=== PATIENT | female | born 1965 | race Caucasian/White ===

== ENCOUNTER 2017-07-06 15:20 | Emergency (ER) | payer OTHER, SELFPAY | END 2017-07-06 17:20 | disposition home or self-care (01) | PROVIDERS: Emergency Provider Nurse Practitioner; Family Provider Family Medicine Geriatric Medicine; Visit Provider Nurse Practitioner | DX: H60.91 Unspecified otitis externa, right ear (principal); J06.9 Acute upper respiratory infection, unspecified; Z87.891 Personal history of nicotine dependence; J44.9 Chronic obstructive pulmonary disease, unspecified; E78.5 Hyperlipidemia, unspecified; I10 Essential (primary) hypertension; I25.10 Atherosclerotic heart disease of native coronary artery without angina pectoris; Z79.82 Long term (current) use of aspirin | CPT/HCPCS: 96372; 99202 ==

== ENCOUNTER → 2017-08-30 15:11 | Outpatient (POV) | payer OTHER, SELFPAY | PROVIDERS: Family Provider Family Medicine Geriatric Medicine; Visit Provider Nurse Practitioner Acute Care | DX: Z00.00 Encounter for general adult medical examination without abnormal findings (principal) ==

== ENCOUNTER → 2017-12-17 10:55 | Outpatient (CLI) | payer OTHER, SELFPAY ==
[2017-12-17 11:25] VITALS: BP 113/70; PULSE 68; RESP 20; TEMP 36.9; O2SAT 96
[2017-12-17 12:10] VITALS: BP 116/72; PULSE 66; RESP 18; TEMP 36.9; O2SAT 96
== END ==
PROVIDERS: Family Provider Family Medicine Geriatric Medicine; PCP Family Medicine Geriatric Medicine; Visit Provider Nurse Practitioner Family
DX: K92.2 Gastrointestinal hemorrhage, unspecified (principal); D64.9 Anemia, unspecified
CPT/HCPCS: 96365

== ENCOUNTER 2017-12-28 15:19 | Outpatient (CLI) | payer OTHER, SELFPAY ==
[2017-12-28 15:40] VITALS: BP 101/62; PULSE 82; RESP 18; TEMP 36.3; O2SAT 97
[2017-12-28 16:00] VITALS: BP 125/67; PULSE 80; RESP 16; O2SAT 97
[2017-12-28 16:20] VITALS: BP 132/69; PULSE 79; RESP 18; O2SAT 96
[2017-12-28 16:45] VITALS: BP 124/68; PULSE 75; RESP 18; TEMP 36.6; O2SAT 98
== END 2017-12-28 16:45 | disposition home or self-care (01) ==
LOC: INF 15:19
PROVIDERS: Family Provider Family Medicine Geriatric Medicine; PCP Family Medicine Geriatric Medicine; Visit Provider Nurse Practitioner Family
DX: K92.2 Gastrointestinal hemorrhage, unspecified (principal); D64.9 Anemia, unspecified
CPT/HCPCS: 96365; J1756

== ENCOUNTER 2018-01-05 15:00 | Outpatient (CLI) | payer OTHER, SELFPAY ==
[2018-01-05 15:45] VITALS: BP 100/66; PULSE 80; RESP 18; TEMP 36.9; O2SAT 96
[2018-01-05 16:20] VITALS: BP 120/65; PULSE 76; RESP 16
== END 2018-01-05 16:30 | disposition home or self-care (01) ==
LOC: INF 15:12
PROVIDERS: Family Provider Family Medicine Geriatric Medicine; PCP Family Medicine Geriatric Medicine; Visit Provider Nurse Practitioner Family
DX: K92.2 Gastrointestinal hemorrhage, unspecified (principal); D64.9 Anemia, unspecified
CPT/HCPCS: 96365; J1756

== ENCOUNTER 2018-01-11 15:00 | Outpatient (CLI) | payer OTHER, SELFPAY ==
[2018-01-11 15:37] VITALS: BP 121/65; PULSE 82; RESP 18; TEMP 36.6; O2SAT 97
[2018-01-11 16:00] VITALS: BP 118/68; PULSE 79; RESP 18; TEMP 36.6; O2SAT 97
[2018-01-11 16:25] VITALS: BP 126/79; PULSE 76; RESP 16; TEMP 36.6; O2SAT 96
== END 2018-01-11 16:20 | disposition home or self-care (01) ==
LOC: INF 15:13
PROVIDERS: Family Provider Family Medicine Geriatric Medicine; PCP Family Medicine Geriatric Medicine; Visit Provider Internal Medicine
DX: K92.2 Gastrointestinal hemorrhage, unspecified (principal); D64.9 Anemia, unspecified
CPT/HCPCS: 96365; J1756

== ENCOUNTER → 2018-02-25 09:56 | Outpatient (CLI) | payer OTHER, SELFPAY ==
[2018-02-25 12:01] LABS: Alanine Aminotransferase 29 U/L (12-78); Albumin Level 3.8 gm/dL (3.4-5.0); Alkaline Phosphatase 125 U/L (46-116); Anion Gap 13.4 mEq/L (5-15); Aspartate Amino Transferase 16 U/L (15-37); Bilirubin,Direct 0.1 mg/dL (0.0-0.2); Bilirubin,Indirect 0.2 mg/dL (0.0-0.9); Bilirubin,Total 0.3 mg/dL (0.2-1.0); Blood Urea Nitrogen 11 mg/dL (7-18); Calcium 9.4 mg/dL (8.5-10.1); Carbon Dioxide 28 mmol/L (21.0-32.0); Chloride 106 mmol/L (98-107); Cholesterol 185 mg/dL (140-200); Creatinine,Serum 0.78 mg/dL (0.55-1.02); Estimated Glomerular Filt Rate 77 ml/min (>60); GFR (African American) 93 ML/MIN (>60); Glucose 113 mg/dL (74-106); HDL Cholesterol 31 mg/dL (29-89); LDL Cholesterol 128 mg/dL (0-130); Potassium 4.4 mmoL/L (3.5-5.1); Sodium 143 mmol/L (136-145); Total Protein,Serum 6.9 gm/dL (6.4-8.2); Triglycerides 131 mg/dL (30-200); VLDL Cholesterol 26 mg/dL (0-40)
== END ==
PROVIDERS: Family Provider Family Medicine Geriatric Medicine; PCP Family Medicine Geriatric Medicine; Visit Provider Internal Medicine Cardiovascular Disease
DX: I25.10 Atherosclerotic heart disease of native coronary artery without angina pectoris (principal); E78.4 Other hyperlipidemia; I10 Essential (primary) hypertension; F17.200 Nicotine dependence, unspecified, uncomplicated
CPT/HCPCS: 36415; 80048; 80061; 80076

== ENCOUNTER 2018-11-15 21:40 | Observation (INO) ==
[2018-11-15 22:05] LABS: Basophils # 0.1 K/mm3 (0-0.2); Basophils % 0.6 % (0.1-2.0); Eosinophils # 0.2 K/mm3 (0.0-0.4); Eosinophils % 2.6 % (0.1-12.0); Hematocrit 39.1 % (37.0-47.0); Hemoglobin 13.3 g/dL (12.2-16.2); Lymphocytes # 2.6 K/mm3 (0.7-4.5); Lymphocytes % 35.8 % (10-50); Mean Corpuscular HGB Conc 34.1 g/dL (31.8-35.4); Mean Corpuscular Hemoglobin 28.2 pg (27.0-31.2); Mean Corpuscular Volume 82.7 fl (81-99); Monocytes # 0.4 K/mm3 (0.1-1.0); Neutrophils # 3.9 K/mm3 (1.8-7.8); Platelet Count 257 K/mm3 (142-424); Red Blood Count 4.73 M/mm3 (4.20-5.40); Red Cell Distribution Width 13.6 % (11.5-17.5); White Blood Count 7.1 K/mm3 (4.8-10.8)
[2018-11-15 22:21] LABS: Alanine Aminotransferase 24 U/L (12-78); Albumin Level 3.7 gm/dL (3.4-5.0); Alkaline Phosphatase 130 U/L (46-116); Anion Gap 12.5 mEq/L (5-15); Aspartate Amino Transferase 17 U/L (15-37); Bilirubin,Total 0.4 mg/dL (0.2-1.0); Blood Urea Nitrogen 10 mg/dL (7-18); Carbon Dioxide 27 mmol/L (21.0-32.0); Chloride 103 mmol/L (98-107); Glucose 186 mg/dL (74-106); Potassium 3.5 mmoL/L (3.5-5.1); Sodium 139 mmol/L (136-145); Total Protein,Serum 7.5 gm/dL (6.4-8.2)
[2018-11-15 22:24] LABS: Bilirubin,Indirect 0.4 mg/dL (0.0-0.9)
--- NOTE | 2018-11-15 23:22 | Emergency Department Note ---
ED Disposition Clinical Impression: Angina at rest, Tobacco dependence syndrome CAD (coronary artery disease) Qualifiers: Coronary Disease-Associated Artery/Lesion type: unspecified vessel or lesion type [place] vs. transplanted heart: [place] heart Associated angina: with unstable angina Qualified Code(s): I25.110 - Atherosclerotic heart disease of [place] coronary artery with unstable angina pectoris Disposition: Admitted as Observation Condition on Discharge: Good Referrals: Provider,Referral, [Primary Care Provider] - - Critical Care Critical Care Time: No Attestation: On 11/15/18, the high probability of a clinically significant, sudden or life threatening deterioration of the following system(s) required my full and direct attention, intervention and personal management. The time I documented below is in addition to time spent performing reported procedures but includes the following listed in this critical care notation. Medical Decision Making - Medical Records Medical records reviewed: Yes: I reviewed the patient's medical records. - [place] Inquiry Pt receiving controlled substance: No Vital Signs: 11/15/18 21:40 11/15/18 22:40 11/15/18 23:04 Temperature 98.6 F 98.5 F 98.1 F Temperature Source Oral Oral Oral Pulse Rate [Right] 68 69 68 Respiratory Rate 20 15 16 Blood Pressure [Right Arm] 168/76 H 133/73 133/73 Blood Pressure Mean [Right Arm] 106 93 93 Blood Pressure Source [Right Arm] Automatic Cuff Blood Pressure Position [Right Arm] Sitting 02 Sat by Pulse Oximetry 97 96 96 Oxygen Delivery Method Room Air - Lab Data Lab results reviewed: Yes: I reviewed the patient's lab results. Lab Results 11/15/18 21:55: WBC 7.1, RBC 4.73, Hgb 13.3, Hct 39.1, MCV 82.7, MCH 28.2, MCHC 34.1, RDW 13.6, Plt Count 257, MPV 7.0 L, Neut % (Auto) 55.0, Lymph % (Auto) 35.8, [place] % (Auto) 6.0, Eos % (Auto) 2.6, Baso % (Auto) 0.6, Neut # (Auto) 3.9, Lymph # (Auto) 2.6, [place] # (Auto) 0.4, Eos # (Auto) 0.2, Baso # (Auto) 0.1 11/15/18 21:55: Sodium 139, Potassium 3.5, Chloride 103, Carbon Dioxide 27, Anion Gap 12.5, BUN 10, Creatinine 0.75, Estimated Creat Clear 97, Estimated GFR 81, Est GFR ( Amer) 97, Glucose 186 H, Calcium 9.0, Total Bilirubin 0.4, Direct Bilirubin 0.0, Indirect Bilirubin 0.4, AST 17, ALT 24, Alkaline Phosphatase 130 H, Troponin I < 0.02, Total Protein 7.5, Albumin 3.7 Result diagrams: 11/15/18 21:55 11/15/18 21:55 Orders (Tests/Meds): ED MEDICATIONS Generic Name Dose Route Start Last Admin Trade Name Freq PRN Reason Stop Dose Admin Sodium Chloride 1,000 mls @ 999 mls/hr 11/15/18 22:00 11/15/18 22:23 Sod Chlor 0.9% 1000ml Bag IV 11/15/18 23:00 999 mls/hr .Q1H1M MAGALI Administration Ketorolac Tromethamine 30 mg 11/15/18 23:15 Toradol 30mg/Ml Vial IV 11/15/18 23:16 ONCE ONE Nitroglycerin 1 gm 11/15/18 23:15 Nitroglycerin 1 Inch Oint Udp TD 11/15/18 23:16 ONCE ONE Discontinued Medications Generic Name Dose Route Start Last Admin Trade Name Freq PRN Reason Stop Dose Admin Aspirin 243 mg 11/15/18 21:50 11/15/18 22:23 Aspirin 81mg Chewable Tablet PO 11/15/18 21:51 243 mg ONCE ONE Administration Nitroglycerin 0.4 mg 11/15/18 21:50 Nitrostat 0.4mg Sl Tablet SL 11/15/18 21:51 ONCE ONE ORDERS Category Date Time Status 12-lead EKG Request [ECG Request by /Li] Stat Y 11/15/18 21:49 Ordered - Radiology Data #1 Image(s): Chest Image Reviewed: Yes I reviewed the patient's radiology image Preliminary Findings: Normal/NAD - ECG Data Tracing #1 Normal Sinus Rhythm: Yes Ischemic changes: non-specific ST-T wave changes - Physician Consults Physician Consulted: hernandez Reason -: Admission Chest Pain HPI - General Chief Complaint: Chest Pain Stated Complaint: chest pain Time Seen by Provider: 11/15/18 21:50 Mode of Arrival: Ambulatory Source of Information: Patient, Spouse, Medical Record Limitations: No Limitations Description of Symptoms (Recalled from ER Triage Doc. by RN): Pt having left sided CP with numbness and tingling in her left arm, with SOA for the past few days. - History of Present Illness HPI narrative: pt with known heart disease with tob use and stents 2 yrs ago with sob with exertion and chest tightness at times over the last 2 days MD complaint: chest pain indicative of cardiac Onset (ago): day(s) Duration: intermittent Activity at onset: during rest Pain location: substernal Severity: similar to previous episodes Quality: tightness Pain radiation: LUE Associated symptoms: dyspnea Risk Factors for CAD: Hypertension, Family Hx of CAD, Smoking Treatments prior to or on arrival for Cardiac Chest Pain: none - ROSHAN Score for Non-Stemi Age of Patient: 50-59 years old Heart Rate: 50-69 bpm Systolic Blood Pressure: 160-199 mmHg Serum Creatinine: 0.40-0.79 mg/dl CHF [place] Class: I-No CHF Other Risk Factors: None Non-Stemi Risk Score: 58 - Related Data Prior Cardiac Testing/Procedures: Stenting On Oral Contraceptives: No Home Medications Medication Instructions Recorded Confirmed aspirin 81 mg tablet,delayed 81 mg PO ONCE tab 08/26/17 06/17/18 release nitroglycerin 0.4 mg sublingual 0.4 mg SUBLINGUAL Q5M PRN 08/26/17 06/17/18 tablet Isosorbide Mononitrate [Imdur 30mg 30 mg PO QAM 10/13/17 06/17/18 ER tablet] omeprazole 40 mg capsule,delayed 40 mg PO DAILY cap 10/25/17 06/17/18 release Losartan Potassium [Cozaar] 50 mg PO DAILY 12/17/17 06/17/18 potassium chloride ER 8 mEq 8 meq PO BID tab 02/25/18 06/17/18 tablet,extended release Previous Rx's Medication Instructions Recorded atorvastatin 80 mg tablet 80 mg PO DAILY #30 tab 06/17/18 prasugrel 10 mg tablet 10 mg PO DAILY #30 tab 08/26/18 bisoprolol fumarate 5 mg tablet 5 mg PO ONCE #30 tab 09/09/18 Allergies Allergy/AdvReac Type Severity Reaction Status Date / Time oxycodone [OXYCODONE] Allergy Severe Swelling Verified 06/17/18 10:29 of Lip/Tongue/Throat levofloxacin [From LEVAQUIN] Allergy Intermediate Verified 06/17/18 10:29 codeine [CODEINE] Allergy Mild Verified 06/17/18 10:29 morphine [MORPHINE] Allergy Unknown Verified 06/17/18 10:29 [facility] History - Hepatitis A Screen Drug use history?: No High risk sexual behaviors?: No History of sexually transmitted infection?: No Currently employed?: No Childcare worker?: No Do you have indoor plumbing?: Yes Do you have electricity?: Yes Attestation statement:: This patient has been screened for Hepatitis A risk factors. I have reviewed the patient's past medical history: Yes Medical History: Reports:: Cancer, Chronic Obstructive Pulmonary Disease (COPD), Coronary Artery Disease, Gastroesophageal Reflux Disease(GERD), Hyperlipidemia, Hypertension Denies:: Diabetes Mellitus Type 1, Diabetes Mellitus Type 2, Internal Pacemaker, Lung Disease, Seizures Comment: AVA, Angina Laterality Cases: Left: Arthroscopy Shoulder, Right: Total Hip Replacement Other Surgeries: Yes: Angioplasty, Appendectomy, Cholecystectomy, Colonoscopy (2018), Coronary Stent, EGD (2018), Hysterectomy-Total, Tubal Ligation, Other (cholecystectomy,rhinoplasty). No: Pacemaker - Social History Smoking Status: Current every day smoker # Packs/Day (cigarettes): 1 Alcohol Intake: never Alcohol Intake Frequency:: holidays/special occasions only Occupational Status: employed - Psychiatric History Expresses thoughts of harming self/others: None Suicide Plan Description: No Plan Family Hx:: No significant family history ROS Obtained: Yes All systems reviewed & no additional complaints - Constitutional Constitutional: Denies fever(s) - Eyes Eyes: Denies change in vision - ENT Ears, Nose, Mouth, and Throat: Denies sore throat - Cardiovascular Cardiovascular: Reports chest pain, Denies dyspnea, Reports dyspnea on exertion - Respiratory Respiratory: Yes non-productive cough, Yes wheezing - Gastrointestinal Gastrointestingal: Denies: vomiting - Genitourinary Female Genitourinary: Denies flank pain - Musculoskeletal Musculoskeletal: Denies joint pain, Denies joint swelling - Integumentary/Breasts Skin/Breast: Denies rash - Neurologic Neurologic: Denies seizure-like activity Physical Exam - General General appearance: alert - Head Head exam: normocephalic - Eye Eye exam: Present: PERRL, EOMI - ENT ENT exam: Present: mucous membranes dry - Neck Neck exam: Absent: trachea midline - Respiratory Respiratory exam: Present: normal lung sounds bilaterally. Absent: respiratory distress - Cardiovascular Cardiovascular exam: Present: regular rate, systolic murmur, +S4 - Abdominal Exam Abdominal exam: Present: soft - Extremities Exam Extremities exam: Absent: calf tenderness - Neurological Exam Neurological exam: Present: alert, oriented X3, CN II-XII intact - Psychiatric Psychiatric exam: Present: normal affect - Skin Skin exam: Absent: rash
[2018-11-16 05:38] LABS: Basophils # 0.1 K/mm3 (0-0.2); Basophils % 0.9 % (0.1-2.0); Eosinophils # 0.2 K/mm3 (0.0-0.4); Eosinophils % 2.6 % (0.1-12.0); Hematocrit 36.6 % (37.0-47.0); Hemoglobin 12.5 g/dL (12.2-16.2); Lymphocytes # 2.4 K/mm3 (0.7-4.5); Lymphocytes % 41.7 % (10-50); Mean Corpuscular Hemoglobin 28.3 pg (27.0-31.2); Mean Corpuscular Volume 83.1 fl (81-99); Mean Platelet Volume 7.8 fl (7.4-10.4); Monocytes # 0.4 K/mm3 (0.1-1.0); Monocytes % 6.7 % (1.7-9.3); Neutrophils # 2.8 K/mm3 (1.8-7.8); Neutrophils % 48.1 % (37.0-80.0); Platelet Count 237 K/mm3 (142-424); Red Blood Count 4.41 M/mm3 (4.20-5.40); Red Cell Distribution Width 13.5 % (11.5-17.5); White Blood Count 5.8 K/mm3 (4.8-10.8)
[2018-11-16 05:57] LABS: Anion Gap 9.5 mEq/L (5-15); Calcium 8.4 mg/dL (8.5-10.1); Chol/HDL Ratio 6.2 (1-3.5); Potassium 3.5 mmoL/L (3.5-5.1)
--- NOTE | 2018-11-16 07:45 | History & Physical Report ---
*Admission Date: 11/16/18 *Chief complaint: Left upper chest and arm pain *History of present illness: 53-year-old female with history of coronary artery disease and previous stenting in 2017 presented to the emergency department with 2 to 3 days of intermittent episodes of discomfort in the left upper chest with tingling that radiating into the left shoulder all the way down to the fingers. She also experienced same discomfort across the left side of her back. She had associated dyspnea. Patient had minimized her symptoms until yesterday when they became more intense and she admits they were somewhat reminiscent of her "heart attack" previously and came to the emergency department. In the ER she underwent evaluation. First troponin was negative. Patient was admitted for rule out of VT with serial enzymes and cardiology has been consulted as patient's oil changer is Dr. Lee. This morning she is pain-free. She denies shortness of breath. She continues to smoke about 1-1/2 pack of cigarettes per day [facility] History I have reviewed the patient's past medical history: Yes Medical History: Reports:: Cancer, Chronic Obstructive Pulmonary Disease (COPD), Coronary Artery Disease, Gastroesophageal Reflux Disease(GERD), Hyperlipidemia, Hypertension, Myocardial Infarction Denies:: Diabetes Mellitus Type 1, Diabetes Mellitus Type 2, Internal Pacemaker, Lung Disease, MRSA, Seizures *Have you ever received a pneumonia vaccine?: No *Have you received a flu vaccine this season?: Yes Laterality Cases: Left: Arthroscopy Shoulder, Right: Total Hip Replacement Other Surgeries: Yes: Angioplasty, Appendectomy, Cardiac Catheterization, Cholecystectomy, Colonoscopy, Coronary Stent, EGD (2018), Hysterectomy-Total, Tubal Ligation, Other. No: Pacemaker Amputation: No Fractures: No - *Social History Educational Level: Attended College Smoking Status: Current every day smoker Tobacco Type: cigarettes # Packs/Day (cigarettes): 1 Alcohol Intake: never Alcohol Intake Frequency:: holidays/special occasions only *Occupational Status:: employed Household Members: spouse *Travel in the last 8 weeks: None - Psychiatric History Expresses thoughts of harming self/others: None Suicide Plan Description: No Plan Family Hx:: No significant family history Review of Systems - Review of Systems Review of systems:: pertinent systems reviewed and negative unless documented below - *Neurologic Denies seizure-like activity Meds Home Medications Medication Instructions Recorded Confirmed Type aspirin 81 mg tablet,delayed 81 mg PO DAILY tab 08/26/17 11/16/18 History release Isosorbide Mononitrate [Imdur 30mg 30 mg PO DAILY 10/13/17 11/16/18 History ER tablet] omeprazole 40 mg capsule,delayed 40 mg PO DAILY cap 10/25/17 11/15/18 History release Losartan Potassium [Cozaar] 50 mg PO DAILY 12/17/17 11/15/18 History prasugrel 10 mg tablet 10 mg PO DAILY #30 tab 08/26/18 11/15/18 Rx Bisoprolol Fumarate [Zebeta 5mg 5 mg PO DAILY 11/15/18 11/16/18 History tablet] Atorvastatin Calcium [Atorvastatin 80 mg PO HS 11/16/18 11/16/18 History 80mg Tab] Allergies Allergy/AdvReac Type Severity Reaction Status Date / Time oxycodone [OXYCODONE] Allergy Severe Swelling Verified 06/17/18 10:29 of Lip/Tongue/Throat levofloxacin [From LEVAQUIN] Allergy Intermediate Verified 06/17/18 10:29 codeine [CODEINE] Allergy Mild Verified 06/17/18 10:29 morphine [MORPHINE] Allergy Unknown Verified 06/17/18 10:29 Exam Vital signs and Labs for Last 24 Hours: Temp Pulse Resp BP Pulse Ox 97.3 F L 59 L 20 135/68 97 11/16/18 04:00 11/16/18 04:00 11/16/18 04:00 11/16/18 04:00 11/16/18 04:00 Laboratory Results - last 24 hr 11/15/18 21:55: WBC 7.1, RBC 4.73, Hgb 13.3, Hct 39.1, MCV 82.7, MCH 28.2, MCHC 34.1, RDW 13.6, Plt Count 257, MPV 7.0 L, Neut % (Auto) 55.0, Lymph % (Auto) 35.8, [place] % (Auto) 6.0, Eos % (Auto) 2.6, Baso % (Auto) 0.6, Neut # (Auto) 3.9, Lymph # (Auto) 2.6, [place] # (Auto) 0.4, Eos # (Auto) 0.2, Baso # (Auto) 0.1 11/15/18 21:55: Sodium 139, Potassium 3.5, Chloride 103, Carbon Dioxide 27, Anion Gap 12.5, BUN 10, Creatinine 0.75, Estimated Creat Clear 97, Estimated GFR 81, Est GFR ( Amer) 97, Glucose 186 H, Calcium 9.0, Total Bilirubin 0.4, Direct Bilirubin 0.0, Indirect Bilirubin 0.4, AST 17, ALT 24, Alkaline Phosphatase 130 H, Troponin I < 0.02, Total Protein 7.5, Albumin 3.7 11/16/18 02:37: Troponin I < 0.02 11/16/18 05:32: Troponin I < 0.02 11/16/18 05:32: WBC 5.8, RBC 4.41, Hgb 12.5, Hct 36.6 L, MCV 83.1, MCH 28.3, MCHC 34.0, RDW 13.5, Plt Count 237, MPV 7.8, Neut % (Auto) 48.1, Lymph % (Auto) 41.7, [place] % (Auto) 6.7, Eos % (Auto) 2.6, Baso % (Auto) 0.9, Neut # (Auto) 2.8, Lymph # (Auto) 2.4, [place] # (Auto) 0.4, Eos # (Auto) 0.2, Baso # (Auto) 0.1 11/16/18 05:32: Sodium 140, Potassium 3.5, Chloride 107, Carbon Dioxide 27, Anion Gap 9.5, BUN 11, Creatinine 0.66, Estimated Creat Clear 109, Estimated GFR 93, Est GFR ( Amer) 113, Glucose 111 H D, Calcium 8.4 L, Magnesium 2.0, Triglycerides 101, Cholesterol 161, LDL Cholesterol 115, VLDL Cholesterol 20, HDL Cholesterol 26 L, Cholesterol/HDL Ratio 6.2 H I & O for Last 24 hours: Intake & Output 11/13/18 11/14/18 11/15/18 11/16/18 11:59 11:59 11:59 11:59 Intake Total 263 / 263 Balance 263 / 263 Weight 156 lb 5 oz - Constitutional no acute distress - *Routine HEENT Exam Head: Present: normocephalic Eye: Present: EOMI, PERRL ENT: Present: mucous membranes moist - *Routine Neck Exam Absent: JVD - *Routine Respiratory Exam Present: CTA bilaterally - *Routine Cardiovascular Exam Present: RRR, Normal S1, Normal S2 - *Routine Abdominal Exam Present: soft - *Routine Extremities Exam Absent: clubbing, edema Assessment and Plan (1) Angina at rest Current visit: Yes Status: Acute Category: Medical Code(s): I20.8 - Other forms of angina pectoris (2) CAD (coronary artery disease) Current visit: Yes Status: Acute Qualifiers: Coronary Disease-Associated Artery/Lesion type: unspecified vessel or lesion type [place] vs. transplanted heart: [place] heart Associated angina: with unstable angina Qualified Code(s): I25.110 - Atherosclerotic heart disease of [place] coronary artery with unstable angina pectoris Category: Medical Code(s): I25.10 - Atherosclerotic heart disease of [place] coronary artery without angina pectoris (3) Tobacco dependence syndrome Current visit: Yes Status: Acute Category: Medical Code(s): F17.200 - [place] dependence, unspecified, uncomplicated - Assessment and plan all Dx Assessment and Plan for all problems:: Patient is ruled out for VT. Await cardiology evaluation
--- NOTE | 2018-11-16 07:56 | Pharmacy Consult Notes ---
[facility] Pharmacy VTE Monitoring - Patient Demographics Admission date: 11/15/18 Report Date: 11/16/18 Time: 07:55 Allergies/Adverse Reactions: Patient Allergies oxycodone [OXYCODONE] Allergy (Severe, Verified 06/17/18 10:29) Swelling of Lip/Tongue/Throat levofloxacin [From LEVAQUIN] Allergy (Intermediate, Verified 06/17/18 10:29) codeine [CODEINE] Allergy (Mild, Verified 06/17/18 10:29) morphine [MORPHINE] Allergy (Unknown, Verified 06/17/18 10:29) Height: 1.6 m Weight: 70.902 kg Patient Problems: Current Active Problems (Updated 11/15/18 @ 23:28 by Hari Holliday MD) CAD (coronary artery disease) (Acute) Angina at rest (Acute) Tobacco dependence syndrome (Acute) - VTE Risk Labs: VTE Related Lab Results Hgb 12.5 g/dL (12.2-16.2) 11/16/18 05:32 Hct 36.6 % (37.0-47.0) L 11/16/18 05:32 Plt Count 237 K/mm3 (142-424) 11/16/18 05:32 BUN 11 mg/dL (7-18) 11/16/18 05:32 Creatinine 0.66 mg/dL (0.55-1.02) 11/16/18 05:32 Estimated Creat Clear 109 mL/min (50-200) 11/16/18 05:32 Was VTE Risk Assessment Performed: Yes VTE Score: 5 VTE Risk Level: Low Risk Clinical Trial Participant: No - Prophylaxis VTE Prophylaxis Ordered?: Yes Types of VTE Prophylaxis: TEDS Knee High Location of Applied Device: Not Applicable
--- NOTE | 2018-11-16 09:32 | Consult Report ---
History of Present Illness Consult date: 11/16/18 Requesting physician: Aman Santos Consult reason: chest pain Chief complaint: chest pain Additional Medical History:: 1. CAD A. History of [place] with subsequent coronary stenting, 2011 B. Positive stress test, 2013, with subsequent cath without need for stenting but reportedly had some CAD. Performed in [place], Dr. Benny Porter [facility], 10/2016, JAY to LAD ANGIOGRAPHIC RESULTS: 1. The left main artery normal 2. The left anterior descending artery proximally is normal however there is a 50% diameter stenosis after the second septal nozzle and sleeve worker followed by an additional 30% stenosis. 3. The circumflex artery is nondominant and has mild luminal irregularities 4. The right coronary artery is a dominant vessel and has a stent which extends from the proximal segment all the way through the distal segment. The stent has mild to moderate 30% concentric in-stent restenosis. 5. The FRANKS ventriculogram reveals normal 65% 6. The left ventricular end-diastolic pressure 10 mmHg IMPRESSION: 1. Angiographically indeterminate disease involving the mid LAD which produced a severe ischemic response to adenosine with an FFR index of at least 0.73 2. Successful stenting of the mid LAD hemodynamically severe stenosis reduced to 0% with 1 drug-eluting stent 3. Patent stents throughout the proximal mid distal dominant right coronary artery with mild in-stent restenosis 4. Normal ejection fraction 5. Normal left ventricular end-diastolic pressure PLAN: 1. Effient and aspirin for one year 2. LDL less than 70 3. Standard risk factor stratification D. Lexiscan myoview, 05/2017, No ischemia, LVEF 62% with no wall motion abnormalities. 2. HTN A. Echo, 05/2017, mild left atrial enlargement, normal LV size and function of 55% with mild concentric LVH. Aortic valve is thickened and calcified but normal mobility. Moderate aortic regurgitation, mild MR and TR. RVSP 38 mmHg with mild pulmonary hypertension and grade 1 diastolic dysfunction. 3. Hyperlipidemia, reportedly can only tolerate [place] 4. FH of CAD, mother with stents in her 50's 5. Tobacco use, 1 ppd, continued 6. AVA, uses CPAP History of present illness: 53-year-old female with history of coronary artery disease and previous stenting in 2016 presented to the emergency department with 2 to 3 days of intermittent episodes of discomfort in the left upper chest with tingling that radiating into the left shoulder all the way down to the fingers. She also experienced same discomfort across the left side of her back. She had associated dyspnea. Patient had minimized her symptoms until yesterday when they became more intense and she admits they were somewhat reminiscent of her "heart attack" previously and came to the emergency department. In the ER she underwent evaluation. First troponin was negative. Patient was admitted for rule out of [place] with serial enzymes and cardiology has been consulted as patient's senior manufacturing supervisor is Dr. Lee. This morning she is pain-free. She denies shortness of breath. She continues to smoke about 1-1/2 pack of cigarettes per day The above per Dr. Santos. Agree with above. Patient relates that she received significant relief using nitroglycerin paste in the ER last evening and she has had no recurrence of chest pain overnight. [facility] History Medical History: Reports:: Cancer, Chronic Obstructive Pulmonary Disease (COPD), Coronary Artery Disease, Gastroesophageal Reflux Disease(GERD), Hyperlipidemia, Hypertension, Myocardial Infarction Denies:: Diabetes Mellitus Type 1, Diabetes Mellitus Type 2, Internal Pacemaker, Lung Disease, MRSA, Seizures *Have you ever received a pneumonia vaccine?: No *Have you received a flu vaccine this season?: Yes Laterality Cases: Left: Arthroscopy Shoulder, Right: Total Hip Replacement Other Surgeries: Yes: Angioplasty, Appendectomy, Cardiac Catheterization, Cholecystectomy, Colonoscopy, Coronary Stent, EGD (2018), Hysterectomy-Total, Tubal Ligation, Other. No: Pacemaker Amputation: No Fractures: No - *Social History Educational Level: Attended College Smoking Status: Current every day smoker Tobacco Type: cigarettes # Packs/Day (cigarettes): 1 Alcohol Intake: never Alcohol Intake Frequency:: holidays/special occasions only *Occupational Status:: employed Household Members: spouse *Travel in the last 8 weeks: None - Psychiatric History Expresses thoughts of harming self/others: None Suicide Plan Description: No Plan Family Hx:: No significant family history Meds Home Medications Medication Instructions Recorded Confirmed Type aspirin 81 mg tablet,delayed 81 mg PO DAILY tab 08/26/17 11/16/18 History release Isosorbide Mononitrate [Imdur 30mg 30 mg PO DAILY 10/13/17 11/16/18 History ER tablet] omeprazole 40 mg capsule,delayed 40 mg PO DAILY cap 10/25/17 11/15/18 History release Losartan Potassium [Cozaar] 50 mg PO DAILY 12/17/17 11/15/18 History prasugrel 10 mg tablet 10 mg PO DAILY #30 tab 08/26/18 11/15/18 Rx Bisoprolol Fumarate [Zebeta 5mg 5 mg PO DAILY 11/15/18 11/16/18 History tablet] Atorvastatin Calcium [Atorvastatin 80 mg PO HS 11/16/18 11/16/18 History 80mg Tab] Allergies Allergy/AdvReac Type Severity Reaction Status Date / Time oxycodone [OXYCODONE] Allergy Severe Swelling Verified 06/17/18 10:29 of Lip/Tongue/Throat levofloxacin [From LEVAQUIN] Allergy Intermediate Verified 06/17/18 10:29 codeine [CODEINE] Allergy Mild Verified 06/17/18 10:29 morphine [MORPHINE] Allergy Unknown Verified 06/17/18 10:29 Review of Systems - *Cardiovascular Reports chest pain, Reports shortness of breath with activity - *Respiratory Reports chest congestion, Reports cough, Reports shortness of breath with activity - *Gastrointestinal Denies loose stools, Denies nausea, Denies vomiting - *Genitourinary Denies blood in urine, Denies pelvic pain - *Musculoskeletal Denies joint pain, Denies back pain - *Neurologic Denies seizure-like activity Exam Vital signs and Labs for Last 24 Hours: Temp Pulse Resp BP Pulse Ox 98.4 F 64 16 127/67 97 11/16/18 08:00 11/16/18 08:00 11/16/18 08:00 11/16/18 08:00 11/16/18 08:00 Laboratory Results - last 24 hr 11/15/18 21:55: WBC 7.1, RBC 4.73, Hgb 13.3, Hct 39.1, MCV 82.7, MCH 28.2, MCHC 34.1, RDW 13.6, Plt Count 257, MPV 7.0 L, Neut % (Auto) 55.0, Lymph % (Auto) 35.8, [place] % (Auto) 6.0, Eos % (Auto) 2.6, Baso % (Auto) 0.6, Neut # (Auto) 3.9, Lymph # (Auto) 2.6, [place] # (Auto) 0.4, Eos # (Auto) 0.2, Baso # (Auto) 0.1 11/15/18 21:55: Sodium 139, Potassium 3.5, Chloride 103, Carbon Dioxide 27, Anion Gap 12.5, BUN 10, Creatinine 0.75, Estimated Creat Clear 97, Estimated GFR 81, Est GFR ( Amer) 97, Glucose 186 H, Calcium 9.0, Total Bilirubin 0.4, Direct Bilirubin 0.0, Indirect Bilirubin 0.4, AST 17, ALT 24, Alkaline Phosphatase 130 H, Troponin I < 0.02, Total Protein 7.5, Albumin 3.7 11/16/18 02:37: Troponin I < 0.02 11/16/18 05:32: Troponin I < 0.02 11/16/18 05:32: WBC 5.8, RBC 4.41, Hgb 12.5, Hct 36.6 L, MCV 83.1, MCH 28.3, MCHC 34.0, RDW 13.5, Plt Count 237, MPV 7.8, Neut % (Auto) 48.1, Lymph % (Auto) 41.7, [place] % (Auto) 6.7, Eos % (Auto) 2.6, Baso % (Auto) 0.9, Neut # (Auto) 2.8, Lymph # (Auto) 2.4, [place] # (Auto) 0.4, Eos # (Auto) 0.2, Baso # (Auto) 0.1 11/16/18 05:32: Sodium 140, Potassium 3.5, Chloride 107, Carbon Dioxide 27, Anion Gap 9.5, BUN 11, Creatinine 0.66, Estimated Creat Clear 109, Estimated GFR 93, Est GFR ( Amer) 113, Glucose 111 H D, Calcium 8.4 L, Magnesium 2.0, Triglycerides 101, Cholesterol 161, LDL Cholesterol 115, VLDL Cholesterol 20, HDL Cholesterol 26 L, Cholesterol/HDL Ratio 6.2 H I & O for Last 24 hours: Intake & Output 11/13/18 11/14/18 11/15/18 11/16/18 11:59 11:59 11:59 11:59 Intake Total 263 / 263 Balance 263 / 263 Weight 156 lb 5 oz - *Routine HEENT Exam Head: Present: normocephalic Eye: Present: EOMI, PERRL ENT: Present: mucous membranes moist - *Routine Neck Exam Present: supple. Absent: JVD, carotid bruit - *Routine Respiratory Exam Present: decreased breath sounds, wheezes. Absent: accessory muscle use, rales, rhonchi - *Routine Cardiovascular Exam Present: RRR. Absent: murmur, gallop, rubs - *Routine Abdominal Exam Present: soft. Absent: tenderness, distended, guarding - *Routine Extremities Exam Absent: edema, calf tenderness - *Routine Neurological Exam Present: alert, oriented X3, moving all extremities Assessment and Plan (1) Angina at rest Current visit: Yes Status: Acute Category: Medical Code(s): I20.8 - Other forms of angina pectoris (2) CAD (coronary artery disease) Current visit: Yes Status: Acute Qualifiers: Coronary Disease-Associated Artery/Lesion type: unspecified vessel or lesion type [place] vs. transplanted heart: [place] heart Associated angina: with unstable angina Qualified Code(s): I25.110 - Atherosclerotic heart disease of [place] coronary artery with unstable angina pectoris Category: Medical Code(s): I25.10 - Atherosclerotic heart disease of [place] coronary artery without angina pectoris (3) Tobacco dependence syndrome Current visit: Yes Status: Acute Category: Medical Code(s): F17.200 - Nicotine dependence, unspecified, uncomplicated - Assessment and plan all Dx Assessment and Plan for all problems:: 1. Recurrent chest pain reminiscent of angina pectoris prior to previous coronary stenting's in the past. Troponins have returned and EKG is sinus with no acute ST segment changes. Recommend proceeding with left heart catheterization today for further evaluation. Risks, benefits and procedure explained to the patient and she agrees to proceed. 2. Further recommendations to follow pending above results. 3. Smoking cessation encouraged
--- NOTE | 2018-11-16 16:39 | Discharge Summary ---
General - General Admission date:: 11/16/18 Discharge date: 11/16/18 HPI HPI: 53-year-old female with history of coronary artery disease and previous stenting in 2017 presented to the emergency department with 2 to 3 days of intermittent episodes of discomfort in the left upper chest with tingling that radiating into the left shoulder all the way down to the fingers. She also experienced same discomfort across the left side of her back. She had associated dyspnea. Patient had minimized her symptoms until yesterday when they became more intense and she admits they were somewhat reminiscent of her "heart attack" previously and came to the emergency department. In the ER she underwent evaluation. First troponin was negative. Patient was admitted for rule out of [place] with serial enzymes and cardiology has been consulted as patient's release specialist is Dr. Lee. This morning she is pain-free. She denies shortness of breath. She continues to smoke about 1-1/2 pack of cigarettes per day Hospital Course Hospital Course: Cardiac catheterization was performed and it was found that patient has mid to distal LAD stenosis (beyond LAD stent) of 70% and ostial disease of small diagonal with elevation LVEDP. Cardiology recommends diuretic therapy (lasix and aldactone) in addition to continued use of DAPT and beta salbador therapy. If patient continues to illicit issues of angina coronary stenting will be considered at that time. Patient will follow up with PCP next week. Will perform BMP with this visit. She will follow up cardiology in 1-2 weeks. Objective Vital signs: Temp Pulse Resp BP Pulse Ox 97.9 F 62 15 138/72 96 11/16/18 11:23 11/16/18 15:58 11/16/18 15:58 11/16/18 15:58 11/16/18 15:58 no acute distress, average body habitus - *Routine Respiratory Exam Present: CTA bilaterally. Absent: accessory muscle use - *Routine Cardiovascular Exam Present: RRR, Normal S1, Normal S2. Absent: tachycardia, irregular rhythm - *Routine Abdominal Exam Present: soft, normoactive bowel sounds - *Routine Extremities Exam Comments: right radial tband noted, no ecchymosis, swelling, or cyanosis noted, < 3 sec cap refill, fingers pink and warm - *Routine Neurological Exam Present: alert, oriented X3 - Routine Psychiatric Exam Present: normal affect Results Labs on day of discharge: Labs from last 24 hours 11/16/18 11/16/18 11/16/18 05:32 05:32 05:32 WBC 5.8 RBC 4.41 Hgb 12.5 Hct 36.6 L MCV 83.1 MCH 28.3 MCHC 34.0 RDW 13.5 Plt Count 237 MPV 7.8 Neut % (Auto) 48.1 Lymph % (Auto) 41.7 [place] % (Auto) 6.7 Eos % (Auto) 2.6 Baso % (Auto) 0.9 Neut # (Auto) 2.8 Lymph # (Auto) 2.4 [place] # (Auto) 0.4 Eos # (Auto) 0.2 Baso # (Auto) 0.1 Sodium 140 Potassium 3.5 Chloride 107 Carbon Dioxide 27 Anion Gap 9.5 BUN 11 Creatinine 0.66 Estimated Creat Clear 109 Estimated GFR 93 Est GFR ( Amer) 113 Glucose 111 H D Calcium 8.4 L Magnesium 2.0 Total Bilirubin Direct Bilirubin Indirect Bilirubin AST ALT Alkaline Phosphatase Troponin I < 0.02 Total Protein Albumin Triglycerides 101 Cholesterol 161 LDL Cholesterol 115 VLDL Cholesterol 20 HDL Cholesterol 26 L Cholesterol/HDL Ratio 6.2 H 11/16/18 11/15/18 11/15/18 02:37 21:55 21:55 WBC 7.1 RBC 4.73 Hgb 13.3 Hct 39.1 MCV 82.7 MCH 28.2 MCHC 34.1 RDW 13.6 Plt Count 257 MPV 7.0 L Neut % (Auto) 55.0 Lymph % (Auto) 35.8 [place] % (Auto) 6.0 Eos % (Auto) 2.6 Baso % (Auto) 0.6 Neut # (Auto) 3.9 Lymph # (Auto) 2.6 [place] # (Auto) 0.4 Eos # (Auto) 0.2 Baso # (Auto) 0.1 Sodium 139 Potassium 3.5 Chloride 103 Carbon Dioxide 27 Anion Gap 12.5 BUN 10 Creatinine 0.75 Estimated Creat Clear 97 Estimated GFR 81 Est GFR ( Amer) 97 Glucose 186 H Calcium 9.0 Magnesium Total Bilirubin 0.4 Direct Bilirubin 0.0 Indirect Bilirubin 0.4 AST 17 ALT 24 Alkaline Phosphatase 130 H Troponin I < 0.02 < 0.02 Total Protein 7.5 Albumin 3.7 Triglycerides Cholesterol LDL Cholesterol VLDL Cholesterol HDL Cholesterol Cholesterol/HDL Ratio DS: Diagnosis - Discharge Diagnosis (1) Angina at rest Status: Acute (2) CAD (coronary artery disease) Status: Acute (3) Tobacco dependence syndrome Status: Acute Discharge Plan - Patient Discharge Instructions ACTIVITY: Continue current activity DIET: low salt diet, cardiac - Follow up Plan Follow up with: Maxine Bills APRN [Nurse Practitioner] - 11/24/18 1:00 pm Disposition: Home, Self-Shelter Medications: Home Medications Medication Instructions Recorded Confirmed Type aspirin 81 mg tablet,delayed 81 mg PO DAILY tab 08/26/17 11/16/18 History release Isosorbide Mononitrate [Imdur 30mg 30 mg PO DAILY 10/13/17 11/16/18 History ER tablet] omeprazole 40 mg capsule,delayed 40 mg PO DAILY cap 10/25/17 11/15/18 History release Losartan Potassium [Cozaar] 50 mg PO DAILY 12/17/17 11/15/18 History prasugrel 10 mg tablet 10 mg PO DAILY #30 tab 08/26/18 11/15/18 Rx Bisoprolol Fumarate [Zebeta 5mg 5 mg PO DAILY 11/15/18 11/16/18 History tablet] Atorvastatin Calcium [Atorvastatin 80 mg PO HS 11/16/18 11/16/18 History 80mg Tab] Furosemide [Lasix 40mg tablet] 40 mg PO DAILY 30 Days #30 tab 11/16/18 Rx Polyethylene Glycol 3350 [Miralax 17 gm PO DAILY 11/16/18 11/16/18 History Powder] Psyllium Husk [Konsyl] 300 gm PO DIRECTED 11/16/18 11/16/18 History Spironolactone [Aldactone 25mg 25 mg PO DAILY 30 Days #30 tab 11/16/18 Rx Tab] Prescriptions/Medication Reconciliation: New Spironolactone [Aldactone 25mg Tab] 25 mg PO DAILY 30 Days #30 tab Furosemide [Lasix 40mg tablet] 40 mg PO DAILY 30 Days #30 tab Continued omeprazole 40 mg capsule,delayed release 40 mg PO DAILY cap aspirin 81 mg tablet,delayed release 81 mg PO DAILY tab prasugrel 10 mg tablet 10 mg PO DAILY #30 tab Isosorbide Mononitrate [Imdur 30mg ER tablet] 30 mg PO DAILY Losartan Potassium [Cozaar] 50 mg PO DAILY Bisoprolol Fumarate [Zebeta 5mg tablet] 5 mg PO DAILY Atorvastatin Calcium [Atorvastatin 80mg Tab] 80 mg PO HS Psyllium Husk [Konsyl] 300 gm PO DIRECTED Polyethylene Glycol 3350 [Miralax Powder] 17 gm PO DAILY
--- NOTE | 2018-11-17 14:25 | Cardiology Report ---
PROCEDURE: 2-D M-mode and color Doppler study INDICATIONS FOR THE TEST: Chest pain + COPD+ Heart Murmur Tobacco Smoking+ Palpitations Fatigue Syncope Edema Hypertension+Diabetes Mellitus Rheumatic Fever SOB+HERNANDEZ Obesity Hyperlipidemia+ Family History HD Additional History STENTS, CA, GERD, AVA PATIENT INFORMATION HEIGHT: 63 WEIGHT:158 GENDER: Female B/P:133/73 2-D/M-MODE INTERPRETATION: 2-D MEASUREMENTS OBSERVED VALUES IN CMS Right Ventricular Dimension (RVDd) 2.3 Interventricular Septum (Thickness)(IVsd) 1.5 Left Ventricular Internal Dimensions(LVIDd) 4.7 Left Ventricular Posterior Wall (Thickness)(LVPWd) 0.8 Aortic Root 3.0 Aortic Cusp Separation 2.0 Left Atrial Dimensions (LAD) 3.9 2D 1. Left atrium is mildly enlarged, left ventricle is normal size mild concentric left ventricular hypertrophy, showing estimated ejection fraction of 50%, there appears to be moderate hypokinesis involving the inferobasal wall. 2. The right atrium and right ventricle are mildly enlarged with normal contractility. 3. The aortic valve is minimally thickened and fibrosed. 4. The mitral and tricuspid valve leaflets are minimally thickened. 5. The pulmonic valve is poorly A 6. No significant pericardial effusion noted. DOPPLER INTERROGATION: 1. The aortic outflow velocities within normal range, there is no aortic stenosis, there is moderate to severe aortic insufficiency present. 2. The mitral inflow velocities within normal range, there is no mitral stenosis, there is moderate to severe mitral regurgitation. 3. There is mild tricuspid regurgitation noted, calculated right ventricular systolic pressure is 42 mmHg consistent with moderate pulmonary hypertension. Inferior vena cava is not well visualized. 4. Grade 1 diastolic dysfunction seen with tissue Doppler evidence of raised left atrial pressure. CONCLUSION: 1. Mildly enlarged left atrium, normal left ventricular size, mild concentric left ventricular hypertrophy, visually estimated ejection fraction 50% with segmental wall motion abnormality described above. Grade 1 diastolic dysfunction seen with tissue Doppler evidence of raised left atrial pressure. 2. Mildly enlarged right ventricle with normal contractility. 3. Moderate to severe mitral regurgitation 4. Moderate to severe aortic insufficiency. 5. Mild tricuspid regurgitation, calculated right ventricular systolic pressure 42 mmHg consistent with moderate pulmonary hypertension, inferior vena cava is not well visualized. 6. If clinically indicated transesophageal echocardiogram is recommended to assess the aortic and mitral valve.
== END 2018-11-16 18:54 | disposition home or self-care (01) ==
LOC: 2ND 21:40 → ER 21:40 → 2ND 11-16 00:23
PROVIDERS: ADMIT Internal Medicine Adolescent Medicine; ATTEND Family Medicine
CPT/HCPCS: 36415; 71020; 71046; 80048; 80061; 80076; 83735; 84484; 85025; 93005; 93306; 93458; 96365; 96375; 99152; 99284; C1725; C1769; G0378; J1644

== ENCOUNTER → 2018-11-25 12:56 | Outpatient (CLI) | payer OTHER, SELFPAY ==
[2018-11-25 14:10] LABS: Anion Gap 14.2 mEq/L (5-15); Blood Urea Nitrogen 13 mg/dL (7-18); Carbon Dioxide 27 mmol/L (21.0-32.0); Chloride 99 mmol/L (98-107); Creatinine,Serum 0.71 mg/dL (0.55-1.02); Estimated Glomerular Filt Rate 86 ml/min (>60); GFR (African American) 104 ML/MIN (>60); Glucose 179 mg/dL (74-106); Potassium 3.2 mmoL/L (3.5-5.1); Sodium 137 mmol/L (136-145)
== END ==
PROVIDERS: Visit Provider Internal Medicine Cardiovascular Disease
DX: R06.02 Shortness of breath (principal); I25.110 Atherosclerotic heart disease of native coronary artery with unstable angina pectoris; R07.89 Other chest pain; Z95.5 Presence of coronary angioplasty implant and graft
CPT/HCPCS: 36415; 80048; 83880

== ENCOUNTER 2019-03-06 22:14 | Observation (INO) ==
[2019-03-06 22:31] LABS: Basophils # 0.1 K/mm3 (0-0.2); Basophils % 0.7 % (0.1-2.0); Eosinophils # 0.2 K/mm3 (0.0-0.4); Eosinophils % 1.8 % (0.1-12.0); Hematocrit 33.8 % (37.0-47.0); Hemoglobin 11.1 g/dL (12.2-16.2); Lymphocytes # 2.9 K/mm3 (0.7-4.5); Lymphocytes % 32.2 % (10-50); Mean Corpuscular HGB Conc 32.8 g/dL (31.8-35.4); Mean Corpuscular Volume 87.4 fl (81-99); Mean Platelet Volume 6.8 fl (7.4-10.4); Monocytes # 0.6 K/mm3 (0.1-1.0); Monocytes % 6.2 % (1.7-9.3); Neutrophils # 5.2 K/mm3 (1.8-7.8); Platelet Count 329 K/mm3 (142-424); Red Blood Count 3.87 M/mm3 (4.20-5.40); Red Cell Distribution Width 14.5 % (11.5-17.5); White Blood Count 8.9 K/mm3 (4.8-10.8)
[2019-03-06 22:44] LABS: Anion Gap 12.8 mEq/L (5-15); Blood Urea Nitrogen 11 mg/dL (7-18); Calcium 9.8 mg/dL (8.5-10.1); Carbon Dioxide 30 mmol/L (21.0-32.0); Chloride 98 mmol/L (98-107); Glucose 143 mg/dL (74-106); Sodium 138 mmol/L (136-145)
--- NOTE | 2019-03-06 23:02 | Emergency Department Note ---
ED Disposition Clinical Impression: Near syncope, Tobacco use, Hypokalemia Chest pain Qualifiers: Chest pain type: precordial pain Qualified Code(s): R07.2 - Precordial pain Disposition: Admitted as Observation Condition on Discharge: Good - Critical Care Critical Care Time: No Attestation: On 03/06/19, the high probability of a clinically significant, sudden or life threatening deterioration of the following system(s) required my full and direct attention, intervention and personal management. The time I documented below is in addition to time spent performing reported procedures but includes the following listed in this critical care notation. Medical Decision Making - Medical Records Medical records reviewed: Yes: I reviewed the patient's medical records. - [place]aja Inquiry Pt receiving controlled substance: No Vital Signs: 03/06/19 22:15 03/06/19 22:16 03/06/19 23:38 Temperature 98.3 F 98.3 F Temperature Source Oral Oral Pulse Rate [Right Brachial] 81 81 77 Respiratory Rate 20 20 19 Blood Pressure [Right Arm] 133/69 133/69 112/63 Blood Pressure Mean [Right Arm] 90 90 79 Blood Pressure Source [Right Arm] Automatic Cuff Automatic Cuff Automatic Cuff Blood Pressure Position [Right Arm] Sitting Sitting Sitting 02 Sat by Pulse Oximetry 100 100 99 Oxygen Delivery Method Room Air Room Air Room Air - Lab Data Lab results reviewed: Yes: I reviewed the patient's lab results. Lab Results 03/06/19 22:22: WBC 8.9, RBC 3.87 L, Hgb 11.1 L, Hct 33.8 L, MCV 87.4, MCH 28.7, MCHC 32.8, RDW 14.5, Plt Count 329, MPV 6.8 L, Neut % (Auto) 59.0, Lymph % (Auto) 32.2, [place] % (Auto) 6.2, Eos % (Auto) 1.8, Baso % (Auto) 0.7, Neut # (Auto) 5.2, Lymph # (Auto) 2.9, [place] # (Auto) 0.6, Eos # (Auto) 0.2, Baso # (Auto) 0.1 03/06/19 22:22: Sodium 138, Potassium 2.8 L*, Chloride 98, Carbon Dioxide 30, Anion Gap 12.8, BUN 11, Creatinine 0.85, Estimated Creat Clear 86, Estimated GFR 69, Est GFR ( Amer) 84, Glucose 143 H, Calcium 9.8, Troponin I < 0.02 Result diagrams: 03/06/19 22:22 03/06/19 22:22 Orders (Tests/Meds): ORDERS Category Date Time Status Chest XR 2 view (NOT portable) [XR chest 2V] Stat Exams 03/06/19 22:20 Taken - Radiology Data #1 Image(s): Chest Image Reviewed: Yes I reviewed the patient's radiology image Preliminary Findings: Normal/NAD - ECG Data Tracing #1 Normal Sinus Rhythm: Yes Ischemic changes: non-specific ST-T wave changes ECG compared to prior tracings: there are no significant changes - Physician Consults Physician Consulted: callder Reason -: Admission Chest Pain HPI - General Chief Complaint: Chest Pain Stated Complaint: Chest pain Time Seen by Provider: 03/06/19 22:50 Mode of Arrival: Ambulatory Source of Information: Patient, Medical Record Limitations: No Limitations Description of Symptoms (Recalled from ER Triage Doc. by RN): Pt c/o CP and SOA that started this morning. - History of Present Illness HPI narrative: pt with episodes of dec hr with dec bp and feeling near syncope - had chest pain [id number] - has hx of cad and tob use and niddm- has seen pcp for follow up and meds adjusted but still having sx - MD complaint: chest pain indicative of cardiac Onset (ago): day(s) Duration: intermittent Activity at onset: during rest Pain location: left chest Severity: moderate Quality: other (nonspecific) Risk Factors for CAD: Hypertension, Family Hx of CAD, Diabetes, Smoking Treatments prior to or on arrival for Cardiac Chest Pain: none - ROSHAN Score for Non-Stemi Age of Patient: 50-59 years old Heart Rate: 70-89 bpm Systolic Blood Pressure: 120-139 mmhg Serum Creatinine: 0.80-1.19 mg/dl CHF [place] Class: I-No CHF Other Risk Factors: None Non-Stemi Risk Score: 91 - Related Data Prior Cardiac Testing/Procedures: Stenting, Cardiac Angiogram On Oral Contraceptives: No Home Medications Medication Instructions Recorded Confirmed aspirin 81 mg tablet,delayed 81 mg PO DAILY tab 08/26/17 03/06/19 release Isosorbide Mononitrate [Imdur 30mg 30 mg PO DAILY 10/13/17 03/06/19 ER tablet] Losartan Potassium [Cozaar 50mg 50 mg PO DAILY 12/17/17 03/06/19 Tablets] Furosemide [Lasix 40mg tablet] 40 mg PO DAILY 03/06/19 03/06/19 Metformin HCl 500 mg PO DAILY 03/06/19 03/06/19 Metoprolol Succinate 25 mg PO DAILY 03/06/19 03/06/19 Potassium Chloride [K-Tab ER 10 10 meq PO DAILY 03/06/19 03/06/19 mEq] Rosuvastatin Calcium 5 mg PO DAILY 03/06/19 03/06/19 Previous Rx's Medication Instructions Recorded prasugrel 10 mg tablet 10 mg PO DAILY #30 tab 08/26/18 Allergies Allergy/AdvReac Type Severity Reaction Status Date / Time oxycodone [OXYCODONE] Allergy Severe Swelling Verified 12/16/18 10:16 of Lip/Tongue/Throat levofloxacin [From LEVAQUIN] Allergy Intermediate Verified 12/16/18 10:16 codeine [CODEINE] Allergy Mild Verified 12/16/18 10:16 morphine [MORPHINE] Allergy Unknown Verified 12/16/18 10:16 atorvastatin [From Lipitor] AdvReac Severe body aches Verified 12/16/18 10:16 [facility] History - Hepatitis A Screen Drug use history?: No High risk sexual behaviors?: No History of sexually transmitted infection?: No Currently employed?: No Childcare worker?: No Do you have indoor plumbing?: Yes Do you have electricity?: Yes Attestation statement:: This patient has been screened for Hepatitis A risk factors. I have reviewed the patient's past medical history: Yes Medical History: Reports:: Cancer, Chronic Obstructive Pulmonary Disease (COPD), Coronary Artery Disease, Diabetes Mellitus Type 2, Gastroesophageal Reflux Disease(GERD), Hyperlipidemia, Hypertension, Myocardial Infarction Denies:: Diabetes Mellitus Type 1, Internal Pacemaker, Lung Disease, MRSA, Seizures Comment: AVA, Angina Laterality Cases: Left: Arthroscopy Shoulder, Right: Total Hip Replacement Other Surgeries: Yes: Angioplasty, Appendectomy, Cardiac Catheterization, Cholecystectomy, Colonoscopy, Coronary Stent, EGD (2018), Hysterectomy-Total, Tubal Ligation, Other. No: Pacemaker Amputation: No Fractures: No - Social History Smoking Status: Current every day smoker Tobacco Type: cigarettes # Packs/Day (cigarettes): 1 Alcohol Intake: never Alcohol Intake Frequency:: holidays/special occasions only Substance Use Type: denies use Occupational Status: employed Housing: house Household Members: spouse Family Hx:: No significant family history ROS Obtained: Yes All systems reviewed & no additional complaints - Constitutional Constitutional: Denies fever(s) - Eyes Eyes: Denies change in vision - ENT Ears, Nose, Mouth, and Throat: Denies sore throat - Cardiovascular Cardiovascular: Reports chest pain, Denies dyspnea, Reports slow heart rate - Respiratory Respiratory: No cough - Gastrointestinal Gastrointestingal: Denies: abdominal pain - Genitourinary Female Genitourinary: Denies hematuria - Musculoskeletal Musculoskeletal: Denies joint swelling - Integumentary/Breasts Skin/Breast: Denies rash - Neurologic Neurologic: Denies seizure-like activity Physical Exam - General General appearance: alert - Head Head exam: normocephalic - Eye Eye exam: Present: PERRL, EOMI. Absent: scleral icterus - ENT ENT exam: Present: mucous membranes moist - Neck Neck exam: Present: trachea midline - Respiratory Respiratory exam: Present: normal lung sounds bilaterally. Absent: respiratory distress - Cardiovascular Cardiovascular exam: Present: regular rate, systolic murmur - Abdominal Exam Abdominal exam: Present: soft - Extremities Exam Extremities exam: Absent: calf tenderness - Neurological Exam Neurological exam: Present: alert, oriented X3, CN II-XII intact - Psychiatric Psychiatric exam: Present: normal affect - Skin Skin exam: Absent: rash
[2019-03-07 06:14] LABS: Basophils # 0.1 K/mm3 (0-0.2); Basophils % 0.6 % (0.1-2.0); Eosinophils # 0.2 K/mm3 (0.0-0.4); Eosinophils % 2.6 % (0.1-12.0); Hematocrit 32.9 % (37.0-47.0); Hemoglobin 10.7 g/dL (12.2-16.2); Lymphocytes # 2.1 K/mm3 (0.7-4.5); Lymphocytes % 29.7 % (10-50); Mean Corpuscular HGB Conc 32.4 g/dL (31.8-35.4); Mean Corpuscular Volume 88.3 fl (81-99); Mean Platelet Volume 7.2 fl (7.4-10.4); Monocytes # 0.5 K/mm3 (0.1-1.0); Monocytes % 6.6 % (1.7-9.3); Neutrophils # 4.3 K/mm3 (1.8-7.8); Neutrophils % 60.4 % (37.0-80.0); Platelet Count 291 K/mm3 (142-424); Red Blood Count 3.72 M/mm3 (4.20-5.40); Red Cell Distribution Width 14.5 % (11.5-17.5); White Blood Count 7.1 K/mm3 (4.8-10.8)
[2019-03-07 06:27] LABS: Anion Gap 11.5 mEq/L (5-15); Blood Urea Nitrogen 10 mg/dL (7-18); Calcium 9.2 mg/dL (8.5-10.1); Carbon Dioxide 28 mmol/L (21.0-32.0); Chloride 104 mmol/L (98-107); Glucose 119 mg/dL (74-106); Sodium 140 mmol/L (136-145)
--- NOTE | 2019-03-07 07:25 | History & Physical Report ---
*Admission Date: 03/07/19 *Chief complaint: Palpitations *History of present illness: 54-year-old female who presented to the emergency department with concerns over palpitations that she refers to as "irregular heartbeat". Concerns of been exacerbated by perceived low heart rate and high blood pressure. Patient reports her lowest heart rate detected on home monitoring is been 56 and when she refers to high blood pressures typically systolics are no higher than the 140s. She has been seeing her primary care provider as well as cardiology. According to the patient medication adjustments have been made because of these palpitations. Yesterday evening while at rest palpitations became quite severe. Patient noticed "a twinge of discomfort" across the chest as well as some tingling in the left neck and face and tingling in the left hand. She has had previous TX but states discomfort was not like her previous chest pain associated with TX. She came to the emergency department for evaluation. Patient does report this morning that it has been arranged as an outpatient that she wear a heart monitor but she had only received a call yesterday that a heart monitor was available. See ER note for full details. EKG did not show any acute injury or ischemia. Patient was ultimately admitted for rule out of TX and cardiology consultation. Patient underwent cardiac catheterization this past spring. Last echocardiogram was this past spring as well findings were as below: 1. Mildly enlarged left atrium, normal left ventricular size, mild concentric left ventricular hypertrophy, visually estimated ejection fraction 50% with segmental wall motion abnormality described above. Grade 1 diastolic dysfunction seen with tissue Doppler evidence of raised left atrial pressure. 2. Mildly enlarged right ventricle with normal contractility. 3. Moderate to severe mitral regurgitation 4. Moderate to severe aortic insufficiency. 5. Mild tricuspid regurgitation, calculated right ventricular systolic pressure 42 mmHg consistent with moderate pulmonary hypertension, inferior vena cava is not well visualized. 6. If clinically indicated transesophageal echocardiogram is recommended to assess the aortic and mitral valve. Cardiac catheterizations below as follows: IMPRESSION: 1. Moderate to severe disease in the distal portion of the mid LAD and a 2.25 mm segment 2. Widely patent stents as described above 3. Small to moderate jailed diagonal artery which is unlikely to produce patient's symptoms 4. Severely elevated LVEDP which is almost certainly the etiology for patient's class IV symptoms 5. Slightly hyperdynamic ejection fraction PLAN: 1. At this point I strongly favor medical management. Patient should be placed on higher doses of Loop diuretics combined with Aldactone in order to decrease LVEDP. 2. Following treatment of diastolic dysfunction if patient continues to have recalcitrant angina pectoris I would consider stenting the mid LAD however she should fail medical management completely prior to this intervention 3. I do not believe the small to moderate diagonal artery is producing any symptoms. 4. Ongoing risk factor modification 5. Aggressive medical management [facility] History I have reviewed the patient's past medical history: Yes Medical History: Reports:: Cancer (skin), Congestive Heart Failure, Chronic Obstructive Pulmonary Disease (COPD), Coronary Artery Disease, Diabetes Mellitus Type 2, Gastroesophageal Reflux Disease(GERD), Hyperlipidemia, Hypertension, Myocardial Infarction (2017) Denies:: Diabetes Mellitus Type 1, Internal Pacemaker, Lung Disease, MRSA, Seizures *Have you ever received a pneumonia vaccine?: No *Have you received a flu vaccine this season?: Yes Comment:: Pulmonary hypertension Laterality Cases: Left: Arthroscopy Shoulder, Right: Total Hip Replacement, Bilateral: Tonsillectomy Other Surgeries: Yes: Angioplasty, Appendectomy, Cancer Surgery, Cardiac Catheterization, Cholecystectomy, Colonoscopy, Coronary Stent, EGD (2018), Hysterectomy-Total, Tubal Ligation, Other. No: Pacemaker Amputation: No Fractures: No - *Social History Educational Level: Attended College Smoking Status: Current every day smoker Tobacco Type: cigarettes # Packs/Day (cigarettes): 1 Alcohol Intake: never Alcohol Intake Frequency:: holidays/special occasions only Substance Use Type: denies use *Occupational Status:: employed Housing: house Household Members: spouse, family *Travel in the last 8 weeks: None - Psychiatric History Expresses thoughts of harming self/others: None Suicide Plan Description: No Plan Family Hx:: Diabetes, Hyperlipidemia, Hypertension Review of Systems - Review of Systems Review of systems:: pertinent systems reviewed and negative unless documented below - Constitutional Denies anorexia, Denies body ache(s), Denies chills - *Cardiovascular Reports chest pain at rest, Denies shortness of breath, Denies shortness of breath with activity Comments: Palpitations - *Respiratory Denies change in phlegm color, Denies chest congestion, Denies cough, Denies shortness of breath, Denies shortness of breath with activity - *Gastrointestinal Denies abdominal pain - *Neurologic Denies seizure-like activity Meds Home Medications Medication Instructions Recorded Confirmed Type aspirin 81 mg tablet,delayed 81 mg PO DAILY tab 08/26/17 03/06/19 History release Isosorbide Mononitrate [Imdur 30mg 30 mg PO DAILY 10/13/17 03/06/19 History ER tablet] Losartan Potassium [Cozaar 50mg 50 mg PO DAILY 12/17/17 03/06/19 History Tablets] prasugrel 10 mg tablet 10 mg PO DAILY #30 tab 08/26/18 03/06/19 Rx Furosemide [Lasix 40mg tablet] 40 mg PO DAILY 03/06/19 03/06/19 History Metformin HCl 500 mg PO DAILY 03/06/19 03/06/19 History Metoprolol Succinate 25 mg PO DAILY 03/06/19 03/06/19 History Potassium Chloride [K-Tab ER 10 10 meq PO DAILY 03/06/19 03/06/19 History mEq] Rosuvastatin Calcium 5 mg PO DAILY 03/06/19 03/06/19 History Allergies Allergy/AdvReac Type Severity Reaction Status Date / Time oxycodone [OXYCODONE] Allergy Severe Swelling Verified 12/16/18 10:16 of Lip/Tongue/Throat levofloxacin [From LEVAQUIN] Allergy Intermediate Verified 12/16/18 10:16 codeine [CODEINE] Allergy Mild Verified 12/16/18 10:16 morphine [MORPHINE] Allergy Unknown Verified 12/16/18 10:16 atorvastatin [From Lipitor] AdvReac Severe body aches Verified 12/16/18 10:16 Exam Vital signs and Labs for Last 24 Hours: Temp Pulse Resp BP Pulse Ox 98.4 F 72 16 97/53 L 96 03/07/19 04:00 03/07/19 04:00 03/07/19 04:00 03/07/19 04:00 03/07/19 04:00 Laboratory Results - last 24 hr 03/06/19 22:22: WBC 8.9, RBC 3.87 L, Hgb 11.1 L, Hct 33.8 L, MCV 87.4, MCH 28.7, MCHC 32.8, RDW 14.5, Plt Count 329, MPV 6.8 L, Neut % (Auto) 59.0, Lymph % (Auto) 32.2, [place] % (Auto) 6.2, Eos % (Auto) 1.8, Baso % (Auto) 0.7, Neut # (Auto) 5.2, Lymph # (Auto) 2.9, [place] # (Auto) 0.6, Eos # (Auto) 0.2, Baso # (Auto) 0.1 03/06/19 22:22: Sodium 138, Potassium 2.8 L*, Chloride 98, Carbon Dioxide 30, Anion Gap 12.8, BUN 11, Creatinine 0.85, Estimated Creat Clear 86, Estimated GFR 69, Est GFR ( Amer) 84, Glucose 143 H, Calcium 9.8, Troponin I < 0.02 03/07/19 03:30: Troponin I < 0.02 03/07/19 05:39: WBC 7.1, RBC 3.72 L, Hgb 10.7 L, Hct 32.9 L, MCV 88.3, MCH 28.6, MCHC 32.4, RDW 14.5, Plt Count 291, MPV 7.2 L, Neut % (Auto) 60.4, Lymph % (Auto) 29.7, [place] % (Auto) 6.6, Eos % (Auto) 2.6, Baso % (Auto) 0.6, Neut # (Auto) 4.3, Lymph # (Auto) 2.1, [place] # (Auto) 0.5, Eos # (Auto) 0.2, Baso # (Auto) 0.1 03/07/19 05:39: Sodium 140, Potassium 3.5 D, Chloride 104, Carbon Dioxide 28, Anion Gap 11.5, BUN 10, Creatinine 0.73, Estimated Creat Clear 102, Estimated GFR 83, Est GFR ( Amer) 100, Glucose 119 H, Calcium 9.2, Magnesium 2.1, Troponin I < 0.02 03/07/19 06:01: POC Glucose 124 H I & O for Last 24 hours: Intake & Output 03/04/19 03/05/19 03/06/19 03/07/19 11:59 11:59 11:59 11:59 Intake Total 361 / 361 Balance 361 / 361 Weight 163 lb 2 oz Narrative: Patient is awake and alert after being awoken. She was wearing her CPAP. She is oriented to person place and time. Oropharynx is dry from CPAP. Neck has no jugular venous distention or carotid bruits. Lungs are clear. Heart has a regular rate and rhythm. Abdomen is soft and nontender. Extremities are warm to the touch. Patient has active range of motion in all extremities. Assessment and Plan (1) Heart palpitations Current visit: Yes Status: Acute Category: Medical Code(s): R00.2 - Palpitations Patient should proceed with Holter monitor at discharge. Await cardiology evaluation today. (2) Pulmonary hypertension Current visit: Yes Status: Acute Category: Medical Code(s): I27.20 - Pu lmonary hypertension, unspecified (3) Hypokalemia Current visit: Yes Status: Resolved Category: Medical Code(s): E87.6 - Hypokalemia (4) CAD (coronary artery disease) Current visit: No Status: Acute Qualifiers: Coronary Disease-Associated Artery/Lesion type: unspecified vessel or lesion type [place] vs. transplanted heart: [place] heart Associated angina: with unstable angina Qualified Code(s): I25.110 - Atherosclerotic heart disease of [place] coronary artery with unstable angina pectoris Category: Medical Code(s): I25.10 - Atherosclerotic heart disease of [place] coronary artery without angina pectoris (5) Tobacco dependence syndrome Current visit: No Status: Acute Category: Medical Code(s): F17.200 - Nicotine dependence, unspecified, uncomplicated (6) AVA on CPAP Current visit: No Status: Chronic Category: Medical Code(s): G47.33 - Obstructive sleep apnea (adult) (pediatric); Z99.89 - Dependence on other enabling machines and devices Continue CPAP
--- NOTE | 2019-03-07 07:28 | Pharmacy Consult Notes ---
[facility] VTE Monitoring - Patient Demographics Admission date: 03/07/19 Report Date: 03/07/19 Time: : Allergies/Adverse Reactions: Patient Allergies oxycodone [OXYCODONE] Allergy (Severe, Verified 12/16/18 10:16) Swelling of Lip/Tongue/Throat levofloxacin [From LEVAQUIN] Allergy (Intermediate, Verified 12/16/18 10:16) codeine [CODEINE] Allergy (Mild, Verified 12/16/18 10:16) morphine [MORPHINE] Allergy (Unknown, Verified 12/16/18 10:16) atorvastatin [From Lipitor] Adverse Reaction (Severe, Verified 12/16/18 10:16) body aches Height: 1.6 m Weight: 73.992 kg Patient Problems: Current Active Problems Tobacco use (Acute) Chest pain (Acute) Near syncope (Acute) Hypokalemia (Acute) - VTE Risk Labs: VTE Related Lab Results Hgb 10.7 g/dL (12.2-16.2) L 03/07/19 05:39 Hct 32.9 % (37.0-47.0) L 03/07/19 05:39 Plt Count 291 K/mm3 (142-424) 03/07/19 05:39 BUN 10 mg/dL (7-18) 03/07/19 05:39 Creatinine 0.73 mg/dL (0.55-1.02) 03/07/19 05:39 Estimated Creat Clear 102 mL/min (50-200) 03/07/19 05:39 VTE Score: 6 VTE Risk Level: Moderate Risk - Prophylaxis VTE Prophylaxis Ordered?: Yes Types of VTE Prophylaxis: TEDS Knee High Location of Applied Device: Bilateral Lower Extremeties - VTE Diagnosis Confirmed Treatment or plan recommended: Continue Current Treatment
--- NOTE | 2019-03-07 08:27 | Consult Report ---
History of Present Illness Consult date: 03/07/19 Requesting physician: Aman Santos Chief complaint: Palpitations Additional Medical History:: 1. CAD A. History of FL with subsequent coronary stenting, 2011 B. Positive stress test, 2013, with subsequent cath without need for stenting but reportedly had some CAD. Performed in [place], Dr. Benny Porter [facility], 10/2016, JAY to LAD due to ischemic response to FFR Lizeth [facility], 11/2018:ANGIOGRAPHIC RESULTS: 1. The left main artery normal 2. The left anterior descending artery is proximally normal followed by a proximal to mid vessel stent which is widely patent with mild 20% concentric in-stent restenosis. A small to moderate to millimeter diagonal artery has an ostial 80% stenosis. The distal portion of the mid segment of the LAD has a 70% stenosis at a 2.25 mm segment. The LAD then courses distally and wraps the apex 3. The circumflex artery is nondominant with mild proximal 20% stenoses 4. The ramus intermedius is a large vessel and has proximal 20% nonflow limiting stenoses 5. The right coronary artery is a dominant vessel and has stents in the proximal through mid and distal segment which are widely patent with 30% diffuse in-stent restenosis. 6. The FRANKS ventriculogram reveals slightly hyperdynamic at 70% 7. The left ventricular end-diastolic pressure severely elevated 40 mmHg IMPRESSION: 1. Moderate to severe disease in the distal portion of the mid LAD and a 2.25 mm segment 2. Widely patent stents as described above 3. Small to moderate jailed diagonal artery which is unlikely to produce patient's symptoms 4. Severely elevated LVEDP which is almost certainly the etiology for patient's class IV symptoms 5. Slightly hyperdynamic ejection fraction PLAN: 1. At this point I strongly favor medical management. Patient should be placed on higher doses of Loop diuretics combined with Aldactone in order to decrease LVEDP. 2. Following treatment of diastolic dysfunction if patient continues to have recalcitrant angina pectoris I would consider stenting the mid LAD however she should fail medical management completely prior to this intervention 3. I do not believe the small to moderate diagonal artery is producing any symptoms. 4. Ongoing risk factor modification 5. Aggressive medical management 2. HTN A. Echo, 05/2017, mild left atrial enlargement, normal LV size and function of 55% with mild concentric LVH. Aortic valve is thickened and calcified but normal mobility. Moderate aortic regurgitation, mild MR and TR. RVSP 38 mmHg with mild pulmonary hypertension and grade 1 diastolic dysfunction. B. Echo, 11/2018, mild LAE, LV size normal with mild concentric LVH, ejection fraction 50% with moderate hypokinesis involving the inferobasal wall. Mild right atrial and right ventricle enlargement with normal contractility. Aortic valve minimally thickened and fibrosed with moderate to severe aortic insufficiency. Thickened mitral valve with moderate to severe mitral regurgitation. Mild tricuspid regurgitation with RVSP 42 mmHg consistent with moderate pulmonary hypertension. Grade 1 diastolic dysfunction noted. 3. Hyperlipidemia, reportedly can only tolerate [place] due to myalgias with multiple statins 4. FH of CAD, mother with stents in her 50's 5. Tobacco use, 1 ppd, continued A. COPD 6. AVA, uses CPAP 7. GERD 8. DM, type 2 History of present illness: 54-year-old female who presented to the emergency department with concerns over palpitations that she refers to as "irregular heartbeat". Concerns have been exacerbated by perceived low heart rate and high blood pressure. Patient reports her lowest heart rate detected on home monitoring is been 56 and when she refers to high blood pressures typically systolics are no higher than the 140s. She has been seeing her primary care provider as well as cardiology. According to the patient medication adjustments have been made because of these palpitations. Yesterday evening while at rest palpitations became quite severe. Patient noticed "a twinge of discomfort" across the chest as well as some tingling in the left neck and face and tingling in the left hand. She has had previous FL but states discomfort was not like her previous chest pain associated with FL. She came to the emergency department for evaluation. Patient does report this morning that it has been arranged as an outpatient that she wear a heart monitor but she had only received a call yesterday that a heart monitor was available. See ER note for full details. EKG did not show any acute injury or ischemia. Patient was ultimately admitted for rule out of FL and cardiology consultation. Patient underwent cardiac catheterization this past spring. Last echocardiogram was this past spring as well. The above per Dr. Santos Pt focuses on palpitations as her main complaint/concern. Denies any syncope or near syncope but does relate fatigue or weakness associated with the palpitations. EKG on admission is sinus without acute changes. Troponins normal X 3. [facility] History Medical History: Reports:: Cancer (skin), Congestive Heart Failure, Chronic Obstructive Pulmonary Disease (COPD), Coronary Artery Disease, Diabetes Mellitus Type 2, Gastroesophageal Reflux Disease(GERD), Hyperlipidemia, Hypertension, Myocardial Infarction (2017) Denies:: Diabetes Mellitus Type 1, Internal Pacemaker, Lung Disease, MRSA, Seizures *Have you ever received a pneumonia vaccine?: No *Have you received a flu vaccine this season?: Yes Laterality Cases: Left: Arthroscopy Shoulder, Right: Total Hip Replacement, Bilateral: Tonsillectomy Other Surgeries: Yes: Angioplasty, Appendectomy, Cancer Surgery, Cardiac Catheterization, Cholecystectomy, Colonoscopy, Coronary Stent, EGD (2018), Hysterectomy-Total, Tubal Ligation, Other. No: Pacemaker Amputation: No Fractures: No - *Social History Educational Level: Attended College Smoking Status: Current every day smoker Tobacco Type: cigarettes # Packs/Day (cigarettes): 1 Alcohol Intake: never Alcohol Intake Frequency:: holidays/special occasions only Substance Use Type: denies use *Occupational Status:: employed Housing: house Household Members: spouse, family *Travel in the last 8 weeks: None - Psychiatric History Expresses thoughts of harming self/others: None Suicide Plan Description: No Plan Family Hx:: Diabetes, Hyperlipidemia, Hypertension Meds Home Medications Medication Instructions Recorded Confirmed Type aspirin 81 mg tablet,delayed 81 mg PO DAILY tab 08/26/17 03/06/19 History release Isosorbide Mononitrate [Imdur 30mg 30 mg PO DAILY 10/13/17 03/06/19 History ER tablet] Losartan Potassium [Cozaar 50mg 50 mg PO DAILY 12/17/17 03/06/19 History Tablets] prasugrel 10 mg tablet 10 mg PO DAILY #30 tab 08/26/18 03/06/19 Rx Furosemide [Lasix 40mg tablet] 40 mg PO DAILY 03/06/19 03/06/19 History Metformin HCl 500 mg PO HS 03/06/19 03/07/19 History Metoprolol Succinate 25 mg PO DAILY 03/06/19 03/06/19 History Potassium Chloride [K-Tab ER 10 10 meq PO DAILY 03/06/19 03/06/19 History mEq] Allergies Allergy/AdvReac Type Severity Reaction Status Date / Time oxycodone [OXYCODONE] Allergy Severe Swelling Verified 12/16/18 10:16 of Lip/Tongue/Throat levofloxacin [From LEVAQUIN] Allergy Intermediate Verified 12/16/18 10:16 codeine [CODEINE] Allergy Mild Verified 12/16/18 10:16 morphine [MORPHINE] Allergy Unknown Verified 12/16/18 10:16 atorvastatin [From Lipitor] AdvReac Severe body aches Verified 12/16/18 10:16 Review of Systems - *Cardiovascular Reports chest pain, Reports rapid, pounding, or irregular heartbeat - *Respiratory Reports cough, Reports shortness of breath with activity - *Gastrointestinal Denies abdominal pain, Denies nausea - *Genitourinary Denies blood in urine - *Musculoskeletal Denies joint pain, Denies back pain - *Neurologic Reports weakness, Denies seizure-like activity, Denies fainting Exam Vital signs and Labs for Last 24 Hours: Temp Pulse Resp BP Pulse Ox 98.4 F 72 16 97/53 L 96 03/07/19 04:00 03/07/19 04:00 03/07/19 04:00 03/07/19 04:00 03/07/19 04:00 Laboratory Results - last 24 hr 03/06/19 22:22: WBC 8.9, RBC 3.87 L, Hgb 11.1 L, Hct 33.8 L, MCV 87.4, MCH 28.7, MCHC 32.8, RDW 14.5, Plt Count 329, MPV 6.8 L, Neut % (Auto) 59.0, Lymph % (Auto) 32.2, [place] % (Auto) 6.2, Eos % (Auto) 1.8, Baso % (Auto) 0.7, Neut # (A uto) 5.2, Lymph # (Auto) 2.9, [place] # (Auto) 0.6, Eos # (Auto) 0.2, Baso # (Auto) 0.1 03/06/19 22:22: Sodium 138, Potassium 2.8 L*, Chloride 98, Carbon Dioxide 30, Anion Gap 12.8, BUN 11, Creatinine 0.85, Estimated Creat Clear 86, Estimated GFR 69, Est GFR ( Amer) 84, Glucose 143 H, Calcium 9.8, Troponin I < 0.02 03/07/19 03:30: Troponin I < 0.02 03/07/19 05:39: WBC 7.1, RBC 3.72 L, Hgb 10.7 L, Hct 32.9 L, MCV 88.3, MCH 28.6, MCHC 32.4, RDW 14.5, Plt Count 291, MPV 7.2 L, Neut % (Auto) 60.4, Lymph % (Auto) 29.7, [place] % (Auto) 6.6, Eos % (Auto) 2.6, Baso % (Auto) 0.6, Neut # (Auto) 4.3, Lymph # (Auto) 2.1, [place] # (Auto) 0.5, Eos # (Auto) 0.2, Baso # (Auto) 0.1 03/07/19 05:39: Sodium 140, Potassium 3.5 D, Chloride 104, Carbon Dioxide 28, Anion Gap 11.5, BUN 10, Creatinine 0.73, Estimated Creat Clear 102, Estimated GFR 83, Est GFR ( Amer) 100, Glucose 119 H, Calcium 9.2, Magnesium 2.1, Troponin I < 0.02 03/07/19 06:01: POC Glucose 124 H I & O for Last 24 hours: Intake & Output 03/04/19 03/05/19 03/06/19 03/07/19 11:59 11:59 11:59 11:59 Intake Total 361 / 361 Balance 361 / 361 Weight 163 lb 2 oz - *Routine HEENT Exam Head: Present: normocephalic Eye: Present: EOMI, PERRL ENT: Present: mucous membranes moist - *Routine Respiratory Exam Present: decreased breath sounds, CTA bilaterally. Absent: accessory muscle use, rales, rhonchi, wheezes - *Routine Cardiovascular Exam Present: RRR. Absent: murmur, gallop, rubs - *Routine Abdominal Exam Present: soft. Absent: tenderness, distended, guarding - *Routine Extremities Exam Absent: edema, calf tenderness - *Routine Neurological Exam Present: alert, oriented X3, moving all extremities Assessment and Plan (1) Heart palpitations Current visit: Yes Status: Acute Category: Medical Code(s): R00.2 - Palpitations (2) Pulmonary hypertension Current visit: Yes Status: Acute Category: Medical Code(s): I27.20 - Pulmonary hypertension, unspecified (3) Hypokalemia Current visit: Yes Status: Resolved Category: Medical Code(s): E87.6 - Hypokalemia (4) CAD (coronary artery disease) Current visit: No Status: Acute Qualifiers: Coronary Disease-Associated Artery/Lesion type: unspecified vessel or lesion type [place] vs. transplanted heart: [place] heart Associated angina: with unstable angina Qualified Code(s): I25.110 - Atherosclerotic heart disease of [place] coronary artery with unstable angina pectoris Category: Medical Code(s): I25.10 - Atherosclerotic heart disease of [place] coronary artery without angina pectoris (5) Tobacco dependence syndrome Current visit: No Status: Acute Category: Medical Code(s): F17.200 - Nicotine dependence, unspecified, uncomplicated (6) AVA on CPAP Current visit: No Status: Chronic Category: Medical Code(s): G47.33 - Obstructive sleep apnea (adult) (pediatric); Z99.89 - Dependence on other enabling machines and devices (7) Aortic valve regurgitation Current visit: Yes Status: Acute Category: Medical Code(s): I35.1 - Nonrheumatic aortic (valve) insufficiency (8) Mitral valve regurgitation Current visit: Yes Status: Acute Category: Medical Code(s): I34.0 - Nonrheumatic mitral (valve) insufficiency - Assessment and plan all Dx Assessment and Plan for all problems:: 1. Ambulate this AM while on telemetry to assess cardiac rhythm during palpitations. If no significant arrhythmias, then ok to discharge home 2. Split toprol XL 25 mg to 0.5 tab BID 3. 48 hr holter upon discharge 4. CAD, continue medical therapy with DAPT, BB and isosorbide mononitrate. 5. Mixed aortic and mitral valve disease for which will need BRAYDON in near future. Unable to perform this week since Dr. CELESTE is out this week. 6. Follow up in our office next week.
--- NOTE | 2019-03-07 12:38 | Discharge Summary ---
General - General Admission date:: 03/07/19 Discharge date: 03/07/19 HPI HPI: 54-year-old female who presented to the emergency department with concerns over palpitations that she refers to as "irregular heartbeat". Concerns of been exacerbated by perceived low heart rate and high blood pressure. Patient reports her lowest heart rate detected on home monitoring is been 56 and when she refers to high blood pressures typically systolics are no higher than the 140s. She has been seeing her primary care provider as well as cardiology. According to the patient medication adjustments have been made because of these palpitations. Yesterday evening while at rest palpitations became quite severe. Patient noticed "a twinge of discomfort" across the chest as well as some tingling in the left neck and face and tingling in the left hand. She has had previous VA but states discomfort was not like her previous chest pain associated with VA. She came to the emergency department for evaluation. Patient does report this morning that it has been arranged as an outpatient that she wear a heart monitor but she had only received a call yesterday that a heart monitor was available. See ER note for full details. EKG did not show any acute injury or ischemia. Patient was ultimately admitted for rule out of VA and cardiology consultation. Patient underwent cardiac catheterization this past spring. Last echocardiogram was this past spring as well findings were as below: 1. Mildly enlarged left atrium, normal left ventricular size, mild concentric left ventricular hypertrophy, visually estimated ejection fraction 50% with segmental wall motion abnormality described above. Grade 1 diastolic dysfunction seen with tissue Doppler evidence of raised left atrial pressure. 2. Mildly enlarged right ventricle with normal contractility. 3. Moderate to severe mitral regurgitation 4. Moderate to severe aortic insufficiency. 5. Mild tricuspid regurgitation, calculated right ventricular systolic pressure 42 mmHg consistent with moderate pulmonary hypertension, inferior vena cava is not well visualized. 6. If clinically indicated transesophageal echocardiogram is recommended to assess the aortic and mitral valve. Cardiac catheterizations below as follows: IMPRESSION: 1. Moderate to severe disease in the distal portion of the mid LAD and a 2.25 mm segment 2. Widely patent stents as described above 3. Small to moderate jailed diagonal artery which is unlikely to produce patient's symptoms 4. Severely elevated LVEDP which is almost certainly the etiology for patient's class IV symptoms 5. Slightly hyperdynamic ejection fraction PLAN: 1. At this point I strongly favor medical management. Patient should be placed on higher doses of Loop diuretics combined with Aldactone in order to decrease LVEDP. 2. Following treatment of diastolic dysfunction if patient continues to have recalcitrant angina pectoris I would consider stenting the mid LAD however she should fail medical management completely prior to this intervention 3. I do not believe the small to moderate diagonal artery is producing any symptoms. 4. Ongoing risk factor modification 5. Aggressive medical management Hospital Course Hospital Course: Patient was admitted and ruled out for VA. Cardiology saw the patient and recommended outpatient Holter which had been arranged. Patient ambulated without signs of arrhythmia. She was discharged and will follow up with Cardiology as an outpatient. Objective Vital signs: Temp Pulse Resp BP Pulse Ox 98.3 F 72 18 104/59 L 96 03/07/19 08:00 03/07/19 08:00 03/07/19 08:00 03/07/19 08:00 03/07/19 08:00 Results Labs on day of discharge: Labs from last 24 hours 03/07/19 03/07/19 03/07/19 11:34 06:01 05:39 WBC RBC Hgb Hct MCV MCH MCHC RDW Plt Count MPV Neut % (Auto) Lymph % (Auto) [place] % (Auto) Eos % (Auto) Baso % (Auto) Neut # (Auto) Lymph # (Auto) [place] # (Auto) Eos # (Auto) Baso # (Auto) Sodium 140 Potassium 3.5 D Chloride 104 Carbon Dioxide 28 Anion Gap 11.5 BUN 10 Creatinine 0.73 Estimated Creat Clear 102 Estimated GFR 83 Est GFR ( Amer) 100 Glucose 119 H POC Glucose 161 H 124 H Calcium 9.2 Magnesium 2.1 Troponin I < 0.02 03/07/19 03/07/19 03/06/19 05:39 03:30 22:22 WBC 7.1 RBC 3.72 L Hgb 10.7 L Hct 32.9 L MCV 88.3 MCH 28.6 MCHC 32.4 RDW 14.5 Plt Count 291 MPV 7.2 L Neut % (Auto) 60.4 Lymph % (Auto) 29.7 [place] % (Auto) 6.6 Eos % (Auto) 2.6 Baso % (Auto) 0.6 Neut # (Auto) 4.3 Lymph # (Auto) 2.1 [place] # (Auto) 0.5 Eos # (Auto) 0.2 Baso # (Auto) 0.1 Sodium 138 Potassium 2.8 L* Chloride 98 Carbon Dioxide 30 Anion Gap 12.8 BUN 11 Creatinine 0.85 Estimated Creat Clear 86 Estimated GFR 69 Est GFR ( Amer) 84 Glucose 143 H POC Glucose Calcium 9.8 Magnesium Troponin I < 0.02 < 0.02 03/06/19 22:22 WBC 8.9 RBC 3.87 L Hgb 11.1 L Hct 33.8 L MCV 87.4 MCH 28.7 MCHC 32.8 RDW 14.5 Plt Count 329 MPV 6.8 L Neut % (Auto) 59.0 Lymph % (Auto) 32.2 [place] % (Auto) 6.2 Eos % (Auto) 1.8 Baso % (Auto) 0.7 Neut # (Auto) 5.2 Lymph # (Auto) 2.9 [place] # (Auto) 0.6 Eos # (Auto) 0.2 Baso # (Auto) 0.1 Sodium Potassium Chloride Carbon Dioxide Anion Gap BUN Creatinine Estimated Creat Clear Estimated GFR Est GFR ( Amer) Glucose POC Glucose Calcium Magnesium Troponin I DS: Diagnosis - Discharge Diagnosis (1) Heart palpitations Status: Acute (2) Pulmonary hypertension Status: Acute (3) Hypokalemia Status: Resolved (4) CAD (coronary artery disease) Status: Acute (5) Tobacco dependence syndrome Status: Acute (6) AVA on CPAP Status: Chronic (7) Aortic valve regurgitation Status: Acute (8) Mitral valve regurgitation Status: Acute Discharge Plan - Patient Discharge Instructions ACTIVITY: Continue current activity DIET: continue same diet Patient Instructions: DI for Syncope in Adults (Fainting), DI for Hypokalemia, DI for Chest Pain, Hypokalemia - Follow up Plan Follow up with: Gerson Sun PA [Physician Steeler] - Disposition: Home, Self-Group Home Medications: Home Medications Medication Instructions Recorded Confirmed Type aspirin 81 mg tablet,delayed 81 mg PO DAILY tab 08/26/17 03/06/19 History release Isosorbide Mononitrate [Imdur 30mg 30 mg PO DAILY 10/13/17 03/06/19 History ER tablet] Losartan Potassium [Cozaar 50mg 50 mg PO DAILY 12/17/17 03/06/19 History Tablets] prasugrel 10 mg tablet 10 mg PO DAILY #30 tab 08/26/18 03/06/19 Rx Furosemide [Lasix 40mg tablet] 40 mg PO DAILY 03/06/19 03/06/19 History Metformin HCl 500 mg PO HS 03/06/19 03/07/19 History Metoprolol Succinate 25 mg PO DAILY 03/06/19 03/06/19 History Potassium Chloride [K-Tab ER 10 10 meq PO DAILY 03/06/19 03/06/19 History mEq] Prescriptions/Medication Reconciliation: Continued aspirin 81 mg tablet,delayed release 81 mg PO DAILY tab prasugrel 10 mg tablet 10 mg PO DAILY #30 tab Isosorbide Mononitrate [Imdur 30mg ER tablet] 30 mg PO DAILY Losartan Potassium [Cozaar 50mg Tablets] 50 mg PO DAILY Metformin HCl 500 mg PO HS Potassium Chloride [K-Tab ER 10 mEq] 10 meq PO DAILY Furosemide [Lasix 40mg tablet] 40 mg PO DAILY Changed Metoprolol Succinate 12.5 mg PO BID #0 - Problem Reconciliation Problems Reviewed?: Yes
--- NOTE | 2019-03-07 17:29 | Electrocardiograph Report ---
APPROVED REPORT Exam: Resting ECG HR:81 bpm ECG Measurements Heart Rate 81 AXES HI 128 P 57 QRSd 100 QRS -51 QT 390 T21 QTc 453 <Conclusion> Normal sinus rhythm Left axis deviation,LAHB Low voltage QRS Incomplete right bundle branch block Nonspecific ST abnormality Abnormal ECG Electronically signed by : Rene Francois, 03/07/2019 17:29:13
== END 2019-03-07 14:23 | disposition home or self-care (01) ==
LOC: ER 22:14 → 2ND 22:14
PROVIDERS: ADMIT Internal Medicine Adolescent Medicine; ATTEND Family Medicine
CPT/HCPCS: 36415; 71020; 71046; 80048; 82962; 83735; 84484; 85025; 93005; 93225; 99284; G0378

== ENCOUNTER → 2019-07-18 16:07 | Outpatient (CLI) | payer OTHER, SELFPAY ==
[2019-07-18 16:21] LABS: Basophils # 0.1 K/mm3 (0-0.2); Basophils % 0.9 % (0.1-2.0); Eosinophils # 0.3 K/mm3 (0.0-0.4); Eosinophils % 4.5 % (0.1-12.0); Hematocrit 33.3 % (37.0-47.0); Hemoglobin 10.6 g/dL (12.2-16.2); Lymphocytes # 2.3 K/mm3 (0.7-4.5); Lymphocytes % 39.1 % (10-50); Mean Corpuscular HGB Conc 31.9 g/dL (31.8-35.4); Mean Corpuscular Hemoglobin 24.9 pg (27.0-31.2); Mean Corpuscular Volume 78.1 fl (81-99); Mean Platelet Volume 8.9 fl (7.4-10.4); Monocytes # 0.5 K/mm3 (0.1-1.0); Monocytes % 7.6 % (1.7-9.3); Neutrophils # 2.9 K/mm3 (1.8-7.8); Platelet Count 292 K/mm3 (142-424); Red Blood Count 4.26 M/mm3 (4.20-5.40); Red Cell Distribution Width 14.8 % (11.5-17.5)
[2019-07-18 18:56] LABS: Alanine Aminotransferase 31 U/L (12-78); Albumin Level 3.5 gm/dL (3.4-5.0); Albumin/Globulin Ratio 1.1 (1.1-1.8); Alkaline Phosphatase 132 U/L (46-116); Anion Gap 12.3 mEq/L (5-15); Aspartate Amino Transferase 35 U/L (15-37); Bilirubin,Total 0.2 mg/dL (0.2-1.0); Blood Urea Nitrogen 12 mg/dL (7-18); Calcium 8.6 mg/dL (8.5-10.1); Carbon Dioxide 29 mmol/L (21.0-32.0); Chloride 102 mmol/L (98-107); Estimated Glomerular Filt Rate 87 ml/min (>60); GFR (African American) 105 ML/MIN (>60); Globulin 3.1 gm/dl (1.3-3.2); Glucose 115 mg/dL (74-106); Potassium 3.3 mmoL/L (3.5-5.1); Sodium 140 mmol/L (136-145); Thyroid Stimulating Hormone 0.55 uIU/ml (0.358-3.740); Total Protein,Serum 6.6 gm/dL (6.4-8.2)
== END ==
PROVIDERS: Visit Provider Nurse Practitioner Family
DX: R00.2 Palpitations (principal)
CPT/HCPCS: 36415; 80053; 83735; 84443; 85025

== ENCOUNTER → 2019-07-24 16:04 | Outpatient (CLI) | payer OTHER, SELFPAY ==
[2019-07-24 16:40] LABS: Basophils # 0.1 K/mm3 (0-0.2); Basophils % 0.9 % (0.1-2.0); Eosinophils # 0.3 K/mm3 (0.0-0.4); Eosinophils % 2.9 % (0.1-12.0); Hematocrit 36.9 % (37.0-47.0); Hemoglobin 11.6 g/dL (12.2-16.2); Lymphocytes # 3.4 K/mm3 (0.7-4.5); Lymphocytes % 39.6 % (10-50); Mean Corpuscular HGB Conc 31.5 g/dL (31.8-35.4); Mean Corpuscular Volume 79.2 fl (81-99); Mean Platelet Volume 7.5 fl (7.4-10.4); Monocytes # 0.4 K/mm3 (0.1-1.0); Monocytes % 4.8 % (1.7-9.3); Neutrophils # 4.4 K/mm3 (1.8-7.8); Neutrophils % 51.9 % (37.0-80.0); Platelet Count 358 K/mm3 (142-424); Red Blood Count 4.67 M/mm3 (4.20-5.40); Red Cell Distribution Width 15.8 % (11.5-17.5); White Blood Count 8.5 K/mm3 (4.8-10.8)
[2019-07-24 17:52] LABS: Alanine Aminotransferase 26 U/L (12-78); Albumin Level 3.8 gm/dL (3.4-5.0); Albumin/Globulin Ratio 1.1 (1.1-1.8); Alkaline Phosphatase 137 U/L (46-116); Anion Gap 15.5 mEq/L (5-15); Aspartate Amino Transferase 25 U/L (15-37); Bilirubin,Total 0.2 mg/dL (0.2-1.0); Blood Urea Nitrogen 11 mg/dL (7-18); Calcium 9.3 mg/dL (8.5-10.1); Carbon Dioxide 28 mmol/L (21.0-32.0); Chloride 99 mmol/L (98-107); Creatinine,Serum 0.67 mg/dL (0.55-1.02); Estimated Glomerular Filt Rate 91 ml/min (>60); GFR (African American) 111 ML/MIN (>60); Globulin 3.4 gm/dl (1.3-3.2); Glucose 125 mg/dL (74-106); Potassium 3.5 mmoL/L (3.5-5.1); Sodium 139 mmol/L (136-145); Thyroid Stimulating Hormone 0.65 uIU/ml (0.358-3.740); Total Protein,Serum 7.2 gm/dL (6.4-8.2)
== END ==
PROVIDERS: Visit Provider Nurse Practitioner Family
DX: R00.2 Palpitations (principal)
CPT/HCPCS: 36415; 80053; 83735; 84443; 85025

== ENCOUNTER 2020-06-26 20:02 | Observation (INO) | payer OTHER, SELFPAY ==
[2020-06-26] VITALS (8 sets, daily range): BP systolic 108–146; BP diastolic 51–76; PULSE 69–71; RESP 14–21; TEMP 36.3–37; O2SAT 96–100; BMI 26.5; BMI 26.7
--- NOTE | 2020-06-26 20:03 | ECG_ITS ---
APPROVED REPORT Exam: Resting ECG HR:71 bpm ECG Measurements Heart Rate 71 AXES SD 128 P 60 QRSd 128 QRS 59 QT 452 T 21 QTc 491 Conclusion Sinus rhythm with premature atrial complexes Right bundle branch block Abnormal ECG Electronically signed by : Aman [place], 06/28/2020 07:12:01
--- NOTE | 2020-06-26 20:10 | XR_ITS ---
PROCEDURE: XR CHEST 2V CLINICAL HISTORY: CP Chest pain COMPARISON: CR CXR2V XR chest 2V from 02/01/2018 CR CXR2V XR chest 2V from 11/15/2018 CR XR CHEST 2V from 03/06/2019 FINDINGS: The cardiomediastinal silhouette and pulmonary vascularity are within normal limits. The lungs are clear without infiltrates, suspicious nodules, or pleural effusions. There is some minimal periarticular calcification inferiorly at the right shoulder joint and minimal cortical regularity of the head on the left indicating degenerative changes. IMPRESSION: No acute findings. Dictated by: Sanjay Logan MD 06/27/2020 05:15 Sanjay Logan MD in [place] 06/27/2020 05:15
[2020-06-26 20:18] LABS: Basophils # 0.1 K/mm3 (0-0.2); Basophils % 0.8 % (0.1-2.0); Eosinophils # 0.2 K/mm3 (0.0-0.4); Eosinophils % 2.1 % (0.1-12.0); Hematocrit 35.8 % (37.0-47.0); Hemoglobin 11.4 g/dL (12.2-16.2); Lymphocytes # 2.9 K/mm3 (0.7-4.5); Mean Corpuscular HGB Conc 31.9 g/dL (31.8-35.4); Mean Corpuscular Hemoglobin 25.9 pg (27.0-31.2); Mean Corpuscular Volume 81.2 fl (81-99); Mean Platelet Volume 7.9 fl (7.4-10.4); Monocytes # 0.5 K/mm3 (0.1-1.0); Monocytes % 5.7 % (1.7-9.3); Neutrophils # 5.1 K/mm3 (1.8-7.8); Neutrophils % 58.4 % (37.0-80.0); Platelet Count 342 K/mm3 (142-424); Red Blood Count 4.41 M/mm3 (4.20-5.40); Red Cell Distribution Width 14.2 % (11.5-17.5); White Blood Count 8.8 K/mm3 (4.8-10.8)
--- NOTE | 2020-06-26 20:18 | HMH.EDCP ---
ED Disposition Clinical Impression: Angina at rest, Tobacco use CAD (coronary artery disease) Qualifiers: Coronary Disease-Associated Artery/Lesion type: [place] artery [place] vs. transplanted heart: unspecified whether [place] or transplanted heart Associated angina: with unspecified angina Qualified Code(s): I25.119 - Atherosclerotic heart disease of [place] coronary artery with unspecified angina pectoris Disposition: Admitted as Observation Condition on Discharge: Good Referrals: Massiel Wells APRN [Primary Care Provider] - - Critical Care Critical Care Time: No Attestation: On 06/26/20, the high probability of a clinically significant, sudden or life threatening deterioration of the following system(s) required my full and direct attention, intervention and personal management. The time I documented below is in addition to time spent performing reported procedures but includes the following listed in this critical care notation. Medical Decision Making - Medical Records Medical records reviewed: Yes: I reviewed the patient's medical records. - Haja Inquiry Pt receiving controlled substance: No Vital Signs: 06/26/20 20:02 Temperature 98.6 F Temperature Source Oral Pulse Rate [Left Radial] 70 Respiratory Rate 21 Blood Pressure [Right Arm] 146/67 H Blood Pressure Mean [Right Arm] 93 Blood Pressure Source [Right Arm] Automatic Cuff Blood Pressure Position [Right Arm] Supine 02 Sat by Pulse Oximetry 100 Oxygen Delivery Method Room Air - Lab Data Lab results reviewed: Yes: I reviewed the patient's lab results. Lab Results 06/26/20 20:04: WBC 8.8, RBC 4.41, Hgb 11.4 L, Hct 35.8 L, MCV 81.2, MCH 25.9 L, MCHC 31.9, RDW 14.2, Plt Count 342, MPV 7.9, Neut % (Auto) 58.4, Lymph % (Auto) 33.0, [place] % (Auto) 5.7, Eos % (Auto) 2.1, Baso % (Auto) 0.8, Neut # (Auto) 5.1, Lymph # (Auto) 2.9, [place] # (Auto) 0.5, Eos # (Auto) 0.2, Baso # (Auto) 0.1 06/26/20 20:04: Sodium 138, Potassium 3.3 L, Chloride 98, Carbon Dioxide 30, Anion Gap 13.3, BUN 16, Creatinine 0.70, Estimated Creat Clear 96, Estimated GFR 87, Est GFR ( Amer) 105, Glucose 208 H, Calcium 10.1, Total Bilirubin 0.4, Direct Bilirubin 0.1, Conjugated Bilirubin 0.0, Indirect Bilirubin 0.3, Unconjugated Bilirubin 0.3, AST 72 H, ALT 35, Alkaline Phosphatase 152 H, Troponin I < 0.01, Total Protein 8.0, Albumin 4.7 06/26/20 20:04: SARS-CoV-2 IgG Ab (Rapid) Negative, SARS-CoV-2 IgM Ab (Rapid) Negative Result diagrams: 06/26/20 20:04 06/26/20 20:04 Orders (Tests/Meds): ED MEDICATIONS Generic Name Dose Route Start Last Admin Trade Name Freq PRN Reason Stop Dose Admin Sodium Chloride 1,000 mls @ 999 mls/hr 06/26/20 20:15 06/26/20 20:13 Sod Chlor 0.9% 1000ml Bag IV 06/26/20 21:15 999 mls/hr .Q1H1M MAGALI Administration Discontinued Medications Generic Name Dose Route Start Last Admin Trade Name Freq PRN Reason Stop Dose Admin Aspirin 324 mg 06/26/20 20:10 06/26/20 20:12 Aspirin 81mg Chewable Tablet PO 06/26/20 20:11 324 mg ONCE ONE Administration Nitroglycerin 1 gm 06/26/20 20:17 06/26/20 20:18 Nitroglycerin 1 Gm Ointment TD 06/26/20 20:18 1 gm ONCE ONE Administration ORDERS Category Date Time Status XR chest 2V Stat Exams 06/26/20 20:10 Taken Covid-19 IgG/IgM ([facility]) Stat Lab 06/26/20 20:54 Ordered Troponin I Q3H Lab 06/26/20 23:15 Ordered Troponin I Q3H Lab 06/27/20 02:15 Ordered - Radiology Data #1 Image(s): Chest Image Reviewed: Yes I reviewed the patient's radiology image Preliminary Findings: Normal/NAD - ECG Data Tracing #1 Normal Sinus Rhythm: Yes Ischemic changes: non-specific ST-T wave changes Conduction abnormalities present: RBBB - Physician Consults Physician Consulted: hernandez Reason -: Admission Medical Decision Narrative: anginal chest pain with sig risk factors and known card disease Chest Pain HPI - General Chief Complaint: Chest Pain Stated Complain
[2020-06-26 20:20] LABS: Chloride 98 mmol/L (98-107); Sodium 138 mmol/L (136-145)
[2020-06-26 20:21] LABS: Potassium 3.3 mmoL/L (3.5-5.1)
[2020-06-26 20:23] LABS: Alanine Aminotransferase 35 U/L (12-78); Alkaline Phosphatase 152 U/L (38-126); Anion Gap 13.3 mEq/L (5-15); Aspartate Amino Transferase 72 U/L (14-36); Bilirubin,Direct 0.1 mg/dl (0.0-0.4); Bilirubin,Indirect 0.3 mg/dL (0.0-0.9); Bilirubin,Total 0.4 mg/dl (0.2-1.3); Bilirubin,Unconjugated 0.3 mg/dL (0.0-1.1); Blood Urea Nitrogen 16 mg/dl (7-17); Carbon Dioxide 30 mmol/L (22.0-30.0); Creatinine Clearance Estimated 96 mL/min (50-200); Estimated Glomerular Filt Rate 87 ml/min (>60); GFR (African American) 105 ML/MIN (>60)
[2020-06-26 20:24] LABS: Albumin Level 4.7 g/dl (3.5-5.0); Calcium 10.1 mg/dl (8.4-10.2); Glucose 208 mg/dl (74-100)
[2020-06-26 20:42] LABS: Coronavirus 19 IgG Antibody Negative (Negative); Coronavirus 19 IgM Antibody Negative (Negative)
[2020-06-26 20:44] LABS: Troponin I < 0.01 ng/ml (0.00-0.034)
--- NOTE | 2020-06-26 21:03 | PC.NURSE ---
Dr Holliday speaking with Dr Franks for admission
[2020-06-26 21:43] LABS: Hemoglobin A1C 6.5 % (4.0-6.0)
--- NOTE | 2020-06-26 21:52 | PC.NURSE ---
patient up to floor via wheelchair @ 21:43.
[2020-06-26 23:52] LABS: Troponin I < 0.01 ng/ml (0.00-0.034)
[2020-06-27] VITALS: PULSE 70
--- NOTE | 2020-06-27 00:53 | PC.NURSE ---
PT IS RESTING IN BED WITH CPAP ON AT THIS TIME. ALERT AND ORIENTED X4. PT HAS NOT HAD ANY COMPLAINTS OF CP OR SOA SINCE ARRIVING TO THE FLOOR. PT HAS BEEN NPO SINCE MIDNIGHT. REQUESTED A SOFT DRINK AND PEANUT BUTTER CRACKERS BEFORE BED. LUNG SOUNDS CLEAR. ABDOMEN SOFT/NON TENDER WITH ACTIVE BOWEL SOUNDS. CLIP LOADING MACHINE FEEDER EQUAL. PT HAS BEEN AMBULATING TO THE BATHROOM. VSS. WILL CONTINUE TO MONITOR.
[2020-06-27 02:23] LABS: Troponin I < 0.01 ng/ml (0.00-0.034)
[2020-06-27 03:28] VITALS: BP 97/55; PULSE 63; RESP 18; TEMP 36.4; O2SAT 97
[2020-06-27 04:00] VITALS: PULSE 70
[2020-06-27 04:18] LABS: POC Glucose,Bedside 147 (70-110)
[2020-06-27 04:59] VITALS: BMI 26.6
--- NOTE | 2020-06-27 07:00 | CA_ITS ---
APPROVED REPORT EXAM: Comprehensive 2D, Doppler, and color-flow Echocardiogram Certified Pesticide Applicator: Jamilah Lee CRT Ht: 5 ft 3 in Wt: 150lbs BSA: 1.71 BP: 146/70 mmHg Indications: Chest Pain, COPD, Murmur, Shortness of Breath, Diabetes, Hyperlipidemia, Hypertension/HDD, old [place], AVA, CA, stents 2D Dimensions LVOT 1.98 cm (M/F) 1.5-2.5 M-Mode Dimensions RVDd 2.07 cm (0.9-2.6) LA Diam 3.26 cm (1.9-4.0) LVDd 5.22 cm (3.5-5.7) Ao Diam 3.56 cm (2.0-3.7) LVDs 2.68 cm (3.5-5.7) IVSd 1.32 cm (0.6-1.1) PWd 0.82 cm (0.6-1.1) EF (Teich) 79.70% FS 48.70% EDV (Teich) 130.70 mL ESV (Teich) 26.50 mL LV Diastology E Decel Time 150.00 (160-240 msec) E/A Ratio 1.15 MED E' 7.70 (< 7 cm/sec) E'/MED E' Ratio 13.29 (>14) LAT E' 9.10 (<10 cm/sec) E/LAT E' Ratio 11.24 (>14) Aortic Valve AI PHT 395.00 ms AO Peak GR. 16.10 mmHg Mitral Valve MV E Max Didier. 102.00 (40-130 cm/s) MV A Velocity 89.00 (40-130 cm/s) E/A Ratio 1.15 MV Decel. Time 150.00 (160-240 ms) MV PHT 44.00 ms Pulmonary Valve PV Peak Velocity 76.00 (50-150 cm/s) Tricuspid Valve TR P. Velocity 287.00 cm/s RAP Estimate 10.00 mmHg RVSP 43.00 mmHg Left Ventricle Atrium is mildly enlarged, left ventricle is normal size, mild concentric left ventricular hypertrophy, visually estimated ejection fraction 55% with no regional wall motion abnormality, grade 1 diastolic dysfunction seen with tissue Doppler evidence of raise left atrial pressure. Right Ventricle Right atrium and right ventricle are normal size and contractility. Aortic Valve Aortic valve is minimally thickened and fibrosed, there is no aortic stenosis, there is mild aortic insufficiency. Mitral Valve Mitral valve is grossly normal, there is mild mitral regurgitation. Tricuspid Valve Tricuspid valve grossly normal, there is mild tricuspid regurgitation, calculated right ventricular systolic pressure 32 mmHg. Pulmonic Valve Pulmonic valve is poorly visualized. Great Vessels Aortic root is normal size. Pericardium No significant pericardial effusion noted. Conclusion 1. Mildly enlarged left atrium, normal left ventricular size, mild concentric left ventricular hypertrophy, visually estimated ejection fraction 55% with no regional wall motion abnormality, grade 1 diastolic dysfunction seen with tissue Doppler evidence of raise left atrial pressure. 2. Mild aortic, mild mitral and tricuspid regurgitation, calculated right ventricular systolic pressure is 32 mmHg. 3. No significant pericardial effusion noted. Electronically signed by : Jose Boyd, 06/27/2020 13:17:00
--- NOTE | 2020-06-27 07:14 | HMH.PHAVTE ---
[facility] Pharmacy VTE Monitoring - Patient Demographics Admission date: 06/26/20 Report Date: 06/27/20 Time: 07:14 Allergies/Adverse Reactions: Patient Allergies oxycodone [OXYCODONE] Allergy (Severe, Verified 06/11/19 09:44) Swelling of Lip/Tongue/Throat levofloxacin [From LEVAQUIN] Allergy (Intermediate, Verified 06/11/19 09:44) codeine [CODEINE] Allergy (Mild, Verified 06/11/19 09:44) morphine [MORPHINE] Allergy (Unknown, Verified 06/11/19 09:44) atorvastatin [From Lipitor] Adverse Reaction (Severe, Verified 06/11/19 09:44) body aches Height: 1.6 m Weight: 68.181 kg Patient Problems: Current Active Problems CAD (coronary artery disease) (Acute) Angina at rest (Acute) Tobacco use (Chronic) - VTE Risk Labs: VTE Related Lab Results Hgb 11.4 g/dL (12.2-16.2) L 06/26/20 20:04 Hct 35.8 % (37.0-47.0) L 06/26/20 20:04 Plt Count 342 K/mm3 (142-424) 06/26/20 20:04 BUN 16 mg/dl (7-17) 06/26/20 20:04 Creatinine 0.70 mg/dl (0.52-1.04) 06/26/20 20:04 Estimated Creat Clear 96 mL/min (50-200) 06/26/20 20:04 VTE Score: 2 Clinical Trial Participant: No - Prophylaxis VTE Prophylaxis Ordered?: Yes Types of VTE Prophylaxis: TEDS Knee High Location of Applied Device: Bilateral Lower Extremeties
--- NOTE | 2020-06-27 07:28 | HMH.PHAINT ---
Medication reconciliation completed using pharmacy claims data and patient interview.
[2020-06-27 07:35] LABS: Chloride 106 mmol/L (98-107); Sodium 140 mmol/L (136-145)
[2020-06-27 07:36] LABS: Potassium 3.4 mmoL/L (3.5-5.1)
[2020-06-27 07:37] LABS: Basophils # 0.1 K/mm3 (0-0.2); Basophils % 0.9 % (0.1-2.0); Eosinophils # 0.2 K/mm3 (0.0-0.4); Eosinophils % 2.5 % (0.1-12.0); Lymphocytes # 2.2 K/mm3 (0.7-4.5); Lymphocytes % 38.1 % (10-50); Mean Corpuscular HGB Conc 31.9 g/dL (31.8-35.4); Mean Corpuscular Hemoglobin 26.2 pg (27.0-31.2); Mean Corpuscular Volume 82.1 fl (81-99); Mean Platelet Volume 7.5 fl (7.4-10.4); Monocytes # 0.4 K/mm3 (0.1-1.0); Monocytes % 6.2 % (1.7-9.3); Neutrophils % 52.3 % (37.0-80.0); Platelet Count 251 K/mm3 (142-424); Red Blood Count 3.65 M/mm3 (4.20-5.40); White Blood Count 5.8 K/mm3 (4.8-10.8)
[2020-06-27 07:38] LABS: Anion Gap 8.4 mEq/L (5-15); Blood Urea Nitrogen 15 mg/dl (7-17); Carbon Dioxide 29 mmol/L (22.0-30.0); Creatinine Clearance Estimated 113 mL/min (50-200); Estimated Glomerular Filt Rate 103 ml/min (>60); GFR (African American) 125 ML/MIN (>60)
[2020-06-27 07:39] LABS: Glucose 144 mg/dl (74-100)
[2020-06-27 07:43] LABS: Calcium 8.8 mg/dl (8.4-10.2)
[2020-06-27 07:45] LABS: Hemoglobin 9.6 g/dL (12.2-16.2)
--- NOTE | 2020-06-27 07:48 | HMH.HPDC ---
General - General Admission date:: 06/26/20 Discharge date: 06/27/20 *Admission Date: 06/26/20 *Chief complaint: Chest pain *History of present illness: Patient presented to the ER yesterday evening after developing a tingling sensation in the left arm earlier in the evening that gradually progressed to include some left upper chest pain. Patient has a history of coronary artery disease With stenting. She last had cardiac catheterization at an outside hospital in the spring of this year at which point medical management was recommended. Patient did not have nitroglycerin at home and when her chest pain did not improve she presented to the ER. Patient underwent cardiac evaluation with no signs of acute ischemia. Troponin was negative. She was admitted overnight for rule out of MS. [facility] History I have reviewed the patient's past medical history: Yes Medical History: Reports:: Cancer (skin), Congestive Heart Failure, Chronic Obstructive Pulmonary Disease (COPD), Coronary Artery Disease, Diabetes Mellitus Type 2, Gastroesophageal Reflux Disease(GERD), Hyperlipidemia, Hypertension, Myocardial Infarction Denies:: Diabetes Mellitus Type 1, Internal Pacemaker, Lung Disease, MRSA, Seizures *Have you ever received a pneumonia vaccine?: No *Have you received a flu vaccine this season?: Yes Other Medical History: Reports: Anemia, Arthritis Laterality Cases: Left: Arthroscopy Shoulder, Right: Total Hip Replacement, Bilateral: Tonsillectomy Other Surgeries: Yes: Angioplasty, Appendectomy, Cancer Surgery, Cardiac Catheterization, Cholecystectomy, Colonoscopy, Coronary Stent, EGD, Hysterectomy-Total, Tubal Ligation, Other. No: Pacemaker Amputation: No Fractures: No - *Social History Last grade of school completed: Some college Smoking Status: Current every day smoker Tobacco Type: cigarettes # Packs/Day (cigarettes): 2 Alcohol Intake: never Alcohol Intake Frequency:: holidays/special occasions only Substance Use Type: denies use *Occupational Status:: employed Housing: house Household Members: spouse *Travel in the last 8 weeks: None Family Hx:: Diabetes, Hyperlipidemia, Hypertension Review of Systems - Constitutional Denies body ache(s), Denies chills, Denies lack of energy - ENT Denies abnormal hearing, Denies change in voice - *Cardiovascular Reports chest pain, Denies chest pain at rest, Denies chest pain with activity, Denies shortness of breath with activity - *Respiratory Denies change in phlegm color, Denies chest congestion - *Gastrointestinal Denies abdominal pain, Denies belching, Denies loose stools - *Genitourinary Denies abnormal periods - *Musculoskeletal Denies abnormal walking, Denies joint pain - *Neurologic Denies abnormal movements, Denies localized weakness, Denies seizure-like activity Exam Vital signs and Labs for Last 24 Hours: Temp Pulse Resp BP Pulse Ox 97.6 F 70 18 97/55 L 97 06/27/20 03:28 06/27/20 04:00 06/27/20 03:28 06/27/20 03:28 06/27/20 03:28 Laboratory Results - last 24 hr 06/26/20 20:04: WBC 8.8, RBC 4.41, Hgb 11.4 L, Hct 35.8 L, MCV 81.2, MCH 25.9 L, MCHC 31.9, RDW 14.2, Plt Count 342, MPV 7.9, Neut % (Auto) 58.4, Lymph % (Auto) 33.0, [place] % (Auto) 5.7, Eos % (Auto) 2.1, Baso % (Auto) 0.8, Neut # (Auto) 5.1, Lymph # (Auto) 2.9, [place] # (Auto) 0.5, Eos # (Auto) 0.2, Baso # (Auto) 0.1 06/26/20 20:04: Sodium 138, Potassium 3.3 L, Chloride 98, Carbon Dioxide 30, Anion Gap 13.3, BUN 16, Creatinine 0.70, Estimated Creat Clear 96, Estimated GFR 87, Est GFR ( Amer) 105, Glucose 208 H, Calcium 10.1, Total Bilirubin 0.4, Direct Bilirubin 0.1, Conjugated Bilirubin 0.0, Indirect Bilirubin 0.3, Unconjugated Bilirubin 0.3, AST 72 H, ALT 35, Alkaline Phosphatase 152 H, Troponin I < 0.01, Total Protein 8.0, Albumin 4.7 06/26/20 20:04: SARS-CoV-2 IgG Ab (Rapid) Negative, SARS-CoV-2 IgM Ab (Rapid) Negative 06/26/20 20:04: Hemoglobin A1c 6.5 H 06/26/20 23:00: Troponin I < 0.01 06/27
[2020-06-27 08:00] VITALS: BP 112/70; PULSE 67; PULSE 70; RESP 19; TEMP 36.9; O2SAT 97
== END 2020-06-27 09:16 | disposition home or self-care (01) ==
LOC: ER 21:09 → 2ND 21:14
PROVIDERS: Admitting Provider Internal Medicine Adolescent Medicine; Emergency Provider Emergency Medicine; PCP Nurse Practitioner Family; Visit Provider Family Medicine
DX: I25.118 Atherosclerotic heart disease of native coronary artery with other forms of angina pectoris (principal); I11.0 Hypertensive heart disease with heart failure; I50.9 Heart failure, unspecified; I25.2 Old myocardial infarction; J44.9 Chronic obstructive pulmonary disease, unspecified; Z95.5 Presence of coronary angioplasty implant and graft; Z72.0 Tobacco use; Z79.84 Long term (current) use of oral hypoglycemic drugs; E11.9 Type 2 diabetes mellitus without complications; Z79.82 Long term (current) use of aspirin; Z88.5 Allergy status to narcotic agent; E78.5 Hyperlipidemia, unspecified; I08.0 Rheumatic disorders of both mitral and aortic valves
CPT/HCPCS: 36415; 71046; 80048; 80076; 82962; 83036; 83735; 84484; 85025; 86328; 93005; 93306; 96365; 99284; G0378

== ENCOUNTER 2020-07-30 16:06 | Emergency (ER) | payer OTHER, SELFPAY ==
[2020-07-30 16:20] VITALS: BP 138/72; PULSE 70; RESP 18; TEMP 37; O2SAT 99; BMI 26.2
--- NOTE | 2020-07-30 16:43 | HMH.EDUTC ---
[facility] [place] Disposition Clinical Impression: Encounter for laboratory testing for COVID-19 virus Disposition: Home, Self-Care Condition on Discharge: Good Instructions: DI for COVID-19 (Suspected or Confirmed ), Coronavirus Disease 2019, Preventing the Spread of Coronavirus Discharge Instructions Additional Instructions: *Monitor Temp, Over the counter Motrin or Tylenol as directed/as needed Tylenol every 4 hours and Motrin every 6 hours (as long as your family doctor has told you that you can take it) for fever or pain. and straight to ER if unable to lower temp less than 101.0 after medication given *Warm salt water gargles may help to soothe the throat *Throat Lozenges *Warm fluids like tea with honey may help to soothe the throat *Sleep elevated *Humidifier/Vaporizer Follow up IMMEDIATELY for new or worsening symptoms or no Noticeable improvement over the next 48-72 hours. 911 for difficulty breathing or swallowing You were tested for today for COVID19 your test result should be back in the next 24-48 hours, you may call to the [facility] to see if your test results are back in the next 48 hours [phone] [facility] hours are 9am-9pm You was given a handout with instructions for Self Quarantine and Self isolation for while you wait on test results and what to do if they are positive If you are positive the Health Dept will be contacting you also Referrals: Massiel Wells APRN [Primary Care Provider] - As needed Forms: Work/School Release Time of Disposition: 16:47 Medical Decision Making - Haja Inquiry Pt receiving controlled substance: No Haja was queried for this patient: No Vital Signs: 07/30/20 16:20 Temperature 98.6 F Temperature Source Oral Pulse Rate [Right Brachial] 70 Respiratory Rate 18 Blood Pressure [Right Arm] 138/72 Blood Pressure Mean [Right Arm] 94 Blood Pressure Source [Right Arm] Automatic Cuff Blood Pressure Position [Right Arm] Sitting 02 Sat by Pulse Oximetry 99 Oxygen Delivery Method Room Air Orders (Tests/Meds): ORDERS Category Date Time Status Covid-19 Nasal PCR Sendout P&C Stat Lab 07/30/20 16:07 Ordered [facility] HPI - General Stated complaint: covid test Time Seen by Provider: 07/30/20 16:43 Mode of Arrival: Ambulatory Source of Information: Patient Limitations: No Limitations Description of Symptoms (Recalled from Triage Doc. by RN): PATIENT TEST POSITIVE FOR COVID WITH RAPID TEST. NEEDING PCR HEENT Symptoms (Recalled from RN notes): No Resp Symptoms (Recalled from RN notes): No Skin Symptoms (Recalled from RN notes): No MS Symptoms (Recalled from RN notes): No Functional Status (Recalled from RN notes): WNL - History of Present Illness Provider Complaint: Patient state that she works at [employer] and several people there that has tested positive for COVID States that she took a rapid test there this morning and it was positive so they wanted her to come in and get a PCR test States that she has had runny nose and headache - Related Data Home Medications Medication Instructions Recorded Confirmed aspirin 81 mg tablet,delayed 81 mg PO DAILY tab 08/26/17 06/26/20 release Isosorbide Mononitrate [Imdur 30mg 30 mg PO DAILY 06/11/19 06/26/20 ER tablet] Prasugrel HCl [Prasugrel 10mg 10 mg PO DAILY 06/11/19 06/26/20 Tab] Sotalol HCl [Sotalol] 80 mg PO BID 06/26/20 06/27/20 Losartan Potassium 25 mg PO DAILY 06/27/20 06/27/20 Metformin HCl [Metformin HCl ER] 500 mg PO DAILY 06/27/20 06/27/20 Potassium Chloride [Klor-Con M10] 10 meq PO DAILY 06/27/20 06/27/20 Previous Rx's Medication Instructions Recorded furosemide 40 mg tablet 40 mg PO DAILY #90 tab 04/04/19 Nitroglycerin 0.4 mg SL Q5MINP PRN #30 tab.subl 06/27/20 Allergies Allergy/AdvReac Type Severity Reaction Status Date / Time oxycodone [OXYCODONE] Allergy Severe Swelling Verified 06/11/19 09:44 of Lip/Tongue/Throat levofloxacin [From LEVAQUIN] Allergy Intermediate Verified 06/11
[2020-07-30 16:48] VITALS: BP 138/72; PULSE 70; RESP 18; TEMP 37; O2SAT 99
--- NOTE | 2020-08-01 10:15 | PC.NURSE ---
patient informed of positive covid results
[2020-08-01 10:23] LABS: Covid-19 Nasal PCR Sendout P&C POSITIVE
== END 2020-07-30 16:50 | disposition home or self-care (01) ==
PROVIDERS: Emergency Provider Nurse Practitioner; PCP Nurse Practitioner Family
DX: U07.1 COVID-19 (principal); J44.9 Chronic obstructive pulmonary disease, unspecified; I10 Essential (primary) hypertension; I25.2 Old myocardial infarction; I25.10 Atherosclerotic heart disease of native coronary artery without angina pectoris; E78.5 Hyperlipidemia, unspecified; E11.9 Type 2 diabetes mellitus without complications; K21.9 Gastro-esophageal reflux disease without esophagitis; Z79.899 Other long term (current) drug therapy; F17.210 Nicotine dependence, cigarettes, uncomplicated
CPT/HCPCS: 99202; G0463; U0004

== ENCOUNTER 2020-09-09 12:13 | Emergency (ER) | payer OTHER, SELFPAY ==
--- NOTE | 2020-09-09 12:11 | ECG_ITS ---
APPROVED REPORT Exam: Resting ECG HR:72 bpm ECG Measurements Heart Rate 72 AXES ME 122 P 59 QRSd 116 QRS 29 QT 452 T 0 QTc 494 Conclusion Normal sinus rhythm Right bundle branch block Abnormal ECG Electronically signed by : A[place], 09/10/2020 17:21:00
[2020-09-09 12:14] VITALS: BP 133/49; PULSE 73; RESP 16; TEMP 36.7; O2SAT 100; BMI 26.2
--- NOTE | 2020-09-09 12:15 | XR_ITS ---
PROCEDURE: XR CHEST PORTABLE CLINICAL HISTORY: CHEST PAIN COMPARISON: CR CXR2V XR chest 2V from 11/15/2018 CR XR CHEST 2V from 03/06/2019 CR XR CHEST 2V from 06/26/2020 FINDINGS: The cardiomediastinal silhouette and pulmonary vascularity are within normal limits. The lungs are clear without infiltrates, suspicious nodules, or pleural effusions. Coronary artery stents are noted. Mild osteoarthritic changes of the AC joints and glenohumeral joints. IMPRESSION: No acute findings. Dictated by: Sanjay Logan MD 09/09/2020 15:42 Sanjay Logan MD in [place] 09/09/2020 15:42
[2020-09-09 12:35] LABS: Basophils # 0.1 K/mm3 (0-0.2); Basophils % 0.7 % (0.1-2.0); Eosinophils # 0.1 K/mm3 (0.0-0.4); Eosinophils % 1.1 % (0.1-12.0); Hematocrit 29.5 % (37.0-47.0); Hemoglobin 8.7 g/dL (12.2-16.2); Lymphocytes # 2.5 K/mm3 (0.7-4.5); Mean Corpuscular HGB Conc 29.6 g/dL (31.8-35.4); Mean Corpuscular Hemoglobin 21.4 pg (27.0-31.2); Mean Corpuscular Volume 72.5 fl (81-99); Mean Platelet Volume 8.6 fl (7.4-10.4); Monocytes # 0.5 K/mm3 (0.1-1.0); Monocytes % 5.4 % (1.7-9.3); Neutrophils # 5.8 K/mm3 (1.8-7.8); Neutrophils % 64.8 % (37.0-80.0); Platelet Count 363 K/mm3 (142-424); Red Blood Count 4.06 M/mm3 (4.20-5.40); Red Cell Distribution Width 14.5 % (11.5-17.5); White Blood Count 8.9 K/mm3 (4.8-10.8)
[2020-09-09 12:47] LABS: Chloride 102 mmol/L (98-107); Sodium 140 mmol/L (136-145)
[2020-09-09 12:48] LABS: Potassium 3.2 mmoL/L (3.5-5.1)
[2020-09-09 12:51] LABS: Anion Gap 12.2 mEq/L (5-15); Blood Urea Nitrogen 9 mg/dl (7-17); Calcium 9.6 mg/dl (8.4-10.2); Carbon Dioxide 29 mmol/L (22.0-30.0); Creatinine Clearance Estimated 133 mL/min (50-200); Estimated Glomerular Filt Rate 128 ml/min (>60); GFR (African American) 154 ML/MIN (>60); Glucose 229 mg/dl (74-100)
[2020-09-09 13:05] LABS: Troponin I < 0.01 ng/ml (0.00-0.034)
[2020-09-09 13:46] VITALS: BP 118/80; PULSE 68; O2SAT 99
[2020-09-09 15:08] VITALS: BP 158/89; PULSE 76; RESP 19; TEMP 36.6; O2SAT 99
[2020-09-09 15:25] LABS: Troponin I < 0.01 ng/ml (0.00-0.034)
[2020-09-09 15:30] VITALS: BP 104/54; PULSE 71; RESP 18; O2SAT 100
--- NOTE | 2020-09-09 15:50 | PC.NURSE ---
Provider at bedside discussing care.
--- NOTE | 2020-09-09 15:54 | HMH.EDGENADL ---
ED Disposition Clinical Impression: Chest pain Qualifiers: Chest pain type: unspecified Qualified Code(s): R07.9 - Chest pain, unspecified GERD (gastroesophageal reflux disease) Qualifiers: Esophagitis presence: esophagitis presence not specified Qualified Code(s): K21.9 - Gastro-esophageal reflux disease without esophagitis Disposition: Home, Self-Care Condition on Discharge: Good Referrals: Massiel Wells APRN [Primary Care Provider] - 3 days Time of Disposition: 15:59 - Critical Care Critical Care Time: No Attestation: On 09/09/20, the high probability of a clinically significant, sudden or life threatening deterioration of the following system(s) required my full and direct attention, intervention and personal management. The time I documented below is in addition to time spent performing reported procedures but includes the following listed in this critical care notation. Medical Decision Making - Medical Records Medical records reviewed: Yes: I reviewed the patient's medical records. - Haja Inquiry Pt receiving controlled substance: No Vital Signs: 09/09/20 12:14 09/09/20 13:46 09/09/20 15:08 Temperature 98.1 F 97.8 F Temperature Source Oral Oral Pulse Rate [Left Radial] 73 68 76 Respiratory Rate 16 19 Blood Pressure [Right Arm] 133/49 L 118/80 158/89 H Blood Pressure Mean [Right Arm] 77 92 112 Blood Pressure Source [Right Arm] Automatic Cuff Automatic Cuff Automatic Cuff Blood Pressure Position [Right Arm] Sitting Sitting Sitting 02 Sat by Pulse Oximetry 100 99 99 Oxygen Delivery Method Room Air Room Air 09/09/20 15:30 Temperature Temperature Source Pulse Rate [Left Radial] 71 Respiratory Rate 18 Blood Pressure [Right Arm] 104/54 L Blood Pressure Mean [Right Arm] 70 Blood Pressure Source [Right Arm] Automatic Cuff Blood Pressure Position [Right Arm] Sitting 02 Sat by Pulse Oximetry 100 Oxygen Delivery Method Room Air - Lab Data Lab results reviewed: Yes: I reviewed the patient's lab results. Lab Results 09/09/20 12:24: WBC 8.9, RBC 4.06 L, Hgb 8.7 L, Hct 29.5 L, MCV 72.5 L, MCH 21.4 L, MCHC 29.6 L, RDW 14.5, Plt Count 363, MPV 8.6, Neut % (Auto) 64.8, Lymph % (Auto) 28.0, [place] % (Auto) 5.4, Eos % (Auto) 1.1, Baso % (Auto) 0.7, Neut # (Auto) 5.8, Lymph # (Auto) 2.5, [place] # (Auto) 0.5, Eos # (Auto) 0.1, Baso # (Auto) 0.1 09/09/20 12:24: Sodium 140, Potassium 3.2 L, Chloride 102, Carbon Dioxide 29, Anion Gap 12.2, BUN 9, Creatinine 0.50 L, Estimated Creat Clear 133, Estimated GFR 128, Est GFR ( Amer) 154, Glucose 229 H, Calcium 9.6, Troponin I < 0.01 09/09/20 14:38: Troponin I < 0.01 Result diagrams: 09/09/20 12:24 09/09/20 12:24 Orders (Tests/Meds): ED MEDICATIONS Discontinued Medications Generic Name Dose Route Start Last Admin Trade Name Freq PRN Reason Stop Dose Admin Aspirin 324 mg 09/09/20 12:15 09/09/20 12:29 Aspirin 81mg Chewable Tablet PO 09/09/20 12:16 324 mg ONCE ONE Administration ORDERS Category Date Time Status Troponin I Q3H Lab 09/09/20 18:15 Ordered - Radiology Data #1 Image(s): Chest Image Reviewed: Yes I reviewed the patient's radiology image, Yes I have reviewed radiologist's interpretation Preliminary Findings: Normal/NAD - ECG Data Tracing #1 Normal sinus rhythm, right bundle branch block, 72 bpm, no ST elevation or depression, today study unchanged from previous study. ECG initial impression date: 09/09/20 ECG initial impression time: 12:16 - ROSHAN Score for Non-Stemi Age of Patient: 50-59 years old Heart Rate: 70-89 bpm Systolic Blood Pressure: 120-139 mmhg Serum Creatinine: 0.40-0.79 mg/dl CHF [place] Class: I-No CHF Other Risk Factors: None Non-Stemi Risk Score: 88 Medical Decision Narrative: 55yo F evaluated for epigastric chest pain related with belching. Patient is in no acute distress on initial evaluation. Patient CBC, CMP, troponin have all returned within normal limits. Ivanna
[2020-09-09 16:02] VITALS: BP 108/79; PULSE 78; RESP 18; TEMP 36.7; O2SAT 99
== END 2020-09-09 16:03 | disposition home or self-care (01) ==
PROVIDERS: Emergency Provider Family Medicine; PCP Nurse Practitioner Family
DX: R07.89 Other chest pain (principal); R10.13 Epigastric pain; K21.9 Gastro-esophageal reflux disease without esophagitis; E11.65 Type 2 diabetes mellitus with hyperglycemia; I25.10 Atherosclerotic heart disease of native coronary artery without angina pectoris; I10 Essential (primary) hypertension; J44.9 Chronic obstructive pulmonary disease, unspecified; E78.5 Hyperlipidemia, unspecified; I25.2 Old myocardial infarction; F17.210 Nicotine dependence, cigarettes, uncomplicated; Z96.641 Presence of right artificial hip joint; Z79.899 Other long term (current) drug therapy; Z88.5 Allergy status to narcotic agent; Z88.8 Allergy status to other drugs, medicaments and biological substances
CPT/HCPCS: 71045; 80048; 84484; 85025; 93005; 99283

== ENCOUNTER → 2020-11-02 10:01 | Outpatient (CLI) | payer OTHER, SELFPAY ==
[2020-11-02 11:15] LABS: Coronavirus 19 IgG Antibody Positive (Negative); Coronavirus 19 IgM Antibody Negative (Negative)
== END ==
PROVIDERS: Visit Provider Internal Medicine Gastroenterology
DX: Z01.812 Encounter for preprocedural laboratory examination (principal); Z20.822 Contact with and (suspected) exposure to COVID-19; Z13.810 Encounter for screening for upper gastrointestinal disorder; R13.10 Dysphagia, unspecified
CPT/HCPCS: 36415; 86328

== ENCOUNTER 2020-11-04 06:42 | Day surgery (SDC) | payer OTHER, SELFPAY ==
[2020-10-29 09:50] VITALS: BMI 26.2
[2020-11-04] VITALS (7 sets, daily range): BP systolic 101–125; BP diastolic 49–71; PULSE 64–73; RESP 16–20; TEMP 36.4–36.8; O2SAT 97–100
[2020-11-04 07:10] LABS: POC Glucose,Bedside 150 (70-110)
--- NOTE | 2020-11-04 08:01 | P.PCN_ITS ---
[facility] Procedure Note Procedure Note:: Upper Endoscopy Procedure Report: Esophagogastroduodenoscopy with cold biopsies and TTS balloon dilation Endoscopost: Cristopher Delarosa II, MD Referring Physician: GAYATRI Larry Date of Procedure: November 04, 2020 Equipment: Olympus GIF 190 standard upper endoscope Sedation: MAC sedation Indications: Mrs. Kaba is a 55-year-old female who is here for dysphagia and globus sensation. She reports moderate belching and bloating. She reports throat and airway tightness. She has some early satiety. She does have chronic constipation for which she takes combined MiraLAX plus Konsyl mixed together p.o. every morning. The patient has not been using this regularly. She reports no nausea, heartburn, abdominal pain or dyspepsia. She did have panendoscopy with me in October 2017 because of dyspepsia and Hemoccult positive stools. Her father had a perforated ulcer and she has a history of H. pylori which was treated. Her last EGD showed marked candidal esophagitis. Her colonoscopy showed left-sided diverticulosis. Procedure: Prior to the procedure, a history and physical exam was performed, and patient's medications and allergies were reviewed. The risks, benefits and alternatives of the sedation and procedure were discussed with the patient. All questions were answered and informed consent was obtained. The patient was brought to the procedure room. Patient identification and proposed procedure were verified by the physician and the nurse. The patient was placed in a left lateral decubitus position and the scope was passed under direct vision. Throughout the procedure, the patient's blood pressure, pulse, and oxygen saturations were monitored continuously. The upper GI endoscopy was accomplished without difficulty. The patient tolerated the procedure well. Findings: The scope was passed directly into the upper esophagus and advanced to the third portion of the duodenum. The post bulbar duodenum and duodenal bulb were normal with normal mucosa and conniventes. The scope was withdrawn through a normal duodenal bulb and pylorus into the stomach. There was linear reactive gastropathy of the antrum. There was some mild chronic gastritis of the body and fundus of the stomach. Upon retroflexion there was a very small sliding 1 to 2 cm hiatal hernia. 2 biopsies were taken in the antrum and along the lesser curvature for histology to rule out gastritis and/or H pylori. The scope was then withdrawn into the esophagus. There was a serrated Z-line. Biopsies were obtained. There was no evidence of reflux esophagitis, Stevenson's or Schatzki's ring. There were tertiary contractions and evidence of moderate esophageal dysmotility. The entire esophagus was dilated to 60 Portuguese/20 mm with a TTS hydrostatic balloon. There was some resistance at the cricopharyngeus. The remainder of the esophageal mucosa was normal. Impression: 1. Cricopharyngeal spasm status post dilation to 20 mm 2. Nonerosive GERD with moderate esophageal dysmotility and very small sliding hiatal hernia (1 to 2 cm) 3. Linear reactive gastropathy with mild chronic gastritis Plan: I will follow-up the biopsies. I do feel that the patient has functional reflux with esophageal dyskinesia and globus sensation. We will discuss additional dietary measures and treatment options. She does need to remain consistent with the fiber bowel regimen (combined MiraLAX plus Konsyl daily). I would consider promotility therapy and Iberogast.
--- NOTE | 2020-11-04 15:21 | HMH.ANESCL ---
[facility] Anesthesia Checklist - Patient Identification Patient Identification: Arm Band - Structural Data Admitted From: Home Planned Operative Procedure/s: EGD Consent for Planned Operative Procedure(s) Verified: Yes Verified Documents: Surgical Consent, History and Physical - Additional verifications Anesthesia Reactions: No - Airway Assessment C-Spine Mobility Assessed: Yes TMJ Mobility Assessed: Yes Dentition: Good Dentition - Neurological Assessment Level of Consciousness: Awake, Alert - Anesthesia Plan Anesthesia Risk discussed: Yes Anesthesia Plan: Verified ASA Class: III Anesthesia Type: MAC [facility] History Medical History: Reports:: Cancer (skin cancer removed forehead), Congestive Heart Failure, Chronic Obstructive Pulmonary Disease (COPD), Coronary Artery Disease, Diabetes Mellitus Type 2, Gastroesophageal Reflux Disease(GERD), Hyperlipidemia, Hypertension, Myocardial Infarction Denies:: Diabetes Mellitus Type 1, Internal Pacemaker, Lung Disease, MRSA, Seizures *Have you ever received a pneumonia vaccine?: No *Have you received a flu vaccine this season?: Yes Other Medical History: Reports: Anemia, Arthritis Anesthesia experience/problems:: None Laterality Cases: Left: Arthroscopy Shoulder, Right: Total Hip Replacement, Bilateral: Tonsillectomy Other Surgeries: Yes: Angioplasty, Appendectomy, Cancer Surgery, Cardiac Catheterization, Cholecystectomy, Colonoscopy, Coronary Stent, EGD, Hysterectomy-Total, Tubal Ligation, Other. No: Pacemaker Amputation: No Fractures: Yes (lower left leg) - *Social History Last grade of school completed: Some college Smoking Status: Current every day smoker Tobacco Type: cigarettes # Packs/Day (cigarettes): 1 Alcohol Intake: never Alcohol Intake Frequency:: holidays/special occasions only Substance Use Type: denies use *Occupational Status:: employed Housing: house Household Members: spouse, family *Travel in the last 8 weeks: None Family Hx:: Diabetes, Hyperlipidemia, Hypertension
== END 2020-11-04 09:20 | disposition home or self-care (01) ==
LOC: OUTP 06:44
PROVIDERS: PCP Nurse Practitioner Family; Visit Provider Internal Medicine Gastroenterology
PROC: 0DJ08ZZ Inspection of Upper Intestinal Tract, Via Natural or Artificial Opening Endoscopic (ICD-10-PCS; CPT 43235; principal; 2020-11-04 08:00)
DX: J39.2 Other diseases of pharynx (principal); K21.9 Gastro-esophageal reflux disease without esophagitis; K22.4 Dyskinesia of esophagus; K44.9 Diaphragmatic hernia without obstruction or gangrene; K31.9 Disease of stomach and duodenum, unspecified; K29.50 Unspecified chronic gastritis without bleeding; Z87.19 Personal history of other diseases of the digestive system; Z83.79 Family history of other diseases of the digestive system; I11.0 Hypertensive heart disease with heart failure; I50.9 Heart failure, unspecified; J44.9 Chronic obstructive pulmonary disease, unspecified; E11.9 Type 2 diabetes mellitus without complications; I25.2 Old myocardial infarction; Z85.828 Personal history of other malignant neoplasm of skin
CPT/HCPCS: 43239; 43249; 82962; 88305; 88342; C1726

== ENCOUNTER 2020-11-16 11:38 | Emergency (ER) | payer OTHER, SELFPAY ==
[2020-11-16 11:39] VITALS: BP 122/47; PULSE 72; RESP 16; TEMP 37.2; O2SAT 98; BMI 26.5
--- NOTE | 2020-11-16 11:57 | HMH.EDGENADL ---
ED Disposition Clinical Impression: Gastroenteritis Disposition: Home, Self-Care Condition on Discharge: Good Instructions: DI for Gastritis, DI for Diarrhea and Traveler's Diarrhea -- Adult, DI for Diarrhea and Traveler's Diarrhea -- Child, DI for Nausea -- Adult, DI for Nausea -- Child Referrals: Massiel Wells APRN [Primary Care Provider] - 3 days Time of Disposition: 14:15 - Critical Care Critical Care Time: No Attestation: On , the high probability of a clinically significant, sudden or life threatening deterioration of the following system(s) required my full and direct attention, intervention and personal management. The time I documented below is in addition to time spent performing reported procedures but includes the following listed in this critical care notation. Medical Decision Making - Medical Records Medical records reviewed: Yes: I reviewed the patient's medical records. - Haja Inquiry Pt receiving controlled substance: No Vital Signs: 11/16/20 11:39 11/16/20 14:00 Temperature 99 F Temperature Source Oral Pulse Rate 72 Pulse Rate [Radial] 72 Respiratory Rate 16 18 Blood Pressure 124/60 Blood Pressure [Right Radial Artery] 122/47 L Blood Pressure Mean [Right Radial Artery] 72 Blood Pressure Position Sitting Blood Pressure Position [Right Radial Artery] Sitting 02 Sat by Pulse Oximetry 98 96 Oxygen Delivery Method Room Air Room Air - Lab Data Lab results reviewed: Yes: I reviewed the patient's lab results. Lab Results 11/16/20 11:58: WBC 10.0, RBC 4.76, Hgb 9.4 L, Hct 32.5 L, MCV 68.3 L, MCH 19.7 L, MCHC 28.9 L, RDW 16.7, Plt Count 393, MPV 7.9, Neut % (Auto) 70.4, Lymph % (Auto) 21.9, Cabell % (Auto) 5.4, Eos % (Auto) 1.4, Baso % (Auto) 0.8, Neut # (Auto) 7.0, Lymph # (Auto) 2.2, Cabell # (Auto) 0.5, Eos # (Auto) 0.1, Baso # (Auto) 0.1 11/16/20 11:58: Sodium 139, Potassium 3.0 L, Chloride 98, Carbon Dioxide 31 H, Anion Gap 13.0, BUN 10, Creatinine 0.60, Estimated Creat Clear 112, Estimated GFR 103, Est GFR ( Amer) 125, Glucose 185 H, Calcium 10.2, Total Bilirubin 0.7, AST 58 H, ALT 30, Alkaline Phosphatase 195 H, Troponin I < 0.01, Total Protein 9.1 H, Albumin 5.2 H, Globulin 3.9 H, Albumin/Globulin Ratio 1.3, Lipase 93 Result diagrams: 11/16/20 11:58 11/16/20 11:58 Orders (Tests/Meds): ED MEDICATIONS Discontinued Medications Generic Name Dose Route Start Last Admin Trade Name Freq PRN Reason Stop Dose Admin Belladonna Alkaloids 60 ml 11/16/20 13:49 11/16/20 13:50 Gi Cocktail 60ml Udc PO 11/16/20 13:50 60 ml ONCE ONE Administration Iopamidol 75 ml 11/16/20 13:14 11/16/20 13:15 Iopamidol-370 (76%);100ml Bottle IV 11/16/20 13:15 75 ml ONCE ONE Administration Sodium Chloride 10 ml 11/16/20 13:14 11/16/20 13:15 Sodium Chloride 0.9% 10ml Syr (Rad Only) IV 11/16/20 13:15 10 ml ONCE ONE Administration ORDERS Category Date Time Status Troponin I Q3H Lab 11/16/20 15:00 Ordered Troponin I Q3H Lab 11/16/20 18:00 Ordered Urinalysis and Microscopic Stat Lab 11/16/20 11:58 Ordered - CT Data CT Scan: Abdomen, Pelvis Time Received: 13:31 Preliminary Findings: Abnormal Findings Narrative: Right adrenal nodule measuring 3.2 x 2 cm. No other acute findings. - ECG Data Tracing #1 Normal sinus rhythm, 71 bpm, right bundle branch block, QTC 491 which is borderline for prolonged period no ST elevation or depression. Inverted T waves in V1 which can be normal. ECG initial impression date: 11/16/20 ECG initial impression time: 12:02 - ROSHAN Score for Non-Stemi Age of Patient: 50-59 years old Heart Rate: 70-89 bpm Systolic Blood Pressure: 120-139 mmhg Serum Creatinine: 0.40-0.79 mg/dl CHF Killip Class: I-No CHF Other Risk Factors: None Non-Stemi Risk Score: 88 Medical Decision Narrative: 55yo F evaluated for chest pain. Differential diagnosis includes but not limited to: ACS/AR, PE, pneumonia, GERD, anxiety, bowel
--- NOTE | 2020-11-16 11:58 | XR_ITS ---
PROCEDURE INFORMATION: Exam: XR Chest Exam date and time: 11/16/2020 11:58 AM Age: 55 years old Clinical indication: Chest pain; Patient HX: Smoker; Additional info: Cp TECHNIQUE: Imaging protocol: XR of the chest. Views: 2 views. COMPARISON: CR XR CHEST PORTABLE 09/09/2020 12:26 PM FINDINGS: Lungs: Unremarkable. No consolidation. Pleural spaces: Unremarkable. No pleural effusion. No pneumothorax. Heart/Mediastinum: Unremarkable. No cardiomegaly. Bones/joints: Unremarkable. IMPRESSION: No acute findings.
--- NOTE | 2020-11-16 12:01 | ECG_ITS ---
APPROVED REPORT Exam: Resting ECG HR:71 bpm ECG Measurements Heart Rate 71 AXES CA 118 P 68 QRSd 118 QRS 21 QT 452 T 4 QTc 491 Conclusion Normal sinus rhythm Right bundle branch block Abnormal ECG Electronically signed by : Aman [place], 11/17/2020 20:28:31
[2020-11-16 12:08] LABS: Basophils # 0.1 K/mm3 (0-0.2); Basophils % 0.8 % (0.1-2.0); Eosinophils # 0.1 K/mm3 (0.0-0.4); Eosinophils % 1.4 % (0.1-12.0); Hematocrit 32.5 % (37.0-47.0); Hemoglobin 9.4 g/dL (12.2-16.2); Lymphocytes # 2.2 K/mm3 (0.7-4.5); Lymphocytes % 21.9 % (10-50); Mean Corpuscular HGB Conc 28.9 g/dL (31.8-35.4); Mean Corpuscular Hemoglobin 19.7 pg (27.0-31.2); Mean Corpuscular Volume 68.3 fl (81-99); Mean Platelet Volume 7.9 fl (7.4-10.4); Monocytes # 0.5 K/mm3 (0.1-1.0); Monocytes % 5.4 % (1.7-9.3); Neutrophils % 70.4 % (37.0-80.0); Platelet Count 393 K/mm3 (142-424); Red Blood Count 4.76 M/mm3 (4.20-5.40); Red Cell Distribution Width 16.7 % (11.5-17.5)
[2020-11-16 12:16] LABS: Alanine Aminotransferase 30 U/L (12-78); Albumin Level 5.2 g/dl (3.5-5.0); Albumin/Globulin Ratio 1.3 (1.1-1.8); Alkaline Phosphatase 195 U/L (38-126); Aspartate Amino Transferase 58 U/L (14-36); Bilirubin,Total 0.7 mg/dl (0.2-1.3); Blood Urea Nitrogen 10 mg/dl (7-17); Calcium 10.2 mg/dl (8.4-10.2); Carbon Dioxide 31 mmol/L (22.0-30.0); Chloride 98 mmol/L (98-107); Creatinine Clearance Estimated 112 mL/min (50-200); Estimated Glomerular Filt Rate 103 ml/min (>60); GFR (African American) 125 ML/MIN (>60); Globulin 3.9 g/dL (1.3-3.2); Glucose 185 mg/dl (74-100); Lipase 93 U/L (23-300); Sodium 139 mmol/L (136-145); Total Protein,Serum 9.1 g/dl (6.3-8.2)
[2020-11-16 12:28] LABS: Troponin I < 0.01 ng/ml (0.00-0.034)
--- NOTE | 2020-11-16 12:37 | CT_ITS ---
PROCEDURE INFORMATION: Exam: CT Abdomen And Pelvis With Contrast Exam date and time: 11/16/2020 12:37 PM Age: 55 years old Clinical indication: Abdominal tenderness and bloating and other: Distention; Abdominal pain; Generalized; Prior surgery; Surgery date: 6+ months; Surgery type: Appendix, hysterectomy, gallbladder; Additional info: Bloating, distention TECHNIQUE: Imaging protocol: Computed tomography of the abdomen and pelvis with contrast. Radiation optimization: All CT scans at this facility use at least one of these dose optimization techniques: automated exposure control; mA and/or kV adjustment per patient size (includes targeted exams where dose is matched to clinical indication); or iterative reconstruction. Contrast material: ISOVUE; Contrast volume: 75 ml; Contrast route: IV; COMPARISON: CR [id number] HIP RT 2-3V W/PELVIS IF PERFOR 03/02/2016 10:56 AM FINDINGS: Liver: Hepatomegaly 20 cm Gallbladder and bile ducts: Cholecystectomy Pancreas: Normal. No ductal dilation. Spleen: Normal. No splenomegaly. Adrenal glands: Right adrenal nodule measures 3.2 by 2 cm. Not clearly adrenal adenoma Kidneys and ureters: There is no evidence of renal or ureteral calcifications. Stomach and bowel: Diverticulosis of the rectosigmoid. No diverticulitis. Appendix: Appendectomy Intraperitoneal space: Unremarkable. No free air. No significant fluid collection. Vasculature: Unremarkable. No abdominal aortic aneurysm. Lymph nodes: Unremarkable. No enlarged lymph nodes. Urinary bladder: Unremarkable as visualized. Reproductive: Surgical resection of the uterus Bones/joints: Right total hip replacement Soft tissues: Unremarkable. IMPRESSION: Right adrenal nodule measures 3.2 by 2 cm. Not clearly adrenal adenoma Non-emergent adrenal CT is recommended. (Reference: Whitney) References: Whitney NG et al. Management of Incidental Adrenal Masses: A White Paper of the ACR Incidental Findings Committee. J Am Ann Radiol. 2017;14(8):9615-3980.
--- NOTE | 2020-11-16 12:54 | PC.NURSE ---
pt being taken to ct
--- NOTE | 2020-11-16 13:10 | PC.NURSE ---
pt return from radiology
[2020-11-16 14:00] VITALS: BP 124/60; PULSE 72; RESP 18; O2SAT 96
[2020-11-16 15:08] VITALS: BP 106/71; PULSE 71; RESP 18; TEMP 37.2; O2SAT 96
== END 2020-11-16 15:08 | disposition home or self-care (01) ==
PROVIDERS: Emergency Provider Family Medicine; PCP Nurse Practitioner Family
DX: K52.9 Noninfective gastroenteritis and colitis, unspecified (principal); J44.9 Chronic obstructive pulmonary disease, unspecified; I25.2 Old myocardial infarction; I25.10 Atherosclerotic heart disease of native coronary artery without angina pectoris; E11.65 Type 2 diabetes mellitus with hyperglycemia; K21.9 Gastro-esophageal reflux disease without esophagitis; E78.5 Hyperlipidemia, unspecified; I10 Essential (primary) hypertension; F17.210 Nicotine dependence, cigarettes, uncomplicated; Z79.899 Other long term (current) drug therapy
CPT/HCPCS: 71046; 74177; 80053; 83690; 84484; 85025; 93005; 99283; Q9967

== ENCOUNTER → 2020-11-19 15:37 | Outpatient (CLI) | payer OTHER, SELFPAY ==
--- NOTE | 2020-11-19 15:43 | XR_ITS ---
PROCEDURE: XR FOOT LT MIN 3V CLINICAL INDICATION: LT FOOT PAIN COMPARISON: No exams were available for comparison FINDINGS: Generalized osteopenia is noted. No acute fractures or dislocations. Degenerative changes noted at the 1st MTP and tarsometatarsal joints. No significant soft tissue abnormality. Calcaneal spur and Achilles tendon enthesopathy is noted. IMPRESSION: osteopenia. Degenerative changes. Dictated by: Tigist Carrillo 11/19/2020 16:48 Tigist Carrillo in [facility] 11/19/2020 16:48
== END ==
PROVIDERS: PCP Nurse Practitioner Family; Visit Provider Family Medicine
DX: M79.672 Pain in left foot (principal)
CPT/HCPCS: 73630

== ENCOUNTER → 2020-12-05 12:56 | Outpatient (CLI) | payer OTHER, SELFPAY ==
--- NOTE | 2020-12-05 13:02 | XR_ITS ---
PROCEDURE: XR DEXA AXIAL SKELETON CLINICAL HISTORY: OSTEPOROSIS COMPARISON: No exams were available for comparison FINDINGS: The right forearm BMD is 0.536 with a T-score of -2.6. The left hip BMD is 0.602 with a T-score of -2.2. The lumbar spine BMD is 1.057 with a T-score of 0.1. IMPRESSION: This patient is considered osteoporotic according to the World Health Organization criteria. Fracture risk is high. Treatment is advised. Based on these results a follow-up exam is recommended in 1 year. Dictated by: Sanjay Logan MD 12/06/2020 07:36 Sanjay Logan MD in [facility] 12/06/2020 07:36
== END ==
PROVIDERS: PCP Nurse Practitioner Family; Visit Provider Family Medicine
DX: M81.0 Age-related osteoporosis without current pathological fracture (principal)
CPT/HCPCS: 77080

== ENCOUNTER 2020-12-25 15:00 | Outpatient (CLI) | payer OTHER, SELFPAY ==
[2020-12-25 15:30] VITALS: BP 108/49; PULSE 78; RESP 18; TEMP 36.9; O2SAT 100
== END 2020-12-25 15:30 | disposition home or self-care (01) ==
LOC: INF 15:03
PROVIDERS: Visit Provider Nurse Practitioner Family
DX: M81.0 Age-related osteoporosis without current pathological fracture (principal)
CPT/HCPCS: 96372; J0897

== ENCOUNTER 2021-01-03 15:24 | Emergency (ER) | payer OTHER, SELFPAY ==
[2021-01-03 15:32] VITALS: BP 128/67; PULSE 79; RESP 16; TEMP 36.8; O2SAT 100; BMI 25.3
--- NOTE | 2021-01-03 15:41 | XR_ITS ---
PROCEDURE: XR FOOT LT MIN 3V CLINICAL INDICATION: bone spur Pain COMPARISON: CR XR FOOT LT MIN 3V from 11/19/2020 FINDINGS: No fracture or dislocation. No lytic or blastic change. There is normal mineralization. Mild osteoarthritic change 1st MTP joint. There is a prominent calcaneal spur. There is also spurring along the medial and proximal aspect of the distal phalanx of the 1st digit and along the base and lateral aspect of the proximal phalanx of the 5th digit. There is a small calcaneal spur not significantly changed. Along the posterior and proximal aspect of the calcaneus there is up tilting of the bony cortex consistent with a Onur deformity. Enthesophyte noted at the Achilles insertion. Other findings:None. IMPRESSION: No change with no acute finding. There are degenerative changes as described above and suspected Onur deformity at the calcaneus Dictated by: Sanjay Logan MD 01/03/2021 16:17 Sanjay Logan MD in [facility] 01/03/2021 16:17
--- NOTE | 2021-01-03 16:01 | HMH.EDUTC ---
[facility] [place] Disposition Clinical Impression: Left foot pain Left ankle pain Qualifiers: Chronicity: unspecified Qualified Code(s): M25.572 - Pain in left ankle and joints of left foot Disposition: Home, Self-Care Condition on Discharge: Good Instructions: DI for Foot Pain Additional Instructions: Rest the extremity, Wear the zhou wrap for compression, Elevate the extremity as tolerated while you are resting. Take ibuprofen for pain. Follow up with Dr. Moore (podiatry). I put in a referral but you need to call her office and schedule an appointment. Follow up with your regular doctor. GO TO THE ER FOR ANY WORSENING SYMPTOMS Prescriptions: Ibuprofen [Ibuprofen 400mg Tablet] 400 mg PO Q6HP PRN #30 tab PRN Reason: Moderate Pain Transmission Status: Received by [facility] Referrals: Massiel Wells APRN [Primary Care Provider] - Kelly Moore DPM [Staff Physician] - Forms: Work/School Release Time of Disposition: 16:31 Medical Decision Making - Medical Records Medical records reviewed: No: I reviewed the patient's medical records. - Haja Inquiry Pt receiving controlled substance: No Vital Signs: 01/03/21 15:32 01/03/21 16:42 Temperature 98.2 F 98 F Temperature Source Oral Pulse Rate 77 Pulse Rate [Left] 79 Respiratory Rate 16 16 Blood Pressure 122/79 Blood Pressure [Right Arm] 128/67 Blood Pressure Mean [Right Arm] 87 02 Sat by Pulse Oximetry 100 - Radiology Data #1 Image(s): Foot/Toes Image Reviewed: Yes I reviewed the patient's radiology image, Yes I have reviewed radiologist's interpretation Preliminary Findings: Abnormal, No Fracture Seen PROCEDURE: XR FOOT LT MIN 3V CLINICAL INDICATION: bone spur Pain COMPARISON: CR XR FOOT LT MIN 3V from 11/19/2020 FINDINGS: No fracture or dislocation. No lytic or blastic change. There is normal mineralization. Mild osteoarthritic change 1st MTP joint. There is a prominent calcaneal spur. There is also spurring along the medial and proximal aspect of the distal phalanx of the 1st digit and along the base and lateral aspect of the proximal phalanx of the 5th digit. There is a small calcaneal spur not significantly changed. Along the posterior and proximal aspect of the calcaneus there is up tilting of the bony cortex consistent with a Onur deformity. Enthesophyte noted at the Achilles insertion. Other findings:None. IMPRESSION: No change with no acute finding. There are degenerative changes as described above and suspected Onur deformity at the calcaneus Dictated by: Sanjay Logan MD 01/03/2021 16:17 Sanjay Logan MD in [facility] 01/03/2021 16:17 [facility] [place] HPI - General Stated complaint: Pain L footWorse) R Foot Time Seen by Provider: 01/03/21 16:01 Mode of Arrival: Ambulatory Source of Information: Patient Limitations: No Limitations Description of Symptoms (Recalled from Triage Doc. by RN): pt has bone spurs bilaterally on her heels. however, she felt something pop and has been having worse pain in the L foot than she had before. HEENT Symptoms (Recalled from RN notes): No Resp Symptoms (Recalled from RN notes): No Skin Symptoms (Recalled from RN notes): No MS Symptoms (Recalled from RN notes): Yes (L foot pain) Functional Status (Recalled from RN notes): na - History of Present Illness Provider Complaint: She states that for the past 1 month approx she has had left foot pain and swelling. She states that her symptoms began when she stepped down off something and felt a pop . She has saw her pcp for this and she has had an x-ray when it originally happened. - Related Data Home Medications Medication Instructions Recorded Confirmed aspirin 81 mg tablet,delayed 81 mg PO DAILY tab 08/26/17 12/25/20 release Sotalol HCl [Sotalol] 80 mg PO BID 06/26/20 12/25/20 Metformin HCl [Metformin HCl ER] 500 mg PO DAILY 06/27/20 12/25/20 Potassium Chloride [Klor-Con M10] 10 meq PO TID 06/11
[2021-01-03 16:42] VITALS: BP 122/79; PULSE 77; RESP 16; TEMP 36.6
== END 2021-01-03 17:00 | disposition home or self-care (01) ==
PROVIDERS: Emergency Provider Nurse Practitioner Family; PCP Nurse Practitioner Family
DX: M25.572 Pain in left ankle and joints of left foot (principal); M77.32 Calcaneal spur, left foot; E11.9 Type 2 diabetes mellitus without complications; I25.2 Old myocardial infarction; I25.10 Atherosclerotic heart disease of native coronary artery without angina pectoris; E78.5 Hyperlipidemia, unspecified; K21.9 Gastro-esophageal reflux disease without esophagitis; I10 Essential (primary) hypertension; J44.9 Chronic obstructive pulmonary disease, unspecified; Z79.899 Other long term (current) drug therapy; Z88.5 Allergy status to narcotic agent
CPT/HCPCS: 73630; 99202; G0463

== ENCOUNTER → 2021-01-15 15:00 | Outpatient (CLI) | payer OTHER, SELFPAY ==
--- NOTE | 2021-01-15 15:32 | MR_ITS ---
PROCEDURE INFORMATION: Exam: MR Left Lower Extremity Other Than Joint Without Contrast; Foot Exam date and time: 01/15/2021 3:32 PM Age: 55 years old Clinical indication: Pain; Foot; Left; Additional info: Stage 1 charcot lt foot and ankle. PT C/O left foot and ankle swelling and pain with no known injury or trauma. PT states she has spurs and the order says stage 1 charcot left foot and ankle. TECHNIQUE: Imaging protocol: MR of the Left lower extremity without contrast. Exam focused on the foot. COMPARISON: CR XR FOOT LT MIN 3V 01/03/2021 4:03 PM FINDINGS: Bones and cartilage: Marrow edema is identified within the talus anteriorly. A hypointense fracture is identified of the talar head and neck, without displacement. This is likely post-traumatic or due to stress fracture. Prominent calcaneal spurs are visualized. There is fragmentation of this spur at the distal attachment of the Achilles tendon. Patchy marrow edema involving the calcaneus, most significant posteriorly. A curvilinear focus of T1 hypointensity is seen within the bone marrow of the calcaneus posteriorly, concerning for a stress fracture or nondisplaced fracture. There is a sclerosed fracture line involving the anterior calcaneus. Osteomyelitis and neuropathic changes are within the differential for marrow edema, although considered less likely. There is a 1.4 x 0.6 cm nonspecific sclerotic lesion within the talus anteriorly. A small cyst is identified within the intermediate cuneiform bone. No acute marrow edema involving the mid to forefoot. A small cyst is identified within the calcaneus posteriorly. First MTP arthropathy. Degenerative spurring of the medial malleolus and adjacent talus. Additional spurring visualized of the lateral malleolus. Joint spaces: Small tibiotalar and subtalar joint effusions. Small 1st through 4th MTP effusions. Small 1st IP effusion. Small intermetatarsal effusions are identified within the 2nd and 3rd interspaces. LIGAMENTS: Lisfranc ligament: No evidence of tear. TENDONS: Flexor tendons of foot: Minimal tenosynovitis of the flexor digitorum tendon. Tibialis posterior tendon: Tenosynovitis of the posterior tibialis tendon. Peroneal tendons: Unremarkable as visualized. Extensor tendons of foot: Unremarkable. No evidence of tear. Tibialis anterior tendon: Unremarkable as visualized. Achilles tendon: Heterogeneous signal intensity of the distal Achilles tendon, without full-thickness tear. Tarsal canal (Sinus tarsi): Edema within the sinus tarsi. Muscles: Muscle edema is visualized dorsal to the midfoot. Myositis and myopathy are within the differential. Soft tissues: Mild soft tissue swelling of the ankle and visualized foot. Plantar fascia: Intact, as visualized. IMPRESSION: 1. Marrow edema is identified within the talus anteriorly. A hypointense fracture is identified of the talar head and neck, without displacement. This is likely post-traumatic or due to stress fracture. 2. Patchy marrow edema involving the calcaneus, most significant posteriorly. A curvilinear focus of T1 hypointensity is seen within the bone marrow of the calcaneus posteriorly, concerning for a stress fracture or nondisplaced fracture. There is a sclerosed fracture line involving the anterior calcaneus. Osteomyelitis and neuropathic changes are within the differential for marrow edema, although considered less likely. Clinical correlation is recommended. 3. There is a 1.4 x 0.6 cm nonspecific sclerotic lesion within the talus anteriorly. 4. Mild soft tissue swelling of the ankle and visualized foot. 5. Tenosynovitis of the posterior tibialis tendon. 6
--- NOTE | 2021-01-15 15:32 | MR_ITS ---
PROCEDURE INFORMATION: Exam: MR Left Lower Extremity Joint Without Contrast; Ankle Exam date and time: 01/15/2021 3:32 PM Age: 55 years old Clinical indication: Pain; Ankle; Left; Additional info: Stage 1 charcot lt foot and ankle. PT C/O left foot and ankle swelling and pain with no known injury or trauma. PT states she has spurs and the order says stage 1 charcot left foot and ankle. TECHNIQUE: Imaging protocol: MR of the Left lower extremity without contrast. Exam focused on the ankle. COMPARISON: CR XR FOOT LT MIN 3V 01/03/2021 4:03 PM FINDINGS: Bones and cartilage: Marrow edema is identified within the talus anteriorly. A hypointense fracture is identified of the talar head and neck, without displacement. This is likely post-traumatic or due to stress fracture. Prominent calcaneal spurs are visualized. There is fragmentation of this spur at the distal attachment of the Achilles tendon. Patchy marrow edema involving the calcaneus, most significant posteriorly. A curvilinear focus of T1 hypointensity is seen within the bone marrow of the calcaneus posteriorly, concerning for a stress fracture or nondisplaced fracture. There is a sclerosed fracture line involving the anterior calcaneus. There is a 1.4 x 0.6 cm nonspecific sclerotic lesion within the talus anteriorly. Mild cystic change is identified within the cuneiform bones. A subcentimeter cystic collection of fluid is identified inferior to the intermediate cuneiform bone. Mild cystic change is visualized within the calcaneus posteriorly. Degenerative spurring of the medial malleolus and adjacent talus. Additional spurring visualized of the lateral malleolus. For discussion of findings involving the foot, refer to the MRI left foot report from the same day. Joint spaces: Small tibiotalar and subtalar joint effusions. LIGAMENTS: Distal tibiofibular syndesmosis: No tear. Anterior talofibular ligament: No tear. Posterior talofibular ligament: No tear. Calcaneofibular ligament: No tear. Deltoid ligament complex: No tear. TENDONS: Flexor tendons of foot: Minimal tenosynovitis of the flexor digitorum tendon. Tibialis posterior tendon: Tenosynovitis of the posterior tibialis tendon. Peroneal tendons: Unremarkable as visualized. Extensor tendons of foot: Unremarkable as visualized. Tibialis anterior tendon: Unremarkable as visualized. Achilles tendon: Heterogeneous signal intensity of the distal Achilles tendon, without definitive tear. Tarsal canal (Sinus tarsi): Edema is visualized within the sinus tarsi. Muscles: No visualized acute abnormality. Soft tissues: Mild soft tissue swelling of the ankle and visualized foot. Plantar fascia: Intact, as visualized. IMPRESSION: 1. Marrow edema is identified within the talus anteriorly. A hypointense fracture is identified of the talar head and neck, without displacement. This is likely post-traumatic or due to stress fracture. 2. Prominent calcaneal spurs are visualized. There is fragmentation of this spur at the distal attachment of the Achilles tendon. 3. Patchy marrow edema involving the calcaneus, most significant posteriorly. A curvilinear focus of T1 hypointensity is seen within the bone marrow of the calcaneus posteriorly, concerning for a stress fracture or nondisplaced fracture. There is a sclerosed fracture line involving the anterior calcaneus. 4. There is a 1.4 x 0.6 cm nonspecific sclerotic lesion within the talus anteriorly. 5. Mild soft tissue swelling of the ankle and visualized foot. 6. Tenosynovitis of the posterior tibialis tendon. 7. Small tibiotalar and subtalar joint effusions. 8. Additional findings described
[2021-01-15 15:57] LABS: Basophils # 0.1 K/mm3 (0-0.2); Basophils % 1.4 % (0.1-2.0); Eosinophils # 0.3 K/mm3 (0.0-0.4); Eosinophils % 3.7 % (0.1-12.0); Hematocrit 27.9 % (37.0-47.0); Lymphocytes # 2.1 K/mm3 (0.7-4.5); Mean Corpuscular HGB Conc 28.9 g/dL (31.8-35.4); Mean Corpuscular Hemoglobin 18.7 pg (27.0-31.2); Mean Corpuscular Volume 64.7 fl (81-99); Mean Platelet Volume 7.8 fl (7.4-10.4); Monocytes # 0.4 K/mm3 (0.1-1.0); Monocytes % 4.8 % (1.7-9.3); Neutrophils % 63.2 % (37.0-80.0); Platelet Count 353 K/mm3 (142-424); Red Cell Distribution Width 16.3 % (11.5-17.5); White Blood Count 7.9 K/mm3 (4.8-10.8)
[2021-01-15 15:59] LABS: Chloride 103 mmol/L (98-107); Potassium 3.7 mmoL/L (3.5-5.1); Sodium 140 mmol/L (136-145)
[2021-01-15 16:02] LABS: Alanine Aminotransferase 31 U/L (12-78); Albumin Level 4.8 g/dl (3.5-5.0); Albumin/Globulin Ratio 1.5 (1.1-1.8); Alkaline Phosphatase 160 U/L (38-126); Anion Gap 13.7 mEq/L (5-15); Aspartate Amino Transferase 93 U/L (14-36); Bilirubin,Total 0.6 mg/dl (0.2-1.3); Blood Urea Nitrogen 13 mg/dl (7-17); Carbon Dioxide 27 mmol/L (22.0-30.0); Estimated Glomerular Filt Rate 103 ml/min (>60); GFR (African American) 125 ML/MIN (>60); Globulin 3.3 g/dL (1.3-3.2); Total Protein,Serum 8.1 g/dl (6.3-8.2)
[2021-01-15 16:03] LABS: Calcium 8.7 mg/dl (8.4-10.2); Glucose 172 mg/dl (74-100)
[2021-01-15 16:29] LABS: Erythrocyte Sedimentation Rate 25 mm/hr (0-30)
[2021-01-15 16:52] LABS: C-Reactive Protein 4.5 mg/L (0-4)
== END ==
PROVIDERS: Visit Provider Podiatrist
DX: E11.9 Type 2 diabetes mellitus without complications (principal); N28.9 Disorder of kidney and ureter, unspecified; M25.572 Pain in left ankle and joints of left foot; Z79.84 Long term (current) use of oral hypoglycemic drugs; M14.672 Charcot's joint, left ankle and foot
CPT/HCPCS: 36415; 73718; 73721; 80053; 85025; 85651; 86140

== ENCOUNTER → 2021-03-24 11:33 | Outpatient (CLI) | payer OTHER, SELFPAY ==
[2021-03-24 13:29] LABS: Blood Urea Nitrogen 12 mg/dl (7-17); Estimated Glomerular Filt Rate 127 ml/min (>60); GFR (African American) 154 ML/MIN (>60)
== END ==
PROVIDERS: Visit Provider Nurse Practitioner Family
DX: E27.8 Other specified disorders of adrenal gland (principal)
CPT/HCPCS: 36415; 82565; 84520

== ENCOUNTER → 2021-03-27 09:51 | Outpatient (CLI) | payer OTHER, SELFPAY ==
--- NOTE | 2021-03-27 09:53 | CT_ITS ---
PROCEDURE: CT ABDOMEN WO/W CON CLINICAL HISTORY: ADRENAL NODULE Follow-up right adrenal nodule COMPARISON: CT CT ABDOMEN PELVIS W CON from 11/16/2020 TECHNIQUE: Axial images obtained with sagittal and coronal reformats. All CT scans at the facility use one or more dose reduction, viz: automated exposure control, ma/kV adjustment per patient size (including targeted exams where dose is matched to indication, i.e. head), or iterative reconstruction technique. FINDINGS: Pre and post enhanced images are obtained along with 15 minutes delayed images Stevens renal washout. 3 x 2 cm right adrenal nodule is present. Average density is -5 on the unenhanced images with an immediate post enhanced density of 41 Hounsfield units and a washout density of 8 Hounsfield units. Relative adrenal washout is 80 percent highly suggestive of an adenoma. Unenhanced density also highly suggestive of an adenoma. Overall size is unchanged. The left adrenal gland has an unremarkable appearance. There has been a prior cholecystectomy. Nonspecific ill-defined area of decreased density present in the right hepatic lobe centrally. No renal or ureteral calculi. No hydronephrosis. Unremarkable appearing pancreas. Small hiatal hernia. IMPRESSION: No change right adrenal mass consistent with an adenoma. Nonspecific low-density changes in the central aspect of the right hepatic lobe etiology indeterminate possibly due to focal fatty infiltration. Suggest continued six-month follow-up to confirm firm stability of the adrenal nodule and the hepatic abnormality. Dictated by: Sanjay Logan MD 03/28/2021 08:24 Sanjay Logan MD in [place] 03/28/2021 08:24
== END ==
PROVIDERS: PCP Nurse Practitioner Family; Visit Provider Nurse Practitioner Family
DX: E27.8 Other specified disorders of adrenal gland (principal)
CPT/HCPCS: 74170; Q9967

== ENCOUNTER → 2021-05-10 10:47 | Outpatient (CLI) | payer OTHER, SELFPAY ==
--- NOTE | 2021-05-10 10:49 | MR_ITS ---
PROCEDURE INFORMATION: Exam: MR Left Lower Extremity Other Than Joint Without Contrast; Foot Exam date and time: 05/10/2021 10:49 AM Age: 56 years old Clinical indication: Left; Patient HX: Possible stress FX CO pain top of foot and medial foot/ankle TECHNIQUE: Imaging protocol: MR of the Left lower extremity without contrast. Exam focused on the foot. COMPARISON: MR FOOT LT WO CON 01/15/2021 3:58 PM FINDINGS: Bones and cartilage: Redemonstrated is previous stress or other fracture of the anterior neck of the talus is nondisplaced. Significant interval decrease in the amount of surrounding marrow edema however there is still fluid signal within the fracture defect itself. There is been some interval healing of the fractured anterior process of the calcaneus with minimal residual marrow edema here. The previous edema posteriorly in the calcaneus has also significantly improved. No new fracture is seen. Joint spaces: Unremarkable. No joint effusion. LIGAMENTS: Lisfranc ligament: Unremarkable. No evidence of tear. TENDONS: Flexor tendons of foot: Unremarkable. No evidence of tear. Tibialis posterior tendon: Unremarkable as visualized. Peroneal tendons: Unremarkable as visualized. Extensor tendons of foot: Unremarkable. No evidence of tear. Tibialis anterior tendon: Unremarkable as visualized. Achilles tendon: Fairly pronounced Achilles insertional spurring with limited tendinopathy of the distal Achilles tendon but no discrete tear. Tarsal canal (Sinus tarsi): Unremarkable. Tarsal tunnel: Unremarkable. Soft tissues: Unremarkable. Plantar fascia: Moderate plantar calcaneal spurring without current evidence for plantar fasciitis. IMPRESSION: 1. Redemonstrated is previous stress or other fracture of the anterior neck of the talus which is nondisplaced. Significant interval decrease in the amount of surrounding marrow edema however there is still fluid signal within the fracture defect itself in the probably remains some risk for development of avascular necrosis if the fracture progresses. 2. There is been some interval healing of the fractured anterior process of the calcaneus with minimal residual marrow edema here. The previous edema posteriorly in the calcaneus has also significantly improved. No new fracture is seen. 3. Fairly pronounced Achilles insertional spurring with limited tendinopathy of the distal Achilles tendon but no discrete tear.
== END ==
PROVIDERS: PCP Nurse Practitioner Family; Visit Provider Podiatrist
DX: M84.375A Stress fracture, left foot, initial encounter for fracture (principal)
CPT/HCPCS: 73718

== ENCOUNTER 2021-05-16 11:49 | Emergency (ER) | payer OTHER, SELFPAY ==
[2021-05-16 12:03] VITALS: BP 128/62; PULSE 67; RESP 20; TEMP 36.9; O2SAT 98; BMI 26.0
[2021-05-16 12:20] VITALS: BP 128/62; PULSE 67; RESP 20; TEMP 36.9
--- NOTE | 2021-05-16 12:39 | HMH.EDUTC ---
[facility] [place] Clinical Impression: Conjunctivitis Qualifiers: Conjunctivitis type: acute Acute conjunctivitis type: bacterial Laterality: bilateral Qualified Code(s): H10.33 - Unspecified acute conjunctivitis, bilateral Disposition: Home, Self-Care Condition on Discharge: Good Instructions: DI for Conjunctivitis Prescriptions: Neomycin Sulf/Bacitracin/Poly [Tgxvcy-Fvgrq-Aqydfza Eye Oint] 1 applicatio OP TID 7 Days #1 gm Transmission Status: Pending to [facility] Referrals: Massiel Wells APRN [Primary Care Provider] - Time of Disposition: 12:45 Medical Decision Making - Haja Inquiry Pt receiving controlled substance: No Vital Signs: 05/16/21 12:03 05/16/21 12:20 Temperature 98.4 F 98.4 F Temperature Source Oral Pulse Rate 67 Pulse Rate [Left] 67 Respiratory Rate 20 20 Blood Pressure 128/62 Blood Pressure [Right Arm] 128/62 Blood Pressure Mean [Right Arm] 84 02 Sat by Pulse Oximetry 98 [facility] [place] - General Stated complaint: eye irration Time Seen by Provider: 05/16/21 12:45 Mode of Arrival: Ambulatory Source of Information: Patient Limitations: No Limitations Description of Symptoms (Recalled from Triage Doc. by RN): pt states she thinks both of her eyes are infected, the L being to worst. pt states earlier this week they were red, swollen, and draining pus. pt states they are itching now. she reportedly has been using sulfa meth eye drops from pink eye before. HEENT Symptoms (Recalled from RN notes): Yes (itchy eyes) Resp Symptoms (Recalled from RN notes): No Skin Symptoms (Recalled from RN notes): No MS Symptoms (Recalled from RN notes): No Functional Status (Recalled from RN notes): na - History of Present Illness Provider Complaint: Bilateral eye pain X 1 week. Red, swollen, draining. Has been using old sulfa eye drops with some improvement but states that the drops hurt. No injury to eyes. Onset (ago): week(s) (1) Location: eyes Relieving factors: none Exacerbating factors: none Associated symptoms: denies other symptoms Treatments prior to arrival: other (Sulfa eye drops) - Related Data Home Medications Medication Instructions Recorded Confirmed aspirin 81 mg tablet,delayed 81 mg PO DAILY tab 08/26/17 12/25/20 release Sotalol HCl [Sotalol] 80 mg PO BID 06/26/20 12/25/20 Metformin HCl [Metformin HCl ER] 500 mg PO DAILY 06/27/20 12/25/20 Potassium Chloride [Klor-Con M10] 10 meq PO TID 06/27/20 12/25/20 Prasugrel HCl 10 mg PO DAILY 09/09/20 12/25/20 Fluticasone/Salmeterol [Advair 1 inh IH DAILY PRN 10/29/20 12/25/20 100/50mcg diskus] Pantoprazole Sodium [Protonix 40mg 40 mg PO DAILY 12/25/20 12/25/20 tablet] Previous Rx's Medication Instructions Recorded furosemide 40 mg tablet 40 mg PO DAILY #90 tab 04/04/19 Nitroglycerin 0.4 mg SL Q5MINP PRN #30 tab.subl 06/27/20 Ibuprofen [Ibuprofen 400mg 400 mg PO Q6HP PRN #30 tab 01/03/21 Tablet] Neomycin Sulf/Bacitracin/Poly 1 applicatio OP TID 7 Days #1 gm 05/16/21 [Xkeojw-Pewhk-Kemvree Eye Oint] Allergies Allergy/AdvReac Type Severity Reaction Status Date / Time oxycodone [OXYCODONE] Allergy Severe Swelling Verified 10/29/20 09:32 of Lip/Tongue/Throat levofloxacin [From LEVAQUIN] Allergy Intermediate Verified 10/29/20 09:32 codeine [CODEINE] Allergy Mild Verified 10/29/20 09:32 morphine [MORPHINE] Allergy Unknown Verified 10/29/20 09:32 atorvastatin [From Lipitor] AdvReac Severe body aches Verified 10/29/20 09:32 - Worker's Comp Is this a Worker's Comp case?: No H History - Hepatitis A Screen Drug use history?: No High risk sexual behaviors?: No History of sexually transmitted infection?: No Currently employed?: No Childcare worker?: No Do you have indoor plumbing?: Yes Do you have electricity?: Yes Attestation statement:: This patient has been screened for Hepatitis A risk factors. I have reviewed the patient's past medical history: Yes Medical Hist
== END 2021-05-16 12:53 | disposition home or self-care (01) ==
PROVIDERS: Emergency Provider Physician Assistant; PCP Nurse Practitioner Family
DX: H10.33 Unspecified acute conjunctivitis, bilateral (principal); J44.9 Chronic obstructive pulmonary disease, unspecified; I25.10 Atherosclerotic heart disease of native coronary artery without angina pectoris; E11.9 Type 2 diabetes mellitus without complications; K21.9 Gastro-esophageal reflux disease without esophagitis; E78.5 Hyperlipidemia, unspecified; I10 Essential (primary) hypertension; F17.210 Nicotine dependence, cigarettes, uncomplicated; Z88.5 Allergy status to narcotic agent
CPT/HCPCS: 99202; G0463

== ENCOUNTER 2022-02-24 09:44 | Emergency (ER) | payer OTHER, SELFPAY ==
--- NOTE | 2022-02-24 10:55 | XR_ITS ---
FINAL REPORT CLINICAL HISTORY: PAIN FINDINGS: Right hip Three views were obtained. Patient is status post right hip arthroplasty. Vascular calcification is identified. The joint spaces appear normal. No acute soft tissue abnormality is identified. IMPRESSION: No acute process. Reviewed, Interpreted and Dictated by Colin Petty III, MD Transcribed by Brooklynn Ribeiro Authenticated and [facility]
--- NOTE | 2022-02-24 10:55 | XR_ITS ---
FINAL REPORT CLINICAL HISTORY: PAIN FINDINGS: Right femur Two views were obtained. There is no acute fracture or dislocation. There are moderate degenerative changes of the knee. There is presumed postoperative change in the proximal tibia. Note is made of vascular calcification. No acute soft tissue abnormality is identified. IMPRESSION: Degenerative changes as detailed above. Reviewed, Interpreted and Dictated by Colin Petty III, MD Transcribed by Brooklynn Ribeiro Authenticated and [facility]
[2022-02-24 11:00] VITALS: BP 128/67; PULSE 86; RESP 18; TEMP 36.9; O2SAT 97; BMI 24.6
--- NOTE | 2022-02-24 11:15 | HMH.EDUTC ---
[facility] [place] Dis[place] Clinical Impression: Hip pain Disposition: Home, Self-Care Condition on Discharge: Good Instructions: How To Perform RICE (Rest, Ice, Compress, Elevate), DI for Hip Pain Additional Instructions: Follow up with Who ever did your hip replacement surgery if your pain continues Follow up with your Family Doctor if no improvement or any worsening of symptoms Return if needed Over the counter Motrin if your doctor has said that you can take it for pain as directed on package if you need something more may take Tylenol Straight to ER if any life threatening symptoms Referrals: Massiel Wells APRN [Primary Care Provider] - As needed Forms: Work/School Release Medical Decision Making - Haja Inquiry Pt receiving controlled substance: No Haja was queried for this patient: No Vital Signs: 02/24/22 11:00 02/24/22 11:57 Temperature 98.4 F 98.4 F Temperature Source Oral Pulse Rate 86 Pulse Rate [Right Brachial] 86 Respiratory Rate 18 18 Blood Pressure 128/67 Blood Pressure [Right Arm] 128/67 Blood Pressure Mean [Right Arm] 87 Blood Pressure Source [Right Arm] Automatic Cuff Blood Pressure Position [Right Arm] Sitting 02 Sat by Pulse Oximetry 97 Oxygen Delivery Method Room Air - Radiology Data #1 Image(s): Hip Image Reviewed: Yes I have reviewed radiologist's interpretation IMPRESSION: No acute process. #2 Image(s): Femur Image Reviewed: Yes I have reviewed radiologist's interpretation FINDINGS: Right femur Two views were obtained. There is no acute fracture or dislocation. There are moderate degenerative changes of the knee. There is presumed postoperative change in the proximal tibia. Note is made of vascular calcification. No acute soft tissue abnormality is identified. IMPRESSION: Degenerative changes as detailed above. Medical Decision Narrative: Contacted Radiology about the reading of the xray and they advised no reading as of now will continue to wait Patient denies any worsening of pain and patient given soft drink while she awaits reading of hip xray [facility] [place] HPI - General Stated complaint: trouble walking Time Seen by Provider: 02/24/22 11:15 Mode of Arrival: Ambulatory Source of Information: Patient Limitations: No Limitations Description of Symptoms (Recalled from Triage Doc. by RN): PATIENT C/O PAIN TO RIGHT HIP THAT RADIATES DOWN TO KNEE HEENT Symptoms (Recalled from RN notes): No Resp Symptoms (Recalled from RN notes): No Skin Symptoms (Recalled from RN notes): No MS Symptoms (Recalled from RN notes): Yes Functional Status (Recalled from RN notes): WNL - History of Present Illness Provider Complaint: Patient states that for the last several weeks she has been having pain in her right hip that radiates down to her knee with walking States that several years ago she had hip replacement in this hip in [place] and hasnt fallen or anything but she is worried something may have moved and wanted to get an xray States that she has had sciatic nerve pain and this doesnt feel like that - Related Data Home Medications Medication Instructions Recorded Confirmed aspirin 81 mg tablet,delayed 81 mg PO DAILY tab 08/26/17 12/25/20 release Sotalol HCl [Sotalol] 80 mg PO BID 06/26/20 12/25/20 Metformin HCl [Metformin HCl ER] 500 mg PO DAILY 06/27/20 12/25/20 Potassium Chloride [Klor-Con M10] 10 meq PO TID 06/27/20 12/25/20 Fluticasone/Salmeterol [Advair 1 inh IH DAILY PRN 10/29/20 12/25/20 100/50mcg diskus] Pantoprazole Sodium [Protonix 40mg 40 mg PO DAILY 12/25/20 12/25/20 tablet] Previous Rx's Medication Instructions Recorded furosemide 40 mg tablet 40 mg PO DAILY #90 tab 04/04/19 Nitroglycerin 0.4 mg SL Q5MINP PRN #30 tab.subl 06/27/20 Ibuprofen [Ibuprofen 400mg 400 mg PO Q6HP PRN #30 tab 01/03/21 Tablet] Neomycin Sulf/Bacitracin/Poly 1 applicatio OP TID 7 Days #1 gm 05/16/21 [Lxahjz-Zrdib-Rxxpghh Eye Oint] prasugrel 10 mg ta
[2022-02-24 11:57] VITALS: BP 128/67; PULSE 86; RESP 18; TEMP 36.9; O2SAT 97
== END 2022-02-24 13:24 | disposition home or self-care (01) ==
PROVIDERS: Emergency Provider Nurse Practitioner; PCP Nurse Practitioner Family
DX: M25.551 Pain in right hip (principal); R26.2 Difficulty in walking, not elsewhere classified
CPT/HCPCS: 73502; 73552; 99212; G0463

== ENCOUNTER → 2022-03-05 14:58 | Outpatient (CLI) | payer OTHER, SELFPAY ==
--- NOTE | 2022-03-05 15:03 | XR_ITS ---
FINAL REPORT CLINICAL HISTORY: right hip pain COMPARISON: 02/24/2022 FINDINGS: RIGHT HIP Two views of the right hip demonstrate no acute fracture or dislocation. There are postoperative changes of left hip arthroplasty. Hardware is intact. Degenerative disease is seen of the left hip, stable from prior exam. The visualized bony structures are well aligned. No soft tissue abnormality is seen. IMPRESSION: No acute bony abnormality. Reviewed, Interpreted and Dictated by Hilary Farr MD Transcribed by Mirian Coker Authenticated and . [facility]
[2022-03-05 16:31] LABS: C-Reactive Protein 2.1 mg/L (0-4)
[2022-03-05 18:22] LABS: Erythrocyte Sedimentation Rate 77 mm/hr (0-30)
== END ==
PROVIDERS: PCP Nurse Practitioner Family; Visit Provider Orthopaedic Surgery
DX: M25.551 Pain in right hip (principal)
CPT/HCPCS: 36415; 73502; 85651; 86140

== ENCOUNTER → 2022-06-11 15:36 | Outpatient (CLI) | payer OTHER, SELFPAY ==
[2022-06-11 16:50] LABS: Basophils # 0.1 K/mm3 (0-0.2); Basophils % 1.8 % (0.1-2.0); Eosinophils # 0.1 K/mm3 (0.0-0.4); Eosinophils % 2.1 % (0.1-12.0); Hematocrit 39.4 % (37.0-47.0); Hemoglobin 12.9 g/dL (12.2-16.2); Lymphocytes # 2.7 K/mm3 (0.7-4.5); Lymphocytes % 40.9 % (10-50); Mean Corpuscular HGB Conc 32.8 g/dL (31.8-35.4); Mean Corpuscular Hemoglobin 27.9 pg (27.0-31.2); Mean Corpuscular Volume 84.9 fl (81-99); Monocytes # 0.4 K/mm3 (0.1-1.0); Monocytes % 5.7 % (1.7-9.3); Neutrophils # 3.2 K/mm3 (1.8-7.8); Neutrophils % 49.5 % (37.0-80.0); Platelet Count 300 K/mm3 (142-424); Red Blood Count 4.64 M/mm3 (4.20-5.40); White Blood Count 6.5 K/mm3 (4.8-10.8)
[2022-06-11 17:20] LABS: Hemoglobin A1C 5.5 % (4.0-6.0)
[2022-06-11 18:32] LABS: Alanine Aminotransferase 16 U/L (12-78); Albumin Level 4.5 g/dl (3.5-5.0); Albumin/Globulin Ratio 1.7 (1.1-1.8); Alkaline Phosphatase 148 U/L (38-126); Anion Gap 13.1 mEq/L (5-15); Aspartate Amino Transferase 31 U/L (14-36); Bilirubin,Total 0.4 mg/dl (0.2-1.3); Blood Urea Nitrogen 23 mg/dl (7-17); Calcium 9.9 mg/dl (8.4-10.2); Carbon Dioxide 30 mmol/L (22.0-30.0); Chloride 99 mmol/L (98-107); Chol/HDL Ratio 4.8 (1-3.5); Cholesterol 181 mg/dl (140-200); Estimated Glomerular Filt Rate 74 ml/min (>60); GFR (African American) 89 ML/MIN (>60); Globulin 2.7 g/dL (1.3-3.2); Glucose 101 mg/dl (74-100); HDL Cholesterol 38 mg/dl (40-60); Potassium 4.1 mmoL/L (3.5-5.1); Sodium 138 mmol/L (136-145); Total Protein,Serum 7.2 g/dl (6.3-8.2); Triglycerides 222 mg/dl (30-150); VLDL Cholesterol 44 mg/dL (0-40)
[2022-06-11 18:45] LABS: Direct LDL Cholesterol 111.96 mg/dL (100-129)
[2022-06-11 19:05] LABS: Thyroid Stimulating Hormone 0.44 uIU/mL (0.465-4.68)
[2022-06-11 19:24] LABS: Vitamin B12 331 pg/mL (239-931)
[2022-06-11 23:32] LABS: Ferritin 11.6 ng/ml (11.1-264)
== END ==
PROVIDERS: PCP Nurse Practitioner Family; Visit Provider Nurse Practitioner Family
DX: E11.65 Type 2 diabetes mellitus with hyperglycemia (principal); E78.2 Mixed hyperlipidemia; R53.83 Other fatigue; D50.9 Iron deficiency anemia, unspecified; Z79.84 Long term (current) use of oral hypoglycemic drugs
CPT/HCPCS: 36415; 80053; 80061; 82306; 82607; 82728; 83036; 84443; 85025

== ENCOUNTER 2022-10-20 17:27 | Emergency (ER) | payer OTHER, SELFPAY ==
--- NOTE | 2022-10-20 17:30 | XR_ITS ---
PROCEDURE INFORMATION: Exam: XR Left Knee Exam date and time: 10/20/2022 5:49 PM Age: 57 years old Clinical indication: Injury or trauma; Fall; Blunt trauma; Knee; Patient HX: Patient fell on concrete landing on left patella. TECHNIQUE: Imaging protocol: Radiologic exam of the left knee. Views: 3 views. COMPARISON: MR SHAY LT WO CON 05/10/2021 11:05 AM FINDINGS: Bones/joints: There is an acute split fracture of the patella. Moderate lipohemarthrosis noted. Soft tissues: Normal. IMPRESSION: There is an acute split fracture of the patella. Moderate lipohemarthrosis noted.
[2022-10-20 17:50] VITALS: BP 106/72; PULSE 86; RESP 18; TEMP 36.6; O2SAT 99; BMI 26.2
--- NOTE | 2022-10-20 18:49 | EXP.UTC ---
Discharge Plan Disposition Patient Disposition: Home, Self-Care Condition: Good Prescriptions Prescriptions: No Action aspirin [Adult Low Dose Aspirin] 81 mg tablet,delayed release (DR/EC) 81 mg PO DAILY furosemide 40 mg tablet 40 mg PO DAILY Qty: 90 3RF prasugrel 10 mg tablet 10 mg PO DAILY Qty: 30 0RF Rx Instructions: TAKE 1 TABLET DAILY sotalol 80 MG tablet 80 mg PO BID metformin 500 MG tablet extended release 24 hr 500 mg PO DAILY potassium chloride 10 MEQ tablet,ER particles/crystals 10 meq PO TID nitroglycerin 0.4 MG tablet, sublingual 0.4 mg sublingual Q5MINP PRN (Reason: Chest Pain) Qty: 30 0RF fluticasone propion-salmeterol 28 PUFFS blister with device 1 inh inhalation DAILY PRN (Reason: copd) Rx Instructions: unknown dosage ibuprofen 400 MG tablet 400 mg PO Q6HP PRN (Reason: Moderate Pain) Qty: 30 0RF pantoprazole 40 MG tablet,delayed release (DR/EC) 40 mg PO DAILY losartan 25 mg tablet 25 mg PO DAILY gabapentin 100 mg capsule 100 mg PO TID Label Comments: TAKE ONE CAPSULE BY MOUTH THREE TIMES DAILY MAY CAUSE DROWSINESS Referrals Follow up/Referrals: Ryne Swartz DO [Staff Physician] - See instructions (Call office tomorrow for appointment on ) Massiel Wells APRN [Primary Care Provider] - See instructions Activity Restrictions/Add. Instructions Additional Instructions/Restrictions: *weight bearing as tolerated with crutches *RICE, Rest the extremity, Ice 15-20 minutes 3-4 times daily, Compress- wear the zhou wrap as discussed as much as possible to help reduce swelling and pain, Elevate the extremity when at rest *Knee immobilizer is for support and help keep leg straight and control swelling, Be sure that is not to tight but not to loose either and sleep in it until you see Orthopedics *Elevate when resting? *Ibuprofen 600-800mg every 6-8 hours as needed for pain an inflammation. If need something more can take Tylenol in between doses of Ibuprofen to help Immediately follow up with your family doctor for new or worsening of symptoms, or no noticeable improvement over the next 3-5 days Call Orthopedic office tomorrow for appointment with Dr Swartz on Clinical Impressions Clinical Impression: Fracture, patella Qualifiers: Encounter type: initial encounter Fracture type: closed Fracture morphology: unspecified fracture morphology Fracture alignment: displaced Laterality: left Qualified Code(s): S82.002A - Unspecified fracture of left patella, initial encounter for closed fracture Stand Alone Forms Stand Alone Forms: Work/School Release Instructions Patient Instructions: How to Use Crutches, Patella Fracture, DI for Patella Fracture, How To Perform RICE (Rest, Ice, Compress, Elevate) Discharge ED Provider: [facility] [place] HPI General Stated complaint: AO 10/20@1230 Fell Injured L Knee Mode of Arrival: Ambulatory Source of Information: Patient Limitations: No Limitations Time Seen by Provider: 10/20/22 17:50 Description of Symptoms (Recalled from Triage Doc. by RN): Fell of sidewalk this morning and hurt left knee HEENT Symptoms (Recalled from RN notes): No Resp Symptoms (Recalled from RN notes): No Skin Symptoms (Recalled from RN notes): No MS Symptoms (Recalled from RN notes): Yes Functional Status (Recalled from RN notes): n/a History of Present Illness Provider Complaint: Patient states that she tripped on the side of the sidewalk earlier today and fell straight on her left knee States that she felt a pop and it made her sick at her stomach States that she has a scratch on her knee but since she has been having pain when she moves her leg or bends her knee Denies any other injucy Related Data Home Medications Medication Instructions Recorded Confirmed aspirin 81 mg tablet,delayed 81 mg PO DAILY [facility] 08/26/17 10/20/22 release (Adult Low Dose Aspirin) sotalol 80
[2022-10-20 19:40] VITALS: BP 106/72; PULSE 86; RESP 20; TEMP 36.6; O2SAT 99
== END 2022-10-20 19:40 | disposition home or self-care (01) ==
PROVIDERS: Emergency Provider Nurse Practitioner; PCP Nurse Practitioner Family
DX: S82.002A Unspecified fracture of left patella, initial encounter for closed fracture (principal); F17.210 Nicotine dependence, cigarettes, uncomplicated; G47.33 Obstructive sleep apnea (adult) (pediatric); I10 Essential (primary) hypertension; E78.5 Hyperlipidemia, unspecified; Z99.89 Dependence on other enabling machines and devices; W01.10XA Fall on same level from slipping, tripping and stumbling with subsequent striking against unspecified object, initial encounter
CPT/HCPCS: 73562; 99212; 99214; G0463

== ENCOUNTER → 2022-10-27 09:01 | Outpatient (CLI) | payer OTHER, SELFPAY ==
--- NOTE | 2022-10-27 09:06 | XR_ITS ---
FINAL REPORT CLINICAL HISTORY: patella fracture COMPARISON: 10/20/2022 FINDINGS: Left knee Two views were obtained. There is a transverse fracture of the patella. The bony alignment is stable. Moderate joint effusion is identified. There are mild degenerative changes. Mild vascular calcification is identified. IMPRESSION: Transverse patellar fracture, stable since previous. Reviewed, Interpreted and Dictated by Colin Petty III, MD Transcribed by Brooklynn Ribeiro Authenticated and [facility]
== END ==
PROVIDERS: PCP Nurse Practitioner Family; Visit Provider Orthopaedic Surgery
DX: M25.562 Pain in left knee (principal); S82.002A Unspecified fracture of left patella, initial encounter for closed fracture
CPT/HCPCS: 73560

== ENCOUNTER 2022-10-28 09:02 | Outpatient (RCR) | payer OTHER, SELFPAY | END 2022-10-28 10:00 | disposition home or self-care (01) | LOC: PT 09:02 | PROVIDERS: Visit Provider Orthopaedic Surgery | DX: M25.562 Pain in left knee (principal) | CPT/HCPCS: 97760 ==

== ENCOUNTER → 2022-11-10 09:52 | Outpatient (CLI) | payer OTHER, SELFPAY ==
--- NOTE | 2022-11-10 09:57 | XR_ITS ---
FINAL REPORT CLINICAL HISTORY: Left patella fracture COMPARISON: 10/27/2022 FINDINGS: LEFT KNEE 2 views were obtained. There has been no significant change in a mildly comminuted and mildly displaced fracture of the mid patella. A small joint effusion is seen. IMPRESSION: Stable fracture of the mid patella. Reviewed, Interpreted and Dictated by Bo Davison MD Transcribed by Abbie Steiner Authenticated and [facility]
== END ==
LOC: RAD 09:54
PROVIDERS: PCP Nurse Practitioner Family; Visit Provider Orthopaedic Surgery
DX: M25.562 Pain in left knee (principal); S82.002A Unspecified fracture of left patella, initial encounter for closed fracture
CPT/HCPCS: 73560

== ENCOUNTER 2022-11-24 13:12 | Outpatient (CLI) | payer OTHER, SELFPAY ==
--- NOTE | 2022-11-24 13:17 | XR_ITS ---
FINAL REPORT CLINICAL HISTORY: f/u lft patella fx 10/20/22 COMPARISON: November 10, 2022 ; October 20, 2022 FINDINGS: 2 views of the left knee were obtained. There is a subacute fracture of the mid patella. There are mild degenerative changes. There is no acute soft tissue abnormality. IMPRESSION: Stable mid patellar fracture. Reviewed, Interpreted and Dictated by Colin Petty III, MD Transcribed by Anderson Sim Authenticated and [facility]
[2022-11-24 15:32] VITALS: BP 103/51; PULSE 59; RESP 16; TEMP 36.7; O2SAT 100
== END 2022-11-24 15:48 | disposition home or self-care (01) ==
PROVIDERS: PCP Nurse Practitioner Family; Visit Provider Orthopaedic Surgery
DX: M81.0 Age-related osteoporosis without current pathological fracture (principal); S82.002A Unspecified fracture of left patella, initial encounter for closed fracture
CPT/HCPCS: 73560; 96372; J0897

== ENCOUNTER 2022-12-28 12:19 | Outpatient (CLI) | payer OTHER, SELFPAY ==
[2022-12-28 12:39] VITALS: BP 110/53; PULSE 61; RESP 16; TEMP 36.8; O2SAT 100
[2022-12-28 13:25] VITALS: BP 109/53; PULSE 65; RESP 16; TEMP 36.8; O2SAT 100
--- NOTE | 2022-12-28 13:25 | XR_ITS ---
FINAL REPORT CLINICAL HISTORY: left knee patella fx COMPARISON: 11/24/2022 FINDINGS: LEFT KNEE 3 views of the left knee were obtained. There is a mildly displaced transverse fracture of the mid patella, unchanged in positioning since the prior film of November 24. The fracture line is still visualized. Visualized joint spaces are normally aligned. Dense calcifications are noted in the superficial femoral artery. IMPRESSION: Mildly displaced transverse fracture of the mid patella, with a fracture line still visualized. This is unchanged in appearance since the prior film of November 24. Reviewed, Interpreted and Dictated by Bo Davison MD Transcribed by Merlyn Capps Authenticated and [facility]
== END 2022-12-28 13:25 | disposition home or self-care (01) ==
LOC: INF 12:19
PROVIDERS: PCP Nurse Practitioner Family; Visit Provider Orthopaedic Surgery
DX: M25.562 Pain in left knee (principal); S82.002A Unspecified fracture of left patella, initial encounter for closed fracture; R79.0 Abnormal level of blood mineral
CPT/HCPCS: 73562; 96365; J1439

== ENCOUNTER 2023-01-04 12:15 | Outpatient (CLI) | payer OTHER, SELFPAY ==
[2023-01-04 12:37] VITALS: BP 102/39; PULSE 61; RESP 18; TEMP 36.9; O2SAT 96
[2023-01-04 13:10] VITALS: BP 114/64; PULSE 63
== END 2023-01-04 13:20 | disposition home or self-care (01) ==
LOC: INF 12:15
PROVIDERS: PCP Nurse Practitioner Family; Visit Provider Nurse Practitioner Family
DX: R79.0 Abnormal level of blood mineral (principal)
CPT/HCPCS: 96365; J1439

== ENCOUNTER → 2023-01-26 10:59 | Outpatient (CLI) | payer OTHER, SELFPAY ==
--- NOTE | 2023-01-26 11:08 | XR_ITS ---
FINAL REPORT CLINICAL HISTORY: PAIN after broken bone last year FINDINGS: LEFT ANKLE: Three views of the left ankle were obtained. There is no acute fracture or dislocation. Degenerative disease is noted. There is no soft tissue abnormality. IMPRESSION: No acute osseous abnormality. Reviewed, Interpreted and Dictated by Hilary Farr MD Transcribed by Anderson Sim Authenticated and [facility]
--- NOTE | 2023-01-26 11:09 | XR_ITS ---
FINAL REPORT CLINICAL HISTORY: PAIN..after broken foot last year COMPARISON: December 2020 FINDINGS: 3 views of the left foot were obtained. There is no acute fracture or dislocation. Multijoint degenerative disease has progressed slightly particularly in the midfoot. The soft tissues are unremarkable. IMPRESSION: Multijoint degenerative disease, slightly progressed Reviewed, Interpreted and Dictated by Hilary Farr MD Transcribed by Anderson Sim Authenticated and [facility]
== END ==
LOC: RAD 11:00
PROVIDERS: PCP Nurse Practitioner Family; Visit Provider Nurse Practitioner Family
DX: M25.572 Pain in left ankle and joints of left foot (principal); M79.672 Pain in left foot
CPT/HCPCS: 73610; 73630

== ENCOUNTER → 2023-02-02 12:56 | Outpatient (CLI) | payer OTHER, SELFPAY ==
--- NOTE | 2023-02-02 13:01 | XR_ITS ---
FINAL REPORT CLINICAL HISTORY: Lt patella fx COMPARISON: 12/28/2022 FINDINGS: LEFT KNEE SERIES Two views of the left knee were obtained. There is a transverse fracture of the mid patella, which shows further healing. There is no new displacement. There is generalized osteopenia. There is a small joint effusion. IMPRESSION: Partial healing of transverse mid patella fracture. Reviewed, Interpreted and Dictated by Aneta Rivera MD Transcribed by Ashley Burciaga Authenticated and [facility]
== END ==
PROVIDERS: PCP Nurse Practitioner Family; Visit Provider Orthopaedic Surgery
DX: M25.562 Pain in left knee (principal); S82.002A Unspecified fracture of left patella, initial encounter for closed fracture
CPT/HCPCS: 73560

== ENCOUNTER → 2023-02-10 14:17 | Outpatient (CLI) | payer OTHER, SELFPAY ==
--- NOTE | 2023-02-10 14:22 | MR_ITS ---
FINAL REPORT CLINICAL HISTORY: LEFT FOOT PAIN swelling pain burning sensation x 3 weeks COMPARISON: 05/10/2021 FINDINGS: Multiplanar MR imaging of the left foot was performed without contrast. There is a fracture of the calcaneal body with bone marrow edema that may represent a stress fracture. There has been interval healing since the prior MRI of 2020 of the previously seen talar fracture. There is soft tissue swelling surrounding the calcaneal body. There is posterior tibial tenosynovitis, as well as abnormal signal in the distal Achilles tendon which represents Achilles tendinitis along with calcification suggesting chronic injury as well. No ligamentous injury is identified. The musculature is intact. The plantar aponeurosis is intact. Plantar calcaneal spurs are present. IMPRESSION: Fracture of the calcaneal body with associated bone marrow edema that may represent a stress fracture. Soft tissue edema is noted adjacent to the calcaneal body. There has been interval healing of the distal talar fracture since the prior MRI of 2020. Posterior tibial tenosynovitis and distal Achilles tendinitis with chronic calcification present as well. Reviewed, Interpreted and Dictated by Colin Petty III, MD Transcribed by Merlyn Capps Authenticated and [facility]
--- NOTE | 2023-02-10 14:22 | MR_ITS ---
FINAL REPORT CLINICAL HISTORY: LEFT LATERAL ANKLE PAIN COMPARISON: 05/10/2021 FINDINGS: Multiplanar MR imaging of theslime was performed without contrast. There is a fracture of the body of the calcaneus with bone marrow edema that may represent a stress fracture. There has been interval healing of the distal talar fracture since the prior MRI of 2020. There is soft tissue edema noted adjacent to the body of the calcaneus. No osteochondral lesion is identified. The ligaments are intact without evidence of injury. There is posterior tibial tenosynovitis, as well as distal Achilles tendinitis with associated calcification suggesting chronic and acute inflammation. The posterior plantar aponeurosis is intact. No significant joint effusion is seen. The musculature is intact. There is no evidence of soft tissue mass or cyst. IMPRESSION: Fracture of the body of the calcaneus with bone marrow edema most likely representing a stress fracture. There has been interval healing of the distal talar fracture since 2020. Posterior tibial tenosynovitis and distal Achilles tendinitis with associated calcification. Reviewed, Interpreted and Dictated by Colin Petty III, MD Transcribed by Merlyn Capps Authenticated and [facility]
== END ==
LOC: RAD 14:17
PROVIDERS: PCP Nurse Practitioner Family; Visit Provider Nurse Practitioner Family
DX: M25.572 Pain in left ankle and joints of left foot (principal); M79.672 Pain in left foot
CPT/HCPCS: 73718; 73721

== ENCOUNTER → 2023-03-18 09:14 | Outpatient (CLI) | payer OTHER, SELFPAY ==
--- NOTE | 2023-03-18 09:25 | XR_ITS ---
FINAL REPORT CLINICAL HISTORY: lt calcaneus fx COMPARISON: 02/05/2023 FINDINGS: Left calcaneus Two views were obtained. There is no fracture or dislocation. There are mild degenerative changes. Large calcaneal spurs are identified. No soft tissue abnormality is identified. IMPRESSION: No acute process Reviewed, Interpreted and Dictated by Colin Petty III, MD Transcribed by Brooklynn Ribeiro Authenticated and [facility]
== END ==
LOC: RAD 09:16
PROVIDERS: PCP Nurse Practitioner Family; Visit Provider Orthopaedic Surgery
DX: M84.375A Stress fracture, left foot, initial encounter for fracture (principal)
CPT/HCPCS: 73650

== ENCOUNTER → 2023-04-30 15:29 | Outpatient (CLI) | payer OTHER, SELFPAY ==
--- NOTE | 2023-04-30 15:36 | XR_ITS ---
FINAL REPORT CLINICAL HISTORY: left knee pain COMPARISON: 12/28/2022 FINDINGS: Left knee Three views were obtained. There is a stable nondisplaced fracture of the patella, likely subacute. Mild degenerative changes are present. IMPRESSION: Stable patellar fracture. Reviewed, Interpreted and Dictated by Colin Petty III, MD Transcribed by Brooklynn Ribeiro Authenticated and [facility]
== END ==
LOC: RAD 15:30
PROVIDERS: PCP Nurse Practitioner Family; Visit Provider Nurse Practitioner Family
DX: M25.562 Pain in left knee (principal)
CPT/HCPCS: 73562

== ENCOUNTER → 2023-05-17 06:49 | Outpatient (CLI) | payer OTHER, SELFPAY ==
[2023-05-17 17:49] LABS: Alanine Aminotransferase 21 U/L (12-78); Albumin Level 4.6 g/dl (3.5-5.0); Albumin/Globulin Ratio 1.5 (1.1-1.8); Alkaline Phosphatase 124 U/L (38-126); Anion Gap 18.9 mEq/L (5-15); Aspartate Amino Transferase 37 U/L (14-36); Bilirubin,Total 0.3 mg/dl (0.2-1.3); Blood Urea Nitrogen 9 mg/dl (7-17); Calcium 9.5 mg/dl (8.4-10.2); Carbon Dioxide 31 mmol/L (22.0-30.0); Chloride 96 mmol/L (98-107); Chol/HDL Ratio 5.6 (1-3.5); Cholesterol 212 mg/dl (140-200); Estimated Glomerular Filt Rate 86 ml/min (>60); GFR (African American) 104 ML/MIN (>60); Globulin 3.1 g/dL (1.3-3.2); Glucose 120 mg/dl (74-100); HDL Cholesterol 38 mg/dl (40-60); Potassium 3.9 mmoL/L (3.5-5.1); Sodium 142 mmol/L (136-145); Total Protein,Serum 7.7 g/dl (6.3-8.2); Triglycerides 158 mg/dl (30-150); VLDL Cholesterol 32 mg/dL (0-40)
[2023-05-17 18:00] LABS: Direct LDL Cholesterol 138.49 mg/dL (100-129)
== END ==
PROVIDERS: PCP Nurse Practitioner Family; Visit Provider Nurse Practitioner Family
DX: E78.5 Hyperlipidemia, unspecified (principal); R73.09 Other abnormal glucose
CPT/HCPCS: 80053; 80061; 83036

== ENCOUNTER → 2023-05-20 12:58 | Outpatient (CLI) | payer OTHER, SELFPAY ==
--- NOTE | 2023-05-20 13:03 | XR_ITS ---
FINAL REPORT CLINICAL HISTORY: Left Knee injury COMPARISON: 04/30/2023 FINDINGS: AP, lateral and oblique views of the left knee were obtained. The patellar fracture appears offset along the posterior cortex, new compared to prior. Otherwise, there is some interval healing. There is no new osseous abnormality. The joint space is preserved. The soft tissues are normal. There is no joint effusion. IMPRESSION: No acute osseous abnormality of the left knee. Patellar fracture appears offset with some interval healing. Reviewed, Interpreted and Dictated by Hilary Farr MD Transcribed by Georgia Heck Authenticated and [facility]
== END ==
PROVIDERS: PCP Nurse Practitioner Family; Visit Provider Orthopaedic Surgery
DX: M25.562 Pain in left knee (principal); S82.002A Unspecified fracture of left patella, initial encounter for closed fracture
CPT/HCPCS: 73562

== ENCOUNTER → 2023-05-27 13:07 | Outpatient (CLI) | payer OTHER, SELFPAY ==
[2023-05-27 12:03] LABS: Adenovirus,PCR Not Detected (NotDetected); Coronavirus 19, PCR Not Detected (NotDetected); Coronavirus 229E Not Detected (NotDetected); Coronavirus NL63 Not Detected (NotDetected); Coronavirus OC43 Not Detected (NotDetected); Coronovirus HKU1,PCR Not Detected (NotDetected); Human Metapneumovirus Not Detected (NotDetected); Influenza A, PCR Not Detected (NotDetected); Influenza AH1, 2009 Not Detected (NotDetected); Influenza AH1, PCR Not Detected (NotDetected); Influenza AH3,PCR Not Detected (NotDetected); Influenza B, PCR Not Detected (NotDetected); Parainfluenza 1, PCR Not Detected (NotDetected); Parainfluenza 2, PCR Not Detected (NotDetected); Parainfluenza 3, PCR Not Detected (NotDetected); Parainfluenza 4, PCR Not Detected (NotDetected); Rhinovirus/Enterovirus Not Detected (NotDetected)
[2023-05-27 15:09] LABS: Respiratory Syncytial Virus Detected (NotDetected)
== END ==
PROVIDERS: PCP Nurse Practitioner Family; Visit Provider Internal Medicine
DX: R05.9 Cough, unspecified (principal); R09.89 Other specified symptoms and signs involving the circulatory and respiratory systems; B97.4 Respiratory syncytial virus as the cause of diseases classified elsewhere
CPT/HCPCS: 87632; 87635

== ENCOUNTER 2023-05-31 10:06 | Outpatient (CLI) | payer OTHER, SELFPAY ==
[2023-05-31 10:21] VITALS: BP 150/60; PULSE 59; RESP 18; TEMP 36.3; O2SAT 100
== END 2023-05-31 10:21 | disposition home or self-care (01) ==
LOC: INF 10:06
PROVIDERS: PCP Nurse Practitioner Family; Visit Provider Nurse Practitioner Family
DX: M81.0 Age-related osteoporosis without current pathological fracture (principal)
CPT/HCPCS: 96372; J0897

== ENCOUNTER 2023-06-16 13:01 | Emergency (ER) | payer OTHER, SELFPAY ==
[2023-06-16] VITALS (7 sets, daily range): BP systolic 116–141; BP diastolic 52–64; PULSE 68–72; RESP 18–23; TEMP 36.5; O2SAT 99–100; BMI 26.4
--- NOTE | 2023-06-16 13:01 | ECG_ITS ---
APPROVED REPORT Exam: Resting ECG HR:72 bpm ECG Measurements Heart Rate 72 AXES [place] 135 P 74 QRSd 119 QRS 80 QT 412 T 47 QTc 437 Conclusion SINUS RHYTHM RIGHT BUNDLE BRANCH BLOCK [120+ ms QRS DURATION, UPRIGHT V1, 40+ ms S IN I/aVL/V4/V5/V6] ABNORMAL ECG UNCONFIRMED REPORT Electronically signed by : Aman Lake MD 06/17/2023 17:14:06
--- NOTE | 2023-06-16 13:56 | XR_ITS ---
FINAL REPORT CLINICAL HISTORY: Chest pain/SOB, left sided arm pain COMPARISON: 11/16/2020 FINDINGS: A single portable view of the chest was obtained. The heart size and pulmonary vascularity are within normal limits. The mediastinum is within normal limits. Mild bibasilar opacities likely represent atelectasis or scarring. The bony thorax is intact. IMPRESSION: Mild bibasilar opacities, likely atelectasis or scar. Reviewed, Interpreted and Dictated by Colin Petty III, MD Transcribed by Georgia Heck Authenticated and . [facility]
[2023-06-16 14:05] LABS: Chloride 100 mmol/L (98-107); Potassium 3.2 mmoL/L (3.5-5.1); Sodium 138 mmol/L (136-145)
[2023-06-16 14:07] LABS: Alanine Aminotransferase 26 U/L (12-78); Blood Urea Nitrogen 13 mg/dl (7-17); Creatinine Clearance Estimated 92 mL/min (50-200); Estimated Glomerular Filt Rate 86 ml/min (>60); GFR (African American) 104 ML/MIN (>60)
[2023-06-16 14:08] LABS: Albumin Level 4.3 g/dl (3.5-5.0); Albumin/Globulin Ratio 1.3 (1.1-1.8); Alkaline Phosphatase 121 U/L (38-126); Anion Gap 8.2 mEq/L (5-15); Aspartate Amino Transferase 38 U/L (14-36); Bilirubin,Total 0.4 mg/dl (0.2-1.3); Calcium 8.6 mg/dl (8.4-10.2); Carbon Dioxide 33 mmol/L (22.0-30.0); Globulin 3.3 g/dL (1.3-3.2); Glucose 160 mg/dl (74-100); Total Protein,Serum 7.6 g/dl (6.3-8.2)
[2023-06-16 14:17] LABS: NT Pro Brain Natriuretic Pep. 245 pg/mL (0-125)
[2023-06-16 14:21] LABS: Basophils # 0.1 K/mm3 (0-0.2); Basophils % 0.5 % (0.1-2.0); Eosinophils # 0.1 K/mm3 (0.0-0.4); Eosinophils % 1.3 % (0.1-12.0); Hematocrit 29.9 % (37.0-47.0); Hemoglobin 9.1 g/dL (12.2-16.2); Lymphocytes # 2.5 K/mm3 (0.7-4.5); Lymphocytes % 23.5 % (10-50); Mean Corpuscular HGB Conc 30.4 g/dL (31.8-35.4); Mean Corpuscular Hemoglobin 21.5 pg (27.0-31.2); Mean Corpuscular Volume 70.8 fl (81-99); Mean Platelet Volume 8.1 fl (7.4-10.4); Monocytes # 0.7 K/mm3 (0.1-1.0); Monocytes % 6.3 % (1.7-9.3); Neutrophils # 7.2 K/mm3 (1.8-7.8); Neutrophils % 68.4 % (37.0-80.0); Platelet Count 396 K/mm3 (142-424); Red Blood Count 4.22 M/mm3 (4.20-5.40); Red Cell Distribution Width 16.7 % (11.5-17.5); White Blood Count 10.5 K/mm3 (4.8-10.8)
[2023-06-16 14:36] LABS: Troponin I < 0.01 ng/ml (0.00-0.034)
--- NOTE | 2023-06-16 15:48 | HMH.EDGENADL ---
Discharge Plan Disposition Patient Disposition: Home, Self-Care Condition: Good Prescriptions Prescriptions: No Action aspirin [Adult Low Dose Aspirin] 81 mg tablet,delayed release (DR/EC) 81 mg PO DAILY gabapentin 300 mg capsule 300 mg PO BID Patient Comments: TAKE ONE CAPSULE BY MOUTH TWICE DAILY MAY CAUSE DROWSINESS cholecalciferol (vitamin D3) 125 mcg (5,000 unit) capsule 125 mcg PO DAILY Patient Comments: TAKE ONE CAPSULE BY MOUTH EVERY DAY famotidine 40 mg tablet 40 mg PO DAILY potassium chloride 10 mEq tablet extended release 10 meq PO TID Rx Instructions: 20 mEq in the morning and 10 mEq hs Folinic-Plus 4-50-2 mg tablet 1 tab-cap PO DAILY Patient Comments: TAKE ONE TABLET BY MOUTH EVERY DAY Januvia 100 mg tablet 100 mg PO DAILY Qty: 30 2RF pseudoephedrine HCl [Sudogest] 30 mg tablet 60 mg PO Q6H PRN (Reason: nasal congestion) Patient Comments: TAKE TWO TABLETS BY MOUTH EVERY 6 HOURS NEEDED FOR nasal congestion do not exceed 4 doses in 24 hours albuterol sulfate 90 mcg/actuation HFA aerosol inhaler 2 puff inhalation Q4-6H PRN (Reason: shortness of breath or wheezing) Qty: 8.5 0RF bupropion HCl [Wellbutrin XL] 150 mg tablet extended release 24 hr 150 mg PO DAILY Qty: 30 2RF amoxicillin-pot clavulanate 875-125 mg tablet 1 tab PO BID 10 Days Qty: 20 0RF prasugrel 10 mg tablet 10 mg PO DAILY 10 Days Qty: 10 0RF Rx Instructions: TAKE 1 TABLET DAILY furosemide 40 mg tablet 40 mg PO DAILY Qty: 90 3RF tramadol 50 mg tablet 50 mg PO Q6H PRN (Reason: fracture pain) Qty: 40 0RF sotalol 80 MG tablet 80 mg PO BID nitroglycerin 0.4 MG tablet, sublingual 0.4 mg sublingual Q5MINP PRN (Reason: Chest Pain) Qty: 30 0RF ibuprofen 400 MG tablet 400 mg PO Q6HP PRN (Reason: Moderate Pain) Qty: 30 0RF Referrals Follow up/Referrals: Provider,Referral, MD [Primary Care Provider] - See instructions Activity Restrictions/Add. Instructions Additional Instructions/Restrictions: Please follow-up with your primary care provider. Please return to the emergency department if you develop any new or worsening symptoms or become concerned for your health. As we discussed, over the next 2 days, recommend that you increase, double your normal Lasix dose at home. Recommend that you discuss with your primary care provider on Wednesday to see if they would like you to continue increasing the dose or if they would like to see you in clinic. Please return to the emergency department should you have any worsening shortness of breath, difficulty breathing, chest pain. Clinical Impressions Clinical Impression: Dyspnea, Leg swelling Discharge ED Provider: Bertrand Santacruz I General Adult HPI General Chief complaint: Chest Pain Stated complaint: CP Time Seen by Provider: 06/16/23 13:14 Mode of Arrival: Family Vehicle Source of Information: Patient and Medical Record Limitations: No Limitations Description of Symptoms (Recalled from ER Triage Doc. by RN): Pt c/o L shoulder pain that has radiated to whole LUE & the left side of her neck. States she has had 2 cardiac stents in the past (Dr. Lee) and follows Dr. Hutchison with [facility] in [place]. She also c/o SOA on exertion. History of Present Illness HPI narrative: Patient is a 58-year-old female with history of coronary artery disease with [address], type 2 diabetes presenting to the emergency department with a 3-day history of left upper extremity soreness that has radiated into her jaw with shortness of breath with exertion, general weakness. History was conducted with the patient at bedside. Patient reports that her symptoms have been present for the past 3 days with general soreness, aching in the left upper extremity that occasionally radiates into her left jaw. Additionally, she has felt generally weak, tired and worn down. She has noted increase sw
== END 2023-06-16 15:55 | disposition home or self-care (01) ==
PROVIDERS: Emergency Provider Emergency Medicine
DX: M25.512 Pain in left shoulder (principal); M79.602 Pain in left arm; M54.2 Cervicalgia; R68.84 Jaw pain; R06.02 Shortness of breath; R53.1 Weakness; I25.10 Atherosclerotic heart disease of native coronary artery without angina pectoris; E11.9 Type 2 diabetes mellitus without complications; G47.33 Obstructive sleep apnea (adult) (pediatric); F17.210 Nicotine dependence, cigarettes, uncomplicated; I45.19 Other right bundle-branch block
CPT/HCPCS: 71045; 80053; 83880; 84484; 85025; 93005; 96374; 99285

== ENCOUNTER → 2023-06-29 11:21 | Outpatient (CLI) | payer OTHER, SELFPAY ==
--- NOTE | 2023-06-29 11:50 | XR_ITS ---
FINAL REPORT CLINICAL HISTORY: nausea, upper abd pain, constipation COMPARISON: None FINDINGS: SINGLE VIEW ABDOMEN A single view of the abdomen was obtained. Right upper quadrant surgical clips are present, and there is retained debris in the stomach. There are 2 radiopacities overlying the fundus of the stomach that are likely pill fragments. There is a nonobstructive bowel gas pattern. There are no abnormally dilated loops of small bowel. No abnormal calcifications are identified. IMPRESSION: Nonobstructive bowel gas pattern. Large amount of debris present in the stomach. Reviewed, Interpreted and Dictated by Bo Davison MD Transcribed by Merlyn Capps Authenticated and [facility]
[2023-06-29 12:05] LABS: Basophils % 0.5 % (0.1-2.0); Eosinophils # 0.1 K/mm3 (0.0-0.4); Eosinophils % 0.7 % (0.1-12.0); Hematocrit 30.5 % (37.0-47.0); Hemoglobin 9.1 g/dL (12.2-16.2); Lymphocytes % 22.7 % (10-50); Mean Corpuscular HGB Conc 29.9 g/dL (31.8-35.4); Mean Corpuscular Hemoglobin 21.3 pg (27.0-31.2); Mean Corpuscular Volume 71.1 fl (81-99); Mean Platelet Volume 7.7 fl (7.4-10.4); Monocytes # 0.4 K/mm3 (0.1-1.0); Monocytes % 5.1 % (1.7-9.3); Neutrophils # 6.1 K/mm3 (1.8-7.8); Neutrophils % 70.9 % (37.0-80.0); Platelet Count 329 K/mm3 (142-424); Red Cell Distribution Width 17.2 % (11.5-17.5); White Blood Count 8.5 K/mm3 (4.8-10.8)
[2023-06-29 12:38] LABS: Chloride 103 mmol/L (98-107); Potassium 4.5 mmoL/L (3.5-5.1); Sodium 141 mmol/L (136-145)
[2023-06-29 12:40] LABS: Amylase 42 U/L (30-110)
[2023-06-29 12:41] LABS: Alanine Aminotransferase 26 U/L (12-78); Albumin Level 4.6 g/dl (3.5-5.0); Albumin/Globulin Ratio 1.5 (1.1-1.8); Alkaline Phosphatase 120 U/L (38-126); Anion Gap 13.5 mEq/L (5-15); Aspartate Amino Transferase 42 U/L (14-36); Bilirubin,Total 0.7 mg/dl (0.2-1.3); Blood Urea Nitrogen 13 mg/dl (7-17); Calcium 8.9 mg/dl (8.4-10.2); Carbon Dioxide 29 mmol/L (22.0-30.0); Estimated Glomerular Filt Rate 102 ml/min (>60); GFR (African American) 124 ML/MIN (>60); Glucose 121 mg/dl (74-100); Lipase 45 U/L (23-300); Total Protein,Serum 7.6 g/dl (6.3-8.2)
[2023-06-29 13:12] LABS: Thyroid Stimulating Hormone 0.49 uIU/mL (0.465-4.68)
[2023-06-30 15:53] LABS: H. pylori Breath Test Positive (Negative)
== END ==
PROVIDERS: PCP Nurse Practitioner Family; Visit Provider Nurse Practitioner Family
DX: R10.10 Upper abdominal pain, unspecified (principal); R10.13 Epigastric pain; R11.0 Nausea; K59.00 Constipation, unspecified
CPT/HCPCS: 36415; 74019; 80053; 82150; 83013; 83690; 84443; 85025

== ENCOUNTER 2023-07-05 17:49 | Emergency (ER) | payer OTHER, SELFPAY ==
[2023-07-05 17:51] VITALS: BP 128/71; PULSE 72; RESP 16; TEMP 37.3; O2SAT 97; BMI 26.4
--- NOTE | 2023-07-05 18:28 | HMH.EDGENADL ---
Discharge Plan Disposition Patient Disposition: Home, Self-Care Chief Complaint: Weakness Prescriptions Prescriptions: No Action aspirin [Adult Low Dose Aspirin] 81 mg tablet,delayed release (DR/EC) 81 mg PO DAILY cholecalciferol (vitamin D3) 125 mcg (5,000 unit) capsule 125 mcg PO DAILY Patient Comments: TAKE ONE CAPSULE BY MOUTH EVERY DAY potassium chloride 10 mEq tablet extended release 10 meq PO TID Rx Instructions: 20 mEq in the morning and 10 mEq hs Folinic-Plus 4-50-2 mg tablet 1 tab-cap PO DAILY Patient Comments: TAKE ONE TABLET BY MOUTH EVERY DAY clopidogrel 75 mg tablet 75 mg PO DAILY pseudoephedrine HCl [Sudogest] 30 mg tablet 60 mg PO Q6H PRN (Reason: nasal congestion) Patient Comments: TAKE TWO TABLETS BY MOUTH EVERY 6 HOURS NEEDED FOR nasal congestion do not exceed 4 doses in 24 hours albuterol sulfate 90 mcg/actuation HFA aerosol inhaler 2 puff inhalation Q4-6H PRN (Reason: shortness of breath or wheezing) Qty: 8.5 0RF prasugrel 10 mg tablet 10 mg PO DAILY 10 Days Qty: 10 0RF Rx Instructions: TAKE 1 TABLET DAILY Rybelsus 3 mg tablet 3 mg PO DAILY 30 Days Qty: 30 0RF tramadol 50 mg tablet 50 mg PO Q6H PRN (Reason: fracture pain) Qty: 40 0RF famotidine 40 mg tablet 40 mg PO BID 90 Days Qty: 180 2RF furosemide 40 mg tablet 40 mg PO DAILY Qty: 90 3RF gabapentin 300 mg capsule 300 mg PO BID 90 Days Qty: 180 0RF Januvia 100 mg tablet 100 mg PO DAILY 90 Days Qty: 90 2RF omeprazole 20 mg capsule,delayed release(DR/EC) 20 mg PO BID Qty: 30 0RF bismuth subsalicylate 262 mg/15 mL suspension 524 mg PO QID Qty: 1700 0RF metronidazole 500 mg tablet 500 mg PO TID Qty: 42 0RF tetracycline 500 mg capsule 500 mg PO QID Qty: 56 0RF ondansetron 4 mg tablet,disintegrating 4 mg PO Q8H PRN (Reason: nausea and vomiting) Qty: 30 0RF sotalol 80 MG tablet 80 mg PO BID nitroglycerin 0.4 MG tablet, sublingual 0.4 mg sublingual Q5MINP PRN (Reason: Chest Pain) Qty: 30 0RF ibuprofen 400 MG tablet 400 mg PO Q6HP PRN (Reason: Moderate Pain) Qty: 30 0RF Referrals Follow up/Referrals: Massiel Wells APRN [Primary Care Provider] - See instructions Activity Restrictions/Add. Instructions Additional Instructions/Restrictions: At this time it was felt you are safe to be discharged home. If new or worsening symptoms please do not hesitate to return the emergency department. If symptoms persist please follow-up with your family doctor as you are able. Clinical Impressions Clinical Impression: Dehydration Discharge ED Provider: Francis Brown General Adult HPI General Chief complaint: Weakness Stated complaint: HPylori +06/29, back pain Time Seen by Provider: 07/05/23 18:10 Mode of Arrival: Family Vehicle Source of Information: Patient and Medical Record Limitations: No Limitations Description of Symptoms (Recalled from ER Triage Doc. by RN): Pt c/o generalized weakness, poor appetite and fluid intake, right kidney pain , and notes reoccurrance of H. Pylori. States she also was seen 06/29 by her PCP d/t constipation, which she finally had a BM today, however it was just all water . Denies any fever. She reports she has taken her oral abx, pepto, and regular prescribed medication. She took zofran last night but none today. History of Present Illness HPI narrative: Patient is a 58-year-old with multiple comorbidities who presents emergency department for evaluation of dehydration. Patient states over the last week or so she has been diagnosed with H. pylori for which she has been taking her medication. She was constipated for a week and had not had a bowel movement so she took magnesium which caused her to have significant watery bowel movements throughout the day. She has decreased p.o. intake at baseline as she does not like water. She has some associated mild global
[2023-07-05 19:06] VITALS: BP 123/40; PULSE 70; O2SAT 99
[2023-07-05 19:08] LABS: Basophils # 0.1 K/mm3 (0-0.2); Basophils % 0.6 % (0.1-2.0); Eosinophils % 0.5 % (0.1-12.0); Hematocrit 27.8 % (37.0-47.0); Hemoglobin 8.4 g/dL (12.2-16.2); Lymphocytes # 1.7 K/mm3 (0.7-4.5); Lymphocytes % 18.7 % (10-50); Mean Corpuscular HGB Conc 30.2 g/dL (31.8-35.4); Mean Corpuscular Hemoglobin 20.5 pg (27.0-31.2); Mean Corpuscular Volume 67.8 fl (81-99); Mean Platelet Volume 8.1 fl (7.4-10.4); Monocytes # 0.6 K/mm3 (0.1-1.0); Monocytes % 6.2 % (1.7-9.3); Neutrophils # 6.6 K/mm3 (1.8-7.8); Platelet Count 430 K/mm3 (142-424); Red Cell Distribution Width 17.4 % (11.5-17.5); White Blood Count 8.9 K/mm3 (4.8-10.8)
[2023-07-05 19:09] LABS: Potassium 3.5 mmoL/L (3.5-5.1); Sodium 138 mmol/L (136-145)
[2023-07-05 19:10] LABS: Chloride 99 mmol/L (98-107)
[2023-07-05 19:11] LABS: Alanine Aminotransferase 24 U/L (12-78); Alkaline Phosphatase 106 U/L (38-126); Aspartate Amino Transferase 33 U/L (14-36); Bilirubin,Total 0.5 mg/dl (0.2-1.3); Blood Urea Nitrogen 12 mg/dl (7-17); Creatinine Clearance Estimated 108 mL/min (50-200); Estimated Glomerular Filt Rate 102 ml/min (>60); GFR (African American) 124 ML/MIN (>60)
[2023-07-05 19:12] LABS: Albumin/Globulin Ratio 1.3 (1.1-1.8); Anion Gap 13.5 mEq/L (5-15); Calcium 8.4 mg/dl (8.4-10.2); Carbon Dioxide 29 mmol/L (22.0-30.0); Globulin 3.1 g/dL (1.3-3.2); Glucose 157 mg/dl (74-100); Lipase 90 U/L (23-300); Magnesium 2.5 mg/dl (1.6-2.3); Total Protein,Serum 7.1 g/dl (6.3-8.2)
--- NOTE | 2023-07-05 19:23 | PC.NURSE ---
rounded on patient, spouse at bedside, patient given a pepsi
--- NOTE | 2023-07-05 19:41 | PC.NURSE ---
pt to br to void, approx 600 ml of turbid yellow/brown urine. obtained collection and sent to lab.
[2023-07-05 19:52] LABS: Microscopic, Urine URINE MICROSCOPIC (MICROSCOPIC)
[2023-07-05 19:55] LABS: Appearance,Urine CLOUDY (Clear); Bilirubin,Urine Negative (Negative); Blood, Urine Negative (Negative); Color,Urine DARK YELLOW (Yellow); Glucose,Urine (UA) Negative (Negative); Ketones,Urine Negative (Negative); Leukocyte Esterase,Urine Negative (Negative); Nitrate,Urine Negative (Negative); PH,Urine 8.5 (5.0-8.5); Protein,Urine 1+ (Negative); Urobilinogen,Urine 0.2 EU/dl (0.2)
[2023-07-05 20:10] VITALS: BP 131/63; PULSE 74; RESP 20; TEMP 36.6; O2SAT 99
[2023-07-05 20:12] LABS: Amorphous Sediment,Urine 3+ /lpf; Bacteria,Urine Trace /lpf; WBC,Urine Occasional #/hpf (0-3)
== END 2023-07-05 20:11 | disposition home or self-care (01) ==
PROVIDERS: Emergency Provider Emergency Medicine; PCP Nurse Practitioner Family
DX: E86.0 Dehydration (principal); R53.1 Weakness; R63.0 Anorexia; G47.33 Obstructive sleep apnea (adult) (pediatric); F17.210 Nicotine dependence, cigarettes, uncomplicated
CPT/HCPCS: 80053; 81001; 83690; 83735; 85025; 96360; 99285

== ENCOUNTER → 2023-07-06 14:40 | Outpatient (CLI) | payer OTHER, SELFPAY ==
--- NOTE | 2023-07-06 14:40 | MR_ITS ---
FINAL REPORT CLINICAL HISTORY: Left knee pain post patellar fracture COMPARISON: None FINDINGS: Multi planar MR imaging was performed of the presumed left knee (images not labeled). The anterior and posterior cruciate ligaments are intact. The quadriceps and patellar tendons are intact. There is a small posterior marginal tear of the posterior horn of the medial meniscus best seen on image 8 of series 4. The medial and lateral collateral ligaments appear intact. The medial and lateral retinacula appear intact. There is a transverse fracture through the mid patella. Fracture line remains visible but there is no evidence of marrow edema, consistent with a nondisplaced healing patellar fracture. There is grade 1-2 chondromalacia along the undersurface of the patella along the fracture site. No evidence of soft tissue inflammatory reaction. IMPRESSION: Posterior marginal tear posterior horn medial meniscus. Healing transverse fracture through the mid patella. Reviewed, Interpreted and Dictated by Bo Davison MD Transcribed by Georgia Heck Authenticated and [facility] [place]
== END ==
PROVIDERS: PCP Nurse Practitioner Family; Visit Provider Nurse Practitioner Family
DX: M25.562 Pain in left knee (principal); S82.002A Unspecified fracture of left patella, initial encounter for closed fracture; Y99.9 Unspecified external cause status
CPT/HCPCS: 73721

== ENCOUNTER 2023-07-14 18:30 | Emergency (ER) | payer OTHER, SELFPAY ==
[2023-07-14] VITALS (7 sets, daily range): BP systolic 116–132; BP diastolic 60–71; PULSE 80–83; RESP 16–21; TEMP 36.5–36.7; O2SAT 97–100; BMI 26.4
--- NOTE | 2023-07-14 18:32 | ECG_ITS ---
APPROVED REPORT Exam: Resting ECG HR:82 bpm ECG Measurements Heart Rate 82 AXES ID 134 P 73 QRSd 122 QRS 35 QT 401 T 37 QTc 440 Conclusion SINUS RHYTHM INDETERMINATE AXIS RIGHT BUNDLE BRANCH BLOCK [120+ ms QRS DURATION, UPRIGHT V1, 40+ ms S IN I/aVL/V4/V5/V6] ABNORMAL ECG UNCONFIRMED REPORT Electronically signed by : Aman Lake MD 07/15/2023 20:32:23
--- NOTE | 2023-07-14 18:36 | XR_ITS ---
PROCEDURE INFORMATION: Exam: XR Chest Exam date and time: 07/14/2023 6:35 PM Age: 58 years old Clinical indication: Other: Chest pain; Additional info: Cp TECHNIQUE: Imaging protocol: Radiologic exam of the chest. Views: 2 views. Total images: 2 COMPARISON: CR XR CHEST PORTABLE 06/16/2023 1:54 PM FINDINGS: Lungs: Bilateral hyperinflation is present. Pleural spaces: No focal pneumonia or pneumothorax. No pleural effusions. Heart/Mediastinum: Unremarkable. No cardiomegaly. Bones/joints: The thoracic spine demonstrates mild degenerative changes at multiple levels. IMPRESSION: 1. Bilateral hyperinflation is present. 2. No focal pneumonia or pneumothorax. 3. No pleural effusions.
[2023-07-14 18:55] LABS: Basophils # 0.1 K/mm3 (0-0.2); Basophils % 0.7 % (0.1-2.0); Eosinophils # 0.1 K/mm3 (0.0-0.4); Eosinophils % 1.4 % (0.1-12.0); Hematocrit 29.5 % (37.0-47.0); Hemoglobin 8.9 g/dL (12.2-16.2); Lymphocytes # 1.8 K/mm3 (0.7-4.5); Lymphocytes % 22.6 % (10-50); Mean Corpuscular HGB Conc 30.1 g/dL (31.8-35.4); Mean Corpuscular Hemoglobin 20.2 pg (27.0-31.2); Mean Platelet Volume 7.3 fl (7.4-10.4); Monocytes # 0.5 K/mm3 (0.1-1.0); Monocytes % 6.3 % (1.7-9.3); Neutrophils # 5.5 K/mm3 (1.8-7.8); Neutrophils % 69.1 % (37.0-80.0); Platelet Count 439 K/mm3 (142-424); Red Cell Distribution Width 17.2 % (11.5-17.5); White Blood Count 7.9 K/mm3 (4.8-10.8)
[2023-07-14 19:10] LABS: Chloride 98 mmol/L (98-107)
[2023-07-14 19:11] LABS: Potassium 3.1 mmoL/L (3.5-5.1); Sodium 136 mmol/L (136-145)
[2023-07-14 19:13] LABS: Alanine Aminotransferase 21 U/L (12-78); Alkaline Phosphatase 94 U/L (38-126); Anion Gap 10.1 mEq/L (5-15); Aspartate Amino Transferase 39 U/L (14-36); Bilirubin,Total 0.4 mg/dl (0.2-1.3); Blood Urea Nitrogen 10 mg/dl (7-17); Carbon Dioxide 31 mmol/L (22.0-30.0); Creatinine Clearance Estimated 108 mL/min (50-200); Estimated Glomerular Filt Rate 102 ml/min (>60); GFR (African American) 124 ML/MIN (>60)
[2023-07-14 19:14] LABS: Albumin/Globulin Ratio 1.3 (1.1-1.8); Calcium 8.4 mg/dl (8.4-10.2); Globulin 3.1 g/dL (1.3-3.2); Glucose 145 mg/dl (74-100); Total Protein,Serum 7.1 g/dl (6.3-8.2)
[2023-07-14 19:26] LABS: Troponin I < 0.01 ng/ml (0.00-0.034)
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
[2023-07-14 20:02] LABS: NT Pro Brain Natriuretic Pep. 193 pg/mL (0-125)
[2023-07-14 20:11] LABS: D-Dimer 0.33 ug/mL (0.0-0.5)
[2023-07-14 22:05] LABS: Troponin I < 0.01 ng/ml (0.00-0.034)
--- NOTE | 2023-07-14 22:18 | PC.NURSE ---
in room talking with patient at this time.
== END 2023-07-14 22:23 | disposition home or self-care (01) ==
PROVIDERS: Emergency Provider Student in an Organized Health Care Education/Training Program; PCP Nurse Practitioner Family
DX: R07.9 Chest pain, unspecified (principal); M54.12 Radiculopathy, cervical region; R06.00 Dyspnea, unspecified; M79.602 Pain in left arm; G47.33 Obstructive sleep apnea (adult) (pediatric); F17.210 Nicotine dependence, cigarettes, uncomplicated
CPT/HCPCS: 71046; 80053; 83880; 84484; 85025; 85378; 93005; 99285

== ENCOUNTER 2023-08-10 10:51 | Outpatient (CLI) | payer OTHER, SELFPAY ==
[2023-08-10] MEDS: INCLISIRAN SODIUM 284 MG/1.5 ML SYRINGE SQ (11:04)
[2023-08-10 11:15] VITALS: BP 138/72; PULSE 69; RESP 18; TEMP 36.6; O2SAT 100
== END 2023-08-10 11:15 | disposition home or self-care (01) ==
LOC: INF 10:51
PROVIDERS: PCP Nurse Practitioner Family; Visit Provider Physician Assistant
DX: E78.5 Hyperlipidemia, unspecified (principal); E78.49 Other hyperlipidemia
CPT/HCPCS: 96372; J1306

== ENCOUNTER 2023-08-11 10:39 | Outpatient (CLI) | payer OTHER, SELFPAY ==
--- NOTE | 2023-08-11 10:45 | US_ITS ---
FINAL REPORT CLINICAL HISTORY: CLAUDICATION,SMOKER,DM,HLD,CAD FINDINGS: ANKLE-BRACHIAL PRESSURE INDICES Pressure indices are as follows: RIGHT LOWER EXTREMITY: Ankle-brachial pressure index: 0.97 Comments: Normal LEFT LOWER EXTREMITY: Ankle-brachial pressure index: 0.85 Comments: Findings suspicious of mild peripheral vascular disease. IMPRESSION: Findings suspicious for mild left lower extremity peripheral vascular disease. Reviewed, Interpreted and Dictated by Aneta Rivera MD Transcribed by Mirian Coker Authenticated and [facility]
--- NOTE | 2023-08-11 12:43 | MR_ITS ---
APPROVED REPORT Aeronautical Research Engineer: CLINICAL INDICATION NSVT, AI, MR TECHNIQUE Image Acquisition: Cardiac magnetic resonance (CMR) was performed on Siemens Espree MRI 1.5T scanner. Software platform sequences were performed using the Siemens [employer] MR B19 platform. A set of three-plane, low-resolution, large [id number] localizers were initially acquired. Then axial, coronal, sagittal TrueFISP, as well as axial HASTE images, were obtained. These were followed by gated TrueFISP breathold cinematic sequences obtained in the short axis with 8 mm slices and 2 mm gaps, 2-chamber (vertical long axis), 3-chamber, 4-chamber (horizontal long axis). A bolus of contrast was injected intravenously with first-pass sequences obtained in the short axis and four-chamber planes. After approximately 10 minutes, a TI emergency response officer sequence was performed to determine the optimal TI time. Using the optimized TI time, delayed contrast enhancement segmented inversion???recovery TurboFLASH sequences were obtained in the short axis, 2-chamber, 3-chamber, and 4-chamber projections. 2D-velocity phase mapping was performed. Functional parameters were calculated by offline analysis on an independent workstation ([employer], [employer]). Contrast: ProHance??? (Gadoteridol) FINDINGS MORPHOLOGY AND FUNCTION Left ventricle: The left ventricle is normal in size. The indexed left ventricular end-diastolic volume (LVEDVi) is 63 ml/m2 (reference range 57-105 ml/m2 in males, 56-96 ml/m2 in females). Normal left ventricular systolic function is present. There is normal left ventricular wall thickness. There are no regional wall motion abnormalities noted. LVEF is calculated at 68.9% (reference range 57-77%). Right ventricle: The right ventricle is normal in size. The indexed right ventricular end-diastolic volume (RVEDVi) is 57 ml/m2 (reference range 61-121 ml/m2 in males, 48-112 ml/m2 in females). Normal right ventricular systolic function is present. RVEF is calculated at 63.0% (reference range 52-72% in males, 51-71% in females). Atria: The left atrium is normal in size. The maximum indexed left atrial volume is 29 ml/m2 (reference range 26-52 ml/m2 in males, 27-53 ml/m2 in females). The right atrium is normal in size. The maximum indexed right atrial volume is 19 ml/m2 (reference range 18-90 ml/m2). Aorta: The diameter of the aortic annulus is normal, measuring 22 mm (coronal view reference range 21-30 mm in males, 19-27 mm in females). The diameter of the aortic sinus is normal, measuring 29 mm (coronal view reference range 25-42 mm in males, 24-36 mm in females). The diameter of the sinotubular junction is normal, measuring 23 mm (coronal view reference range 18-32 mm in males, 18-28 mm in females). The diameters of the ascending and descending thoracic aorta are normal. Main pulmonary artery: The main pulmonary artery diameter is normal. Pericardium: The pericardial thickness is normal. The pericardial thickness measures 2.7 cm (normal < 4.0 cm). There is no pericardial effusion. VALVES There is aortic regurgitation present. The severity of the AI is mild visually, but may be underestimated. The AI regurgitant volume on 2D phase contrast is underestimated and could not be calculated. There is mitral regurgitation present. The severity of the MR is mild visually, but may also be underestimated. The MR regurgitant volume is approximately 20 mL, but may be undercalculated due to difficult 2D phase contrast imaging. There is mild mitral stenosis. Systolic anterior motion of the mitral valve is not visualized. Ratio of pulmonary to systemic flow, Qp:Qs ratio = 1.1 (normal < or = 1.2), demonstrating no evidence of hemodynamically significant shunt. TISSUE CHARACTERIZATION Resting Perfusion: Normal myocardial blood flow at rest. No evidence of resting hypoperfusion. Myocardial Fibrosis and/or edema: Normal gadolinium kinetics are present. No evidence of late gadolinium enhancement is noted, consistent with absence of myocardial scarring, infarction, or necrosis. T2-weighted imaging demonstrates no evidence of myocardial edema or inflammation. OTHER No other significant findings are noted. However, this exam is focused on the cardiac structure and function. IMPRESSION Normal LV size with normal LV systolic function. LVEDVi= 63 ml/m2 and LVEF= 68.9%. Normal RV size with normal RV systolic function. RVEDVi= 57 ml/m2 and RVEF= 63.0%. No atrial enlargement. Aortic regurgitation and mitral regurgitation are present. Both appear to be in mild range, but may be underestimated due to difficulty calculating regurgitant volumes based on 2D phase contrast iamging. No CMR evidence of myocardial scarring, infarction, or necrosis. No evidence of myocardial edema or inflammation. Perfusion analysis demonstrates normal blood flow at rest with no evidence of resting hypoperfusion. Ratio of pulmonary to systemic flow, Qp:Qs ratio = 1.1 (normal < or = 1.2), demonstrating no evidence of hemodynamically significant shunt. COMPARISON None CRITICAL RESULT None COMMUNICATION Per this written report The findings of this cardiac MR were reviewed, reported, and signed by Rocky Cat MD (Sawmill Worker). Conclusion Electronically signed by : Pearl Cat MD 08/22/2023 16:23:08
[2023-08-11] MEDS: SODIUM CHLORIDE 0.9% 10ML SYR (RAD ONLY) 10 ML IV (14:36)
[2023-08-11] MEDS: 0.9 % SODIUM CHLORIDE 50 ML VIAL IV (14:36)
[2023-08-11] MEDS: GADOTERIDOL INJ 17ML SYRINGE 15 ML IV (14:37)
== END 2023-08-11 23:59 ==
PROVIDERS: PCP Nurse Practitioner Family; Visit Provider Physician Assistant
DX: I25.10 Atherosclerotic heart disease of native coronary artery without angina pectoris (principal); I34.0 Nonrheumatic mitral (valve) insufficiency; I35.1 Nonrheumatic aortic (valve) insufficiency; I70.213 Atherosclerosis of native arteries of extremities with intermittent claudication, bilateral legs; E11.9 Type 2 diabetes mellitus without complications; Z79.84 Long term (current) use of oral hypoglycemic drugs
CPT/HCPCS: 75561; 93923; A9576

== ENCOUNTER 2023-08-30 11:50 | Outpatient (POV) | payer OTHER, SELFPAY | END 2023-08-30 23:59 | disposition home or self-care (01) | LOC: SC 11:50 | PROVIDERS: PCP Nurse Practitioner Family; Visit Provider Specialist/Technologist | DX: Z00.00 Encounter for general adult medical examination without abnormal findings (principal) ==

== ENCOUNTER 2023-09-17 09:00 | Outpatient (RCR) | payer OTHER, SELFPAY ==
--- NOTE | 2023-08-10 10:56 | HMH.PTOPEV ---
PT Outpatient Evaluation Rehab PT Outpatient Evaluation Start: 08/10/23 10:03 Freq: Status: Active Protocol: Document 08/10/23 10:04 MARIZA (Rec: 08/10/23 10:56 MARIZA [id number]) E-signed By Kaylan Edwards, PT Outpatient Therapy Subjective History Subjective History Pt is a 58 y/o female who reports onset of left medial knee pain in April of last year. Pt reports she was pushing her mother in a wheelchair and twisted resulting in a loud pop and onset of pain. Pt had a L knee MRI on 07/06/23 with impression of Posterior marginal tear posterior horn medial meniscus. Healing transverse fracture through the mid patella. Pt states she did fall in October of last year resulting in a patella fracture which was treated and improved. Pt reports she had an injection on 07/30/23 in the left knee which helped initially but is starting to wear off. Pt reports pain is aggravated by walking any amount and reports she experiences a sharp, pinching pain when she leans forward. Pt denies clicking/popping or locking/catching sensations. Pt reports her left knee often feels weak like it could give out on her with walking, denies falls or required use of an AD. Pt reports she was provided with a knee brace but it is tight on her thigh and causes left leg pain so she does not wear it. Pt reports she returns to Dr. Spears 09/15/23 for a follow-up visit. Medical History: Osteoporisis, Type II Diabetes, Anemic, hx of heart attacks with stent placement (5-6 years ago), hx of skin cancer Surgical History: R DAYANA 5 years New diagnosis of cancer in past 12 No months? Chief Complaint Pain,Gives out/Unstable Symptom Type Ache,Throb,Sharp,Dull Symptoms Relieved By Rest/Positioning,Ice Symptoms Aggravated By Physical Activity,Twisting, Walking Current Functional Limitations Housework,Squatting,Recreation Activity,Walking Symptom Description Constant but Variable Level of pain today (0-10) 5 Pain scale - at its best (0-10) 3 Pain scale - at its worst (0-10) 8 Hip/Knee Eval Gait Observation General Gait Pattern Observation Antalgic Gait Assistive Device Assistive Devices None / NA Palpation Tenderness left Knee Palpation Finding Tenderness Knee Palpation Overall Comment medial joint line 3/4 TTP MMT Hip Flexion Strength Grade 4 Good Hip Abduction Strength Grade 4- Good- Hip Adduction Strength Grade 4 Good Hip Extension Strength Grade 4- Good- Knee Extension Strength Grade 5 Normal Knee Flexion Strength Grade 4 Good ROM Knee Extension Active Range of Motion ( 0 degrees) Knee Flexion Active Range of Motion ( 130 degrees) Special Tests Knee Keshawn Test Positive Left Lower Extremity Functional Index Activities Today, do you or would you have any difficulty at all with: a.Any of your usual work, housework or Quite a bit of difficulty school activities b. Your usual hobbies, recreational or Quite a bit of difficulty sporting activities c. Getting into or out of the bath A little bit of difficulty d. Walking between rooms No difficulty e. Putting on your shoes or socks No difficulty f. Squatting Moderate difficulty g. Lifting an object, like a bag of No difficulty groceries from the floor h. Performing light activities around Moderate difficulty your home i. Performing heavy activities around Quite a bit of difficulty your home j. Getting into or out of a car Moderate difficulty k. Walking 2 blocks Extreme difficulty or unable to perform activity l. Walking a mile Extreme difficulty or unable to perform activity m. Going up or down 10 stairs (about 1 Quite a bit of difficulty flight of stairs) n. Standing for 1 hour Moderate difficulty o. Sitting for 1 hour A little bit of difficulty p. Running on even ground Extreme difficulty or unable to perform activity q. Running on uneven ground Extreme difficulty or unable to perform activity r. Making sharp turns while running fast Extreme difficulty or unable to perform activity s. Hopping Extreme difficulty or unable to perform activity t. Rolling over in bed No difficulty LEFI Score Lower Extremity Functional Index Score 34 Outpatient Therapy Assessment Impairments Problems/Impairmments Palpation Tenderness,Impaired Range of Motion,Impaired Strength,Impaired Gait Pattern ,Impaired Walking,Impaired Household Care,Impaired Stepping on Uneven Surface, Impaired Squatting,Impaired Recreational Activities, Subjective C/O Pain,Impaired Self Care/Self Management Prognosis Rehab Potential Good Clinical Impression Consistent with Diagnosis Yes Short Term Goals Number of Weeks 3 Decreased Palpation Tenderness Yes Improve LEFI Score Yes: Improve score to 44/80 to improve overall QOL Decrease Subjective C/O Pain Yes: Improve pain at worst to 6/10 to improve overall QOL Improve Self Care/Self Management Yes Patient to be Ind w/ HEP Yes Manufacturing Management Associate Goals Number of Weeks 6 Increase Strength Yes: Improve LLE MMT to 4+-5/5 grossly to assist with function Improve Gait Pattern without Assistive Yes: non-antalgic to decrease Device fall risk Increase Ability to Walk Yes: >10' with pain 4/10 or less to assist with iADLs Return to Recreational Activities Yes: return to fishing/hunting with knee pain 4/10 or less Improve LEFI Score Yes: Improve score to 54/80 to improve overall QOL Decrease Subjective C/O Pain Yes: Improve pain at worst to 4/10 to improve overall QOL Outpatient Therapy Plan of Care Treatment Plan May Include Therapeutic Exercise Including Home Yes Exercise Program Manual Therapy Techniques Yes Neuromuscular Re-education Yes Therapeutic Activities to Return to Yes Previous Functional/Work Level ADL/Self Care Education Yes Dry Needling Yes Thermal Modalities Yes Electrical Stimulation Yes Ultrasound/Phonophoresis Yes Iontophoresis Yes Orthotics/Bracing/Splinting Yes Vasopneumatic Compression Pump Yes Massage Yes Group Therapy for Medicare Yes Eval/Re-Eval Yes Frequency Times per week 2 Duration Number of Weeks 4-6 Addendums This patient is a candidate for social No or vocational rehab? Patient/Guardian verbally acknowledges Yes understanding of treatment program and consents to further treatment? Patient/Guardian verbally acknowledges Yes understanding of diagnosis, prognosis and goals for treatment? Eval Complexity PT Charges 90177 - Low Complexity Shoulder/Elbow Eval Shoulder Objective Measurements Elbow Objective Measurements PHYSICIAN CERTIFICATION: I certify the specified therapy services for Jackelin Kaba are required, authorized, and reviewed every 30 days.
--- NOTE | 2023-09-07 10:58 | HMH.RHREAS ---
Rehab Reassessment Rehab OP Re-assessment Start: 08/10/23 10:03 Freq: Status: Active Protocol: Document 09/07/23 09:50 MARIZA (Rec: 09/07/23 10:58 MARIZA [id number]) E-signed By Kaylan Edwards PT Lower Extremity Functional Index Activities Today, do you or would you have any difficulty at all with: a.Any of your usual work, housework or No difficulty school activities b. Your usual hobbies, recreational or A little bit of difficulty sporting activities c. Getting into or out of the bath No difficulty d. Walking between rooms No difficulty e. Putting on your shoes or socks No difficulty f. Squatting A little bit of difficulty g. Lifting an object, like a bag of A little bit of difficulty groceries from the floor h. Performing light activities around A little bit of difficulty your home i. Performing heavy activities around Moderate difficulty your home j. Getting into or out of a car A little bit of difficulty k. Walking 2 blocks Moderate difficulty l. Walking a mile Extreme difficulty or unable to perform activity m. Going up or down 10 stairs (about 1 Moderate difficulty flight of stairs) n. Standing for 1 hour No difficulty o. Sitting for 1 hour No difficulty p. Running on even ground Extreme difficulty or unable to perform activity q. Running on uneven ground Extreme difficulty or unable to perform activity r. Making sharp turns while running fast Extreme difficulty or unable to perform activity s. Hopping Extreme difficulty or unable to perform activity t. Rolling over in bed No difficulty LEFI Score Lower Extremity Functional Index Score 49 Rehab Re-assessment Subjective Subjective Pt reports she feels 55-60% improved since starting PT. Pt reports intermittent medial knee pain rated 4-5/10 at worst with prolonged walking and with end range knee flexion. Pt reports she also has R hip pain that is worse with walking and often makes her put more weight on her LLE . Pt reports compliance with HEP sometimes. Pt reports she return to her doctor for a follow-up regarding her knee on September 14. Objective Objective Notes L knee AROM: 0-120 LLE MMT: hip flex 4/5, hip abd 4/5, add 4+/5, hip ext 4/5, knee flex 4+/5, knee ext 5/5, ankle DF 5/5 Assessment Progress Assessment Progressing as Expected Assessment Notes Pt has attended 5 PT visits consisting of aerobic exercise , LE stretching/strengthening, core strengthening, and HEP with good tolerance. Pt demonstrated improved LE strength and LEFS score this date compared to the initial evaluation. Pt continues to report moderate medial knee pain with prolonged walking and end range knee flexion. Overall the pt would continue to benefit from skilled PT to further improve subjective report of pain, LE strength and functional activity tolerance to improve overall QOL. Patient goals met ST/5 Goals Not Met LTG Revised Goals n/a Plan Plan Continue initial POC Frequency of Therapy 2x/week Duration of therapy 2-4 more weeks Time and Billing Re-Eval Time 10 Re-Eval Billing Units 1 PHYSICIAN CERTIFICATION: I certify the specified therapy services for Jackelin Kaba are required, authorized, and reviewed every 30 days.
== END 2023-09-17 09:05 | disposition home or self-care (01) ==
LOC: PT 09:00
PROVIDERS: Visit Provider Orthopaedic Surgery
DX: M25.562 Pain in left knee (principal); M22.42 Chondromalacia patellae, left knee; M23.204 Derangement of unspecified medial meniscus due to old tear or injury, left knee
CPT/HCPCS: 97110; 97112; 97163; 97164; 97760

== ENCOUNTER 2023-09-27 07:49 | Outpatient (CLI) | payer OTHER, SELFPAY ==
--- NOTE | 2023-09-27 07:49 | FL_ITS ---
FINAL REPORT CLINICAL HISTORY: dysphagia, choking with liquid dose- 32.39 mGy time- 01.18 min FINDINGS: ESOPHAGRAM HISTORY: Dysphagia. Choking with liquids. PROCEDURE: The patient ingested barium. Effervescent crystals were also administered. Spot and overhead films were obtained. FINDINGS: No esophageal stricture is identified. There is a small sliding-type hiatal hernia. A 13 mm barium tablet passes through the esophagus and into the stomach without delay. There is no gastroesophageal reflux. Peristalsis is normal. No aspiration was demonstrated during the exam. IMPRESSION: Small sliding-type hiatal hernia. Fluoroscopy time: 1 minute 18seconds Radiation exposure in Reference air Kerma: 32.39 mGy Films reviewed , interpreted and dictated by Dr. Petty. Transcribed by Anival Salazar PA-C. Reviewed, Interpreted and Dictated by Colin Petty III, MD Transcribed by PILAR Razo Authenticated and [facility]
[2023-09-27] MEDS: E-Z-GASII EFFERVESCENT GRANULES;1PK 1 EACH PO (08:41)
[2023-09-27] MEDS: BARIUM SULFATE(LIQUID E-Z-PAQUE);355ML BOTTLE 355 ML PO (08:41)
[2023-09-27] MEDS: BARIUM SULFATE (E-Z-HD 340GM);135ML BOTTLE 135 ML PO (08:41)
[2023-09-27 13:13] LABS: Alanine Aminotransferase 18 U/L (12-78); Albumin Level 4.1 g/dl (3.5-5.0); Albumin/Globulin Ratio 1.6 (1.1-1.8); Alkaline Phosphatase 111 U/L (38-126); Aspartate Amino Transferase 27 U/L (14-36); Bilirubin,Total 0.3 mg/dl (0.2-1.3); Blood Urea Nitrogen 15 mg/dl (7-17); Calcium 9.7 mg/dl (8.4-10.2); Carbon Dioxide 29 mmol/L (22.0-30.0); Chloride 105 mmol/L (98-107); Chol/HDL Ratio 2.5 (1-3.5); Cholesterol 94 mg/dl (140-200); Estimated Glomerular Filt Rate 102 ml/min (>60); GFR (African American) 124 ML/MIN (>60); Globulin 2.6 g/dL (1.3-3.2); Glucose 124 mg/dl (74-100); HDL Cholesterol 38 mg/dl (40-60); Sodium 141 mmol/L (136-145); Total Protein,Serum 6.7 g/dl (6.3-8.2); Triglycerides 72 mg/dl (30-150); VLDL Cholesterol 14 mg/dL (0-40)
[2023-09-27 13:23] LABS: Direct LDL Cholesterol 46.11 mg/dL (100-129)
[2023-09-27 13:43] LABS: Thyroid Stimulating Hormone 0.46 uIU/mL (0.465-4.68)
[2023-09-27 13:59] LABS: Hemoglobin A1C 5.6 % (4.0-6.0)
--- NOTE | 2023-09-27 14:51 | XR_ITS ---
FINAL REPORT CLINICAL HISTORY: Right anterior hip pain COMPARISON: 03/05/2022 FINDINGS: RIGHT HIP Two views of the right hip demonstrate no acute fracture or dislocation. Prior right hip arthroplasty. The joint spaces appear normal. The visualized bony structures are well aligned. No soft tissue abnormality is seen. IMPRESSION: Postoperative change without acute bony abnormality. Reviewed, Interpreted and Dictated by Colin Petty III, MD Transcribed by Georgia Heck Authenticated and [facility]
[2023-09-27 15:10] LABS: Anion Gap 11.1 mEq/L (5-15); Potassium 4.1 mmoL/L (3.5-5.1)
== END 2023-09-27 23:59 | disposition home or self-care (01) ==
LOC: RAD 07:49
PROVIDERS: PCP Nurse Practitioner Family; Visit Provider Nurse Practitioner
DX: R13.10 Dysphagia, unspecified (principal); K22.70 Barrett's esophagus without dysplasia; M25.551 Pain in right hip; E11.9 Type 2 diabetes mellitus without complications; Z79.84 Long term (current) use of oral hypoglycemic drugs; E78.49 Other hyperlipidemia
CPT/HCPCS: 36415; 73502; 74220; 80053; 80061; 83036; 84443

== ENCOUNTER 2023-10-21 18:15 | Outpatient (CLI) | payer OTHER, SELFPAY ==
--- NOTE | 2023-10-21 18:16 | MR_ITS ---
PROCEDURE INFORMATION: Exam: MR Right Lower Extremity Joint Without Contrast; Hip Exam date and time: 10/21/2023 6:06 PM Age: 58 years old Clinical indication: Pain; Prior surgery; Surgery date: 6+ months; Surgery type: Right hip surgery; Additional info: Right anterior hip pain TECHNIQUE: Imaging protocol: Magnetic resonance imaging of the right lower extremity joint without contrast. Exam focused on the hip. COMPARISON: 1. CR XR HIP RT 2-3V W/PELVIS 09/27/2023 11:32 AM 2. CR XR HIP RT 2-3V W/PELVIS 03/05/2022 3:04 PM 3. CR XR HIP RT 2-3V W/PELVIS 02/24/2022 11:10 AM FINDINGS: Limitations: Hardware produces susceptibility artifact that obscures and distorts the adjacent tissues, as well as disrupting the regional fat suppression. Bones/joints: Assessment of the symptomatic right hip region is limited by metal artifact from the total hip prosthesis. Within the limits of visualization, there is no loosening or periprosthetic fracture. No aggressive bone lesions are present. Labrum: Absent in the setting of a total hip prosthesis. TENDONS: Tendons of iliopsoas group: Unremarkable. No evidence of tear. Tendons of medial compartment of thigh: Unremarkable. No evidence of tear. Tendons of lateral rotators of hip: Unremarkable. No evidence of tear. Tendons of gluteal group: Unremarkable. No evidence of tear. Soft tissues: There is an ill-defined region of edema in the subcutaneous fat of the right groin involving a region measuring 1.5 x 2.4 x 2.6 cm (series 5/image 8, series 4/image 15). No mass or fluid collection. IMPRESSION: 1. Nonspecific, ill-defined edema involving the subcutaneous fat of the right groin in a 1.5 x 2.4 x 2.6 cm region. 2. Limited assessment of the right hip region due to artifact from the total hip prosthesis.
== END 2023-10-21 23:59 | disposition home or self-care (01) ==
LOC: RAD 18:16
PROVIDERS: PCP Nurse Practitioner Family; Visit Provider Nurse Practitioner Family
DX: M25.551 Pain in right hip (principal)
CPT/HCPCS: 73721

== ENCOUNTER 2023-12-28 15:55 | Emergency (ER) | payer OTHER, SELFPAY ==
[2023-12-28 16:15] VITALS: BP 139/70; PULSE 72; RESP 20; TEMP 36.7; O2SAT 99; BMI 27.1
--- NOTE | 2023-12-28 16:18 | XR_ITS ---
PROCEDURE INFORMATION: Exam: XR Right Knee Exam date and time: 12/28/2023 4:21 PM Age: 58 years old Clinical indication: Pain; Knee; Right TECHNIQUE: Imaging protocol: Radiologic exam of the right knee. Views: 1 or 2 views. COMPARISON: CR XR FEMUR RT 2V 02/24/2022 11:12 AM FINDINGS: Bones/joints: No acute fracture or dislocation. Mild degenerative changes of the knee. Chondrocalcinosis of the medial and lateral tibiofemoral compartments. Stable presumed postoperative changes in the proximal tibia. Osteopenia. Small suprapatellar effusion. Soft tissues: Unremarkable. Vasculature: Femoral atherosclerotic calcifications. IMPRESSION: Mild degenerative changes of the right knee. Chondrocalcinosis. Small suprapatellar effusion.
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
[2023-12-28 17:57] VITALS: BP 139/70; PULSE 72; RESP 20; TEMP 36.7; O2SAT 99
== END 2023-12-28 17:59 | disposition home or self-care (01) ==
PROVIDERS: Emergency Provider Nurse Practitioner Family; PCP Nurse Practitioner Family
DX: M17.11 Unilateral primary osteoarthritis, right knee (principal); M79.651 Pain in right thigh; M25.561 Pain in right knee; F17.210 Nicotine dependence, cigarettes, uncomplicated
CPT/HCPCS: 73560; 99212; 99213; G0463

== ENCOUNTER 2024-01-11 15:33 | Outpatient (CLI) | payer OTHER, SELFPAY | END 2024-01-11 23:59 | disposition home or self-care (01) | LOC: LAB.DROPOF 15:33 | PROVIDERS: PCP Nurse Practitioner Family; Visit Provider Nurse Practitioner Family | DX: N39.0 Urinary tract infection, site not specified (principal) | CPT/HCPCS: 87086 ==

== ENCOUNTER 2024-02-18 14:47 | Outpatient (CLI) | payer OTHER, SELFPAY ==
--- NOTE | 2024-02-18 14:47 | CT_ITS ---
FINAL REPORT TECHNIQUE: Thin section axial CT images of the temporal bones were obtained. Coronal reformatted images were also obtained.This study was performed with techniques to keep radiation doses as low as reasonably achievable (ALARA). Individualized dose reduction techniques using automated exposure control or adjustment of mA and/or kV according to the patient''s size were employed. CLINICAL HISTORY: r/o cholesteatoma of left ear COMPARISON: None FINDINGS: Right temporal bone: The internal auditory canal has an unremarkable appearance. The inner ear structures are unremarkable. The external auditory canal has an unremarkable appearance. No abnormality is identified of the middle ear cavity. The ossicles are intact. There is fluid or mucosal thickening in the right mastoid antrum. There is opacification of several right mastoid air cells which may represent right mastoiditis. No bony mass is identified. Left temporal bone: The internal auditory canal has an unremarkable appearance. The inner ear structures are unremarkable. The external auditory canal has an unremarkable appearance. There appears to be thickening and retraction of the tympanic membrane. The ossicles are intact. There is opacification of the left mastoid air cells which may represent mastoiditis. No bony mass is identified. There is no evidence of cholesteatoma on either side. IMPRESSION: Findings consistent with bilateral mastoiditis. No evidence of cholesteatoma. Thickening and retraction of the left tympanic membrane which may be postinflammatory. Reviewed, Interpreted and Dictated by Colin Petty III, MD Transcribed by Georgia Heck Authenticated and [facility]
== END 2024-02-18 23:59 | disposition home or self-care (01) ==
LOC: RAD 14:47
PROVIDERS: PCP Nurse Practitioner Family; Visit Provider Nurse Practitioner
DX: H71.92 Unspecified cholesteatoma, left ear (principal)
CPT/HCPCS: 70480

== ENCOUNTER 2024-02-22 12:41 | Outpatient (CLI) | payer OTHER, SELFPAY | END 2024-02-22 23:59 | disposition home or self-care (01) | LOC: DIETICIAN 12:42 | PROVIDERS: PCP Nurse Practitioner Family; Visit Provider Nurse Practitioner | DX: E11.9 Type 2 diabetes mellitus without complications (principal); K76.0 Fatty (change of) liver, not elsewhere classified; Z71.3 Dietary counseling and surveillance | CPT/HCPCS: 97802 ==

== ENCOUNTER 2024-03-26 14:20 | Emergency (ER) | payer OTHER, SELFPAY ==
[2024-03-26 15:10] VITALS: BP 140/63; PULSE 68; RESP 20; TEMP 38; O2SAT 98; BMI 29.8
[2024-03-26 15:25] LABS: UTC Strep Screen (Rapid) Negative (Negative)
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
[2024-03-26 15:53] LABS: UTC Influenza A Antigen Negative (Negative); UTC Influenza B Antigen Negative (Negative)
[2024-03-26 16:12] VITALS: BP 140/63; PULSE 68; RESP 20; TEMP 38; O2SAT 98
== END 2024-03-26 16:17 | disposition home or self-care (01) ==
PROVIDERS: Emergency Provider Nurse Practitioner; PCP Nurse Practitioner Family
DX: J20.9 Acute bronchitis, unspecified (principal); J01.90 Acute sinusitis, unspecified; R07.0 Pain in throat; R06.02 Shortness of breath
CPT/HCPCS: 87635; 87804; 87880; 99212; 99214; G0463

== ENCOUNTER 2024-03-31 16:53 | Outpatient (CLI) | payer OTHER, SELFPAY ==
[2024-03-31 16:58] LABS: Hemoglobin A1C 6.6 % (4.0-6.0)
[2024-03-31 18:00] LABS: Albumin Level 4.6 g/dl (3.5-5.0); Chloride 99 mmol/L (98-107); Sodium 140 mmol/L (136-145)
[2024-03-31 18:03] LABS: Alanine Aminotransferase 28 U/L (12-78); Alkaline Phosphatase 105 U/L (38-126); Aspartate Amino Transferase 35 U/L (14-36); Bilirubin,Total 0.5 mg/dl (0.2-1.3); Blood Urea Nitrogen 17 mg/dl (7-17); Carbon Dioxide 34 mmol/L (22.0-30.0); Estimated Glomerular Filt Rate 64 ml/min (>60); GFR (African American) 77 ML/MIN (>60)
[2024-03-31 18:04] LABS: Albumin/Globulin Ratio 1.7 (1.1-1.8); Calcium 9.9 mg/dl (8.4-10.2); Globulin 2.7 g/dL (1.3-3.2); Glucose 145 mg/dl (74-100); Total Protein,Serum 7.3 g/dl (6.3-8.2)
[2024-03-31 18:43] LABS: 25-OH Vitamin D, Total 92.2 ng/mL (30-100)
[2024-03-31 19:15] LABS: Vitamin B12 888 pg/mL (239-931)
== END 2024-03-31 23:59 | disposition home or self-care (01) ==
LOC: LAB.DROPOF 16:54
PROVIDERS: PCP Nurse Practitioner Family; Visit Provider Nurse Practitioner Family
DX: R79.89 Other specified abnormal findings of blood chemistry (principal); E11.9 Type 2 diabetes mellitus without complications; Z79.84 Long term (current) use of oral hypoglycemic drugs
CPT/HCPCS: 80053; 82306; 82607; 83036

== ENCOUNTER 2024-08-16 10:01 | Outpatient (CLI) | payer OTHER, SELFPAY ==
--- NOTE | 2024-08-16 10:03 | XR_ITS ---
FINAL REPORT CLINICAL HISTORY: lt knee pain FINDINGS: LEFT KNEE 3 views of the left knee were obtained. There is no acute fracture or dislocation. There are vascular calcifications at the distal FSA, greater than expected for patient's age. Visualized joint spaces are normally aligned. Soft tissues are unremarkable. IMPRESSION: No acute bony abnormality. Reviewed, Interpreted and Dictated by Bo Davison MD Transcribed by Mirian Coker Authenticated and [facility]
== END 2024-08-16 23:59 | disposition home or self-care (01) ==
LOC: RAD 10:02
PROVIDERS: PCP Nurse Practitioner Family; Visit Provider Physician Assistant
DX: M25.562 Pain in left knee (principal)
CPT/HCPCS: 73562

== ENCOUNTER 2024-10-25 12:15 | Outpatient (CLI) | payer OTHER, SELFPAY ==
[2024-10-25 13:34] LABS: Basophils # 0.1 K/mm3 (0-0.2); Basophils % 0.9 % (0.1-2.0); Eosinophils # 0.1 K/mm3 (0.0-0.4); Eosinophils % 1.6 % (0.1-12.0); Hemoglobin 12.9 g/dL (12.2-16.2); Lymphocytes # 1.8 K/mm3 (0.7-4.5); Lymphocytes % 25.8 % (10-50); Mean Corpuscular HGB Conc 30.7 g/dL (31.8-35.4); Mean Corpuscular Hemoglobin 23.7 pg (27.0-31.2); Mean Corpuscular Volume 77.2 fl (81-99); Monocytes # 0.6 K/mm3 (0.1-1.0); Monocytes % 8.7 % (1.7-9.3); Neutrophils # 4.4 K/mm3 (1.8-7.8); Neutrophils % 62.4 % (37.0-80.0); Nucleated Red Blood Cells # 0 10^3/uL; Nucleated Red Blood Cells % 0 %; Platelet Count 295 K/mm3 (142-424); Red Blood Count 5.44 M/mm3 (4.20-5.40); Red Cell Distribution Width 18.2 % (11.5-17.5); Red Cell Distribution Width-SD 48.6 fL
[2024-10-25 14:17] LABS: Alanine Aminotransferase 18 U/L (12-78); Albumin Level 4.4 g/dl (3.5-5.0); Albumin/Globulin Ratio 1.4 (1.1-1.8); Alkaline Phosphatase 102 U/L (38-126); Anion Gap 15.2 mEq/L (5-15); Aspartate Amino Transferase 28 U/L (14-36); Bilirubin,Total 0.7 mg/dl (0.2-1.3); Blood Urea Nitrogen 14 mg/dl (7-17); Calcium 9.6 mg/dl (8.4-10.2); Carbon Dioxide 28 mmol/L (22.0-30.0); Chloride 100 mmol/L (98-107); Estimated Glomerular Filt Rate 73 ml/min (>60); GFR (African American) 89 ML/MIN (>60); Globulin 3.2 g/dL (1.3-3.2); Glucose 112 mg/dl (74-100); Potassium 4.2 mmoL/L (3.5-5.1); Sodium 139 mmol/L (136-145); Total Protein,Serum 7.6 g/dl (6.3-8.2)
[2024-10-25 14:48] LABS: Thyroid Stimulating Hormone 0.33 uIU/mL (0.465-4.68)
[2024-10-25 15:07] LABS: Vitamin B12 844 pg/mL (239-931)
[2024-10-25 15:11] LABS: Creatinine,Urine Random 46 mg/dL (Not Estab.); Microalbumin < 6.000 mg/L (0-16.7)
[2024-10-25 15:47] LABS: Ferritin 6.66 ng/ml (11.1-264)
--- OUTSIDE RECORDS SUMMARY | 2024-10-26 09:30 | XMS_ITS | Clinical Summary ---
Author Organization [facility] Address [address] [place] [address] Phone Care Team Providers Care Retail Team Member Name Role Phone Evgeny BUSH, Grant Inman Unavailable [phone] KIM LAINEZ Unavailable [phone] TY PATEL MD Unavailable [phone] Reason for Visit and Chief Complaint JACKSON Injection Problems Includes: Problems addressed during this encounter and other active Problems All Visits Onset Date Resolved Date Provider Condition S tatus Joint Pain in the Left Knee 01/12/2024 Bridgett QUEZADA Active Last Documented On 4 10:20AM ; [facility] Joint Pain in the Right Hip 03/10/2016 Florentino bishop MD Active Last Documented On 6 9:43AM ; [facility] Joint Pain in the Right Knee 01/07/2016 Florentino Robin MD Active Last Documented On 6 2:39PM ; [facility] Joint Pain, Localized in the Shoulder 11/15/2012 Florentino Robin MD Active Last Documented On 3 3:08PM ; [facility], [facility] Plan of Treatment No Plan of Treatment Recorded Assessments Includes: Assessments from this encounter No Assessments Recorded Medical Equipment - Implanted Devices Includes: Current Devices No Medical Equipment Recorded Medications Includes: Medications discussed during this encounter and other current Medications Current Medications (continue as prescribed) Pepto-Bismol 262 MG Oral Tablet Chewable 11/02/2023 Provider: Diagnosis: Last Documented On 4 9:54AM By Swathi Barajas ; [facility], [facility] Tetracycline HCl 250 MG Oral Capsule 11/02/2023 Prov ider: Diagnosis: Last Documented On 4 9:53AM By Swathi Barajas ; [facility] Vitamin D3 1.25 MG (92189 UT) Oral Capsule 11/02/2023 Provider: Diagnosis: Last Documented On 4 9:53AM By Swathi Barajas ; [facility] Januvia 100 MG Oral Tablet 11/02/2023 Provider: Diagnosis: Last Documented On 4 9:53AM By Swathi Barajas ; [facility] Sotalol HCl 120 MG Oral Tablet 11/02/2023 Provider: Diagnosis: Last Documented On 4 9:53AM By Swathi Barajas ; [facility], [facility] Adult Aspirin Regimen 81 MG Oral Tablet Delayed Releas e 11/02/2023 Provider: Diagnosis: Last Documented On 4 9:52AM By Swathi Barajas ; [facility] Famotidine 10 MG Oral Tablet 11/02/2023 Provider: Diagnosis: Last Documented On 4 9:52AM By Swathi Barajas ; [facility] Gabapentin 100 MG Oral Capsule 11/02/2023 Provider: Diagnosis: Last Documented On 4 9:52AM By Swathi Barajas ; [facility] Lasix 20 MG Oral Tablet 11/02/2023 Provider: Diagnosis: Last Documented On 4 9:52AM By Swathi Barajas ; [facility] Potassium Chloride 10 MEQ/100ML Intravenous Solution 0 11/02/2023 Provider: Diagnosis: Last Documented On 4 9:52AM By Swathi Barajas ; [facility] Folinic-Plus 4-50-2 MG Oral Tablet 11/02/2023 Provid er: Diagnosis: Last Documented On 4 9:54AM By Swathi Barajas ; [facility], [facility] Medications Administered Includes: Administered Medications from this encounter No Administered Medications Recorded Results Includes: Results discussed during this encounter No Results Recorded For Specified Dates History of Present Illness Includes: History of Present Illness from this encounter No History of Present Illness Recorded Social History No Social History Recorded - Smoking Status Unknown Procedures and Surgical History Includes: Procedures from this encounter Procedures Code Diagnosis Performing Provider Service Location Service Date DRAIN/INJECT, JOINT/BURSA (LEFT, Unrelated Procedure) Unilateral primary osteoarthritis, left knee Monserrat Jojo Martínez PA-C [facility] 04/17/2024 Last Documented On 4 10:19AM ; [facility] Orthovisc Hyaluonan, 2cc (LEFT) [id number] Unilateral primary osteoarthritis, left knee Monserrat Jojo Martínez PA-C [facility] 04/17/2024 Last Documented On 4 10:19AM ; [facility] Medical History Includes: Medical History addressed during this encounter No Medical History Recorded Family History Includes: Family History addressed during this encounter No Family History Recorded Review of Systems Includes: Review of Systems from this encounter No Review of Systems Recorded Mental Status Includes: Mental Status from this encounter No Mental Status Recorded Functional Status Includes: Functional Status from this encounter No Functional Status Recorded Physical Exam Includes: Physical Exam from this encounter No Physical Exam Recorded Allergies Includes: Active Allergies Substance Type Reaction Onset Date Resolved Date Statu s Percocet Allergy 04/08/2010 Active Last Documented On 4 10:12AM ; [facility] 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 Last Documented On 4 10:12AM ; [facility] Levaquin Allergy 04/08/2010 Active Last Documented On 4 10:12AM ; [facility] Encounters Encounter Provider Location Date Check-In Time Check-Out Time Diagnosis JACKSON Injection Monserrat Jojo Martínez PA-C [facility] 04/17/20 24 10:17AM 10:31AM Insurance Includes: Active Insurance Policies Plan Name Member ID Group # Subscriber Relationship Effect jordan Dates 1 - [facility] [id number] Jackelin Kaba Self Clinical Notes Includes: Clinical Notes from this encounter No Clinical Notes Recorded
--- OUTSIDE RECORDS SUMMARY | 2024-10-26 09:30 | XMS_ITS ---
Author Organization [facility] Address [address] [place] [address] Phone Care Team Providers Care Burlap Spreader Name Role Phone Evgeny BUSH, Grant Inman Unavailable [phone] KIM LAINEZ Unavailable [phone] TY PATEL MD Unavailable [phone] Problems Includes: Active, inactive, and resolved Problems All Visits Onset Date Resolved Date Provider Condition S tatus Joint Pain in the Left Knee 01/12/2024 Bridgett QUEZADA Active Last Documented On 4 10:20AM ; [facility] Joint Pain in the Right Hip 03/10/2016 Florentino bishop MD Active Last Documented On 6 9:43AM ; [facility] Joint Pain in the Right Knee 01/07/2016 Florentino Robin MD Active Last Documented On 6 2:39PM ; [facility] Joint Pain, Localized in the Shoulder 11/15/2012 Florentino Robin MD Active Last Documented On 3 3:08PM ; [facility] Plan of Treatment Findings Encounter Date Ordered intervention and cou nseling on cessation of tobacco use, 3-10 minutes NEW PATIENT with Florentino Robin MD 04/20/2012 Last Documented On 3 4:39PM ; [facility] Pending Tests Order Diagnosis Results Due Ordering P rovider Lab Hemoglobin A1c 01/12/24 Florentino larson MD Last Documented On 4 7:46AM ; [facility] Lab CBC With Differential/Platelet 01/11 Florentino Robin MD Last Documented On 4 7:46AM ; [facility] Lab Comp. Metabolic Panel (14) 01/12/24 Florentino Robin MD Last Documented On 4 7:46AM ; [facility] Instructions to patient Lose weight Last Documented On 4 10:12AM ; [facility] Lose weight Last Documented On 4 1:29PM ; [facility] Lose weight Last Documented On 4 1:15PM ; [facility] Intervention and counseling on cessation of tobacco use Last Documented On 4 9:55AM ; [facility] Instructions for patient see pcp for elevated bp Last Documented On 6 11:16AM ; [facility] Instructions for patient see pcp for elevated bp Last Documented On 6 2:46PM ; [facility] Instructions for patient see pcp for elevated bp Last Documented On 6 9:41AM ; [facility] Instructions for patient see pcp for elevated bp Last Documented On 6 8:32AM ; [facility] Instructions for patient see pcp for elevated bp Last Documented On 6 2:05PM ; [facility] Intervention and counseling on cessation of tobacco use Last Documented On 6 2:04PM ; [facility] Instructions for patient Last Documented On 6 2:56PM ; [facility] Intervention and counseling on cessation of tobacco use Last Documented On 6 2:56PM ; [facility] Instructions for patient Last Documented On 6 9:14AM ; [facility] Intervention and counseling on cessation of tobacco use Last Documented On 6 9:14AM ; [facility] Instructions for patient Last Documented On 5 1:41PM ; [facility] Intervention and counseling on cessation of tobacco use Last Documented On 5 1:41PM ; [facility] Intervention and counseling on cessation of tobacco use Last Documented On 2 1:18PM ; [facility] Education and Decision Aids were provided during visit for: Education and counseling Last Documented On 6 2:04PM ; [facility] Education and counseling Last Documented On 6 2:56PM ; [facility] Education and counseling Last Documented On 6 9:14AM ; [facility] Education and counseling Last Documented On 5 1:41PM ; [facility] Education and counseling Last Documented On 2 1:18PM ; [facility] Self-management goals set fo r patient Last Documented On 2 1:18PM ; [facility] Patient will stop smoking Last Documented On 2 1:18PM ; [facility] Assessments Includes: Assessments for all patient encounters Findings Encounter Date Overweight Follow Up with Monserrat Christiansen 03/29/2024 Last Documented On 4 11:44AM ; [facility] Overweight Post Op with Monserrat Draper 03/21/2024 Last Documented On 4 2:12PM ; [facility] Overweight Post Op with Monserrat Draper 01/26/2024 Last Documented On 4 2:34PM ; [facility] Instructions Includes: Instructions for all patient encounters Instructions to patient Lose weight Last Documented On 4 10:12AM ; [facility] Lose weight Last Documented On 4 1:29PM ; [facility] Lose weight Last Documented On 4 1:15PM ; [facility] Intervention and counseling on cessation of tobacco use Last Documented On 4 9:55AM ; [facility] Instructions for patient see pcp for elevated bp Last Documented On 6 11:16AM ; [facility] Instructions for patient see pcp for elevated bp Last Documented On 6 2:46PM ; [facility] Instructions for patient see pcp for elevated bp Last Documented On 6 9:41AM ; [facility] Instructions for patient see pcp for elevated bp Last Documented On 6 8:32AM ; [facility] Instructions for patient see pcp for elevated bp Last Documented On 6 2:05PM ; [facility] Intervention and counseling on cessation of tobacco use Last Documented On 6 2:04PM ; [facility] Instructions for patient Last Documented On 6 2:56PM ; [facility] Intervention and counseling on cessation of tobacco use Last Documented On 6 2:56PM ; [facility] Instructions for patient Last Documented On 6 9:14AM ; [facility] Intervention and counseling on cessation of tobacco use Last Documented On 6 9:14AM ; [facility] Instructions for patient Last Documented On 5 1:41PM ; [facility] Intervention and counseling on cessation of tobacco use Last Documented On 5 1:41PM ; [facility] Intervention and counseling on cessation of tobacco use Last Documented On 2 1:18PM ; [facility] Education and Decision Aids were provided during visit for: Education and counseling Last Documented On 6 2:04PM ; [facility] Education and counseling Last Documented On 6 2:56PM ; [facility] Education and counseling Last Documented On 6 9:14AM ; [facility] Education and counseling Last Documented On 5 1:41PM ; [facility] Education and counseling Last Documented On 2 1:18PM ; [facility] Self-management goals set fo r patient Last Documented On 2 1:18PM ; [facility] Patient will stop smoking Last Documented On 2 1:18PM ; [facility] Medical Equipment - Implanted Devices Includes: Current and historical Devices No Medical Equipment Recorded Medications Includes: Current and historical Medications Current Medications (continue as prescribed) Pepto-Bismol 262 MG Oral Tablet Chewable 11/02/2023 Provider: Diagnosis: Last Documented On 04/23/202 4 9:54AM By Swathi Barajas ; [facility] Tetracycline HCl 250 MG Oral Capsule 11/02/2023 Prov ider: Diagnosis: Last Documented On 4 9:53AM By Swathi Barajas ; [facility] Vitamin D3 1.25 MG (43499 UT) Oral Capsule 11/02/2023 Provider: Diagnosis: Last Documented On 4 9:53AM By Swathi Barajas ; [facility] Januvia 100 MG Oral Tablet 11/02/2023 Provider: Diagnosis: Last Documented On 4 9:53AM By Swathi Barajas ; [facility] Sotalol HCl 120 MG Oral Tablet 11/02/2023 Provider: Diagnosis: Last Documented On 4 9:53AM By Swathi Barajas ; [facility] Adult Aspirin Regimen 81 MG Oral Tablet Delayed Releas e 11/02/2023 Provider: Diagnosis: Last Documented On 4 9:52AM By Swathi Barajas ; [facility], [facility] Famotidine 10 MG Oral Tablet 11/02/2023 Provider: Diagnosis: Last Documented On 4 9:52AM By Swathi Barajas ; [facility] Gabapentin 100 MG Oral Capsule 11/02/2023 Provider: Diagnosis: Last Documented On 4 9:52AM By Swathi Barajas ; [facility] Lasix 20 MG Oral Tablet 11/02/2023 Provider: Diagnosis: Last Documented On 4 9:52AM By Swathi Barajas ; [facility] Potassium Chloride 10 MEQ/100ML Intravenous Solution 0 11/02/2023 Provider: Diagnosis: Last Documented On 4 9:52AM By Swathi Barajas ; [facility] Folinic-Plus 4-50-2 MG Oral Tablet 11/02/2023 Provid er: Diagnosis: Last Documented On 4 9:54AM By Swathi Barajas ; [facility] Past Medications on file HYDROcodone-Acetaminophen 10 -325 MG Oral Tablet 01/18/2024 - 01/25/2024 Provider: Grant Pepper MD Diagnosis: 1 tab every 6 hrs prn pain Last Documented On 4 3:36PM By Dr. Pepper ; [facility] metroNIDAZOLE 250 MG Oral Tablet 11/02/2023 - 01/12/20 24 Provider: Diagnosis: Last Documented On 4 10:23AM By Bridgett Hernandez ; [facility] Lovenox 30 MG/0.3ML Solution 04/10/2016 - 04/17/2016 Provider: Florentino Robin MD Diagnosis: Aftercare follow ing joint replacement surgery use as directed 1 injection per day for 7 days Last Documented On 6 10:02AM By Helen Persons ; [facility] Wesley 10-325 MG Tablet 04/10/2016 - 04/20/2016 Provide r: Florentino Robin MD Diagnosis: 1 tab every 6 hrs prn pain Last Documented On 6 9:58AM By Helen Persons ; [facility] Mobic 15 MG Tablet 02/05/2016 - 05/05/2016 Provider: Florentino Robin MD Diagnosis: Trochanteric bur sitis, right hip once a day Last Documented On 6 9:28AM By Helen Persons ; [facility] Wesley 10-325 MG Tablet 01/09/2016 - 01/19/2016 Provide r: Florentino Robin MD Diagnosis: 1 tab every 6 hrs prn pain Last Documented On 6 1:40PM By Helen Persons ; [facility] Ranexa 500 MG OR TB12 07/25/2014 - 11/02/2023 Provider : Diagnosis: Last Documented On 4 9:51AM By Swathi Barajas ; [facility] Livalo 4 MG OR TABS 07/25/2014 - 11/02/2023 Provider: Diagnosis: Last Documented On 4 9:51AM By Swathi Barajas ; [facility] Losartan Potassium 100 MG OR TABS 07/25/2014 - 024 Provider: Diagnosis: Last Documented On 4 9:51AM By Swathi Barajas ; [facility] PriLOSEC 20 MG OR CPDR 07/25/2014 - 01/07/2016 Provide r: Diagnosis: Last Documented On 6 3:01PM By Helen Barreto ; [facility] Adult Aspirin Low Strength 81 MG OR TBDP 07/25/2014 - 11/02/2023 Provider: Diagnosis: Last Documented On 4 9:51AM By Swathi Barajas ; [facility] Percocet 5-325 MG OR TABS 03/21/2014 - 03/27/2014 Prov ider: Florentino Robin MD Diagnosis: Last Documented On 4 11:12AM By Melissa Sandoval ; [facility] Aleve 220 MG OR CAPS 04/20/2012 - 11/02/2023 Provider: Diagnosis: Last Documented On 4 9:51AM By Swathi Barajas ; [facility] Effient 10 MG OR TABS 04/20/2012 - 11/02/2023 Provider : Diagnosis: Last Documented On 4 9:51AM By Swathi Barajas ; [facility] Aspirin 325 MG OR TABS 04/20/2012 - 07/25/2014 Provide r: Diagnosis: Last Documented On 5 1:36PM By Gipson 2 User ; [facility] Pravachol 40 MG OR TABS 04/20/2012 - 07/25/2014 Provid er: Diagnosis: Last Documented On 5 1:40PM By Gipson 2 User ; [facility] Lisinopril 10 MG OR TABS 04/20/2012 - 07/25/2014 Provi santos: Diagnosis: Last Documented On 5 1:38PM By Gipson 2 User ; [facility] Soma 350 MG OR TABS 05/01/2010 - 05/31/2010 Provider: Benito Cuellar MD Diagnosis: dispensed in office/ab Last Documented On 0 11:34AM By Gipson 1 User ; [facility] Neurontin 100 MG OR CAPS 05/01/2010 - 05/31/2010 Provi santos: Benito Cuellar MD Diagnosis: dispensed in office/ab Last Documented On 0 11:34AM By Gipson 1 User ; [facility] Celecoxib 200 MG OR CAPS 05/01/2010 - 05/31/2010 Provi santos: Benito Cuellar MD Diagnosis: dispensed in office/ab Last Documented On 0 11:33AM By Gipson 1 User ; [facility] Lortab 5-500 MG OR TABS 05/18/2006 - 05/28/2006 Provid er: Diagnosis: Last Documented On 6 3:24PM By Gipson 5 User ; [facility] Lortab 5-500 MG OR TABS 09/01/2005 - 09/11/2005 Provid er: Grant Pepper MD Diagnosis: Last Documented On 6 9:54AM By Gipson 6 User ; [facility] Medications Administered Includes: Administered Medications in patient's chart No Administered Medications Recorded Vital Signs Includes: Vital Signs from 10/27/2023 through 10/26/2024 Vital Name 03/29/2024 10:13A 03/21/2024 01:29P 01/26/2024 01:15P 01/12/2024 10:21A 12/24/2023 11:05A Height (in) 63 63 63 64 64 Weight (lb) 150 150 150 152 150 Body Mass Index 26.6 26.6 26.6 26.1 25.7 Body Surface Area 1.7 1.7 1.7 1.7 1.7 Blood Pressure Sitting (mmHg) 130/70 Pulse Rate-Sitting (bpm) 65 Oxygen Saturation (%) 99 Note: as as as mg Last Documented: On 03/29/2024 10:13AM ; [facility] On 03/21/2024 1:30PM ; [facility] On 01/26/2024 1:23PM ; [facility] On 01/12/2024 10:23AM ; [facility] On 12/24/2023 11:05AM ; [facility] Vital Name 11/02/2023 01:37P Height (in) 64 Weight (lb) 151 Body Mass Index 25.9 Body Surface Area 1.7 Note: MG Last Documented: On 11/02/2023 1:37PM ; [facility] Results Includes: Results from 10/27/2023 through 10/26/2024 Comp. Metabolic Panel (14) [facility] Ordered by Florentino Robin MD on 024 Collected: 01/12/2024 Reported: 01/13/20 24 07:07 Last Documented On 4 7:46AM ; [facility] All test results are final unless otherw ise noted. Calcium 9.9 mg/dL (8.7-10.2) None Last Documented On 4 7:46AM ; [facility] Glucose 126 mg/dL (70-99) H (High) Last Documented On 4 7:46AM ; [facility] BUN 14 mg/dL (6-24) None Last Documented On 4 7:46AM ; [facility] Protein, Total 7.6 g/dL (6.0-8.5) None Last Documented On 4 7:46AM ; [facility] Albumin 4.7 g/dL (3.8-4.9) None Last Documented On 4 7:46AM ; [facility] Bilirubin, Total 0.5 mg/dL (0.0-1.2) None Last Documented On 4 7:46AM ; [facility] Alkaline Phosphatase 160 IU/L (44-121) H (High) Last Documented On 4 7:46AM ; [facility] AST (SGOT) 28 IU/L (0-40) None Last Documented On 4 7:46AM ; [facility] Potassium 3.3 mmol/L (3.5-5.2) L (Low) Last Documented On 4 7:46AM ; [facility] Sodium 140 mmol/L (134-144) None Last Documented On 4 7:46AM ; [facility] Chloride 98 mmol/L (96-106) None Last Documented On 4 7:46AM ; [facility] Creatinine 0.71 mg/dL (0.57-1.00) None Last Documented On 4 7:46AM ; [facility] ALT (SGPT) 21 IU/L (0-32) None Last Documented On 4 7:46AM ; [facility] Carbon Dioxide, Total 23 mmol/L (20-29) None Last Documented On 4 7:46AM ; [facility] BUN/Creatinine Ratio 20 (9-23) None Last Documented On 4 7:46AM ; [facility] Globulin, Total 2.9 g/dL (1.5-4.5) None Last Documented On 4 7:46AM ; [facility] eGFR 98 mL/min/1.73 (>59) None Last Documented On 4 7:46AM ; [facility] Hemoglobin A1c [facility] Ordered by Florentino Robin MD on Collected: 01/12/2024 Reported: 01/13/20 24 07:07 Last Documented On 4 7:46AM ; [facility] All test results are final unless otherw ise noted. Hemoglobin A1c 6.8 % (4.8-5.6) H (High) Last Documented On 4 7:46AM ; [facility] Note: . . Prediabetes: 5.7 - 6.4 Diabete s: >6.4 Glycemic control for adults with diabetes: <7.0 Reported Physicians [facility] Ordered by Florentino Robin MD on Collected: 01/12/2024 Reported: 01/13/20 24 07:07 Last Documented On 4 7:46AM ; [facility] All test results are final unless otherw ise noted. Reported Physicians See Note None Last Documented On 01/13/2024 7:46AM ; [facility] Note: Reported Physicians:Ordering: Florentino Robin History of Present Illness History of Present Illness not supported for this document type No History of Present Illness Recorded Social History Description Last Updated Yes, current smoker. 11/02/2023 Last Documented On 4 9:57AM ; [facility] No recent change in diet 11/02/2023 Last Documented On 4 9:57AM ; [facility] Not using alcohol 11/02/2023 Last Documented On 4 9:57AM ; [facility] Caffeine use 07/25/2014 Last Documented On 5 4:25PM ; [facility] Current smoker 07/25/2014 Last Documented On 5 4:25PM ; [facility] No recent change in diet 07/25/2014 Last Documented On 5 4:25PM ; [facility] Not exercising regularly 07/25/2014 Last Documented On 5 4:25PM ; [facility] Not using drugs 07/25/2014 Last Documented On 5 4:25PM ; [facility] Tobacco use 07/25/2014 Last Documented On 5 4:25PM ; [facility] Smoking status : Current everyday smoker 07/25/2014 Last Documented On 5 4:25PM ; [facility] Procedures and Surgical History Includes: Procedures from 10/27/2023 through 10/26/2024 Procedures Code Diagnosis Performing Provider Service Location Service Date DRAIN/INJECT, JOINT/BURSA (LEFT) Unilateral primary osteoarthritis, left knee Monserrat Woodallbarrett Martínez PA-C [facility] 05/01/2024 Last Documented On 4 9:52AM ; [facility] Orth[employer]isc [place], 2cc (LEFT) J7324 Unilateral primary osteoarthritis, left knee Monserrat Woodallbarrett QUEZADA-Bonny [facility] 05/01/2024 Last Documented On 4 9:52AM ; [facility] DRAIN/INJECT, JOINT/BURSA (LEFT) Unilateral primary osteoarthritis, left knee Monserrat Uribe Mauricio QUEZADA-C [facility] 04/24/2024 Last Documented On 4 10:18AM ; [facility] Orthovisc [place], 2cc (LEFT) J7324 Unilateral primary osteoarthritis, left knee Monserrat Uribe Mauricio QUEZADA-C [facility] 04/24/2024 Last Documented On 4 10:18AM ; [facility] Orthovisc [place], 2cc (LEFT) J7324 Unilateral primary osteoarthritis, left knee Monserrat Woodallbarrett Martínez PA-C [facility] 04/17/2024 Last Documented On 4 10:19AM ; [facility] DRAIN/INJECT, JOINT/BURSA (LEFT, Unrelated Procedure) Unilateral primary osteoarthritis, left knee Monserrat Jojo Martínez PA-C [facility] 04/17/2024 Last Documented On 4 10:19AM ; [facility] DRAIN/INJECT, JOINT/BURSA (LEFT, Unrelated Procedure) Unilateral primary osteoarthritis, left knee Monserrat Woodallbarrett Martínez PA-C [facility] 04/10/2024 Last Documented On 4 2:44PM ; [facility] Orthovisc [place], 2cc (LEFT) J7324 Unilateral primary osteoarthritis, left knee Monserrat Jojo Martínez PA-C [facility] 04/10/2024 Last Documented On 4 2:44PM ; [facility] DRAIN/INJECT, JOINT/BURSA (Unrelated Procedure, RIGHT) Trochanteric bursitis, right hip Monserrat Jojo Martínez PA-C [facility] 03/29/2024 Last Documented On 4 10:47AM ; [facility] Injection, betamethasone acetate 6mg per cc and betamethason J0702 Trochanteric bursitis, right hip Monserrat Jojo Martínez PA-C [facility] 03/29/2024 Last Documented On 4 10:47AM ; [facility] PELVIS w/ 2-3 VIEW HIP (RIGHT) 40571 Trochanteric bursitis, right hip Monserrat Jojo Martínez PA-C [facility] 03/29/2024 Last Documented On 4 10:47AM ; [facility] KNEE ARTHROSCOPY/SURGERY (LEFT) 48219 Chondromalacia, left knee Grant Pepper MD [facility] Surgical Division 01/19/2024 Last Documented On 4 7:25AM ; [facility] X-RAY EXAM OF KNEE 1 OR 2 VIEWS (LEFT) 41154 Oth tear of medial meniscus, current injury, left knee, init Grant Pepper MD [facility] 12/24/2023 Last Documented On 4 4:49PM ; [facility] Triamcinolone/Kenalog, 10mg per cc [id number] Sacroiliitis, not elsewhere classified Darby Marie MD [facility] 11/25/2023 Last Documented On 4 11:47AM ; [facility] INJECT SACROILIAC JOINT (RIGHT) 74812 Sacroiliitis, not elsewhere classified Darby Marie [facility] 11/25/2023 Last Documented On 4 11:47AM ; [facility] Surgical History Last Updated History of appendectomy 01/21/2016 Last Documented On 6 4:20PM ; [facility] History of heart surgery 01/21/2016 Last Documented On 6 4:20PM ; [facility] History of hysterectomy 01/21/2016 Last Documented On 6 4:20PM ; [facility] Medical History Includes: Medical History in patient's chart Description Last Updated bloodtransfusion ~acid reflux heart burn ~high cholesterol 01/21/2016 Last Documented On 6 4:20PM ; [facility] Arthritic joint problems 01/21/2016 Last Documented On 6 4:20PM ; [facility] History of acute myocardial infarction 0 01/21/2016 Last Documented On 6 4:20PM ; [facility] History of diverticulitis of colon 01/20 Last Documented On 6 4:20PM ; [facility] History of heart disease 01/21/2016 Last Documented On 6 4:20PM ; [facility] Intermittent hypertension 01/21/2016 Last Documented On 6 4:20PM ; [facility] Liver disease 01/21/2016 Last Documented On 6 4:20PM ; [facility] Family History Includes: Family History in patient's chart Description Last Updated Family history of diabetes mellitus 01/09 Last Documented On 6 4:20PM ; [facility] Family history of hypertension 6 Last Documented On 6 4:20PM ; [facility] Review of Systems Review of Systems not supported for this document type No Review of Systems Recorded Mental Status No Mental Status Recorded Functional Status No Functional Status Recorded Physical Exam Physical Exam not supported for this document type No Physical Exam Recorded Allergies Includes: Active, inactive, and resolved Allergies Substance Type Reaction Onset Date Resolved Date Statu s Percocet Allergy 04/08/2010 Active Last Documented On 4 10:12AM ; [facility] 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 Last Documented On 4 10:12AM ; [facility] Levaquin Allergy 04/08/2010 Active Last Documented On 4 10:12AM ; [facility] Encounters Includes: Encounters from 10/27/2023 through 10/26/2024 Encounter Provider Location Date Check-In Time Check-Out Time Diagnosis [place] Injection Monserrat Martínez PA-C [facility] 024 10:12AM 10:30AM [place] Injection Monserrat Martínez PA-C [facility] 024 10:18AM 10:57AM [place] Injection Monserrat Martínez PA-C [facility] 024 10:17AM 10:31AM [place] Injection Monserrat Martínez PA-C [facility] 024 10:19AM 10:29AM Follow Up Monserrat Martínez PA-C [facility] 024 10:10AM 10:58AM Overweight Post Op Monserrat Martínez PA-C [facility] 024 1:22PM 2:10PM Overweight Post Op Monserrat Martínez PA-C [facility] 1:15PM 2:33PM Overweight [facility] Grant Pepper MD Surgery 9:04AM 01/12/2024 11:59PM [Patient Encounter] Grant Pepper MD 01/12/2024 3:33PM 01/12/2024 11:59PM Pre Admission Testing Bridgett QUEZADA [facility] 9:43AM 10:19AM NEW PROBLEM/EST PT Grant Pepper MD [facility] 10:25AM 11:25AM INJECTION PRITI VILLEGAS PA-C [facility] 10:34AM 10:45AM Next Available Non-Specified Physician Grant Pepper MD [facility] 1:24PM 2:19PM Intake Grant Pepper MD [facility] 06/09/2016 9:50AM 06/09/2016 11:59PM Insurance Includes: Active Insurance Policies Plan Name Member ID Group # Subscriber Relationship Effect jordan Dates 1 [facility] [id number] Jackelin Kaba Self Clinical Notes Includes: Signed Clinical Notes starting from 06/25/2022 * Progress note Date Encounter Last Documented by 03/29/2024 Follow Up Last documented on 03/29/2024; 11:44 AM, Monserrat Martínez PA-C; [facility] Active Problems & Conditions - Joint Pain in the Left Knee - Joint Pain in the Right Hip - Joint Pain in the Right Knee - Joint Pain, Localized in the Shoulder Chief Complaint The Chief Complaint is: Right hip pain. Referred Here Referred by SELF. History of Present Illness Jackelin Kaba is a 59 year old female. - Allergy list reviewed - Problem list reviewed - Medication list reviewed - - Review of medications documented She presents today for evaluation of right hip pain. Her medical history is significant for a right total hip arthroplasty performed by Dr. Robin in 2015. She was evaluated for right hip pain in October of [address] Pepper. Thought her pain was related to right sacroiliitis. She had a right SI joint injection which completely resolved all of her symptoms. The pain has started to return over the last few months. Today, she describes the pain at the lateral aspect of the hip. This radiates down the lateral aspect of her thigh. No numbness or tingling. No recent change in her bowel or bladder patterns. She denies any recent injury, trauma, or fall contributing to her symptoms. Of note, she is approximately 2 months status post left knee arthroscopy. She believes the change in her walking pattern has likely contributed to the onset of pain at the lateral aspect of her right hip. Current Medication - Adult Aspirin Regimen 81 MG Oral Tablet Delayed Release take as directed 0 days, 0 refills - Famotidine 10 MG Oral Tablet take as directed 0 days, 0 refills - Folinic-Plus 4-50-2 MG Oral Tablet take as directed 0 days, 0 refills - Gabapentin 100 MG Oral Capsule take as directed 0 days, 0 refills - Januvia 100 MG Oral Tablet take as directed 0 days, 0 refills - Lasix 20 MG Oral Tablet take as directed 0 days, 0 refills - Pepto-Bismol 262 MG Oral Tablet Chewable take as directed 0 days, 0 refills - Potassium Chloride 10 MEQ/100ML Intravenous Solution take as directed 0 days, 0 refills - Sotalol HCl 120 MG Oral Tablet take as directed 0 days, 0 refills - Tetracycline HCl 250 MG Oral Capsule take as directed 0 days, 0 refills - Vitamin D3 1.25 MG (16513 UT) Oral Capsule take as directed 0 days, 0 refills Past Medical/Surgical History Reported: Medical: Liver disease and joint problems arthritic. Intermittent hypertension. Diagnoses: Acute myocardial infarction Heart disease. Diverticulitis of colon Bloodtransfusion acid reflux heart burn high cholesterol. Surgical: - Heart surgery - Appendectomy - Hysterectomy Social History Yes, current smoker. Current diet: No recent change in diet. No recent change in diet. Caffeine use: Caffeine use. Tobacco use: Current smoker and smoking status: Current everyday smoker. Alcohol: Not using alcohol. Drug Use: Not using drugs. Habits: Not exercising regularly. Allergies - Levaquin - Morphine Derivatives - Percocet Family History Systemic hypertension Diabetes mellitus Review Of Systems Systemic: Not feeling tired, no recent weight loss, and no recent weight gain. Head: No headache and no sinus pain. Eyes: No vision problems, no Cataracts, no Glasses/Contacts, and no Glaucoma. Otolaryngeal: No hearing loss and no tinnitus. Cardiovascular: No chest pain or discomfort, no palpitations, no Hypertension, and no High Cholesterol. Pulmonary: No daytime asthma symptoms and no chronic cough. No wheezing. Gastrointestinal: No heartburn and no abdominal pain. No Indigestion, no Peptic Ulcer, no GI Stomach Bleed, no Ulcers, and no Acid Reflux. Endocrine: No hot flashes, no muscle weakness, no Diabetes, no Hypothyroid, and no Hyperthyroid. Hematologic: No easy bleeding, no tendency for easy bruising, and no Anemia. Musculoskeletal: No Arthritis and no lower back pain. No soft tissue swelling and no localized joint pain. Neurological: No dizziness, no convulsions, and no numbness. Psychological: No anxiety, no emotional lability, no depression, and no insomnia. Not crying for no reason. Skin: No dry skin. No Ulcers, no Scars, and no rash. Allergic and Immunologic: No complaint of seasonal allergic reaction. Physical Findings - Vitals taken 03/29/2024 10:13 am as Height 63 in Weight 150 lbs Body Mass Index 26.6 kg/m2 Body Surface Area 1.7 m2 She is well-dressed and well-groomed. She has normal mood and affect. She has a symmetric gait. Leg lengths are equal. The skin is intact. No increased redness or heat. No effusion. No bony deformity. There is Exquisite tenderness over the right greater trochanter. No tenderness over the SI joints. No tenderness over the lumbar spine. The right hip has no pain with gentle internal and external rotation. Normal motor and sensory. Normal neurovascular status. SLR: negative on the right side Tests Three-view radiographs of the right hip show the prosthesis to be in good alignment without signs of loosening. No acute interval change compared to previous radiographs. Assessment - Overweight Previous Tests Imaging: X-Ray: An X-ray was performed. MRI Scan: An MRI was performed. Counseling/Education - Tobacco non-user - Use of tobacco assessment performed - Lose weight Plan I have reviewed the radiographs and physical exam findings with the patient and her family member at today's appointment. We discussed that her symptoms and my physical exam are most consistent with a component of right greater trochanter bursitis contributing to her pain. We discussed proceeding with a diagnostic and therapeutic cortisone injection. She would like to proceed. She has no absolute contraindications. The risks of the procedure were explained to the patient and verbal consent was obtained. The skin over the hip bursa region was prepped with an alcohol swab. Using a 25-gauge needle directing it at 90- toward the hip bursa, the right hip bursa was injected with 2mL of 1% lidocaine and 1mL of betamethasone. Needle was withdrawn and Band-Aid was applied. The patient tolerated the procedure well. I will plan to follow-up with her as scheduled. She is very comfortable with the plan moving forward and will call our office with any questions or concerns. Notes This dictation was done with voice recognition software and may contain errors and omissions. Practice Management Use of tobacco assessment performed Review of medications documented. Care Team - KIM LAINEZ - - TY PATEL MD * Progress note Date Encounter Last Documented by 03/21/2024 Post Op Last documented on 03/21/2024; 2:12 PM, Monserrat Martínez PA-C; [facility] Active Problems & Conditions - Joint Pain in the Left Knee - Joint Pain in the Right Hip - Joint Pain in the Right Knee - Joint Pain, Localized in the Shoulder Chief Complaint The Chief Complaint is: Lt knee pain 2m s/p knee scope. Referred Here Referred by SELF. History of Present Illness Jackelin Kaba is a 59 year old female. - Allergy list reviewed - Problem list reviewed - Medication list reviewed - - Review of medications documented She was approximately 9 weeks following left knee arthroscopy. She had a [facility] chondroplasty, patellar chondroplasty, medial plica excision. She was describing pain at today's appointment. She recently went to vacation to [place] and had significant increase of her activity. Following this, her pain became more persistent. She has pain particularly when climbing and descending stairs. The pain is impacting activities of daily living and activities she enjoys. She would like to discuss treatment options at today's appointment. She denies any specific incident, injury, or trauma. She describes the pain particularly at the medial aspect. No radicular pain. No mechanical symptoms such as locking, catching, or giving way. Current Medication - Adult Aspirin Regimen 81 MG Oral Tablet Delayed Release take as directed 0 days, 0 refills - Famotidine 10 MG Oral Tablet take as directed 0 days, 0 refills - Folinic-Plus 4-50-2 MG Oral Tablet take as directed 0 days, 0 refills - Gabapentin 100 MG Oral Capsule take as directed 0 days, 0 refills - Januvia 100 MG Oral Tablet take as directed 0 days, 0 refills - Lasix 20 MG Oral Tablet take as directed 0 days, 0 refills - Pepto-Bismol 262 MG Oral Tablet Chewable take as directed 0 days, 0 refills - Potassium Chloride 10 MEQ/100ML Intravenous Solution take as directed 0 days, 0 refills - Sotalol HCl 120 MG Oral Tablet take as directed 0 days, 0 refills - Tetracycline HCl 250 MG Oral Capsule take as directed 0 days, 0 refills - Vitamin D3 1.25 MG (50706 UT) Oral Capsule take as directed 0 days, 0 refills Past Medical/Surgical History Reported: Medical: Liver disease and joint problems arthritic. Intermittent hypertension. Diagnoses: Acute myocardial infarction Heart disease. Diverticulitis of colon Bloodtransfusion acid reflux heart burn high cholesterol. Surgical: - Heart surgery - Appendectomy - Hysterectomy Social History Yes, current smoker. Current diet: No recent change in diet. No recent change in diet. Caffeine use: Caffeine use. Tobacco use: Current smoker and smoking status: Current everyday smoker. Alcohol: Not using alcohol. Drug Use: Not using drugs. Habits: Not exercising regularly. Allergies - Levaquin - Morphine Derivatives - Percocet Family History Systemic hypertension Diabetes mellitus Review Of Systems Systemic: Not feeling tired, no recent weight loss, and no recent weight gain. Head: No headache and no sinus pain. Eyes: No vision problems, no Cataracts, no Glasses/Contacts, and no Glaucoma. Otolaryngeal: No hearing loss and no tinnitus. Cardiovascular: No chest pain or discomfort, no palpitations, no Hypertension, and no High Cholesterol. Pulmonary: No daytime asthma symptoms and no chronic cough. No wheezing. Gastrointestinal: No heartburn and no abdominal pain. No Indigestion, no Peptic Ulcer, no GI Stomach Bleed, no Ulcers, and no Acid Reflux. Endocrine: No hot flashes, no muscle weakness, no Diabetes, no Hypothyroid, and no Hyperthyroid. Hematologic: No easy bleeding, no tendency for easy bruising, and no Anemia. Musculoskeletal: No Arthritis and no lower back pain. No soft tissue swelling and no localized joint pain. Neurological: No dizziness, no convulsions, and no numbness. Psychological: No anxiety, no emotional lability, no depression, and no insomnia. Not crying for no reason. Skin: No dry skin. No Ulcers, no Scars, and no rash. Allergic and Immunologic: No complaint of seasonal allergic reaction. Physical Findings - Vitals taken 03/21/2024 01:29 pm as Height 63 in Weight 150 lbs Body Mass Index 26.6 kg/m2 Body Surface Area 1.7 m2 The patient is well-dressed well-groomed. They have normal mood and affect. They are ambulating without any assistive devices at today's follow-up appointment. The left knee has normal alignment. The incisions are intact, and well healed. There is no induration, fluctuance, or drainage. There is no increased redness or heat. There is no effusion. The knee is able to extend fully and flex to 120-. Normal sensation. Normal neurovascular status. No calf tenderness. Negative Homans sign. Assessment - Overweight Previous Tests Imaging: X-Ray: An X-ray was performed. MRI Scan: An MRI was performed. Counseling/Education - Tobacco non-user - Use of tobacco assessment performed - Lose weight Plan I have reviewed the operative details and physical exam findings with the patient at today's appointment. We emphasized the importance of icing and elevating their leg above their heart 2 times a day for 20 minutes. They will continue to work on stretches and exercises on their own at home. We discussed the presence of degenerative change noted on arthroscopy. We discussed the degenerative nature of this. We discussed that their knee may always have a component of pain due to these changes noted on arthroscopy. We reviewed activity progression and precautions. We discussed treatment options moving forward including proceeding with a diagnostic and therapeutic cortisone injection. We discussed how this could impact her sugar levels as she was a diagnosis of type 2 diabetes. Her last A1c was 5.9% per patient report. She would like to proceed. The risks of the procedure were explained and verbally knowledge by the patient. Verbal consent was obtained. The knee was prepped with alcohol. The knee was then put in a flexed position in the intercondylar notch was palpated. With ethyl chloride spray used as topical anesthesia at the site of injection, the needle was gently introduced toward interchondral notch to get entering into the synovial cavity. Upon entering into the synovial cavity, 2mL of lidocaine and 1 mL of betamethasone was injected. The needle was carefully withdrawn and a Band-Aid was applied. The knee was then placed through a range of motion. She tolerated the procedure well. We will request approval for left knee viscosupplementation and follow up with her after this approval has been granted. They are very comfortable with this plan moving forward and will call our office with any questions or concerns. Notes This dictation was done with voice recognition software and may contain errors and omissions. Practice Management Use of tobacco assessment performed Review of medications documented. Care Team - KIM LAINEZ - - TY PATEL MD * Progress note Date Encounter Last Documented by 01/26/2024 Post Op Last documented on 01/26/2024; 2:34 PM, Monserrat Martínez PA-C; [facility] Active Problems & Conditions - Joint Pain in the Left Knee - Joint Pain in the Right Hip - Joint Pain in the Right Knee - Joint Pain, Localized in the Shoulder Chief Complaint The Chief Complaint is: 1st po lt knee scope. Referred Here Referred by SELF. History of Present Illness Jackelin Kaba is a 59 year old female. - Allergy list reviewed - Problem list reviewed - Medication list reviewed - - Review of medications documented This is her 1st postoperative appointment following left knee arthroscopy. She had a C chondroplasty, patellar chondroplasty, medial plica excision. Overall, she reports that she was doing well postoperatively. Her pain is well-controlled. Her ambulation is progressing. She is working on stretches and exercises on her own at home. She denies any recent calf tenderness. Current Medication - Adult Aspirin Regimen 81 MG Oral Tablet Delayed Release Tablet, enteric coated take as directed 0 days, 0 refills - Famotidine 10 MG Oral Tablet take as directed 0 days, 0 refills - Folinic-Plus 4-50-2 MG Oral Tablet take as directed 0 days, 0 refills - Gabapentin 100 MG Oral Capsule Capsule, conventional take as directed 0 days, 0 refills - Januvia 100 MG Oral Tablet take as directed 0 days, 0 refills - Lasix 20 MG Oral Tablet take as directed 0 days, 0 refills - Pepto-Bismol 262 MG Oral Tablet Chewable Tablet, chewable take as directed 0 days, 0 refills - Potassium Chloride 10 MEQ/100ML Intravenous Solution take as directed 0 days, 0 refills - Sotalol HCl 120 MG Oral Tablet take as directed 0 days, 0 refills - Tetracycline HCl 250 MG Oral Capsule Capsule, conventional take as directed 0 days, 0 refills - Vitamin D3 1.25 MG (39303 UT) Oral Capsule Capsule, conventional take as directed 0 days, 0 refills Past Medical/Surgical History Reported: Medical: Liver disease and joint problems arthritic. Intermittent hypertension. Diagnoses: Acute myocardial infarction Heart disease. Diverticulitis of colon Bloodtransfusion acid reflux heart burn high cholesterol. Surgical: - Heart surgery - Appendectomy - Hysterectomy Social History Yes, current smoker. Current diet: No recent change in diet. No recent change in diet. Caffeine use: Caffeine use. Tobacco use: Current smoker and smoking status: Current everyday smoker. Alcohol: Not using alcohol. Drug Use: Not using drugs. Habits: Not exercising regularly. Allergies - Levaquin - Morphine Derivatives - Percocet Family History Systemic hypertension Diabetes mellitus Review Of Systems Systemic: Not feeling tired, no recent weight loss, and no recent weight gain. Head: No headache and no sinus pain. Eyes: No vision problems, no Cataracts, no Glasses/Contacts, and no Glaucoma. Otolaryngeal: No hearing loss and no tinnitus. Cardiovascular: No chest pain or discomfort, no palpitations, no Hypertension, and no High Cholesterol. Pulmonary: No daytime asthma symptoms and no chronic cough. No wheezing. Gastrointestinal: No heartburn and no abdominal pain. No Indigestion, no Peptic Ulcer, no GI Stomach Bleed, no Ulcers, and no Acid Reflux. Endocrine: No hot flashes, no muscle weakness, no Diabetes, no Hypothyroid, and no Hyperthyroid. Hematologic: No easy bleeding, no tendency for easy bruising, and no Anemia. Musculoskeletal: No Arthritis and no lower back pain. No soft tissue swelling and no localized joint pain. Neurological: No dizziness, no convulsions, and no numbness. Psychological: No anxiety, no emotional lability, no depression, and no insomnia. Not crying for no reason. Skin: No dry skin. No Ulcers, no Scars, and no rash. Allergic and Immunologic: No complaint of seasonal allergic reaction. Physical Findings - Vitals taken 01/26/2024 01:15 pm as Height 63 in Weight 150 lbs Body Mass Index 26.6 kg/m2 Body Surface Area 1.7 m2 The patient is well-dressed well-groomed. They have normal mood and affect. They are ambulating without any assistive devices at today's follow-up appointment. The left knee has normal alignment. The sutures were removed and Steri-Strips were placed over the incision. The incisions are intact. There is no induration, fluctuance, or drainage. There is no increased redness or heat. There is no effusion. The knee is able to extend fully and flex to 120-. Normal sensation. Normal neurovascular status. No calf tenderness. Negative Homans sign. Assessment - Overweight Previous Tests Imaging: X-Ray: An X-ray was performed. MRI Scan: An MRI was performed. Counseling/Education - Tobacco non-user - Use of tobacco assessment performed - Lose weight Plan I have reviewed the operative details, arthroscopic photographs, and physical exam findings with the patient at today's appointment. We emphasized the importance of icing and elevating their leg above their heart 4 times a day for 20 minutes. They will continue to work on stretches and exercises on their own at home. We discussed the presence of degenerative change noted on arthroscopy. We discussed the degenerative nature of this. We discussed that their knee may always have a component of pain due to these changes noted on arthroscopy. We reviewed activity progression and precautions. We will plan to follow-up with them in 3 months for reevaluation. They are very comfortable with this plan moving forward and will call our office with any questions or concerns. Notes This dictation was done with voice recognition software and may contain errors and omissions. Practice Management Use of tobacco assessment performed Review of medications documented. Care Team - KIM LAINEZ - - TY PATEL MD * Progress note Date Encounter Last Documented by 01/12/2024 Pre Admission Testing Last docum ented on 01/17/2024; 8:42 AM, Bridgett QUEZADA; [facility] Chief Complaint The Chief Complaint is: Left knee pain. History of Present Illness Jackelin Kaba is a 58 year old female. - Allergy list reviewed - Problem list reviewed - Medication list reviewed This patient is a pleasant 58 yo WF who presents with left knee pain. The pain has been going on for 8 months but has gotten progressively worse. She describes it as a sharp pain. It is now to the point that it is affecting her ADLs. She has tried NSAIDs and injections without relief of her pain. She has not fallen. She has not used an assistive device. She was seen at Dr Pepper's office and evaluated and it was determined that she has severe DJD affecting the left knee. Pt was offered a Left Total Knee Arthroplasty and agreed to the procedure. Pt denies a h/o DVT/PE. No trouble with anesthesia in the past. Pt has a h/o AVA and wears CPAP. No asthma or COPD. Current Medication - Adult Aspirin Regimen 81 MG Oral Tablet Delayed Release take as directed 0 days, 0 refills - Famotidine 10 MG Oral Tablet take as directed 0 days, 0 refills - Folinic-Plus 4-50-2 MG Oral Tablet take as directed 0 days, 0 refills - Gabapentin 100 MG Oral Capsule take as directed 0 days, 0 refills - Januvia 100 MG Oral Tablet take as directed 0 days, 0 refills - Lasix 20 MG Oral Tablet take as directed 0 days, 0 refills - Pepto-Bismol 262 MG Oral Tablet Chewable take as directed 0 days, 0 refills - Potassium Chloride 10 MEQ/100ML Intravenous Solution take as directed 0 days, 0 refills - Sotalol HCl 120 MG Oral Tablet take as directed 0 days, 0 refills - Tetracycline HCl 250 MG Oral Capsule take as directed 0 days, 0 refills - Vitamin D3 1.25 MG (37717 UT) Oral Capsule take as directed 0 days, 0 refills Past Medical/Surgical History Reported: Medical: Liver disease and joint problems arthritic. Intermittent hypertension. Diagnoses: Acute myocardial infarction Heart disease. Diverticulitis of colon Bloodtransfusion acid reflux heart burn high cholesterol. Surgical: - Heart surgery - Appendectomy - Hysterectomy Social History Yes, current smoker. Current diet: No recent change in diet. No recent change in diet. Caffeine use: Caffeine use. Tobacco use: Current smoker and smoking status: Current everyday smoker. Alcohol: Not using alcohol. Drug Use: Not using drugs. Habits: Not exercising regularly. Allergies - Levaquin - Morphine Derivatives - Percocet Family History Systemic hypertension Diabetes mellitus Review Of Systems Constitutional: Neg for fevers or chills. Eyes: Neg for blurry vision or change in vision. ENT: Neg for sore throat, ear pain, or dizziness. Cardiac: Neg for chest pain or dyspnea on exertion. Respiratory: Neg for shortness of breath. Gastrointestinal: Neg for nausea, vomiting, diarrhea, or constipation. Musculoskeletal: Pos for left knee pain. Neurologic: Neg for headaches or seizures. Psychiatric: Neg for anxiety and depression. Integumentary: Neg for rash. Physical Findings - Vitals taken 01/12/2024 10:21 am BP-Sitting 130/70 mmHg Pulse Rate-Sitting 65 bpm Height 64 in Weight 152 lbs Body Mass Index 26.1 kg/m2 Oxygen Saturation 99 % Tests - Test: Comp. Metabolic Panel (14) Report Date: 01/13/2024 Calcium 9.9 mg/dL Glucose 126 mg/dL High BUN 14 mg/dL Protein, Total 7.6 g/dL Albumin 4.7 g/dL Bilirubin, Total 0.5 mg/dL Alkaline Phosphatase 160 IU/L High AST (SGOT) 28 IU/L Potassium 3.3 mmol/L Low Sodium 140 mmol/L Chloride 98 mmol/L Creatinine 0.71 mg/dL ALT (SGPT) 21 IU/L Carbon Dioxide, Total 23 mmol/L BUN/Creatinine Ratio 20 Globulin, Total 2.9 g/dL eGFR 98 mL/min/1.73 - Test: Hemoglobin A1c Report Date: 01/13/2024 Hemoglobin A1c 6.8 % High EKG- NSr, 61 WBC- 10.1 Hbg- 10.3 Hct- 37.2 Plts- 387 User Defined 5 1. Preoperative Exam- Pt underwent preoperative laboratory workup and diagnostic studies. 2.AVA- Continue CPAP. 3. CAD- S/p Cardiac Stent x 1 2011. S/p Cardiac Stent x 1 2016. Pt received cardiac clearance from. Kat Niño. 4. GERD- Continue Famotidine. 5. DM- Continue Januvia. 6. HTN- Continue Lasix and Sotalol. 7. Left Knee Pain- Proceed with surgery as scheduled with Dr Pepper on 01/19/24. ASC Questions Does the patient have any additional hardware in their body? Jaw HW, Left Shoulder HW, Cardiac Stents Is the patient a Diabetic? yes Is the patient on a Semaglutide? No Has the patient ever been treated for MRSA? No Has the patient ever smoked? 2 ppd Does the patient drink daily ETOH? No Do you have a h/o GIB following NSAIDs use? No Have you ever had to hospitalized after a surgery that was supposed to be outpatient? No Does the patient have a clear discharge plan that includes having someone drop them off for surgery, pick them up, and stay with them 72 hrs. This person will have to be able to cook meals, assist in getting the patient to and from the restroom and give medications. Yes, * Progress note Date Encounter Last Documented by 12/24/2023 NEW PROBLEM/EST PT Last document ed on 01/04/2024; 12:34 PM, Grant Pepper MD; [facility], [facility] Active Problems & Conditions - Joint Pain in the Right Hip - Joint Pain in the Right Knee - Joint Pain, Localized in the Shoulder Chief Complaint The Chief Complaint is: Left knee pain. Referred Here Referred by SELF. History of Present Illness Jackelin Kaba is a 58 year old female. - Allergy list reviewed - Problem list reviewed - Medication list reviewed Jackelin is here for a 2nd opinion regarding her left knee. Over a year ago she fractured her left patella. This was managed with a brace and it went on to heal. Last April she was helping her mother and she planted and twisted her left knee and felt a sharp popping sensation that is bothered her along the medial side ever since. Occasional stiffness and swelling. No redness or heat. No instability. No radiation of the pain. No neurological symptoms. She was seen elsewhere. She has had injections and medications but this has not helped. Her physician stopped going to her local hospital and so she decided to come here as she has had treatment with me and other physicians here. Current Medication - Adult Aspirin Regimen 81 MG Oral Tablet Delayed Release take as directed 0 days, 0 refills - Famotidine 10 MG Oral Tablet take as directed 0 days, 0 refills - Folinic-Plus 4-50-2 MG Oral Tablet take as directed 0 days, 0 refills - Gabapentin 100 MG Oral Capsule take as directed 0 days, 0 refills - Januvia 100 MG Oral Tablet take as directed 0 days, 0 refills - Lasix 20 MG Oral Tablet take as directed 0 days, 0 refills - metroNIDAZOLE 250 MG Oral Tablet take as directed 0 days, 0 refills - Pepto-Bismol 262 MG Oral Tablet Chewable take as directed 0 days, 0 refills - Potassium Chloride 10 MEQ/100ML Intravenous Solution take as directed 0 days, 0 refills - Sotalol HCl 120 MG Oral Tablet take as directed 0 days, 0 refills - Tetracycline HCl 250 MG Oral Capsule take as directed 0 days, 0 refills - Vitamin D3 1.25 MG (04217 UT) Oral Capsule take as directed 0 days, 0 refills Past Medical/Surgical History Reported: Medical: Liver disease and joint problems arthritic. Intermittent hypertension. Diagnoses: Acute myocardial infarction Heart disease. Diverticulitis of colon Bloodtransfusion acid reflux heart burn high cholesterol. Surgical: - Heart surgery - Appendectomy - Hysterectomy Social History Yes, current smoker. Current diet: No recent change in diet. No recent change in diet. Caffeine use: Caffeine use. Tobacco use: Current smoker and smoking status: Current everyday smoker. Alcohol: Not using alcohol. Drug Use: Not using drugs. Habits: Not exercising regularly. Allergies - Levaquin - Morphine Derivatives - Percocet Family History Systemic hypertension Diabetes mellitus Review Of Systems Systemic: Not feeling tired, no recent weight loss, and no recent weight gain. Head: No headache and no sinus pain. Eyes: No vision problems, no Cataracts, no Glasses/Contacts, and no Glaucoma. Otolaryngeal: No hearing loss and no tinnitus. Cardiovascular: No chest pain or discomfort, no palpitations, no Hypertension, and no High Cholesterol. Pulmonary: No daytime asthma symptoms and no chronic cough. No wheezing. Gastrointestinal: No heartburn and no abdominal pain. No Indigestion, no Peptic Ulcer, no GI Stomach Bleed, no Ulcers, and no Acid Reflux. Endocrine: No hot flashes, no muscle weakness, no Diabetes, no Hypothyroid, and no Hyperthyroid. Hematologic: No easy bleeding, no tendency for easy bruising, and no Anemia. Musculoskeletal: No Arthritis and no lower back pain. No soft tissue swelling and no localized joint pain. Neurological: No dizziness, no convulsions, and no numbness. Psychological: No anxiety, no emotional lability, no depression, and no insomnia. Not crying for no reason. Skin: No dry skin. No Ulcers, no Scars, and no rash. Allergic and Immunologic: No complaint of seasonal allergic reaction. Physical Findings - Vitals taken 12/24/2023 11:05 am mg Height 64 in 48 - 78 Weight 150 lbs 98 - 183 Body Mass Index 25.7 kg/m2 Body Surface Area 1.7 m2 There is a left-sided antalgic gait. She has normal mood, affect and orientation. She has a well-groomed appearance. Chest is clear, heart is clear, lungs are clear. Normal alignment left knee. There is full extension and full flexion. Complete stability of the cruciate and collateral ligaments. Mild effusion. Marked tenderness along the medial joint line and some on the lateral. She has pain medially with squatting. No redness or heat. Skin is intact. Grossly normal motor and sensory function. Grossly normal vascular status. Tests Radiographs of the left knee show normal joint spaces throughout. There is some chondrocalcinosis in the medial compartment. There is a healed mid body transverse patellar fracture. No other signs of arthritis, tumor, fracture, infection or dislocation. MRI which accompanies her shows signal in the posterior horn medial meniscus. There is some chondromalacia of the medial femoral condyle. Signs of the healed fracture of the patella. Previous Tests Imaging: X-Ray: An X-ray was performed. MRI Scan: An MRI was performed. Plan We explained to her that she has had many months of pain in the knee with the appropriate conservative modalities which have not helped. She has good cartilage space remaining and an MRI suggesting some meniscal pathology. At this point the knee has evidence of a probable meniscal tear and some arthritis. We explained to her the problem with the meniscal tear. We also discussed the presence of the arthritis. We discussed the likelihood that her knee would continue to hurt because of these 2 problems. There is a chance of helping the pain with an arthroscopy and medial meniscectomy. We would also proceed with intra-articular surgery such as chondroplasty and removal of loose body depending on the findings. Custom possibility of continuing to have pain following this and that future treatment would be based on findings at the time of arthroscopy. This may include more surgery. We also discussed risks which include but are not limited to bleeding, infection, swelling, blood clots and possible continuing pain. She understands. She wants to proceed. She is otherwise healthy good surgical candidate. We'll plan to do this under general anesthetic at the surgery center. She had no further questions. Practice Management Use of tobacco assessment performed Review of medications documented. Care Team - KIM LAINEZ - - TY PATEL MD Notes This dictation was done with voice recognition software and may contain errors and omissions. * Progress note Date Encounter Last Documented by 11/25/2023 INJECTION Last documented on 11/25/2023; 10:49 AM, PRITI Draper; [facility], [facility] Plan Diagnosis: SI Joint OA Procedure: Patient presents today for injection into the Right SI joint under fluoroscopy. Patient was placed on the fluoroscopy table. Patient was examined determining the localized area of pain over the right SI joint. Once this was performed the skin was then prepped with ChloraPrep and skin anesthetized with 1% lidocaine. Fluoroscopic guidance was used to place the 22-gauge needle into the sacroiliac joint at the most painful area. At that point a small amount of contrast was injected to confirm placement within the joint. And once confirmed an injection of bupivacaine and 40 mg of Kenalog was injected. Patient tolerated the procedure well. Sterile dressing was placed over the puncture site. And patient left the procedure room in stable condition. Follow-up evaluation approximately 10 minutes postprocedure revealing- 90% pain relief Notes This dictation was done with voice recognition software and may contain errors and omissions. * Progress note Date Encounter Last Documented by 11/02/2023 Next Available Non-S pecified Physician Last documented on 11/02/2023; 2:19 PM, Grant Pepper MD; [facility], [facility] Active Problems & Conditions - Joint Pain in the Right Hip - Joint Pain in the Right Knee - Joint Pain, Localized in the Shoulder Chief Complaint The Chief Complaint is: Right hip pain. Referred Here Referred by SELF. History of Present Illness Jackelin Kaba is a 58 year old female. - Symptoms worse w/ walking. - Allergy list reviewed - Problem list reviewed - Medication list reviewed - Previous history of new onset pain Injury is not work related or an automotive accident - Patient pain level from 1-10: 7 - Yes, previous treatment. Dr Regan Benítez is here for a new problem with her right hip . She has been having the pain for a few weeks. She had previous hip replacement years ago elsewhere. She did well but recently she has been feeling a lot of pain in the groin. Worse with ambulation. Not bad while sleeping. She would go upstairs. No radiation of the pain. No numbness or tingling. Current Medication - Adult Aspirin Regimen 81 MG Oral Tablet Delayed Release take as directed 0 days, 0 refills - Famotidine 10 MG Oral Tablet take as directed 0 days, 0 refills - Folinic-Plus 4-50-2 MG Oral Tablet take as directed 0 days, 0 refills - Gabapentin 100 MG Oral Capsule take as directed 0 days, 0 refills - Januvia 100 MG Oral Tablet take as directed 0 days, 0 refills - Lasix 20 MG Oral Tablet take as directed 0 days, 0 refills - metroNIDAZOLE 250 MG Oral Tablet take as directed 0 days, 0 refills - Pepto-Bismol 262 MG Oral Tablet Chewable take as directed 0 days, 0 refills - Potassium Chloride 10 MEQ/100ML Intravenous Solution take as directed 0 days, 0 refills - Sotalol HCl 120 MG Oral Tablet take as directed 0 days, 0 refills - Tetracycline HCl 250 MG Oral Capsule take as directed 0 days, 0 refills - Vitamin D3 1.25 MG (75496 UT) Oral Capsule take as directed 0 days, 0 refills Past Medical/Surgical History Reported: Medical: Liver disease and joint problems arthritic. Intermittent hypertension. Diagnoses: Acute myocardial infarction Heart disease. Diverticulitis of colon Bloodtransfusion acid reflux heart burn high cholesterol. Surgical: - Heart surgery - Appendectomy - Hysterectomy Social History Yes, current smoker. Current diet: No recent change in diet. No recent change in diet. Caffeine use: Caffeine use. Tobacco use: Current smoker and smoking status: Current everyday smoker. Alcohol: Not using alcohol. Drug Use: Not using drugs. Habits: Not exercising regularly. Allergies - Levaquin - Morphine Derivatives - Percocet Family History Systemic hypertension Diabetes mellitus Review Of Systems Systemic: Not feeling tired, no recent weight loss, and no recent weight gain. Head: No headache and no sinus pain. Eyes: No vision problems, no Cataracts, no Glasses/Contacts, and no Glaucoma. Otolaryngeal: No hearing loss and no tinnitus. Cardiovascular: No chest pain or discomfort, no palpitations, no Hypertension, and no High Cholesterol. Pulmonary: No daytime asthma symptoms and no chronic cough. No wheezing. Gastrointestinal: No heartburn and no abdominal pain. No Indigestion, no Acid Reflux, no Peptic Ulcer, no GI Stomach Bleed, and no Ulcers. Endocrine: No hot flashes, no muscle weakness, no Diabetes, no Hypothyroid, and no Hyperthyroid. Hematologic: No easy bleeding, no tendency for easy bruising, and no Anemia. Musculoskeletal: No Arthritis and no lower back pain. No soft tissue swelling and no localized joint pain. Neurological: No dizziness, no convulsions, and no numbness. Psychological: No anxiety, no emotional lability, no depression, and no insomnia. Not crying for no reason. Skin: No dry skin. No Ulcers, no Scars, and no rash. Allergic and Immunologic: No complaint of seasonal allergic reaction. Physical Findings - Vitals taken 11/02/2023 01:37 pm MG Height 64 in 48 - 78 Weight 151 lbs 98 - 183 Body Mass Index 25.9 kg/m2 Body Surface Area 1.7 m2 The gait is symmetric. She has normal mood, affect and orientation. She has a well-groomed appearance. Leg lengths are equal. Full symmetric pain-free range of motion both hips. No tenderness about the hips. Skin is intact. There is marked tenderness at the right sacroiliac joint. Positive HANS test. Grossly normal motor and sensory function. Grossly normal vascular status. Tests Radiographs of the pelvis and both hips show her hip prosthesis in excellent position on the right with no sign of loosening or polyethylene wear. Previous Tests Imaging: X-Ray: An X-ray was performed. MRI Scan: An MRI was performed. Plan We explained to her that the hip in the prosthesis looked excellent on radiographs. She has good range of motion that is pain-free. I believe this most likely a sacroiliac joint arthritis on the right. We are going to do a trial of sacroiliac injection on the right side. Practice Management Use of tobacco assessment performed Review of medications documented. Care Team - KIM LAINEZ - - TY PATEL MD Notes This dictation was done with voice recognition software and may contain errors and omissions. * Progress note Date Encounter Last Documented by 11/02/2023 Intake Last documented on 11/02/2023; 9:57 AM, Grant Pepper MD; [facility], [facility] Active Problems & Conditions - Joint Pain in the Right Hip - Joint Pain in the Right Knee - Joint Pain, Localized in the Shoulder Chief Complaint The Chief Complaint is: Right hip pain. Referred Here Referred by. History of Present Illness Jackelin Kaba is a 58 year old female. - Symptoms worse w/ walking. - Allergy list reviewed - Medication list reviewed - Previous history of new onset pain Injury is not work related or an automotive accident - Patient pain level from 1-10: 7 - Yes, previous treatment. Dr Spears Current Medication - Adult Aspirin Regimen 81 MG Oral Tablet Delayed Release take as directed 0 days, 0 refills - Famotidine 10 MG Oral Tablet take as directed 0 days, 0 refills - Folinic-Plus 4-50-2 MG Oral Tablet take as directed 0 days, 0 refills - Gabapentin 100 MG Oral Capsule take as directed 0 days, 0 refills - Januvia 100 MG Oral Tablet take as directed 0 days, 0 refills - Lasix 20 MG Oral Tablet take as directed 0 days, 0 refills - metroNIDAZOLE 250 MG Oral Tablet take as directed 0 days, 0 refills - Pepto-Bismol 262 MG Oral Tablet Chewable take as directed 0 days, 0 refills - Potassium Chloride 10 MEQ/100ML Intravenous Solution take as directed 0 days, 0 refills - Sotalol HCl 120 MG Oral Tablet take as directed 0 days, 0 refills - Tetracycline HCl 250 MG Oral Capsule take as directed 0 days, 0 refills - Vitamin D3 1.25 MG (75590 UT) Oral Capsule take as directed 0 days, 0 refills Past Medical/Surgical History Reported: Medical: Liver disease and joint problems arthritic. Intermittent hypertension. Diagnoses: Acute myocardial infarction Heart disease. Diverticulitis of colon Bloodtransfusion acid reflux heart burn high cholesterol. Surgical: - Heart surgery - Appendectomy - Hysterectomy Social History Yes, current smoker. Current diet: No recent change in diet. Caffeine use: Caffeine use. Tobacco use: Tobacco use. Alcohol: Not using alcohol. Drug Use: Not using drugs. Habits: Not exercising regularly. Allergies - Levaquin - Morphine Derivatives - Percocet Family History Systemic hypertension Diabetes mellitus Review Of Systems Systemic: Not feeling tired, no recent weight loss, and no recent weight gain. Head: No headache and no sinus pain. Eyes: No vision problems, no Cataracts, no Glasses/Contacts, and no Glaucoma. Otolaryngeal: No hearing loss and no tinnitus. Cardiovascular: No chest pain or discomfort, no palpitations, no Hypertension, and no High Cholesterol. Pulmonary: No daytime asthma symptoms and no chronic cough. No wheezing. Gastrointestinal: No heartburn and no abdominal pain. No Indigestion, no Acid Reflux, no Peptic Ulcer, no GI Stomach Bleed, and no Ulcers. Endocrine: No hot flashes, no muscle weakness, no Diabetes, no Hypothyroid, and no Hyperthyroid. Hematologic: No easy bleeding, no tendency for easy bruising, and no Anemia. Musculoskeletal: No Arthritis and no lower back pain. No soft tissue swelling and no localized joint pain. Neurological: No dizziness, no convulsions, and no numbness. Psychological: No anxiety, no emotional lability, no depression, and no insomnia. Not crying for no reason. Skin: No dry skin. No Ulcers, no Scars, and no rash. Allergic and Immunologic: No complaint of seasonal allergic reaction. Previous Tests Imaging: X-Ray: An X-ray was performed. MRI Scan: An MRI was performed. Therapy - Intervention and counseling on cessation of tobacco use. Practice Management Use of tobacco assessment performed Review of medications documented. Care Team - KIM LAINEZ - - TY PATEL MD Notes This dictation was done with voice recognition software and may contain errors and omissions.
--- OUTSIDE RECORDS SUMMARY | 2024-10-26 09:30 | XMS_ITS | Clinical Summary ---
Author Organization [facility] Address [address] [place] [address] Phone Care Team Providers Care Inside Steward/Stewardess Name Role Phone Evgeny BUSH, Grant Inman Unavailable [phone] KIM LAINEZ Unavailable [phone] TY PATEL MD Unavailable [phone] Reason for Visit and Chief Complaint JACKSON Injection Problems Includes: Problems addressed during this encounter and other active Problems All Visits Onset Date Resolved Date Provider Condition S tatus Joint Pain in the Left Knee 01/12/2024 Bridgett QUEZADA Active Last Documented On 4 10:20AM ; [facility] Joint Pain in the Right Hip 03/10/2016 Florentino bishop MD Active Last Documented On 6 9:43AM ; [facility] Joint Pain in the Right Knee 01/07/2016 Florentino Robin MD Active Last Documented On 6 2:39PM ; [facility] Joint Pain, Localized in the Shoulder 11/15/2012 Florentino Robin MD Active Last Documented On 3 3:08PM ; [facility], [facility] Plan of Treatment No Plan of Treatment Recorded Assessments Includes: Assessments from this encounter No Assessments Recorded Medical Equipment - Implanted Devices Includes: Current Devices No Medical Equipment Recorded Medications Includes: Medications discussed during this encounter and other current Medications Current Medications (continue as prescribed) Pepto-Bismol 262 MG Oral Tablet Chewable 11/02/2023 Provider: Diagnosis: Last Documented On 4 9:54AM By Swathi Barajas ; [facility] Tetracycline HCl 250 MG Oral Capsule 11/02/2023 Prov ider: Diagnosis: Last Documented On 4 9:53AM By Swathi Barajas ; [facility] Vitamin D3 1.25 MG (63951 UT) Oral Capsule 11/02/2023 Provider: Diagnosis: Last Documented On 4 9:53AM By Swathi Barajas ; [facility] Januvia 100 MG Oral Tablet 11/02/2023 Provider: Diagnosis: Last Documented On 4 9:53AM By Swathi Barajas ; [facility] Sotalol HCl 120 MG Oral Tablet 11/02/2023 Provider: Diagnosis: Last Documented On 4 9:53AM By Swathi Barajas ; [facility] Adult Aspirin Regimen 81 MG Oral Tablet Delayed Releas e 11/02/2023 Provider: Diagnosis: Last Documented On 4 9:52AM By Swathi Barajas ; [facility] Famotidine 10 MG Oral Tablet 11/02/2023 Provider: Diagnosis: Last Documented On 4 9:52AM By Swathi Barajas ; [facility] Gabapentin 100 MG Oral Capsule 11/02/2023 Provider: Diagnosis: Last Documented On 4 9:52AM By Swathi Barajas ; [facility] Lasix 20 MG Oral Tablet 11/02/2023 Provider: Diagnosis: Last Documented On 4 9:52AM By Swathi Barajas ; [facility] Potassium Chloride 10 MEQ/100ML Intravenous Solution 0 11/02/2023 Provider: Diagnosis: Last Documented On 4 9:52AM By Swathi Barajas ; [facility] Folinic-Plus 4-50-2 MG Oral Tablet 11/02/2023 Provid er: Diagnosis: Last Documented On 4 9:54AM By Swathi Barajas ; [facility] Medications Administered Includes: Administered Medications from this [...] (LEFT) Unilateral primary osteoarthritis, left knee Monserrat Jojo Martínez PA-C [facility] 05/01/2024 Last Documented On 4 9:52AM ; [facility] Orthovisc [place], 2cc (LEFT) [id number] Unilateral primary osteoarthritis, left knee Monserrat Jojo Martínez PA-C [facility] 05/01/2024 Last Documented On 4 9:52AM ; [facility] Medical History Includes: Medical History addressed [...] Active Last Documented On 4 10:12AM ; [facility] 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 Last Documented On 4 10:12AM ; [facility] Levaquin Allergy 04/08/2010 Active Last Documented On 4 10:12AM ; [facility] Encounters Encounter Provider Location Date Check-In Time Check-Out Time Diagnosis JACKSON Injection Monserrat Jojo Martínez PA-C [facility] 05/01/20 24 10:12AM 10:30AM Insurance Includes: Active Insurance Policies Plan Name Member ID Group # Subscriber Relationship Effect jordan Dates 1 - [facility] [id number] Jackelin Kaba Self Clinical Notes Includes: Clinical Notes from this encounter No Clinical Notes Recorded
--- OUTSIDE RECORDS SUMMARY | 2024-10-26 09:30 | XMS_ITS | Clinical Summary ---
Author Organization [facility] , [facility] Address [address] [place] [address] Phone Care Team Providers Care Skull Splitter Name Role Phone Evgeny BUSH, Grnat Inman Unavailable [phone] KIM LAINEZ Unavailable [phone] TY PATEL MD Unavailable [phone] Reason for Visit and Chief Complaint JACKSON Injection Problems Includes: Problems addressed during this encounter and other active Problems All Visits Onset Date Resolved Date Provider Condition S tatus Joint Pain in the Left Knee 01/12/2024 Bridgett QUEZADA Active Last Documented On 4 10:20AM ; [facility], [facility] Joint Pain in the Right Hip 03/10/2016 Florentino bishop MD Active Last Documented On 6 9:43AM ; [facility], [facility] Joint Pain in the Right Knee 01/07/2016 Florentino Robin MD Active Last Documented On 6 2:39PM ; [facility], [facility] Joint Pain, Localized in the Shoulder 11/15/2012 Florentino Robin MD Active Last Documented On 3 3:08PM ; [facility], [facility] Plan of Treatment No Plan of [...] On 4 9:54AM By Swathi Barajas ; [facility], [facility] Tetracycline HCl 250 MG Oral Capsule 11/02/2023 Prov ider: Diagnosis: Last Documented On 4 9:53AM By Swathi Barajas ; [facility] Vitamin D3 1.25 MG (07154 UT) Oral Capsule 11/02/2023 Provider: Diagnosis: Last Documented On 4 9:53AM By Swathi Barajas ; [facility] Januvia 100 MG Oral Tablet 11/02/2023 Provider: Diagnosis: Last Documented On 4 9:53AM By Swathi Barajas ; [facility] Sotalol HCl 120 MG Oral Tablet 11/02/2023 Provider: Diagnosis: Last Documented On 4 9:53AM By Swathi Barajas ; [facility], [facility] Adult Aspirin Regimen 81 MG Oral Tablet Delayed Releas e 11/02/2023 Provider: Diagnosis: Last Documented On 4 9:52AM By Swathi Barajas ; [facility] Famotidine 10 MG Oral Tablet 11/02/2023 Provider: Diagnosis: Last Documented On 4 9:52AM By Swathi Barajas ; [facility] Gabapentin 100 MG Oral Capsule 11/02/2023 Provider: Diagnosis: Last Documented On 4 9:52AM By Swathi Barajas ; [facility] Lasix 20 MG Oral Tablet 11/02/2023 Provider: Diagnosis: Last Documented On 4 9:52AM By Swathi Barajas ; [facility] Potassium Chloride 10 MEQ/100ML Intravenous Solution 0 11/02/2023 Provider: Diagnosis: Last Documented On 4 9:52AM By Swathi Barajas ; [facility] Folinic-Plus 4-50-2 MG Oral Tablet 11/02/2023 Provid er: Diagnosis: Last Documented On 4 9:54AM By Swathi Barajas ; [facility], [facility] Medications Administered Includes: Administered Medications from [...] osteoarthritis, left knee Monserrat Jojo Martínez PA-C [facility] 04/24/2024 Last Documented On 4 10:18AM ; [facility] Orthovisc Hyaluonan, 2cc (LEFT) J7324 Unilateral primary osteoarthritis, left knee Monserrat Jojo Martínez PA-C [facility] 04/24/2024 Last Documented On 4 10:18AM ; [facility] Medical History Includes: Medical History addressed [...] Active Last Documented On 4 10:12AM ; [facility] 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 Last Documented On 4 10:12AM ; [facility] Levaquin Allergy 04/08/2010 Active Last Documented On 4 10:12AM ; [facility] Encounters Encounter Provider Location Date Check-In Time Check-Out Time Diagnosis JACSKON Injection Monserrat Jojo Martínez PA-C [facility] 04/24/20 24 10:18AM 10:57AM Insurance Includes: Active Insurance Policies Plan Name Member ID Group # Subscriber Relationship Effect jordan Dates 1 - [facility] [id number] Jackelin Kaba Self Clinical Notes Includes: Clinical Notes from this encounter No Clinical Notes Recorded
--- OUTSIDE RECORDS SUMMARY | 2024-10-26 09:30 | XMS_ITS | Clinical Summary ---
Author Organization [facility] , [facility] Address [address] [place] [address] Phone Care Team Providers Care Energy Sales Broker Name Role Phone Evgeny BUSH, Grant Inman Unavailable [phone] KIM LAINEZ Unavailable [phone] TY PATEL MD Unavailable [phone] Reason for Visit and Chief Complaint JACKSON Injection Problems Includes: Problems addressed during this encounter and other active Problems All Visits Onset Date Resolved Date Provider Condition S tatus Joint Pain in the Left Knee 01/12/2024 Bridgett QUEZADA Active Last Documented On 4 10:20AM ; [facility], [facility] Joint Pain in the Right Hip 03/10/2016 Floerntino bishop MD Active Last Documented On 6 9:43AM ; [facility], [facility] Joint Pain in the Right Knee 01/07/2016 Florentino Robin MD Active Last Documented On 6 2:39PM ; [facility], [facility] Joint Pain, Localized in the Shoulder 11/15/2012 Florentino Robin MD Active Last Documented On 3 3:08PM ; [facility], [facility] Plan of Treatment No Plan of [...] On 4 9:54AM By Swathi Barajas ; [facility], [facility] Tetracycline HCl 250 MG Oral Capsule 11/02/2023 Prov ider: Diagnosis: Last Documented On 4 9:53AM By Swathi Barajas ; [facility] Vitamin D3 1.25 MG (95600 UT) Oral Capsule 11/02/2023 Provider: Diagnosis: Last Documented On 4 9:53AM By Swathi Barajas ; [facility] Januvia 100 MG Oral Tablet 11/02/2023 Provider: Diagnosis: Last Documented On 4 9:53AM By Swathi Barajas ; [facility] Sotalol HCl 120 MG Oral Tablet 11/02/2023 Provider: Diagnosis: Last Documented On 4 9:53AM By Swathi Barajas ; [facility], [facility] Adult Aspirin Regimen 81 MG Oral Tablet Delayed Releas e 11/02/2023 Provider: Diagnosis: Last Documented On 4 9:52AM By Swathi Barajas ; [facility] Famotidine 10 MG Oral Tablet 11/02/2023 Provider: Diagnosis: Last Documented On 4 9:52AM By Swathi Barajas ; [facility] Gabapentin 100 MG Oral Capsule 11/02/2023 Provider: Diagnosis: Last Documented On 4 9:52AM By Swathi Barajas ; [facility] Lasix 20 MG Oral Tablet 11/02/2023 Provider: Diagnosis: Last Documented On 4 9:52AM By Swathi Barajas ; [facility] Potassium Chloride 10 MEQ/100ML Intravenous Solution 0 11/02/2023 Provider: Diagnosis: Last Documented On 4 9:52AM By Swathi Barajas ; [facility] Folinic-Plus 4-50-2 MG Oral Tablet 11/02/2023 Provid er: Diagnosis: Last Documented On 4 9:54AM By Swathi Barajas ; [facility], [facility] Medications Administered Includes: Administered Medications from [...] osteoarthritis, left knee Monserrat Jojo Martínez PA-C [facility] 04/10/2024 Last Documented On 4 2:44PM ; [facility] Orthovisc Hyaluonan, 2cc (LEFT) J7324 Unilateral primary osteoarthritis, left knee Monserrat Jojo Martínez PA-C [facility] 04/10/2024 Last Documented On 4 2:44PM ; [facility] Medical History Includes: Medical History [...] Active Last Documented On 4 10:12AM ; [facility] 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 Last Documented On 4 10:12AM ; [facility] Levaquin Allergy 04/08/2010 Active Last Documented On 4 10:12AM ; [facility] Encounters Encounter Provider Location Date Check-In Time Check-Out Time Diagnosis JACKSON Injection Monserrat Jojo Martínez PA-C [facility] 04/10/20 24 10:19AM 10:29AM Insurance Includes: Active Insurance Policies Plan Name Member ID Group # Subscriber Relationship Effect jordan Dates 1 - [facility] [id number] Jackelin Kaba Self Clinical Notes Includes: Clinical Notes from this encounter No Clinical Notes Recorded
--- OUTSIDE RECORDS SUMMARY | 2024-10-26 09:30 | XMS_ITS | Clinical Summary ---
Author Organization [facility] , [facility] Address [address] [place] [address] Phone Care Team Providers Care Harpoon Engagement Planning Operator Name Role Phone Evgeny BUSH, Grant Inman Unavailable [phone] KIM LAINEZ Unavailable [phone] TY PATEL MD Unavailable [phone] Reason for Visit and Chief Complaint The Chief Complaint is: right hip pain Problems Includes: Problems addressed during this encounter and other active Problems All Visits Onset Date Resolved Date Provider Condition S tatus Joint Pain in the Left Knee 01/12/2024 Bridgett QUEZADA Active Last Documented On 4 10:20AM ; [facility], [facility] Joint Pain in the Right Hip 03/10/2016 Florentino bishop MD Active Last Documented On 6 9:43AM ; [facility], [facility] Joint Pain in the Right Knee 01/07/2016 Florentino Robin MD Active Last Documented On 6 2:39PM ; [facility], [facility] Joint Pain, Localized in the Shoulder 11/15/2012 Flroentino Robin MD Active Last Documented On 3 3:08PM ; [facility], [facility] Plan of Treatment I have reviewed the radiographs and physical [...] Using a 25-gauge needle directing it at 90? toward the hip bursa, the right hip bursa was injected with 2mL of 1% lidocaine and 1mL of betamethasone. Needle was withdrawn and Band-Aid was applied. The patient tolerated the procedure well. I will plan to follow-up with her as scheduled. She is very comfortable with the plan moving forward and will call our office with any questions or concerns. - Last Documented On 03/29/2024 11:44AM ; [facility], [facility] Instructions to patient Lose weight Last Documented On 4 10:12AM ; [facility], [facility] Assessments Includes: Assessments from this encounter Findings - Overweight - Last Documented On 03/29/2024 11:44AM ; [facility], [facility] Instructions Includes: Instructions from this encounter Instructions to patient Lose weight Last Documented On 4 10:12AM ; [facility], [facility] Medical Equipment - Implanted Devices Includes: Current Devices No Medical Equipment Recorded Medications Includes: Medications discussed during this encounter and other current Medications Current Medications (continue as prescribed) Pepto-Bismol 262 MG Oral Tablet Chewable 11/02/2023 Provider: Diagnosis: Last Documented On 4 9:54AM By Swathi Pantoja [facility], [facility] Tetracycline HCl 250 MG Oral Capsule 11/02/2023 Prov ider: Diagnosis: Last Documented On 4 9:53AM By Swathi Pantoja [facility], [facility] Vitamin D3 1.25 MG (34804 UT) Oral Capsule 11/02/2023 Provider: Diagnosis: Last Documented On 4 9:53AM By Swathi Pantoja [facility], [facility] Januvia 100 MG Oral Tablet 11/02/2023 Provider: Diagnosis: Last Documented On 4 9:53AM By Swathi Pantoja [facility], [facility] Sotalol HCl 120 MG Oral Tablet 11/02/2023 Provider: Diagnosis: Last Documented On 4 9:53AM By Swathi Pantoja [facility], [facility] Adult Aspirin Regimen 81 MG Oral Tablet Delayed Releas e 11/02/2023 Provider: Diagnosis: Last Documented On 4 9:52AM By Swathi Pantoja [facility], [facility] Famotidine 10 MG Oral Tablet 11/02/2023 Provider: Diagnosis: Last Documented On 4 9:52AM By Swathi Barajas ; [facility], [facility] Gabapentin 100 MG Oral Capsule 11/02/2023 Provider: Diagnosis: Last Documented On 4 9:52AM By Swathi Barajas ; [facility], [facility] Lasix 20 MG Oral Tablet 11/02/2023 Provider: Diagnosis: Last Documented On 4 9:52AM By Swathi Barajas ; [facility], [facility] Potassium Chloride 10 MEQ/100ML Intravenous Solution 0 11/02/2023 Provider: Diagnosis: Last Documented On 4 9:52AM By Swathi Barajas ; [facility], [facility] Folinic-Plus 4-50-2 MG Oral Tablet 11/02/2023 Provid er: Diagnosis: Last Documented On 4 9:54AM By Swathi Barajas ; [facility], [facility] Past Medications on file HYDROcodone-Acetaminophen 10 -325 MG Oral Tablet 01/18/2024 - 01/25/2024 Provider: Grant Pepper MD Diagnosis: 1 tab every 6 hrs prn pain Last Documented On 4 3:36PM By Dr. Pepper ; [facility], [facility] Lovenox 30 MG/0.3ML Solution 04/10/2016 - 04/17/2016 Provider: Florentino Robin MD Diagnosis: Aftercare follow ing joint replacement surgery use as directed 1 injection per day for 7 days Last Documented On 6 10:02AM By Weplay ; [facility], [facility] Powderly 10-325 MG Tablet 04/10/2016 - 04/20/2016 Provide r: Florentino Robin MD Diagnosis: 1 tab every 6 hrs prn pain Last Documented On 6 9:58AM By [employer] ; [facility], [facility] Mobic 15 MG Tablet 02/05/2016 - 05/05/2016 Provider: Florentino Robin MD Diagnosis: Trochanteric bur sitis, right hip once a day Last Documented On 6 9:28AM By Weplay ; [facility] Powderly 10-325 MG Tablet 01/09/2016 - 01/19/2016 Provide r: Florentino Robin MD Diagnosis: 1 tab every 6 hrs prn pain Last Documented On 6 1:40PM By Helen Persons ; [facility] Percocet 5-325 MG OR TABS 03/21/2014 - 03/27/2014 Prov ider: Florentino Robin MD Diagnosis: Last Documented On 4 11:12AM By Melissa Sandoval ; [facility] Soma 350 MG OR TABS 05/01/2010 - 05/31/2010 Provider: Benito Cuellar MD Diagnosis: dispensed in office/ab Last Documented On 0 11:34AM By Gipson 1 User ; [facility] Neurontin 100 MG OR CAPS 05/01/2010 - 05/31/2010 Provi santos: Benito Cuellar MD Diagnosis: dispensed in office/ab Last Documented On 0 11:34AM By Gipson 1 User ; [facility] Celecoxib 200 MG OR CAPS 05/01/2010 - 05/31/2010 Provi santos: Benito Cuellar MD Diagnosis: dispensed in office/ab Last Documented On 0 11:33AM By Gipson 1 User ; [facility] Lortab 5-500 MG OR TABS 05/18/2006 - 05/28/2006 Provid er: Diagnosis: Last Documented On 6 3:24PM By Gipson 5 User ; [facility] Lortab 5-500 MG OR TABS 09/01/2005 - 09/11/2005 Provid er: Grant Pepper MD Diagnosis: Last Documented On 6 9:54AM By Gipson 6 User ; [facility] Medications Administered Includes: Administered Medications from this encounter No Administered Medications Recorded Vital Signs Includes: Vital Signs from this encounter Vital Name 03/29/2024 10:13A Height (in) 63 Weight (lb) 150 Body Mass Index 26.6 Body Surface Area 1.7 Note: as Last Documented: On 03/29/2024 10:13A M ; [facility] Results Includes: Results discussed during this encounter No Results Recorded For Specified Dates History of Present Illness Includes: History of Present Illness from this encounter HPI Jackelin Kaba is a 59 year old [...] the lateral aspect of her right hip. Social History Description Last Updated Yes, current smoker. 11/02/2023 Last Documented On 4 10:12AM ; [facility], [facility] No recent change in diet 11/02/2023 Last Documented On 4 10:12AM ; [facility], [facility] Not using alcohol 11/02/2023 Last Documented On 4 10:12AM ; [facility], [facility] Caffeine use 07/25/2014 Last Documented On 4 10:12AM ; [facility], [facility] Current smoker 07/25/2014 Last Documented On 4 10:12AM ; [facility], [facility] No recent change in diet 07/25/2014 Last Documented On 4 10:12AM ; [facility], [facility] Not exercising regularly 07/25/2014 Last Documented On 4 10:12AM ; [facility], [facility] Not using drugs 07/25/2014 Last Documented On 4 10:12AM ; [facility], [facility] Tobacco use 07/25/2014 Last Documented On 4 10:12AM ; [facility], [facility] Smoking status : Current everyday smoker 07/25/2014 Last Documented On 4 10:12AM ; [facility], [facility] Procedures and Surgical History Includes: Procedures from this encounter Procedures Code Diagnosis Performing Provider Service Location Service Date DRAIN/INJECT, JOINT/BURSA (Unrelated Procedure, RIGHT) Trochanteric bursitis, right hip Monserrat Martínez PA-C [facility] 03/29/2024 Last Documented On 4 10:47AM ; [facility] Injection, betamethasone acetate 6mg per cc and betamethason J0702 Trochanteric bursitis, right hip Monserrat Martínez PA-C [facility] 03/29/2024 Last Documented On 4 10:47AM ; [facility] PELVIS w/ 2-3 VIEW HIP (RIGHT) 05498 Trochanteric bursitis, right hip Monserrat Martínez PA-C [facility] 03/29/2024 Last Documented On 4 10:47AM ; [facility] use of tobacco assessment performed 1000F Last Documented On 4 10:12AM ; [facility] review of medications documented 1160F Last Documented On 4 10:12AM ; [facility] an X-ray was performed 30367 Last Documented On 4 10:12AM ; [facility] an MRI was performed 86219 Last Documented On 4 10:12AM ; [facility] Surgical History Last Updated History of appendectomy 01/21/2016 Last Documented On 4 10:12AM ; [facility] History of heart surgery 01/21/2016 Last Documented On 4 10:12AM ; [facility] History of hysterectomy 01/21/2016 Last Documented On 4 10:12AM ; [facility] Medical History Includes: Medical History addressed during this encounter Description Last Updated bloodtransfusion ~acid reflux heart burn ~high cholesterol 01/21/2016 Last Documented On 4 10:12AM ; [facility] Arthritic joint problems 01/21/2016 Last Documented On 4 10:12AM ; [facility] History of acute myocardial infarction 0 01/21/2016 Last Documented On 4 10:12AM ; [facility] History of diverticulitis of colon 01/20 Last Documented On 4 10:12AM ; [facility], [facility] History of heart disease 01/21/2016 Last Documented On 4 10:12AM ; [facility] Intermittent hypertension 01/21/2016 Last Documented On 4 10:12AM ; [facility] Liver disease 01/21/2016 Last Documented On 4 10:12AM ; [facility], [facility] Family History Includes: Family History addressed during this encounter Description Last Updated Family history of diabetes mellitus 01/09 Last Documented On 4 10:12AM ; [facility], [facility] Family history of hypertension Last Documented On 4 10:12AM ; [facility], [facility] Review of Systems Includes: Review of Systems from this encounter Systemic: Not feeling tired, no recent weight [...] Immunologic: No complaint of seasonal allergic reaction. Mental Status Includes: Mental Status from this encounter Description No anxiety Functional Status Includes: Functional Status from this encounter No Functional Status Recorded Physical Exam Includes: Physical Exam from this encounter Allergies Includes: Active Allergies Substance Type Reaction Onset Date Resolved Date Statu s Percocet Allergy 04/08/2010 Active Last Documented On 4 10:12AM ; [facility], [facility] 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 Last Documented On 4 10:12AM ; [facility], [facility] Levaquin Allergy 04/08/2010 Active Last Documented On 4 10:12AM ; [facility], [facility] Encounters Encounter Provider Location Date Check-In Time Check-Out Time Diagnosis Follow Up Monserrat Martínez PA-C [facility] 4 10:10AM 10:58AM Overweight Insurance Includes: Active Insurance Policies Plan Name Member ID Group # Subscriber Relationship Effect jordan Dates 1 - [facility] [id number] Jackelin Kaba Self Clinical Notes Includes: Clinical Notes from this encounter * Progress note Date Encounter Last Documented by 03/29/2024 Follow Up Last documented on 03/29/2024; 11:44 AM, Monserrat Martínez PA-C; [facility], [facility] Active Problems & Conditions - Joint Pain [...] 0 refills - Vitamin D3 1.25 MG (13834 UT) Oral Capsule take as directed 0 [...]
--- OUTSIDE RECORDS SUMMARY | 2024-10-26 09:30 | XMS_ITS ---
Care Plan - [facility], [facility] Created on: October 26, 2024 Jackelin Kaba : 1965 Sex: Female Author Organization [facility] , [facility] Address [address] [place] [address] Phone Care Team Providers Care Clockmaker Apprentice Name Role Phone Evgeny BUSH, Grant Inman Unavailable [phone] KIM LAINEZ Unavailable [phone] TY PATEL MD Unavailable [phone]
== END 2024-10-25 23:59 | disposition home or self-care (01) ==
LOC: LAB.DROPOF 10-26 09:28
PROVIDERS: PCP Nurse Practitioner Family; Visit Provider Nurse Practitioner Family
DX: M81.0 Age-related osteoporosis without current pathological fracture (principal); E11.9 Type 2 diabetes mellitus without complications; D64.89 Other specified anemias; R79.89 Other specified abnormal findings of blood chemistry
CPT/HCPCS: 80053; 82043; 82570; 82607; 82728; 83036; 84443; 85025

== ENCOUNTER 2025-01-16 12:11 | Outpatient (CLI) | payer OTHER, SELFPAY ==
[2025-01-16 14:05] LABS: Hematocrit 52.5 % (37.0-47.0); Hemoglobin 16.9 g/dL (12.2-16.2); Immature Granulocytes % 0.4 %; Mean Corpuscular HGB Conc 32.2 g/dL (31.8-35.4); Mean Corpuscular Hemoglobin 28.0 pg (27.0-31.2); Mean Corpuscular Volume 87.1 fl (81-99); Nucleated Red Blood Cells % 0 %; Platelet Count 195 K/mm3 (142-424); Red Blood Count 6.03 M/mm3 (4.20-5.40); Red Cell Distribution Width-SD 53.4 fL; White Blood Count 6.7 K/mm3 (4.8-10.8)
[2025-01-16 14:31] LABS: Alanine Aminotransferase 19 U/L (12-78); Albumin Level 4.9 g/dl (3.5-5.0); Albumin/Globulin Ratio 1.7 (1.1-1.8); Alkaline Phosphatase 102 U/L (38-126); Anion Gap 17.3 mEq/L (5-15); Aspartate Amino Transferase 30 U/L (14-36); Bilirubin,Total 0.6 mg/dl (0.2-1.3); Blood Urea Nitrogen 15 mg/dl (7-17); Calcium 9.9 mg/dl (8.4-10.2); Carbon Dioxide 31 mmol/L (22.0-30.0); Chloride 98 mmol/L (98-107); Creatinine,Serum 0.70 mg/dl (0.52-1.04); Estimated Glomerular Filt Rate 85 ml/min (>60); GFR (African American) 103 ML/MIN (>60); Globulin 2.9 g/dL (1.3-3.2); Glucose 104 mg/dl (74-100); Potassium 4.3 mmoL/L (3.5-5.1); Sodium 142 mmol/L (136-145); Total Protein,Serum 7.8 g/dl (6.3-8.2)
[2025-01-16 15:11] LABS: Hemoglobin A1C 6.8 % (4.0-6.0)
[2025-01-16 15:59] LABS: Ferritin 28.7 ng/ml (11.1-264)
--- OUTSIDE RECORDS SUMMARY | 2025-01-17 10:44 | XMS_ITS | Clinical Summary ---
Author Organization [facility] Address [address] [place] [phone] Phone Care Team Providers Care Denitrator Operator Name Role Phone Unavailable Primary Care Provider Unavailabl e Social History Tobacco Use Types Packs/Day Years Used Date Smoking Tobacco: Never Assessed Comments Unknown Sex and Gender Information Value Date Recorded Sex Assigned at Not on file Legal Sex Female 5:44 AM EDT Gender Identity Not on file Sexual Orientation Not on file Plan of Treatment Health Maintenance Due Date Last Done Comments Annual Wellness Exam 01/21/1967 Hepatitis C Screening 01/21/1982 DTaP/TDaP/Td (1 - Tdap) 01/21/1983 Cologuard 01/21/2009 Colon Cancer Screening 01/21/2009 Colonoscopy 01/21/2009 FIT 01/21/2009 Sigmoidoscopy 01/21/2009 Virtual Colonography 01/21/2009 Pneumococcal Vaccine 50+ (1 of 1 - PCV) 01/21/2014 Zoster (1 of 2) 01/21/2014 COVID-19 Vaccine (2023-2 5 season) 2024 Influenza Vaccine (#1) 2025 Hepatitis B Vaccine Aged Out No longe r eligible based on patient's age to complete this topic Meningococcal B Vaccine Aged Out No l onger eligible based on patient's age to complete this topic
== END 2025-01-16 23:59 | disposition home or self-care (01) ==
LOC: LAB.DROPOF 01-17 10:40
PROVIDERS: PCP Nurse Practitioner Family; Visit Provider Nurse Practitioner Family
DX: E11.9 Type 2 diabetes mellitus without complications (principal); D50.9 Iron deficiency anemia, unspecified
CPT/HCPCS: 80053; 82728; 83036; 85025

== ENCOUNTER 2025-02-06 09:10 | Outpatient (CLI) | payer OTHER, SELFPAY ==
--- OUTSIDE RECORDS SUMMARY | 2025-02-06 09:12 | XMS_ITS | Clinical Summary ---
Author Organization [facility] Address [address] [place] [address] Care Team Providers Care Metal Cut Off Saw Tender Name Role Phone Massiel Wells APRN Primary Care Provider Allergies Active Allergy Reactions Criticality Noted Date Comments Atorvastatin Myalgia High 05/20/2023 Codeine Anaphylaxis High 09/01/2019 Levofloxacin Rash Low 09/01/2019 Morphine GI Intolerance Low 09/01/2019 Oxycodone Swelling High 05/20/2023 Medications aspirin 81 MG tablet Take 1 tablet by mouth Daily. Active furosemide (LASIX) 40 MG tablet Take 1 tablet by mouth Daily. Active potassium chloride (K-DUR) 10 MEQ CR tablet Take 1 tablet by mouth 2 (Two) Times a Day. 2 tabs in am and 1 tab in the evening Active nitroglycerin (NITROSTAT) 0.[address] 1 tablet under the tongue Every 5 (Five) Minutes As Needed for Chest Pain. Take no more than 3 doses in 15 minutes. Active albuterol sulfate HFA 108 (90 Base) MCG/ACT inhaler As Needed. 06/07/2023 Ac tive vitamin D3 125 MCG (5000 UT) capsule capsule Take 1 capsule by mouth Daily. Active gabapentin (NEURONTIN) 300 MG capsule 1 capsule. 05/04/2023 Active SITagliptin (JANUVIA) 100 MG tablet 1 tablet. 05/17/2023 Active Rybelsus 3 MG tablet Take 1 tablet by mouth Daily. 06/21/2023 Active SudoGest 30 MG tablet As Needed. 05/27/2023 Active Folinic-Plus 4-50-2 MG tablet Take 1 tablet by mouth Daily. 06/07/2023 Active famotidine (PEPCID) 40 MG tablet 06/18/2023 Active sotalol (BETAPACE) 80 MG tablet Take 1 tablet by mouth Every 12 (Twelve) Hours. 180 tablet 2 06/25/2023 Active clopidogrel (PLAVIX) 75 MG tablet Take 1 tablet by mouth Daily. 90 tablet 3 06/28/2023 Active Active Problems Problem Noted Date Diagnosed Date Frequent PVCs 09/18/2019 Tobacco abuse 09/16/2019 Sleep apnea 09/16/2019 Mixed hyperlipidemia 09/01/2019 Essential hypertension 09/01/2019 Coronary artery disease invo lving quechan coronary artery of quechan heart without angina pectoris 09/01/2019 Type 2 diabetes mellitus wit hout complication, without long-term current use of insulin 09/01/2019 VHD (valvular heart disease) 09/01/2019 Resolved Problems Problem Noted Date Diagnosed Date Resolved Date Chest pain 09/16/2019 09/18/2019 Unstable angina pectoris 09/16/201903/2020 Overview (09/18/2019): Added automatically from request for surgery [id number] Family History Medical History Relation Name Comments Hepatitis Father Diabetes Mother Hypertension Mother Relation Name Status Comments Father Mother Social History Tobacco Use Types Packs/Day Years Used Date Smoking Tobacco: Every Day Cigarettes 1.5 52.6 Started: 1973 Smokeless Tobacco: Never Alcohol Use Standard Drinks/Week Comments Yes 0 (1 standard drink = 0.6 oz pur e alcohol) rarely AUDIT-C Answer Date Recorded Q1: How often do you have a drink containing alc ohol? Never 07/26/2020 Average Number of Drinks Not on file 021 Frequency of Binge Drinking Not on file 07/12 Abuse Screen Answer Date Recorded Unsafe at Home or Work/School Not on file Feels Threatened by Someone? Not on file 06/2023 Does Anyone Keep You from Co ntacting Others or Doint Things Outside the Home? Not on file 04/22/2023 Physical Sign of Abuse Present Not on file 1 Housing Stability Answer Date Recorded Current Living Arrangements Not on file 04/11 Potentially Unsafe Housing Conditions Not on susana e 04/22/2023 Family and Community Support Answer John e Recorded Help with Day-to-Day Activities Not on file 04/22/2023 Lonely or Isolated Not on file 04/22/2023 Employment Answer Date Recorded Do you want help finding or keeping work or a emily b? Not on file 04/22/2023 Disabilities Answer Date Recorded Concentrating, Remembering, or Making Decisions Difficulty Not on file 04/22/2023 Doing Errands Independently Difficulty Not on fi le 04/22/2023 Education Answer Date Recorded Help with school or training? Not on file Preferred Language Not on file 04/22/2023 Comments No Sex and Gender Information Value Date Recorded Sex Assigned at Not on file Legal Sex Female 11:10 AM EST Gender Identity Not on file Sexual Orientation Not on file Last Filed Vital Signs Vital Sign Reading Time Taken Comments Blood Pressure 130/68 06/25/2023 10:25 AM EST Pulse 68 06/25/2023 10:25 AM EST Temperature 36.1 C (96.9 F) 07/26/2020 2:40 PM EST Respiratory Rate 16 09/18/2019 1:51 PM EDT Oxygen Saturation 98% 06/25/2023 10: 25 AM EST Inhaled Oxygen Concentration - - Weight 68.9 kg (151 lb 12.8 oz) 023 10:25 AM EST Height 160 cm (5' 3 ) 06/25/2023 10:25 AM EST Body Mass Index 26.89 06/25/2023 10:25 AM EST Plan of Treatment Health Maintenance Due Date Last Done Comments Annual Gynecologic Pelvic and Breast Exam 1965 DIABETIC EYE EXAM 01/21/1974 DIABETIC FOOT EXAM 01/21/1974 URINE MICROALBUMIN-CREATININE RATIO (uACR) 01/21/1974 Pneumococcal Vaccine 50+ (1 of 2 - PCV) 01/21/1983 TDAP/TD VACCINES (1 - Tdap) 01/21/1983 PAP SMEAR 01/21/1985 MAMMOGRAM 2004 COLOGUARD 01/21/2009 COLON CANCER SCREENING 5 YEAR SIGMOIDOSCOPY 01/21/2009 COLONOSCOPY 01/21/2009 COLORECTAL CANCER SCREENING 01/21/2009 CT COLONOGRAPHY 01/21/2009 FECAL OCCULT BLOOD TEST 01/21/2009 FIT Testing (1 year) 01/21/2009 ZOSTER VACCINE (1 of 2) 01/21/2014 ANNUAL PHYSICAL 08/29/2019 HEPATITIS C SCREENING 08/29/2019 HEMOGLOBIN A1C 03/19/2020 09/17/2019 LIPID PANEL 09/16/2020 09/17/2019 COVID-19 Vaccine ( season) 2024 INFLUENZA VACCINE 04/11/2025 06/18/2023 Procedures Procedure Name Priority Date/Time Associated Diagnosis Comments HEMOGLOBIN A1C Routine 09/17/2019 5:21 AM EDT LIPID PANEL Routine 09/17/2019 5:21 AM EDT from Last 3 Months or Most Recently Relevant to Health Maintenance Results * (ABNORMAL) Hemoglobin A1c (09/17/2019 5:21 AM EDT) Hemoglobin A1C 6.60(H) 4.80 - 5.60 % 09/17/2019 6:23 AM EDT [facility] Blood Venipuncture / Unknown 09/17/2019 5:21 AM EDT 09/17/2019 5:57 AM EDT Narrative [facility] - 09/17/2019 6:23 AM EDT Hemoglobin A1C Ranges: Increased Risk for Diabetes 5.7% to 6.4% Diabetes >= 6.5% Diabetic Goal < 7.0% Roxi Murdock PA-C LAB BLOOD ORDERABLES Final R esult [facility]
[address] [place] [address], * (ABNORMAL) Lipid Panel (09/17/2019 5:21 AM EDT) Total Cholesterol 144 0 - 200 mg/dL 09/17/2019 6:38 AM EDT [facility] Triglycerides 163(H) 0 - 150 mg/dL 09/17/2019 6:38 AM EDT [facility] HDL Cholesterol 30(L) 40 - 60 mg/dL 09/17/2019 6:38 AM EDT [facility] LDL Cholesterol 81 0 - 100 mg/dL 09/17/2019 6:38 AM EDT [facility] VLDL Cholesterol 32.6 mg/dL 09/17/19 20 6:38 AM EDT [facility] LDL/HDL Ratio 2.71 09/17/2019 6:38 AM EDT [facility] Blood Venipuncture / Unknown 09/17/2019 5:21 AM EDT 09/17/2019 5:56 AM EDT Narrative [facility] - 09/17/2019 6:38 AM EDT Cholesterol Reference Ranges (U.S. Department of Health and Human Services ATP III Classifications) Desirable <200 mg/dL Borderline High 200-239 mg/dL High Risk >240 mg/dL Triglyceride Reference Ranges (U.S. Department of Health and Human Services ATP III Classifications) Normal <150 mg/dL Borderline High 150-199 mg/dL High 200-499 mg/dL Very High >500 mg/dL HDL Reference Ranges (U.S. Department of Health and Human Services ATP III Classifcations) Low <40 mg/dl (major risk factor for CHD) High >60 mg/dl ('negative' risk factor for CHD) LDL Reference Ranges (U.S. Department of Health and Human Services ATP III Classifcations) Optimal <100 mg/dL Near Optimal 100-129 mg/dL Borderline High 130-159 mg/dL High 160-189 mg/dL Very High >189 mg/dL Roxi Murdock PA-C LAB BLOOD ORDERABLES Final R esult [facility]
[address] [place] [address], from Last 3 Months or Most Recently Relevant to Health Maintenance Insurance [facility] Advance Directives * CPR (Attempt to Resuscitate) (Latest Code Status on File) Date Activated Date Inactivated Comments 09/16/2019 9:28 PM 09/18/2019 6:32 PM Question Answer Comments Code Status (Patient has no pulse and is not breathing): CPR (Attempt to Resuscitate) Medical Interventions (Patie nt has pulse or is breathing): Full Level Of Support Discussed With: Patient Care Teams Metal Cut Off Saw Tender Relationship Specialty Start Date End Date Massiel Wells APRN [address] [place] [phone] PCP - General Internal Medicine 06/25/23
--- OUTSIDE RECORDS SUMMARY | 2025-02-06 09:12 | XMS_ITS | Clinical Summary ---
Author Organization [facility] Address [address] [place] [phone] Phone Care Team Providers Care Student Affairs Dean Name Role Phone Unavailable Primary Care Provider [...]
[2025-02-06 11:36] LABS: Bilirubin,Direct 0.4 mg/dl (0.0-0.4); Bilirubin,Indirect 0.4 mg/dL (0.0-0.9); Bilirubin,Total 0.8 mg/dl (0.2-1.3); Bilirubin,Unconjugated 0.4 mg/dL (0.0-1.1)
[2025-02-06 11:37] LABS: Albumin Level 5.0 g/dl (3.5-5.0); Aspartate Amino Transferase 38 U/L (14-36); Cholesterol 203 mg/dl (140-200); HDL Cholesterol 44 mg/dl (40-60); Total Protein,Serum 7.9 g/dl (6.3-8.2); Triglycerides 155 mg/dl (30-150)
[2025-02-06 11:38] LABS: Alkaline Phosphatase 137 U/L (38-126)
[2025-02-06 12:24] LABS: Alanine Aminotransferase 19 U/L (12-78)
== END 2025-02-06 23:59 | disposition home or self-care (01) ==
LOC: LAB 09:11
PROVIDERS: PCP Nurse Practitioner Family; Visit Provider Physician Assistant
DX: I25.10 Atherosclerotic heart disease of native coronary artery without angina pectoris (principal); I10 Essential (primary) hypertension
CPT/HCPCS: 36415; 80061; 80076

== ENCOUNTER 2025-02-26 11:43 | Outpatient (CLI) | payer OTHER, SELFPAY ==
--- NOTE | 2025-02-26 11:45 | XR_ITS ---
FINAL REPORT CLINICAL HISTORY: left arm numbness COMPARISON: None FINDINGS: CERVICAL SPINE 5 views were obtained. There is no acute fracture or malalignment. There is mild anterior osteophyte formation at C4-5, C5-6, and C6-7. Cervical lordosis is preserved. The neural foramina are adequately patent. IMPRESSION: No acute process. Mild anterior osteophytes. Reviewed, Interpreted and Dictated by Bo Davison MD Transcribed by Georgia Heck Authenticated and [facility]
--- NOTE | 2025-02-26 11:45 | XR_ITS ---
FINAL REPORT CLINICAL HISTORY: thoracic back pain COMPARISON: None FINDINGS: Two views of the thoracic spine were obtained. There is no fracture present. There is mild thoracic scoliosis. Mild anterior osteophyte formation is noted in the midthoracic spine. IMPRESSION: Mild degenerative/chronic changes without acute process. Reviewed, Interpreted and Dictated by Bo Davison MD Transcribed by Georgia Heck Authenticated and [facility]
--- OUTSIDE RECORDS SUMMARY | 2025-02-26 11:46 | XMS_ITS | Clinical Summary ---
Author Organization [facility] Address [address] [place] [address] Care Team Providers Care Foreign Language Stenographer Name Role Phone Massiel Wells APRN Primary Care Provider [phone] Allergies Active Allergy Reactions Criticality Noted Date [...] hypertension 09/01/2019 Coronary artery disease invo lving alatna coronary artery of alatna heart without angina pectoris 09/01/2019 Type 2 diabetes mellitus wit hout complication, without long-term current use of insulin 09/01/2019 VHD (valvular heart disease) 09/01/2019 Resolved Problems Problem Noted Date Diagnosed Date Resolved Date Chest pain 09/16/2019 09/18/2019 Unstable angina pectoris 09/16/201903/2020 Overview (09/18/2019): Added automatically from request for surgery [id number] Family History Medical History Relation Name Comments [...] - 5.60 % 09/17/2019 6:23 AM EDT [facility] Blood Venipuncture / Unknown 09/17/2019 5:21 AM EDT 09/17/2019 5:57 AM EDT Narrative [facility] - 09/17/2019 6:23 AM EDT Hemoglobin A1C Ranges: Increased Risk for Diabetes 5.7% to 6.4% Diabetes >= 6.5% Diabetic Goal < 7.0% Roxi Murdock PA-C LAB BLOOD ORDERABLES Final R esult [facility]
[address] [place] [address], * (ABNORMAL) Lipid Panel (09/17/2019 5:21 AM EDT) Total Cholesterol 144 0 - 200 mg/dL 09/17/2019 6:38 AM EDT [facility] Triglycerides 163(H) 0 - 150 mg/dL 09/17/2019 6:38 AM EDT [facility] HDL Cholesterol 30(L) 40 - 60 mg/dL 09/17/2019 6:38 AM EDT [facility] LDL Cholesterol 81 0 - 100 mg/dL 09/17/2019 6:38 AM EDT [facility] VLDL Cholesterol 32.6 mg/dL 09/17/19 20 6:38 AM EDT [facility] LDL/HDL Ratio 2.71 09/17/2019 6:38 AM EDT [facility] Blood Venipuncture / Unknown 09/17/2019 5:21 AM EDT 09/17/2019 5:56 AM EDT Narrative [facility] - 09/17/2019 6:38 AM EDT Cholesterol [...] PA-C LAB BLOOD ORDERABLES Final R esult [facility]
[address] [place] [address], from Last 3 Months or Most Recently Relevant to Health Maintenance Insurance [facility] Advance Directives * CPR (Attempt to Resuscitate) (Latest Code Status on File) Date Activated Date Inactivated Comments 09/16/2019 9:28 PM 09/18/2019 6:32 PM Question Answer Comments Code Status (Patient has no pulse and is not breathing): CPR (Attempt to Resuscitate) Medical Interventions (Patie nt has pulse or is breathing): Full Level Of Support Discussed With: Patient Care Teams Foreign Language Stenographer Relationship Specialty Start Date End Date Massiel Wells APRN [address] [place] [phone] PCP - General Internal Medicine 06/25/23
--- OUTSIDE RECORDS SUMMARY | 2025-02-26 11:46 | XMS_ITS | Clinical Summary ---
Author Organization [facility] Address [address] [place] [phone] Phone Care Team Providers Care Blender/Braze Applicator Name Role Phone Unavailable Primary Care Provider [...]
== END 2025-02-26 23:59 | disposition home or self-care (01) ==
LOC: RAD 11:44
PROVIDERS: PCP Nurse Practitioner Family; Visit Provider Nurse Practitioner Family
DX: M47.814 Spondylosis without myelopathy or radiculopathy, thoracic region (principal); M25.78 Osteophyte, vertebrae; M54.2 Cervicalgia; R20.0 Anesthesia of skin; R20.2 Paresthesia of skin
CPT/HCPCS: 72050; 72070

== ENCOUNTER 2025-03-06 09:45 | Outpatient (CLI) | payer OTHER, SELFPAY ==
[2025-03-06 08:16] VITALS: BMI 26.5
--- OUTSIDE RECORDS SUMMARY | 2025-03-06 09:50 | XMS_ITS | Clinical Summary ---
Author Organization [facility] Address [address] [place] [address] Care Team Providers Care Vegetable Canner Name Role Phone Massiel Wells APRN Primary Care Provider [phone] Allergies Active Allergy Reactions Criticality Noted Date [...] hypertension 09/01/2019 Coronary artery disease invo lving hoopa coronary artery of hoopa heart without angina pectoris 09/01/2019 Type 2 diabetes mellitus wit hout complication, without long-term current use of insulin 09/01/2019 VHD (valvular heart disease) 09/01/2019 Resolved Problems Problem Noted Date Diagnosed Date Resolved Date Chest pain 09/16/2019 09/18/2019 Unstable angina pectoris 09/16/201903/2020 Overview (09/18/2019): Added automatically from request for surgery [id number] Family History Medical History Relation Name Comments [...] - 5.60 % 09/17/2019 6:23 AM EDT [facility] Blood Venipuncture / Unknown 09/17/2019 5:21 AM EDT 09/17/2019 5:57 AM EDT Narrative [facility] - 09/17/2019 6:23 AM EDT Hemoglobin A1C Ranges: Increased Risk for Diabetes 5.7% to 6.4% Diabetes >= 6.5% Diabetic Goal < 7.0% Roxi Murdock PA-C LAB BLOOD ORDERABLES Final R esult [facility]
[address] [place] [address], * (ABNORMAL) Lipid Panel (09/17/2019 5:21 AM EDT) Total Cholesterol 144 0 - 200 mg/dL 09/17/2019 6:38 AM EDT [facility] Triglycerides 163(H) 0 - 150 mg/dL 09/17/2019 6:38 AM EDT [facility] HDL Cholesterol 30(L) 40 - 60 mg/dL 09/17/2019 6:38 AM EDT [facility] LDL Cholesterol 81 0 - 100 mg/dL 09/17/2019 6:38 AM EDT [facility] VLDL Cholesterol 32.6 mg/dL 09/17/19 20 6:38 AM EDT [facility] LDL/HDL Ratio 2.71 09/17/2019 6:38 AM EDT [facility] Blood Venipuncture / Unknown 09/17/2019 5:21 AM EDT 09/17/2019 5:56 AM EDT Narrative [facility] - 09/17/2019 6:38 AM EDT [...] PA-C LAB BLOOD ORDERABLES Final R esult [facility]
[address] [place] [address], from Last 3 Months or Most Recently Relevant to Health Maintenance Insurance [facility] Advance Directives * CPR (Attempt to Resuscitate) (Latest Code Status on File) Date Activated Date Inactivated Comments 09/16/2019 9:28 PM 09/18/2019 6:32 PM Question Answer Comments Code Status (Patient has no pulse and is not breathing): CPR (Attempt to Resuscitate) Medical Interventions (Patie nt has pulse or is breathing): Full Level Of Support Discussed With: Patient Care Teams Vegetable Canner Relationship Specialty Start Date End Date Massiel Wells APRN [address] [place] [phone] PCP - General Internal Medicine 06/25/23
--- OUTSIDE RECORDS SUMMARY | 2025-03-06 09:50 | XMS_ITS | Clinical Summary ---
Author Organization [facility] Address [address] [place] [phone] Phone Care Team Providers Care News Broadcaster Name Role Phone Unavailable Primary Care Provider [...]
--- NOTE | 2025-03-06 09:54 | XR_ITS ---
FINAL REPORT CLINICAL HISTORY: pre operative evaluation for ear tubes, hx of smoker and cardiac stents COMPARISON: 07/14/2023 FINDINGS: 2 views of the chest were obtained . The heart is normal in size. The mediastinum is within normal limits. There is evidence of calcified granulomatous disease. The lungs are otherwise clear. There is no pneumothorax. Osseous structures are unremarkable. IMPRESSION: No acute cardiopulmonary process. Reviewed, Interpreted and Dictated by Hilary Farr MD Transcribed by Mirian Coker Authenticated and . [facility]
[2025-03-06 10:36] LABS: Chloride 104 mmol/L (98-107); Potassium 5.1 mmoL/L (3.5-5.1); Sodium 140 mmol/L (136-145)
[2025-03-06 10:37] LABS: Hematocrit 55.4 % (37.0-47.0); Mean Corpuscular HGB Conc 33.4 g/dL (31.8-35.4); Mean Corpuscular Hemoglobin 29.8 pg (27.0-31.2); Mean Corpuscular Volume 89.2 fl (81-99); Platelet Count 199 K/mm3 (142-424); Red Blood Count 6.21 M/mm3 (4.20-5.40); White Blood Count 9.6 K/mm3 (4.8-10.8)
[2025-03-06 10:39] LABS: Anion Gap 17.1 mEq/L (5-15); Blood Urea Nitrogen 20 mg/dl (7-17); Carbon Dioxide 24 mmol/L (22.0-30.0); Creatinine Clearance Estimated 63 mL/min (50-200); Creatinine,Serum 0.60 mg/dl (0.52-1.04); Estimated Glomerular Filt Rate 102 ml/min (>60); GFR (African American) 123 ML/MIN (>60)
[2025-03-06 10:40] LABS: Calcium 9.4 mg/dl (8.4-10.2); Glucose 105 mg/dl (74-100)
[2025-03-06 11:11] LABS: RBC Morphology Normal; Total Cells Counted 100
[2025-03-06 11:12] LABS: Hemoglobin 18.5 g/dL (12.2-16.2)
== END 2025-03-06 23:59 | disposition home or self-care (01) ==
LOC: PREOP 09:46
PROVIDERS: PCP Nurse Practitioner Family; Visit Provider Otolaryngology
DX: Z01.811 Encounter for preprocedural respiratory examination (principal); Z01.812 Encounter for preprocedural laboratory examination
CPT/HCPCS: 71046; 80048; 85007; 85014; 85018; 85048; 85049

== ENCOUNTER 2025-03-13 06:02 | Day surgery (SDC) | payer OTHER, SELFPAY ==
[2025-03-06 13:01] VITALS: BMI 26.5
[2025-03-13] VITALS (8 sets, daily range): BP systolic 124–150; BP diastolic 65–79; PULSE 49–61; RESP 14–18; TEMP 36.3–36.5; O2SAT 95–99
[2025-03-13 06:37] LABS: POC Glucose,Bedside 112 gm/dL (70-110)
[2025-03-13] MEDS: LACTATED RINGERS 1000ML 1,000 ML 25 ML IV ×2 (06:45→09:12)
--- NOTE | 2025-03-13 07:04 | P.PNANES_ITS ---
[facility] Disclaimer: The information contained in this section may have been updated after the patient was seen, as this information can be updated by other users. Medical History Diabetes CAD (coronary artery disease) Fluid level behind tympanic membrane of both ears Cholesteatoma of left ear Mastoiditis of both sides Acid reflux Benign colon polyp Hiatal hernia Impacted cerumen, left ear Ear itching Acute right hip pain Bilateral impacted cerumen Mixed hearing loss, bilateral PVD (peripheral vascular disease) Statin intolerance Claudication AVA on CPAP Surgical History History of ear surgery History of uvulectomy History of tonsillectomy History of appendectomy History of cholecystectomy History of hysterectomy History of shoulder surgery History of mandibular surgery H/O heart artery stent History of hip replacement Family History Mother Diabetes Social History Smoking Status: Current every day smoker tobacco type: cigarettes packs per day: 2 second hand exposure: Yes alcohol intake: never substance use type: denies use current occupational status: disabled Travel in the last 8 weeks?: None household members: spouse and family housing: house current occupation: [employer] current occupational exposures/hazards: No caffeine: Yes Have you lived/traveled outside US in past 30 days?: No Contact w/someone who lives/traveled outside US past 30 days?: No Exposure to someone with infectious disease in past 14 days?: No Do you have a fever (greater than 100.4 F or 38 C)?: No Have you tested positive for COVID-19?: No Exposed to someone with COVID-19 in past 14 days?: No Do you have a sore throat?: No Do you have a cough?: No Do you have any weakness?: No Do you have any diarrhea?: No Are you experiencing any unusual bleeding?: No Do you have any muscle aches/pain?: No Do you have any abdominal pain?: No Are you experiencing loss of taste or smell?: No [facility] Anesthesia Checklist Patient Identification Patient Identification: Arm Band and Family Structural Data Admitted From: Home Planned Operative Procedure/s: BMT Consent for Planned Operative Procedure(s) Verified: Yes Verified Documents: Surgical Consent and History and Physical NPO Status Verified Time NPO: 00:00 Additional verifications Patient : No Anesthesia Reactions: No Hx Blood Transfusions: No Blood Transfusion Reaction: No Cephalosporin Allergy: No Previous Colonoscopy: Yes Airway Assessment Mallampati Score:: Class II C-Spine Mobility Assessed: Yes TMJ Mobility Assessed: Yes Dentition: Edentulous Neurological Assessment Level of Consciousness: Awake, Alert, Appropriate and Follows Commands Hx Seizures: No Numbness or tingling in extremities: No Anesthesia Plan Anesthesia Risk discussed: Yes ASA Class: II Anesthesia Type: General Preoperative Comments Pre-Operative Comments: NIDDM. HR treated with Betablocker.
[2025-03-13] MEDS: CIPRO 0.3%-DEX 0.1% OTIC SUSP 7.5ML 7.5 ML OT (08:06)
--- NOTE | 2025-03-13 08:16 | EXP.OP.NOTE ---
Date of procedure: 03/13/25 Pre-op Diagnosis:: Chronic serous otitis media Post-op Diagnosis:: Chronic serous otitis media Procedure performed:: Bilateral tympanostomy and tube placement Surgeon:: Johnathan Yusuf MD Anesthesia: SMITA Estimated blood loss (mL): 0 Operative findings:: Markedly retracted tympanic membranes bilaterally Operative note:: The patient was brought to the operating room and after adequate general anesthesia the ears were draped in the usual sterile fashion and operating microscope employed to visualize the tympanic membranes. Findings as noted above. Tympanostomies were made in the anterior-inferior quadrant and this was done bilaterally. Suction was employed to clear the middle ear space of effusion and elevate the tympanic membranes into a more normal anatomic position. T tubes were then placed bilaterally and Ciprodex drops applied and the procedure concluded. All counts correct and blood loss was 0 and patient was sent to recovery in stable condition. Condition: stable Disposition: PACU Complications:: No complication
--- NOTE | 2025-03-13 08:29 | EXP.ANES.I ---
[facility] Anesthesia Record Part I Anesthesia Record I Intake, IV Amount: 300 Hydration: Adequate Estimated blood loss (mL): 0 Urine output (mL): 0 Blood Products used (#): none Blood Pressure: 143/72 SaO2: 99 Pulse Rate: 57 Airway Patency: Patent Respiratory Rate: 14 Temperature: 97.7 F Patient is:: Drowsy and Stable Stable to PACU at:: 08:25
[2025-03-13 08:40] LABS: POC Glucose,Bedside 108 gm/dL (70-110)
--- NOTE | 2025-03-14 08:32 | P.PNANES_ITS ---
[facility] Anesthesia Record Part II Anesthesia Record Part II Discharge Time: 08:45 Destination: Surgical Day Care (OP Surgery) PACU nurse assessment reviewed?: Yes Patient Condition:: Good Anesthesia Complications:: None Swallowing reflex intact?: Yes Airway Patency: Patent Cyanosis?: No Blood Pressure: 124/65 SaO2: 99 Respiratory Rate: 18 Pulse Rate: 55 Temperature: 97.7 F Mental Status: Alert & Oriented Pain level:: 0 Nausea and/or vomitting:: None Intake, IV Amount: 0 Hydration: Adequate
[2025-03-14 08:33] VITALS: BP 124/65; PULSE 55; RESP 18; TEMP 36.5; O2SAT 99
== END 2025-03-13 09:25 | disposition home or self-care (01) ==
PROVIDERS: PCP Nurse Practitioner Family; Visit Provider Otolaryngology
PROC: (CPT 69436; principal; 2025-03-13 07:30)
DX: H65.23 Chronic serous otitis media, bilateral (principal); I25.10 Atherosclerotic heart disease of native coronary artery without angina pectoris; E11.51 Type 2 diabetes mellitus with diabetic peripheral angiopathy without gangrene; G47.33 Obstructive sleep apnea (adult) (pediatric); F17.210 Nicotine dependence, cigarettes, uncomplicated; Z88.5 Allergy status to narcotic agent; Z88.1 Allergy status to other antibiotic agents; Z88.8 Allergy status to other drugs, medicaments and biological substances; Z99.89 Dependence on other enabling machines and devices; Z95.5 Presence of coronary angioplasty implant and graft; Z79.82 Long term (current) use of aspirin; Z79.899 Other long term (current) drug therapy
CPT/HCPCS: 69436; 82962; J1100; J2003; J2250; J2405; J2704; J3010; J7120

== ENCOUNTER 2025-04-21 18:06 | Emergency (ER) | payer MEDICARE, OTHER, SELFPAY ==
[2025-04-21 18:06] VITALS: BP 163/59; PULSE 55; RESP 15; TEMP 36.9; O2SAT 100; BMI 28.0
[2025-04-21 18:13] VITALS: BP 146/58; PULSE 55; O2SAT 97
--- NOTE | 2025-04-21 18:15 | ECG_ITS ---
APPROVED REPORT Exam: Resting ECG HR:58 bpm ECG Measurements Heart Rate 58 AXES CO 148 P 79 QRSd 139 QRS -77 QT 461 T 39 QTc 457 Conclusion Sinus bradycardia Left axis Right bundle branch block No STEMI Electronically signed by : Anirudh Alvarado, 04/21/2025 23:35:59
--- NOTE | 2025-04-21 18:19 | XR_ITS ---
PROCEDURE INFORMATION: Exam: XR Chest Exam date and time: 04/21/2025 6:32 PM Age: 60 years old Clinical indication: Shortness of breath; Additional info: Cp SOA TECHNIQUE: Imaging protocol: Radiologic exam of the chest. Views: 1 view. COMPARISON: CR XR CHEST 2V 03/06/2025 10:37 AM FINDINGS: Lungs: Mild pulmonary vascular prominence with subtle infrahilar and suprahilar interstitial prominence, concerning for early congestive changes. No definite airspace consolidations. Pleural spaces: Unremarkable. No pleural effusion. No pneumothorax. Heart/Mediastinum: [id number] cardiomegaly is stable. Vasculature: Calcified aortic knob. Bones/joints: Unremarkable. IMPRESSION: Mild pulmonary vascular prominence with subtle infrahilar and suprahilar interstitial prominence, concerning for early congestive changes.
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
[2025-04-21 18:28] VITALS: PULSE 59
--- OUTSIDE RECORDS SUMMARY | 2025-04-21 18:29 | XMS_ITS | Clinical Summary ---
Author Organization [facility] , [facility] Address [address] [place] [address] Phone Care Team Providers Care Water Rights Specialist Name Role Phone Evgeny BUSH, Grant Inman Unavailable [phone] KIM LAINEZ Unavailable [phone] TY PATEL MD Unavailable [phone] Reason for Visit and Chief Complaint JACKSON Injection Problems Includes: Problems addressed during this encounter and other active Problems All Visits Onset Date Resolved Date Provider Condition S tatus Joint Pain Left Knee 01/12/2024 Bridgett QUEZADA Active Last Documented On 4 10:20AM ; [facility] Joint Pain Hip Right 03/10/2016 Florentino Robin MD Active Last Documented On 6 9:43AM ; [facility] Joint Pain Right Knee 01/07/2016 Florentino tijerina MD Active Last Documented On 6 2:39PM ; [facility] Joint Pain Shoulder 11/15/2012 Florentino Robin MD Active Last Documented On 3 3:08PM ; [facility], [facility] Plan of Treatment No Plan of [...] On 4 9:54AM By Swathi Barajas ; [facility], [facility] Tetracycline HCl 250 MG Oral Capsule 11/02/2023 Prov ider: Diagnosis: Last Documented On 4 9:53AM By Swathi Barajas ; [facility], [facility] Vitamin D3 1.25 MG (95611 UT) Oral Capsule 11/02/2023 Provider: Diagnosis: Last Documented On 4 9:53AM By Swathi Barajas ; [facility] Januvia 100 MG Oral Tablet 11/02/2023 Provider: Diagnosis: Last Documented On 4 9:53AM By Swathi Barajas ; [facility], [facility] Sotalol HCl 120 MG Oral Tablet 11/02/2023 Provider: Diagnosis: Last Documented On 4 9:53AM By Swathi Barajas ; [facility], [facility] Adult Aspirin Regimen 81 MG Oral Tablet Delayed Releas e 11/02/2023 Provider: Diagnosis: Last Documented On 4 9:52AM By Swathi Barajas ; [facility], [facility] Famotidine 10 MG Oral Tablet 11/02/2023 Provider: Diagnosis: Last Documented On 4 9:52AM By Swathi Barajas ; [facility], [facility] Gabapentin 100 MG Oral Capsule 11/02/2023 Provider: Diagnosis: Last Documented On 4 9:52AM By Swathi Barajas ; [facility], [facility] Lasix 20 MG Oral Tablet 11/02/2023 Provider: Diagnosis: Last Documented On 4 9:52AM By Swathi Barajas ; [facility], [facility] Potassium Chloride 10 MEQ/100ML Intravenous Solution 0 11/02/2023 Provider: Diagnosis: Last Documented On 4 9:52AM By Swathi Barajas ; [facility], [facility] Folinic-Plus 4-50-2 MG Oral Tablet 11/02/2023 Provid er: Diagnosis: Last Documented On 4 9:54AM By Swathi Barajas ; [facility], [facility] Medications Administered Includes: Administered Medications from [...] osteoarthritis, left knee Monserrat Jojo Martínez PA-C [facility] 05/01/2024 Last Documented On 4 9:52AM ; [facility] Orthovisc Hyaluonan, 2cc (LEFT) [id number] Unilateral primary osteoarthritis, left knee Monserrat Uribe Mauricio SANCHES [facility] 05/01/2024 Last Documented On 4 9:52AM ; [facility] Medical History Includes: Medical History addressed during [...] Active Last Documented On 4 10:12AM ; [facility] 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 Last Documented On 4 10:12AM ; [facility] Levaquin Allergy 04/08/2010 Active Last Documented On 4 10:12AM ; [facility] Encounters Encounter Provider Location Date Check-In Time Check-Out Time Diagnosis JACKSON Injection Monserrat Jojo Martínez PA-C [facility] 05/01/20 24 10:12AM 10:30AM Insurance Includes: Active Insurance Policies Plan Name Member ID Group # Subscriber Relationship Effect jordan Dates 1 - [facility] [id number] Jackelin Kaba Self Clinical Notes Includes: Clinical Notes from this encounter No Clinical Notes Recorded
--- OUTSIDE RECORDS SUMMARY | 2025-04-21 18:29 | XMS_ITS | Clinical Summary ---
Author Organization [facility] , [facility] Address [address] [place] [address] Phone Care Team Providers Care Water Quality Technician Name Role Phone Evgeny BUSH, Grant Inman Unavailable [phone] KIM LAINEZ Unavailable [phone] TY PATEL MD Unavailable [phone] Reason for Visit and Chief Complaint JACKSON Injection Problems Includes: Problems addressed during this encounter and other active Problems All Visits Onset Date Resolved Date Provider Condition S tatus Joint Pain Left Knee 01/12/2024 Bridgett QUEZADA Active Last Documented On 4 10:20AM ; [facility] Joint Pain Hip Right 03/10/2016 Florentino Robin MD Active Last Documented On 6 9:43AM ; [facility] Joint Pain Right Knee 01/07/2016 Florentino tijerina MD Active Last Documented On 6 2:39PM ; [facility] Joint Pain Shoulder 11/15/2012 Florentino Robin MD Active Last Documented On 3 3:08PM ; [facility], [facility] Plan of Treatment No Plan [...] On 4 9:54AM By Swathi Barajas ; [facility], [facility] Tetracycline HCl 250 MG Oral Capsule 11/02/2023 Prov ider: Diagnosis: Last Documented On 4 9:53AM By Swathi Barajas ; [facility], [facility] Vitamin D3 1.25 MG (74755 UT) Oral Capsule 11/02/2023 Provider: Diagnosis: Last Documented On 4 9:53AM By Swathi Barajas ; [facility] Januvia 100 MG Oral Tablet 11/02/2023 Provider: Diagnosis: Last Documented On 4 9:53AM By Swathi Barajas ; [facility], [facility] Sotalol HCl 120 MG Oral Tablet 11/02/2023 Provider: Diagnosis: Last Documented On 4 9:53AM By Swathi Barajas ; [facility], [facility] Adult Aspirin Regimen 81 MG Oral Tablet Delayed Releas e 11/02/2023 Provider: Diagnosis: Last Documented On 4 9:52AM By Swathi Barajas ; [facility], [facility] Famotidine 10 MG Oral Tablet 11/02/2023 Provider: Diagnosis: Last Documented On 4 9:52AM By Swathi Barajas ; [facility], [facility] Gabapentin 100 MG Oral Capsule 11/02/2023 Provider: Diagnosis: Last Documented On 4 9:52AM By Swathi Barajas ; [facility], [facility] Lasix 20 MG Oral Tablet 11/02/2023 Provider: Diagnosis: Last Documented On 4 9:52AM By Swathi Barajas ; [facility], [facility] Potassium Chloride 10 MEQ/100ML Intravenous Solution 0 11/02/2023 Provider: Diagnosis: Last Documented On 4 9:52AM By Swathi Barajas ; [facility], [facility] Folinic-Plus 4-50-2 MG Oral Tablet 11/02/2023 Provid er: Diagnosis: Last Documented On 4 9:54AM By Swathi Barajas ; [facility], [facility] Medications Administered Includes: Administered Medications [...] osteoarthritis, left knee Monserrat Jojo Martínez PA-C [facility] 04/24/2024 Last Documented On 4 10:18AM ; [facility] Orthovisc Hyaluonan, 2cc (LEFT) [id number] Unilateral primary osteoarthritis, left knee Monserrat Uribe Mauricio SANCHES [facility] 04/24/2024 Last Documented On 4 10:18AM ; [facility] Medical History Includes: Medical History [...] Active Last Documented On 4 10:12AM ; [facility] 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 Last Documented On 4 10:12AM ; [facility] Levaquin Allergy 04/08/2010 Active Last Documented On 4 10:12AM ; [facility] Encounters Encounter Provider Location Date Check-In Time Check-Out Time Diagnosis JACKSON Injection Monserrat Jojo Martínez PA-C [facility] 04/24/20 24 10:18AM 10:57AM Insurance Includes: Active Insurance Policies Plan Name Member ID Group # Subscriber Relationship Effect jordan Dates 1 - [facility] [id number] Jackelin Kaba Self Clinical Notes Includes: Clinical Notes from this encounter No Clinical Notes Recorded
--- OUTSIDE RECORDS SUMMARY | 2025-04-21 18:29 | XMS_ITS | Clinical Summary ---
Author Organization [facility] Address [address] [place] [phone] Phone Care Team Providers Care Transportation Refrigeration Technician Name Role Phone Unavailable Primary Care Provider [...] 2) 01/21/2014 COVID-19 Vaccine (2023-2 5 season) 2025 Influenza Vaccine (#1) 2025 Hepatitis B Vaccine Aged Out No longe r eligible based on patient's age to complete this topic Meningococcal B Vaccine Aged Out No l onger eligible based on patient's age to complete this topic
--- OUTSIDE RECORDS SUMMARY | 2025-04-21 18:29 | XMS_ITS | Clinical Summary ---
Author Organization [facility] , [facility] Address [address] [place] [address] Phone Care Team Providers Care Director Of Career Resources Name Role Phone Evgeny BUSH, Grant Inman Unavailable [phone] KIM LAINEZ Unavailable [phone] TY PATEL MD Unavailable [phone] Reason for Visit and Chief Complaint JACKSON Injection Problems Includes: Problems addressed during this encounter and other active Problems All Visits Onset Date Resolved Date Provider Condition S tatus Joint Pain Left Knee 01/12/2024 Bridgett QUEZADA Active Last Documented On 4 10:20AM ; [facility] Joint Pain Hip Right 03/10/2016 Florentino Robin MD Active Last Documented On 6 9:43AM ; [facility] Joint Pain Right Knee 01/07/2016 Florentino tijerina MD Active Last Documented On 6 2:39PM ; [facility] Joint Pain Shoulder 11/15/2012 Florentino Robin MD Active Last Documented On 3 3:08PM ; [facility], [facility] Plan of Treatment No Plan of [...] On 4 9:54AM By Swathi Barajas ; [facility], [facility] Tetracycline HCl 250 MG Oral Capsule 11/02/2023 Prov ider: Diagnosis: Last Documented On 4 9:53AM By Swathi Barajas ; [facility] Vitamin D3 1.25 MG (29439 UT) Oral Capsule 11/02/2023 Provider: Diagnosis: Last Documented On 4 9:53AM By Swathi Barajas ; [facility] Januvia 100 MG Oral Tablet 11/02/2023 Provider: Diagnosis: Last Documented On 4 9:53AM By Swathi Barajas ; [facility] Sotalol HCl 120 MG Oral Tablet 11/02/2023 Provider: Diagnosis: Last Documented On 4 9:53AM By Swathi Barajas ; [facility], [facility] Adult Aspirin Regimen 81 MG Oral Tablet Delayed Releas e 11/02/2023 Provider: Diagnosis: Last Documented On 4 9:52AM By Swathi Barajas ; [facility] Famotidine 10 MG Oral Tablet 11/02/2023 Provider: Diagnosis: Last Documented On 4 9:52AM By Swathi Barajas ; [facility], [facility] Gabapentin 100 MG Oral Capsule 11/02/2023 Provider: Diagnosis: Last Documented On 4 9:52AM By Swathi Barajas ; [facility] Lasix 20 MG Oral Tablet 11/02/2023 Provider: Diagnosis: Last Documented On 4 9:52AM By Swathi Barajas ; [facility] Potassium Chloride 10 MEQ/100ML Intravenous Solution 0 11/02/2023 Provider: Diagnosis: Last Documented On 4 9:52AM By Swathi Barajas ; [facility] Folinic-Plus 4-50-2 MG Oral Tablet 11/02/2023 Provid er: Diagnosis: Last Documented On 4 9:54AM By Swathi Barajas ; [facility], [facility] Medications Administered Includes: Administered Medications from this encounter No Administered Medications Recorded Results Includes: Results discussed during this encounter No Results Recorded For Specified Dates History of Present Illness Includes: History of Present Illness from this encounter No History of Present Illness Recorded Social History No Social History Recorded - Smoking Status Unknown Medical History Includes: Medical History addressed during [...] Active Last Documented On 4 10:12AM ; [facility], [facility] 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 Last Documented On 4 10:12AM ; [facility] Levaquin Allergy 04/08/2010 Active Last Documented On 4 10:12AM ; [facility], [facility] Encounters Encounter Provider Location Date Check-In Time Check-Out Time Diagnosis JACKSON Injection Monserrat Martínez PA-C [facility] 04/10/20 24 10:19AM 10:29AM Insurance Includes: Active Insurance Policies Plan Name Member ID Group # Subscriber Relationship Effect jordan Dates - [facility] [id number] Jackelin Kaba Self Clinical Notes Includes: Clinical Notes from this encounter No Clinical Notes Recorded
--- OUTSIDE RECORDS SUMMARY | 2025-04-21 18:30 | XMS_ITS ---
Care Plan - [facility] Created on: April 21, 2025 Jackelin Kaba : 1965 Sex: Female Author Organization [facility] Address [address] [place] [address] Phone Care Team Providers Care Block Captain Name Role Phone Evgeny BUSH, Grant Inman Unavailable [phone] KIM LAINEZ Unavailable [phone] TY PATEL MD Unavailable [phone]
--- OUTSIDE RECORDS SUMMARY | 2025-04-21 18:30 | XMS_ITS | Clinical Summary ---
Author Organization [facility] , [facility] Address [address] [place] [address] Phone Care Team Providers Care Statement Distribution Clerk Name Role Phone Evgeny BUSH, Grant Inman Unavailable [phone] KIM LAINEZ Unavailable [phone] TY PATEL MD Unavailable [phone] Reason for Visit and Chief Complaint JACKSON Injection Problems Includes: Problems addressed during this encounter and other active Problems All Visits Onset Date Resolved Date Provider Condition S tatus Joint Pain Left Knee 01/12/2024 Bridgett QUEZADA Active Last Documented On 4 10:20AM ; [facility] Joint Pain Hip Right 03/10/2016 Florentino Robin MD Active Last Documented On 6 9:43AM ; [facility] Joint Pain Right Knee 01/07/2016 Florentino tijerina MD Active Last Documented On 6 2:39PM ; [facility] Joint Pain Shoulder 11/15/2012 Florentino Robin MD Active Last Documented On 3 3:08PM ; [facility], [facility] Plan of Treatment No Plan of Treatment Recorded Assessments Includes: Assessments from this encounter No Assessments Recorded Medical Equipment - Implanted Devices Includes: Current Devices No Medical Equipment Recorded Medications Includes: Medications discussed during this encounter and other current Medications Current Medications (continue as prescribed) Pepto-Bismol 262 MG Oral Tablet Chewable 11/02/2023 Provider: Diagnosis: Last Documented On 4 9:54AM By Swathi Barajas ; [facility], [facility] Tetracycline HCl 250 MG Oral Capsule 11/02/2023 Prov ider: Diagnosis: Last Documented On 4 9:53AM By Swathi Barajas ; [facility] Vitamin D3 1.25 MG (38115 UT) Oral Capsule 11/02/2023 Provider: Diagnosis: Last Documented On 4 9:53AM By Swathi Barajas ; [facility] Januvia 100 MG Oral Tablet 11/02/2023 Provider: Diagnosis: Last Documented On 4 9:53AM By Swathi Barajas ; [facility] Sotalol HCl 120 MG Oral Tablet 11/02/2023 Provider: Diagnosis: Last Documented On 4 9:53AM By Swathi Barajas ; [facility], [facility] Adult Aspirin Regimen 81 MG Oral Tablet Delayed Releas e 11/02/2023 Provider: Diagnosis: Last Documented On 4 9:52AM By Swathi Barajas ; [facility] Famotidine 10 MG Oral Tablet 11/02/2023 Provider: Diagnosis: Last Documented On 4 9:52AM By Swathi Barajas ; [facility], [facility] Gabapentin 100 MG Oral Capsule 11/02/2023 Provider: Diagnosis: Last Documented On 4 9:52AM By Swathi Barajas ; [facility] Lasix 20 MG Oral Tablet 11/02/2023 Provider: Diagnosis: Last Documented On 4 9:52AM By Swathi Barajas ; [facility] Potassium Chloride 10 MEQ/100ML Intravenous Solution 0 11/02/2023 Provider: Diagnosis: Last Documented On 4 9:52AM By Swathi Barajas ; [facility] Folinic-Plus 4-50-2 MG Oral Tablet 11/02/2023 Provid er: Diagnosis: Last Documented On 4 9:54AM By Swathi Barajas ; [facility], [facility] Medications Administered Includes: Administered Medications from this [...] Active Last Documented On 4 10:12AM ; [facility], [facility] 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 Last Documented On 4 10:12AM ; [facility] Levaquin Allergy 04/08/2010 Active Last Documented On 4 10:12AM ; [facility], [facility] Encounters Encounter Provider Location Date Check-In Time Check-Out Time Diagnosis JACKSON Injection Monserrat Martínez PA-C [facility] 04/17/20 24 10:17AM 10:31AM Insurance Includes: Active Insurance Policies Plan Name Member ID Group # Subscriber Relationship Effect jordan Dates - [facility] [id number] Jackelin Kaba Self Clinical Notes Includes: Clinical Notes from this encounter No Clinical Notes Recorded
--- OUTSIDE RECORDS SUMMARY | 2025-04-21 18:30 | XMS_ITS | Clinical Summary ---
Author Organization [facility] Address [address] [place] [address] Care Team Providers Care Food Service Attendant Name Role Phone Massiel Wells APRN Primary Care Provider [phone] Allergies Active Allergy Reactions Criticality Noted Date [...] hypertension 09/01/2019 Coronary artery disease invo [place]ving [place] coronary artery [place] heart without angina pectoris 09/01/2019 Type 2 diabetes mellitus wit hout complication, without long-term current use of insulin 09/01/2019 VHD (valvular heart disease) 09/01/2019 Resolved Problems Problem Noted Date Diagnosed Date Resolved Date Chest pain 09/16/2019 09/18/2019 Unstable angina pectoris 09/16/201903/2020 Overview (09/18/2019): Added automatically from request for surgery [id number] Family History Medical History Relation Name Comments Hepatitis Father Diabetes Mother Hypertension Mother Relation Name Status Comments Father Mother Social History Tobacco Use Types Packs/Day Years Used Date Smoking Tobacco: Every Day Cigarettes 1.5 52.8 Started: 1972 Smokeless Tobacco: Never Alcohol Use [...] A1C 03/19/2020 09/17/2019 LIPID PANEL 09/16/2020 09/17/2019 INFLUENZA VACCINE 02/09/2025 06/18/2023 Procedures Procedure Name Priority Date/Time Associated Diagnosis Comments HEMOGLOBIN A1C Routine 09/17/2019 5:21 AM EDT LIPID PANEL Routine 09/17/2019 5:21 AM EDT from Last 3 Months or Most Recently Relevant to Health Maintenance Results * (ABNORMAL) Hemoglobin A1c (09/17/2019 5:21 AM EDT) Hemoglobin A1C 6.60(H) 4.80 - 5.60 % 09/17/2019 6:23 AM EDT [facility] Blood Venipuncture / Unknown 09/17/2019 5:21 AM EDT 09/17/2019 5:57 AM EDT Narrative [facility] - 09/17/2019 6:23 AM EDT Hemoglobin A1C Ranges: Increased Risk for Diabetes 5.7% to 6.4% Diabetes >= 6.5% Diabetic Goal < 7.0% Roxi Murdock PA-C LAB BLOOD ORDERABLES Final R esult [facility]
[address] [place] [address], * (ABNORMAL) Lipid Panel (09/17/2019 5:21 AM EDT) Total Cholesterol 144 0 - 200 mg/dL 09/17/2019 6:38 AM EDT [facility] Triglycerides 163(H) 0 - 150 mg/dL 09/17/2019 6:38 AM EDT [facility] HDL Cholesterol 30(L) 40 - 60 mg/dL 09/17/2019 6:38 AM EDT [facility] LDL Cholesterol 81 0 - 100 mg/dL 09/17/2019 6:38 AM EDT [facility] VLDL Cholesterol 32.6 mg/dL 09/17/19 20 6:38 AM EDT [facility] LDL/HDL Ratio 2.71 09/17/2019 6:38 AM EDT [facility] Blood Venipuncture / Unknown 09/17/2019 5:21 AM EDT 09/17/2019 5:56 AM EDT Narrative [facility] - 09/17/2019 6:38 AM EDT [...] PA-C LAB BLOOD ORDERABLES Final R esult [facility]
[address] [place] [address], from Last 3 Months or Most Recently Relevant to Health Maintenance Insurance [facility] Advance Directives * CPR (Attempt to Resuscitate) (Latest Code Status on File) Date Activated Date Inactivated Comments 09/16/2019 9:28 PM 09/18/2019 6:32 PM Question Answer Comments Code Status (Patient has no pulse and is not breathing): CPR (Attempt to Resuscitate) Medical Interventions (Patie nt has pulse or is breathing): Full Level Of Support Discussed With: Patient Care Teams Food Service Attendant Relationship Specialty Start Date End Date Massiel Wells APRN [facility] [place] [address] PCP - General Internal Medicine 06/25/23
--- OUTSIDE RECORDS SUMMARY | 2025-04-21 18:30 | XMS_ITS | Clinical Summary ---
Author Organization [facility] , [facility] Address [address] [place] [address] Phone Care Team Providers Care Oil Heat Technician Name Role Phone Evgeny BUSH, Grant Inman Unavailable [phone] KIM LAINEZ Unavailable [phone] TY PATEL MD Unavailable [phone] Reason for Visit and Chief Complaint The Chief Complaint is: right hip pain Problems Includes: Problems addressed during this encounter and other active Problems All Visits Onset Date Resolved Date Provider Condition S tatus Joint Pain Left Knee 01/12/2024 Bridgett QUEZADA Active Last Documented On 4 10:20AM ; [facility] Joint Pain Hip Right 03/10/2016 Florentino Robin MD Active Last Documented On 6 9:43AM ; [facility] Joint Pain Right Knee 01/07/2016 Florentino tijerina MD Active Last Documented On 6 2:39PM ; [facility] Joint Pain Shoulder 11/15/2012 Florentino Robin MD Active Last Documented On 3 3:08PM ; [facility] Plan of Treatment I have reviewed the [...] - Last Documented On 03/29/2024 11:44AM ; [facility], [facility] Instructions to patient Lose weight Last Documented On 4 10:12AM ; [facility], [facility] Assessments Includes: Assessments from this encounter Findings - Overweight - Last Documented On 03/29/2024 11:44AM ; [facility], [facility] Instructions Includes: Instructions from this encounter Instructions to patient Lose weight Last Documented On 4 10:12AM ; [facility], [facility] Medical Equipment - Implanted Devices Includes: Current Devices No Medical Equipment Recorded Medications Includes: Medications discussed during this encounter and other current Medications Current Medications (continue as prescribed) Pepto-Bismol 262 MG Oral Tablet Chewable 11/02/2023 Provider: Diagnosis: Last Documented On 4 9:54AM By Swathi Pantoja [facility] Tetracycline HCl 250 MG Oral Capsule 11/02/2023 Prov ider: Diagnosis: Last Documented On 4 9:53AM By Swathi Barajas ; [facility] Vitamin D3 1.25 MG (09209 UT) Oral Capsule 11/02/2023 Provider: Diagnosis: Last Documented On 4 9:53AM By Swathi Barajas ; [facility] Januvia 100 MG Oral Tablet 11/02/2023 Provider: Diagnosis: Last Documented On 4 9:53AM By Swathi Pantoja [facility] Sotalol HCl 120 MG Oral Tablet 11/02/2023 Provider: Diagnosis: Last Documented On 4 9:53AM By Swathi Barajas ; [facility], [facility] Adult Aspirin Regimen 81 MG Oral Tablet Delayed Releas e 11/02/2023 Provider: Diagnosis: Last Documented On 4 9:52AM By Swathi Barajas ; [facility] Famotidine 10 MG Oral Tablet 11/02/2023 Provider: Diagnosis: Last Documented On 4 9:52AM By Swathi Barajas ; [facility], [facility] Gabapentin 100 MG Oral Capsule 11/02/2023 Provider: Diagnosis: Last Documented On 4 9:52AM By Swathi Barajas ; [facility], [facility] Lasix 20 MG Oral Tablet 11/02/2023 Provider: Diagnosis: Last Documented On 4 9:52AM By Swathi Barajas ; [facility], [facility] Potassium Chloride 10 MEQ/100ML Intravenous Solution 0 11/02/2023 Provider: Diagnosis: Last Documented On 4 9:52AM By Swathi Barajas ; [facility], [facility] Folinic-Plus 4-50-2 MG Oral Tablet 11/02/2023 Provid er: Diagnosis: Last Documented On 4 9:54AM By Swathi Barajas ; [facility], [facility] Past Medications on file HYDROcodone-Acetaminophen 10 -325 MG Oral Tablet 01/18/2024 - 01/25/2024 Provider: Grant Pepper MD Diagnosis: 1 tab every 6 hrs prn pain Last Documented On 4 3:36PM By Dr. Pepper ; [facility] Lovenox 30 MG/0.3ML Solution 04/10/2016 - 04/17/2016 Provider: Florentino Robin MD Diagnosis: Aftercare follow ing joint replacement surgery use as directed 1 injection per day for 7 days Last Documented On 6 10:02AM By [employer] ; [facility] [place] 10-325 MG Tablet 04/10/2016 - 04/20/2016 Provide r: Florentino Robin MD Diagnosis: 1 tab every 6 hrs prn pain Last Documented On 6 9:58AM By [employer] ; [facility], [facility] Mobic 15 MG Tablet 02/05/2016 - 05/05/2016 Provider: Florentino Robin MD Diagnosis: Trochanteric bur sitis, right hip once a day Last Documented On 6 9:28AM By [employer] ; [facility] [place] 10-325 MG Tablet 01/09/2016 - 01/19/2016 Provide r: Florentino Robin MD Diagnosis: 1 tab every 6 hrs prn pain Last Documented On 6 1:40PM By Helen Barreto ; [facility] Percocet 5-325 MG [...] 0 11:34AM By Gipson 1 User ; [facility] Celecoxib 200 MG OR CAPS 05/01/2010 - 05/31/2010 Provi santos: Bneito Cuellar MD Diagnosis: dispensed in office/ab Last [...] 6 9:54AM By Gipson 6 User ; [facility] Medications Administered Includes: Administered Medications [...] 11/02/2023 Last Documented On 4 10:12AM ; [facility], [facility] No recent change in diet 11/02/2023 Last Documented On 4 10:12AM ; [facility], [facility] Not using alcohol 11/02/2023 Last Documented On 4 10:12AM ; [facility], [facility] Caffeine use 07/25/2014 Last Documented On 4 10:12AM ; [facility], [facility] Current smoker 07/25/2014 Last Documented On 4 10:12AM ; [facility], [facility] No recent change in diet 07/25/2014 Last Documented On 4 10:12AM ; [facility], [facility] Not exercising regularly 07/25/2014 Last Documented On 4 10:12AM ; [facility], [facility] Not using drugs 07/25/2014 Last Documented On 4 10:12AM ; [facility], [facility] Tobacco use 07/25/2014 Last Documented On 4 10:12AM ; [facility], [facility] Smoking status : Current everyday smoker 07/25/2014 Last Documented On 4 10:12AM ; [facility] Procedures and Surgical History Includes: Procedures from this encounter Procedures Code Diagnosis Performing Provider Service L ocation Service Date use of tobacco assessment performed 1000F Last Documented On 4 10:12AM ; [facility] review of medications documented 1160F Last Documented On 4 10:12AM ; [facility] an X-ray was performed 16201 Last Documented On 4 10:12AM ; [facility], [facility] an MRI was performed [id number] Last Documented On 4 10:12AM ; [facility] Surgical History Last Updated History of appendectomy 01/21/2016 Last Documented On 4 10:12AM ; [facility] History of heart surgery 01/21/2016 Last Documented On 4 10:12AM ; [facility] History of hysterectomy 01/21/2016 Last Documented On 4 10:12AM ; [facility] Medical History Includes: Medical History addressed during this encounter Description Last Updated bloodtransfusion ~acid reflux heart burn ~high cholesterol 01/21/2016 Last Documented On 4 10:12AM ; [facility] Arthritic joint problems 01/21/2016 Last Documented On 4 10:12AM ; [facility] History of acute myocardial infarction 0 01/21/2016 Last Documented On 4 10:12AM ; [facility] History of diverticulitis of colon 01/20 Last Documented On 4 10:12AM ; [facility] History of heart disease 01/21/2016 Last Documented On 4 10:12AM ; [facility] Intermittent hypertension 01/21/2016 Last Documented On 4 10:12AM ; [facility] Liver disease 01/21/2016 Last Documented On 4 10:12AM ; [facility] Family History Includes: Family History addressed during this encounter Description Last Updated Family history of diabetes mellitus 01/09 Last Documented On 4 10:12AM ; [facility] Family history of hypertension 6 Last Documented On 4 10:12AM ; [facility] Review of Systems Includes: Review of Systems [...] Active Last Documented On 4 10:12AM ; [facility] 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 Last Documented On 4 10:12AM ; [facility] Levaquin Allergy 04/08/2010 Active Last Documented On 4 10:12AM ; [facility] Encounters Encounter Provider Location Date Check-In Time Check-Out Time Diagnosis Follow Up [facility]10[facility] 10:58AM Overweight Insurance Includes: Active Insurance Policies Plan Name Member ID Group # Subscriber Relationship Effect jordan Dates 1 - [facility] [id number] Jackelin Kaba Self Clinical Notes Includes: Clinical Notes from this encounter * Progress note Date Encounter Last Documented by 03/29/2024 Follow Up Last documented on 03/29/2024; 11:44 AM, Monserrat Martínez PA-C; [facility], [facility] Active Problems & Conditions - Joint [...] 0 refills - Vitamin D3 1.25 MG (25663 UT) Oral Capsule take as directed 0 [...]
--- OUTSIDE RECORDS SUMMARY | 2025-04-21 18:30 | XMS_ITS ---
Author Organization [facility] , [facility] Address [address] [place] [address] Phone Care Team Providers Care Fountain Pen Nibs Inspector Name Role Phone Evgeny BUSH, Grant Inman Unavailable [phone] KIM LAINEZ Unavailable [phone] TY PATEL MD Unavailable [phone] Problems Includes: Active, inactive, and resolved Problems All Visits Onset Date Resolved Date Provider Condition S tatus Joint Pain Left Knee 01/12/2024 Bridgett QUEZADA Active Last Documented On 4 10:20AM ; [facility] Joint Pain Hip Right 03/10/2016 Florentino Robin MD Active Last Documented On 6 9:43AM ; [facility] Joint Pain Right Knee 01/07/2016 Florentino tijerina MD Active Last Documented On 6 2:39PM ; [facility] Joint Pain Shoulder 11/15/2012 Florentino Robin MD Active Last Documented On 3 3:08PM ; [facility], [facility] Plan of Treatment Findings Encounter Date Ordered intervention and cou nseling on cessation of tobacco use, 3-10 minutes NEW PATIENT with Florentino Robin MD 04/20/2012 Last Documented On 3 4:39PM ; [facility], [facility] Pending Tests Order Diagnosis Results Due Ordering Anisha davila Lab Hemoglobin A1c 01/12/24 Florentino larson MD Last Documented On 4 7:46AM ; [facility], [facility] Lab CBC With Differential/Platelet 01/11 Florentino [...] weight Last Documented On 4 1:15PM ; [facility] Intervention and counseling on cessation [...] bp Last Documented On 6 8:32AM ; [facility] Instructions for patient see pcp [...] use Last Documented On 2 1:18PM ; [facility] Education and Decision Aids were [...] counseling Last Documented On 2 1:18PM ; [facility] Self-management goals set fo r patient Last Documented On 2 1:18PM ; [facility] Patient will stop smoking Last Documented On 2 1:18PM ; [facility] Medical Equipment - Implanted Devices Includes: Current and historical Devices No Medical Equipment Recorded Medications Includes: Current and historical Medications Current Medications (continue as prescribed) Pepto-Bismol 262 MG Oral Tablet Chewable 11/02/2023 Provider: Diagnosis: Last Documented On 4 9:54AM By Swathi Barajas ; [facility] Tetracycline HCl 250 MG Oral Capsule 11/02/2023 Prov ider: Diagnosis: Last Documented On 4 9:53AM By Swathi Barajas ; [facility] Vitamin D3 1.25 MG (51312 UT) Oral Capsule 11/02/2023 Provider: Diagnosis: Last Documented On 4 9:53AM By Swathi Barajas ; [facility] Januvia 100 MG Oral Tablet 11/02/2023 Provider: Diagnosis: Last Documented On 4 9:53AM By Swathi Barajas ; [facility] Sotalol HCl 120 MG Oral Tablet 11/02/2023 Provider: Diagnosis: Last Documented On 4 9:53AM By Swathi Barajas ; [facility] Adult Aspirin Regimen 81 MG Oral Tablet Delayed Releas e 11/02/2023 Provider: Diagnosis: Last Documented On 4 9:52AM By Swathi Barajas ; [facility] Famotidine 10 MG Oral Tablet 11/02/2023 Provider: Diagnosis: Last Documented On 4 9:52AM By Swathi Barajas ; [facility] Gabapentin 100 MG Oral Capsule 11/02/2023 Provider: Diagnosis: Last Documented On 4 9:52AM By Swathi Barajas ; [facility] Lasix 20 MG Oral Tablet 11/02/2023 Provider: Diagnosis: Last Documented On 4 9:52AM By Swathi Barajas ; [facility] Potassium Chloride 10 MEQ/100ML Intravenous Solution 0 11/02/2023 Provider: Diagnosis: Last Documented On 4 9:52AM By Swathi Barajas ; [facility] Folinic-Plus 4-50-2 MG Oral Tablet 11/02/2023 Provid er: Diagnosis: Last Documented On 4 9:54AM By Swathi Barajas ; [facility] Past Medications on file HYDROcodone-Acetaminophen 10 -325 MG Oral Tablet 01/18/2024 - 01/25/2024 Provider: Grant Pepper MD Diagnosis: 1 tab every 6 hrs prn pain Last Documented On 4 3:36PM By Dr. Pepper ; [facility] metroNIDAZOLE 250 MG Oral Tablet 11/02/2023 - 01/12/20 24 Provider: Diagnosis: Last Documented On 4 10:23AM By Bridgett Hernandez ; [facility] Lovenox 30 MG/0.3ML Solution 04/10/2016 - 04/17/2016 Provider: Florentino Robin MD Diagnosis: Aftercare follow ing joint replacement surgery use as directed 1 injection per day for 7 days Last Documented On 6 10:02AM By Helen Persons ; [facility] [place] 10-325 MG Tablet 04/10/2016 - 04/20/2016 Provide r: Florentino Robin MD Diagnosis: 1 tab every 6 hrs prn pain Last Documented On 6 9:58AM By Helen Persons ; [facility] Mobic 15 MG Tablet 02/05/2016 - 05/05/2016 Provider: Florentino Robin MD Diagnosis: Trochanteric bur sitis, right hip once a day Last Documented On 6 9:28AM By Helen Persons ; [facility] [place] 10-325 MG Tablet 01/09/2016 - 01/19/2016 Provide r: Florentino Robin MD Diagnosis: 1 tab every 6 hrs prn pain Last Documented On 6 1:40PM By Helen Persons ; [facility] Ranexa 500 MG OR TB12 07/25/2014 - 11/02/2023 Provider : Diagnosis: Last Documented On 4 9:51AM By Swathi Barajas ; [facility] Livalo 4 MG OR TABS 07/25/2014 - 11/02/2023 Provider: Diagnosis: Last Documented On 4 9:51AM By Swathi Barajas ; [facility] Losartan Potassium 100 MG OR TABS 07/25/2014 - 024 Provider: Diagnosis: Last Documented On 4 9:51AM By Swathi Barajas ; [facility] PriLOSEC 20 MG OR CPDR 07/25/2014 - 01/07/2016 Provide r: Diagnosis: Last Documented On 6 3:01PM By Helen Barreto ; [facility] Adult Aspirin Low Strength 81 MG OR TBDP 07/25/2014 - 11/02/2023 Provider: Diagnosis: Last Documented On 4 9:51AM By Swathi Barajas ; [facility] Percocet 5-325 MG OR TABS 03/21/2014 - 03/27/2014 Prov ider: Florentino Robin MD Diagnosis: Last Documented On 4 11:12AM By Melissa Sandoval ; [facility] Aleve 220 MG OR CAPS 04/20/2012 - 11/02/2023 Provider: Diagnosis: Last Documented On 4 9:51AM By Swathi Barajas ; [facility] Effient 10 MG OR TABS 04/20/2012 - 11/02/2023 Provider : Diagnosis: Last Documented On 4 9:51AM By Swathi Barajas ; [facility] Aspirin 325 MG OR TABS 04/20/2012 - 07/25/2014 Provide r: Diagnosis: Last Documented On 5 1:36PM By Gipson 2 User ; [facility] Pravachol 40 MG OR TABS 04/20/2012 - 07/25/2014 Provid er: Diagnosis: Last Documented On 5 1:40PM By Gipson 2 User ; [facility] Lisinopril 10 MG OR TABS 04/20/2012 - 07/25/2014 Provi santos: Diagnosis: Last Documented On 5 1:38PM By Gipson 2 User ; [facility] Soma 350 MG OR TABS 05/01/2010 - 05/31/2010 Provider: Benito Cuellar MD Diagnosis: dispensed in office/ab Last Documented On 0 11:34AM By Gipson 1 User ; [facility] Neurontin 100 MG OR CAPS 05/01/2010 - 05/31/2010 Provi santos: Benito Cuellar MD Diagnosis: dispensed in office/ab Last Documented On 0 11:34AM By Gipson 1 User ; [facility] Celecoxib 200 MG OR CAPS 05/01/2010 - 05/31/2010 Provi santos: Benito Cuellar MD Diagnosis: dispensed in office/ab Last Documented On 0 11:33AM By Gipson 1 User ; [facility] Lortab 5-500 MG OR TABS 05/18/2006 - 05/28/2006 Provid er: Diagnosis: Last Documented On 6 3:24PM By Brandan 5 User ; [facility] Lortab 5-500 MG OR TABS 09/01/2005 - 09/11/2005 Provid er: Grant Pepper MD Diagnosis: Last Documented On 6 9:54AM By Brandan 6 User ; [facility] Medications Administered Includes: Administered Medications in patient's chart No Administered Medications Recorded Results Includes: Results from 04/21/2024 through 04/21/2025 No Results Recorded For Specified Dates History of Present Illness History of Present Illness not supported for this document type No History of Present Illness Recorded Social History Description Last Updated Yes, current smoker. 11/02/2023 Last Documented On 4 9:57AM ; [facility] No recent change in diet 11/02/2023 Last Documented On 4 9:57AM ; [facility] Not using alcohol 11/02/2023 Last Documented On 4 9:57AM ; [facility] Caffeine use 07/25/2014 Last Documented On 5 4:25PM ; [facility] Current smoker 07/25/2014 Last Documented On 5 4:25PM ; [facility] No recent change in diet 07/25/2014 Last Documented On 5 4:25PM ; [facility] Not exercising regularly 07/25/2014 Last Documented On 5 4:25PM ; [facility] Not using drugs 07/25/2014 Last Documented On 5 4:25PM ; [facility] Tobacco use 07/25/2014 Last Documented On 5 4:25PM ; [facility] Smoking status : Current everyday smoker 07/25/2014 Last Documented On 5 4:25PM ; [facility] Procedures and Surgical History Includes: Procedures from 04/21/2024 through 04/21/2025 Procedures Code Diagnosis Performing Provider Service Location Service Date DRAIN/INJECT, JOINT/BURSA (LEFT) Unilateral primary osteoarthritis, left knee Monserrat Woodallbarrett Martínez PA-C [facility] 05/01/2024 Last Documented On 4 9:52AM ; [facility] Orthovisc [place], 2cc (LEFT) [id number] Unilateral primary osteoarthritis, left knee Monserrat Woodallbarrett Martínez PA-C [facility] 05/01/2024 Last Documented On 4 9:52AM ; [facility] DRAIN/INJECT, JOINT/BURSA (LEFT) Unilateral primary osteoarthritis, left knee Monserrat Woodallbarrett Martínez PA-C [facility] 04/24/2024 Last Documented On 4 10:18AM ; [facility] Orthovisc [place], 2cc (LEFT) J7324 Unilateral primary osteoarthritis, left knee Monserrat Woodallbarrett Martínez PA-C [facility] 04/24/2024 Last Documented On 4 10:18AM ; [facility] Surgical History Last Updated History of appendectomy 01/21/2016 Last Documented On 6 4:20PM ; [facility] History of heart surgery 01/21/2016 Last Documented On 6 4:20PM ; [facility] History of hysterectomy 01/21/2016 Last Documented On 6 4:20PM ; [facility] Medical History Includes: Medical History in patient's chart Description Last Updated bloodtransfusion ~acid reflux heart burn ~high cholesterol 01/21/2016 Last Documented On 6 4:20PM ; [facility] Arthritic joint problems 01/21/2016 Last Documented On 6 4:20PM ; [facility] History of acute myocardial infarction 0 01/21/2016 Last Documented On 6 4:20PM ; [facility] History of diverticulitis of colon 01/20 Last Documented On 6 4:20PM ; [facility] History of heart disease 01/21/2016 Last Documented On 6 4:20PM ; [facility] Intermittent hypertension 01/21/2016 Last Documented On 6 4:20PM ; [facility] Liver disease 01/21/2016 Last Documented On 6 4:20PM ; [facility] Family History Includes: Family History in patient's chart Description Last Updated Family history of diabetes mellitus 01/09 Last Documented On 6 4:20PM ; [facility] Family history of hypertension 6 Last Documented On 6 4:20PM ; [facility] Review of Systems Review of Systems [...] Active Last Documented On 4 10:12AM ; 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 Levaquin Allergy 04/08/2010 Active Last Documented On 4 10:12AM ; [facility] Encounters Includes: Encounters from 04/21/2024 through 04/21/2025 Encounter Provider Location Date Check-In Time Check-Out Time Diagnosis [place] Injection Monserrat Martínez PA-C [facility] 05/01/20 24 10:12AM 10:30AM [place] Injection Monserrat Martínez PA-C [facility] 04/24/20 24 10:18AM 10:57AM Insurance Includes: Active Insurance Policies Plan Name Member ID Group # Subscriber Relationship Effect jordan Dates 1 - [facility] [id number] Jackelin Kaba Self Clinical Notes Includes: Signed Clinical Notes starting from 06/25/2022 No Clinical Notes Recorded
[2025-04-21 18:49] LABS: Hematocrit 50.3 % (37.0-47.0); Hemoglobin 17.5 g/dL (12.2-16.2); Immature Granulocytes % 0.5 %; Mean Corpuscular HGB Conc 34.8 g/dL (31.8-35.4); Mean Corpuscular Hemoglobin 30.4 pg (27.0-31.2); Mean Corpuscular Volume 87.3 fl (81-99); Nucleated Red Blood Cells % 0 %; Platelet Count 201 K/mm3 (142-424); Red Blood Count 5.76 M/mm3 (4.20-5.40); Red Cell Distribution Width-SD 46.1 fL; White Blood Count 8.3 K/mm3 (4.8-10.8)
[2025-04-21 18:59] LABS: Alanine Aminotransferase 21 U/L (12-78); Albumin Level 4.8 g/dl (3.5-5.0); Albumin/Globulin Ratio 1.6 (1.1-1.8); Alkaline Phosphatase 127 U/L (38-126); Anion Gap 15.9 mEq/L (5-15); Aspartate Amino Transferase 28 U/L (14-36); Bilirubin,Total 1.1 mg/dl (0.2-1.3); Blood Urea Nitrogen 17 mg/dl (7-17); Calcium 9.9 mg/dl (8.4-10.2); Carbon Dioxide 31 mmol/L (22.0-30.0); Chloride 95 mmol/L (98-107); Creatinine Clearance Estimated 67 mL/min (50-200); Creatinine,Serum 0.80 mg/dl (0.52-1.04); Estimated Glomerular Filt Rate 73 ml/min (>60); GFR (African American) 88 ML/MIN (>60); Globulin 3.0 g/dL (1.3-3.2); Glucose 144 mg/dl (74-100); Magnesium 2.2 mg/dl (1.6-2.3); Sodium 139 mmol/L (136-145); Total Protein,Serum 7.8 g/dl (6.3-8.2)
[2025-04-21 19:10] LABS: Potassium 2.9 mmoL/L (3.5-5.1)
[2025-04-21 19:12] LABS: Troponin I < 0.01 ng/ml (0.00-0.034)
[2025-04-21] MEDS: ASPIRIN 81MG CHEWABLE TABLET 324 MG PO (19:15)
[2025-04-21] MEDS: POTASSIUM CHLORIDE 20MEQ TAB 20 MEQ PO (19:29)
[2025-04-21 19:35] LABS: NT Pro Brain Natriuretic Pep. 159 pg/mL (0-125)
[2025-04-21 20:29] VITALS: BP 136/60; PULSE 60; RESP 18; O2SAT 94
[2025-04-21 21:01] VITALS: BP 145/69; PULSE 65; O2SAT 96
[2025-04-21 21:16] LABS: Microscopic, Urine URINE MICROSCOPIC (MICROSCOPIC)
[2025-04-21 21:17] LABS: Bilirubin,Urine Negative (Negative); Color,Urine YELLOW (Yellow); Glucose,Urine (UA) 3+ (Negative); Ketones,Urine Negative (Negative); Leukocyte Esterase,Urine Negative (Negative); PH,Urine 6.5 (5.0-8.5); Protein,Urine Negative (Negative); Specific Gravity, Urine <= 1.005 (1.005-1.030); Urobilinogen,Urine 0.2 EU/dl (0.2)
[2025-04-21 21:19] LABS: Anion Gap 11.5 mEq/L (5-15); Blood Urea Nitrogen 17 mg/dl (7-17); Calcium 9.4 mg/dl (8.4-10.2); Carbon Dioxide 31 mmol/L (22.0-30.0); Chloride 100 mmol/L (98-107); Creatinine Clearance Estimated 67 mL/min (50-200); Creatinine,Serum 0.70 mg/dl (0.52-1.04); Estimated Glomerular Filt Rate 85 ml/min (>60); GFR (African American) 103 ML/MIN (>60); Glucose 90 mg/dl (74-100); Potassium 3.5 mmoL/L (3.5-5.1); Sodium 139 mmol/L (136-145)
[2025-04-21 21:22] LABS: Bacteria,Urine Trace /lpf; WBC,Urine Occasional #/hpf (0-3)
[2025-04-21 21:32] LABS: Troponin I < 0.01 ng/ml (0.00-0.034)
[2025-04-21 22:07] VITALS: BP 145/69; PULSE 60; RESP 16; TEMP 36.7; O2SAT 96
== END 2025-04-21 22:09 | disposition home or self-care (01) ==
PROVIDERS: Nurse Practitioner; Emergency Provider Student in an Organized Health Care Education/Training Program; PCP Nurse Practitioner Family
DX: R07.9 Chest pain, unspecified (principal); E87.6 Hypokalemia; R00.1 Bradycardia, unspecified; I45.10 Unspecified right bundle-branch block; M79.602 Pain in left arm; F17.210 Nicotine dependence, cigarettes, uncomplicated; E11.9 Type 2 diabetes mellitus without complications; Z86.79 Personal history of other diseases of the circulatory system; Z95.5 Presence of coronary angioplasty implant and graft
CPT/HCPCS: 71045; 80048; 80053; 81001; 83735; 83880; 84484; 85025; 93005; 96365; 99285; J3480

== ENCOUNTER 2025-04-23 16:01 | Outpatient (CLI) | payer MEDICARE, OTHER, SELFPAY ==
[2025-04-23 17:55] LABS: Hematocrit 47.9 % (37.0-47.0); Hemoglobin 16.1 g/dL (12.2-16.2); Immature Granulocytes % 0.5 %; Mean Corpuscular HGB Conc 33.6 g/dL (31.8-35.4); Mean Corpuscular Hemoglobin 29.8 pg (27.0-31.2); Mean Corpuscular Volume 88.5 fl (81-99); Nucleated Red Blood Cells % 0 %; Platelet Count 224 K/mm3 (142-424); Red Blood Count 5.41 M/mm3 (4.20-5.40); Red Cell Distribution Width-SD 47.1 fL; White Blood Count 8.3 K/mm3 (4.8-10.8)
[2025-04-23 18:59] LABS: Alanine Aminotransferase 16 U/L (12-78); Albumin Level 4.3 g/dl (3.5-5.0); Albumin/Globulin Ratio 1.7 (1.1-1.8); Alkaline Phosphatase 131 U/L (38-126); Anion Gap 16.3 mEq/L (5-15); Aspartate Amino Transferase 24 U/L (14-36); Bilirubin,Total 0.9 mg/dl (0.2-1.3); Blood Urea Nitrogen 23 mg/dl (7-17); Calcium 9.5 mg/dl (8.4-10.2); Carbon Dioxide 29 mmol/L (22.0-30.0); Chloride 98 mmol/L (98-107); Creatinine,Serum 0.80 mg/dl (0.52-1.04); Estimated Glomerular Filt Rate 73 ml/min (>60); GFR (African American) 88 ML/MIN (>60); Globulin 2.6 g/dL (1.3-3.2); Glucose 102 mg/dl (74-100); Magnesium 2.2 mg/dl (1.6-2.3); Potassium 4.3 mmoL/L (3.5-5.1); Sodium 139 mmol/L (136-145); Total Protein,Serum 6.9 g/dl (6.3-8.2)
[2025-04-23 19:29] LABS: Thyroid Stimulating Hormone 0.37 uIU/mL (0.465-4.68)
[2025-04-23 20:05] LABS: Vitamin B12 451 pg/mL (239-931)
[2025-04-23 20:16] LABS: Ferritin 39.1 ng/ml (11.1-264)
[2025-04-23 21:02] LABS: Hemoglobin A1C 5.7 % (4.0-6.0)
--- OUTSIDE RECORDS SUMMARY | 2025-04-24 16:03 | XMS_ITS | Clinical Summary ---
Author Organization [facility] , [facility] Address [address] [place] [address] Phone Care Team Providers Care Tank Inspector Name Role Phone Evgeny BUSH, Grant Inman Unavailable [phone] KIM LAINEZ Unavailable [phone] TY PATEL MD Unavailable [phone] Reason for Visit and Chief Complaint JACKSON Injection Problems Includes: Problems addressed during this encounter and other active Problems All Visits Onset Date Resolved Date Provider Condition S tatus Joint Pain Left Knee 01/12/2024 Bridgett QUEZADA Active Last Documented On 4 10:20AM ; [facility] Joint Pain Hip Right 03/10/2016 Florentino Robin MD Active Last Documented On 6 9:43AM ; [facility] Joint Pain Right Knee 01/07/2016 Florentino tijerina MD Active Last Documented On 6 2:39PM ; [facility] Joint Pain Shoulder 11/15/2012 Florentino Robin MD Active Last Documented On 3 3:08PM ; [facility], [facility] Plan of Treatment No Plan [...] On 4 9:54AM By Swathi Barajas ; [facility], [facility] Tetracycline HCl 250 MG Oral Capsule 11/02/2023 Prov ider: Diagnosis: Last Documented On 4 9:53AM By Swathi Barajas ; [facility], [facility] Vitamin D3 1.25 MG (72861 UT) Oral Capsule 11/02/2023 Provider: Diagnosis: Last Documented On 4 9:53AM By Swathi Barajas ; [facility] Januvia 100 MG Oral Tablet 11/02/2023 Provider: Diagnosis: Last Documented On 4 9:53AM By Swathi Barajas ; [facility], [facility] Sotalol HCl 120 MG Oral Tablet 11/02/2023 Provider: Diagnosis: Last Documented On 4 9:53AM By Swathi Barajas ; [facility], [facility] Adult Aspirin Regimen 81 MG Oral Tablet Delayed Releas e 11/02/2023 Provider: Diagnosis: Last Documented On 4 9:52AM By Swathi Barajas ; [facility], [facility] Famotidine 10 MG Oral Tablet 11/02/2023 Provider: Diagnosis: Last Documented On 4 9:52AM By Swathi Barajas ; [facility], [facility] Gabapentin 100 MG Oral Capsule 11/02/2023 Provider: Diagnosis: Last Documented On 4 9:52AM By Swathi Barajas ; [facility], [facility] Lasix 20 MG Oral Tablet 11/02/2023 Provider: Diagnosis: Last Documented On 4 9:52AM By Swathi Barajas ; [facility], [facility] Potassium Chloride 10 MEQ/100ML Intravenous Solution 0 11/02/2023 Provider: Diagnosis: Last Documented On 4 9:52AM By Swathi Barajas ; [facility], [facility] Folinic-Plus 4-50-2 MG Oral Tablet 11/02/2023 Provid er: Diagnosis: Last Documented On 4 9:54AM By Swathi Barajas ; [facility], [facility] Medications Administered Includes: Administered Medications [...] osteoarthritis, left knee Monserrat Jojo Martínez PA-C [facility] 04/24/2024 Last Documented On 4 10:18AM ; [facility] Orthovisc Hyaluonan, 2cc (LEFT) [id number] Unilateral primary osteoarthritis, left knee Monserrat Uribe Mauricio SANCHES [facility] 04/24/2024 Last Documented On 4 10:18AM ; [facility] Medical History Includes: Medical History [...] Active Last Documented On 4 10:12AM ; [facility] 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 Last Documented On 4 10:12AM ; [facility] Levaquin Allergy 04/08/2010 Active Last Documented On 4 10:12AM ; [facility] Encounters Encounter Provider Location Date Check-In Time Check-Out Time Diagnosis JACKSON Injection Monserrat Jojo Martínez PA-C [facility] 04/24/20 24 10:18AM 10:57AM Insurance Includes: Active Insurance Policies Plan Name Member ID Group # Subscriber Relationship Effect jordan Dates 1 - [facility] [id number] Jackelin Kaba Self Clinical Notes Includes: Clinical Notes from this encounter No Clinical Notes Recorded
--- OUTSIDE RECORDS SUMMARY | 2025-04-24 16:03 | XMS_ITS | Clinical Summary ---
Author Organization [facility] Address [address] [place] [id number] Phone Care Team Providers Care Cork Tipper Name Role Phone Unavailable Primary Care Provider [...]
--- OUTSIDE RECORDS SUMMARY | 2025-04-24 16:04 | XMS_ITS | Clinical Summary ---
Author Organization [facility] Address [address] [place] [address] Care Team Providers Care President And Cmo Name Role Phone Massiel Wells APRN Primary [...] hypertension 09/01/2019 Coronary artery disease invo lving mash[place] coronary artery of mash[place] heart without angina pectoris 09/01/2019 Type 2 diabetes mellitus wit hout complication, without long-term current use of insulin 09/01/2019 VHD (valvular heart disease) 09/01/2019 Resolved Problems Problem Noted Date Diagnosed Date Resolved Date Chest pain 09/16/2019 09/18/2019 Unstable angina pectoris 09/16/201903/2020 Overview (09/18/2019): Added automatically from request for surgery [id number] Family History Medical History Relation Name Comments [...] - 5.60 % 09/17/2019 6:23 AM EDT [facility] Blood Venipuncture / Unknown 09/17/2019 5:21 AM EDT 09/17/2019 5:57 AM EDT Narrative [facility] - 09/17/2019 6:23 AM EDT Hemoglobin A1C Ranges: Increased Risk for Diabetes 5.7% to 6.4% Diabetes >= 6.5% Diabetic Goal < 7.0% Roxi Murdock PA-C LAB BLOOD ORDERABLES Final R esult [facility]
[address] [place] [address], * (ABNORMAL) Lipid Panel (09/17/2019 5:21 AM EDT) Total Cholesterol 144 0 - 200 mg/dL 09/17/2019 6:38 AM EDT [facility] Triglycerides 163(H) 0 - 150 mg/dL 09/17/2019 6:38 AM EDT [facility] HDL Cholesterol 30(L) 40 - 60 mg/dL 09/17/2019 6:38 AM EDT [facility] LDL Cholesterol 81 0 - 100 mg/dL 09/17/2019 6:38 AM EDT [facility] VLDL Cholesterol 32.6 mg/dL 09/17/19 20 6:38 AM EDT [facility] LDL/HDL Ratio 2.71 09/17/2019 6:38 AM EDT [facility] Blood Venipuncture / Unknown 09/17/2019 5:21 AM EDT 09/17/2019 5:56 AM EDT Narrative [facility] - 09/17/2019 6:38 AM EDT [...] PA-C LAB BLOOD ORDERABLES Final R esult [facility]
[address] [place] [address], from Last 3 Months or Most Recently Relevant to Health Maintenance Insurance [facility] Advance Directives * CPR (Attempt to Resuscitate) (Latest Code Status on File) Date Activated Date Inactivated Comments 09/16/2019 9:28 PM 09/18/2019 6:32 PM Question Answer Comments Code Status (Patient has no pulse and is not breathing): CPR (Attempt to Resuscitate) Medical Interventions (Patie nt has pulse or is breathing): Full Level Of Support Discussed With: Patient Care Teams President And Cmo Relationship Specialty Start Date End Date Massiel Wells APRN [facility] [place] [address] PCP - General Internal Medicine 06/25/23
--- OUTSIDE RECORDS SUMMARY | 2025-04-24 16:04 | XMS_ITS ---
Care Plan - [facility], [facility] Created on: April 24, 2025 Jackelin Kaba : 1965 Sex: Female Author Organization [facility] , [facility] Address [address] [place] [address] Phone Care Team Providers Care Assistant Women'S Tennis Coach Name Role Phone Evgeny BUSH, Grant Inman Unavailable [phone] KIM LAINEZ Unavailable [phone] TY PATEL MD Unavailable [phone]
--- OUTSIDE RECORDS SUMMARY | 2025-04-24 16:04 | XMS_ITS | Clinical Summary ---
Author Organization [facility] , [facility] Address [address] [place] [address] Phone Care Team Providers Care Photoengraving Sketch Maker Name Role Phone Evgeny BUSH, Grant Inman Unavailable [phone] KIM LAINEZ Unavailable [phone] TY PATEL MD Unavailable [phone] Reason for Visit and Chief Complaint JACKSON Injection Problems Includes: Problems addressed during this encounter and other active Problems All Visits Onset Date Resolved Date Provider Condition S tatus Joint Pain Left Knee 01/12/2024 Bridgett QUEZADA Active Last Documented On 4 10:20AM ; [facility] Joint Pain Hip Right 03/10/2016 Florentino Robin MD Active Last Documented On 6 9:43AM ; [facility] Joint Pain Right Knee 01/07/2016 Florentino tijerina MD Active Last Documented On 6 2:39PM ; [facility] Joint Pain Shoulder 11/15/2012 Florentino Robin MD Active Last Documented On 3 3:08PM ; [facility], [facility] Plan of Treatment No Plan of [...] On 4 9:54AM By Swathi Barajas ; [facility], [facility] Tetracycline HCl 250 MG Oral Capsule 11/02/2023 Prov ider: Diagnosis: Last Documented On 4 9:53AM By Swathi Barajas ; [facility] Vitamin D3 1.25 MG (26486 UT) Oral Capsule 11/02/2023 Provider: Diagnosis: Last Documented On 4 9:53AM By Swathi Barajas ; [facility] Januvia 100 MG Oral Tablet 11/02/2023 Provider: Diagnosis: Last Documented On 4 9:53AM By Swathi Barajas ; [facility] Sotalol HCl 120 MG Oral Tablet 11/02/2023 Provider: Diagnosis: Last Documented On 4 9:53AM By Swathi Barajas ; [facility], [facility] Adult Aspirin Regimen 81 MG Oral Tablet Delayed Releas e 11/02/2023 Provider: Diagnosis: Last Documented On 4 9:52AM By Swathi Barajas ; [facility] Famotidine 10 MG Oral Tablet 11/02/2023 Provider: Diagnosis: Last Documented On 4 9:52AM By Swathi Barajas ; [facility], [facility] Gabapentin 100 MG Oral Capsule 11/02/2023 Provider: Diagnosis: Last Documented On 4 9:52AM By Swathi Barajas ; [facility] Lasix 20 MG Oral Tablet 11/02/2023 Provider: Diagnosis: Last Documented On 4 9:52AM By Swathi Barajas ; [facility] Potassium Chloride 10 MEQ/100ML Intravenous Solution 0 11/02/2023 Provider: Diagnosis: Last Documented On 4 9:52AM By Swathi Barajas ; [facility] Folinic-Plus 4-50-2 MG Oral Tablet 11/02/2023 Provid er: Diagnosis: Last Documented On 4 9:54AM By Swathi Barajas ; [facility], [facility] Medications Administered Includes: Administered Medications from [...] Active Last Documented On 4 10:12AM ; [facility], [facility] 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 Last Documented On 4 10:12AM ; [facility] Levaquin Allergy 04/08/2010 Active Last Documented On 4 10:12AM ; [facility], [facility] Encounters Encounter Provider Location Date Check-In Time Check-Out Time Diagnosis JACKSON Injection Monserrat Martínez PA-C [facility] 04/17/20 24 10:17AM 10:31AM Insurance Includes: Active Insurance Policies Plan Name Member ID Group # Subscriber Relationship Effect jordan Dates - [facility] [id number] Jackelin Kaba Self Clinical Notes Includes: Clinical Notes from this encounter No Clinical Notes Recorded
--- OUTSIDE RECORDS SUMMARY | 2025-04-24 16:04 | XMS_ITS | Clinical Summary ---
Author Organization [facility] , [facility] Address [address] [place] [address] Phone Care Team Providers Care Sleeve Bottom Feller Name Role Phone Evgeny BUSH, Grant Inman Unavailable [phone] KIM LAINEZ Unavailable [phone] TY PATEL MD Unavailable [phone] Reason for Visit and Chief Complaint JACKSON Injection Problems Includes: Problems addressed during this encounter and other active Problems All Visits Onset Date Resolved Date Provider Condition S tatus Joint Pain Left Knee 01/12/2024 Bridgett QUEZADA Active Last Documented On 4 10:20AM ; [facility] Joint Pain Hip Right 03/10/2016 Florentino Robin MD Active Last Documented On 6 9:43AM ; [facility] Joint Pain Right Knee 01/07/2016 Florentino tijerina MD Active Last Documented On 6 2:39PM ; [facility] Joint Pain Shoulder 11/15/2012 Florentino Robin MD Active Last Documented On 3 3:08PM ; [facility], [facility] Plan of Treatment No Plan of [...] On 4 9:54AM By Swathi Barajas ; [facility], [facility] Tetracycline HCl 250 MG Oral Capsule 11/02/2023 Prov ider: Diagnosis: Last Documented On 4 9:53AM By Swathi Barajas ; [facility], [facility] Vitamin D3 1.25 MG (90500 UT) Oral Capsule 11/02/2023 Provider: Diagnosis: Last Documented On 4 9:53AM By Swathi Barajas ; [facility] Januvia 100 MG Oral Tablet 11/02/2023 Provider: Diagnosis: Last Documented On 4 9:53AM By Swathi Barajas ; [facility], [facility] Sotalol HCl 120 MG Oral Tablet 11/02/2023 Provider: Diagnosis: Last Documented On 4 9:53AM By Swathi Barajas ; [facility], [facility] Adult Aspirin Regimen 81 MG Oral Tablet Delayed Releas e 11/02/2023 Provider: Diagnosis: Last Documented On 4 9:52AM By Swathi Barajas ; [facility], [facility] Famotidine 10 MG Oral Tablet 11/02/2023 Provider: Diagnosis: Last Documented On 4 9:52AM By Swathi Barajas ; [facility], [facility] Gabapentin 100 MG Oral Capsule 11/02/2023 Provider: Diagnosis: Last Documented On 4 9:52AM By Swathi Barajas ; [facility], [facility] Lasix 20 MG Oral Tablet 11/02/2023 Provider: Diagnosis: Last Documented On 4 9:52AM By Swathi Barajas ; [facility], [facility] Potassium Chloride 10 MEQ/100ML Intravenous Solution 0 11/02/2023 Provider: Diagnosis: Last Documented On 4 9:52AM By Swathi Barajas ; [facility], [facility] Folinic-Plus 4-50-2 MG Oral Tablet 11/02/2023 Provid er: Diagnosis: Last Documented On 4 9:54AM By Swathi Barajas ; [facility], [facility] Medications Administered Includes: Administered Medications from [...] osteoarthritis, left knee Monserrat Jojo Martínez PA-C [facility] 05/01/2024 Last Documented On 4 9:52AM ; [facility] Orthovisc Hyaluonan, 2cc (LEFT) [id number] Unilateral primary osteoarthritis, left knee Monserrat Uribe Mauricio SANCHES [facility] 05/01/2024 Last Documented On 4 9:52AM ; [facility] Medical History Includes: Medical History addressed [...] Active Last Documented On 4 10:12AM ; [facility] 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 Last Documented On 4 10:12AM ; [facility] Levaquin Allergy 04/08/2010 Active Last Documented On 4 10:12AM ; [facility] Encounters Encounter Provider Location Date Check-In Time Check-Out Time Diagnosis JACKSON Injection Monserrat Jojo Martínez PA-C [facility] 05/01/20 24 10:12AM 10:30AM Insurance Includes: Active Insurance Policies Plan Name Member ID Group # Subscriber Relationship Effect jordan Dates 1 - [facility] [id number] Jackelin Kaba Self Clinical Notes Includes: Clinical Notes from this encounter No Clinical Notes Recorded
--- OUTSIDE RECORDS SUMMARY | 2025-04-24 16:04 | XMS_ITS | Clinical Summary ---
Author Organization [facility] , [facility] Address [address] [place] [address] Phone Care Team Providers Care Medical Technician Name Role Phone Evgeny BUSH, Grant Inman Unavailable [phone] KIM LAINEZ Unavailable [phone] TY PATEL MD Unavailable [phone] Reason for Visit and Chief Complaint The Chief Complaint is: right hip pain Problems Includes: Problems addressed during this encounter and other active Problems All Visits Onset Date Resolved Date Provider Condition S tatus Joint Pain Left Knee 01/12/2024 Bridgett QUEZADA Active Last Documented On 4 10:20AM ; [facility] Joint Pain Hip Right 03/10/2016 Florentino Robin MD Active Last Documented On 6 9:43AM ; [facility] Joint Pain Right Knee 01/07/2016 Florentino tijerina MD Active Last Documented On 6 2:39PM ; [facility] Joint Pain Shoulder 11/15/2012 Florentino Robin MD Active Last Documented On 3 3:08PM ; [facility], [facility] Plan of Treatment I have reviewed [...] - Last Documented On 03/29/2024 11:44AM ; [facility], [facility] Instructions to patient Lose weight Last Documented On 4 10:12AM ; [facility], [facility] Assessments Includes: Assessments from this encounter Findings - Overweight - Last Documented On 03/29/2024 11:44AM ; [facility], [facility] Instructions Includes: Instructions from this encounter Instructions to patient Lose weight Last Documented On 4 10:12AM ; [facility], [facility] Medical Equipment - Implanted Devices Includes: Current Devices No Medical Equipment Recorded Medications Includes: Medications discussed during this encounter and other current Medications Current Medications (continue as prescribed) Pepto-Bismol 262 MG Oral Tablet Chewable 11/02/2023 Provider: Diagnosis: Last Documented On 4 9:54AM By Swathi Pantoja [facility], [facility] Tetracycline HCl 250 MG Oral Capsule 11/02/2023 Prov ider: Diagnosis: Last Documented On 4 9:53AM By Swathi Barajas ; [facility], [facility] Vitamin D3 1.25 MG (41665 UT) Oral Capsule 11/02/2023 Provider: Diagnosis: Last Documented On 4 9:53AM By Swathi Barajas ; [facility], [facility] Januvia 100 MG Oral Tablet 11/02/2023 Provider: Diagnosis: Last Documented On 4 9:53AM By Swathi Pantoja [facility], [facility] Sotalol HCl 120 MG Oral Tablet 11/02/2023 Provider: Diagnosis: Last Documented On 4 9:53AM By Swathi Barajas ; [facility], [facility] Adult Aspirin Regimen 81 MG Oral Tablet Delayed Releas e 11/02/2023 Provider: Diagnosis: Last Documented On 4 9:52AM By Swathi Barajas ; [facility], [facility] Famotidine 10 MG Oral Tablet 11/02/2023 Provider: Diagnosis: Last Documented On 4 9:52AM By Swathi Barajas ; [facility], [facility] Gabapentin 100 MG Oral Capsule 11/02/2023 Provider: Diagnosis: Last Documented On 4 9:52AM By Swathi Barajas ; [facility], [facility] Lasix 20 MG Oral Tablet 11/02/2023 Provider: Diagnosis: Last Documented On 4 9:52AM By Swathi Barajas ; [facility], [facility] Potassium Chloride 10 MEQ/100ML Intravenous Solution 0 11/02/2023 Provider: Diagnosis: Last Documented On 4 9:52AM By Swathi Barajas ; [facility], [facility] Folinic-Plus 4-50-2 MG Oral Tablet 11/02/2023 Provid er: Diagnosis: Last Documented On 4 9:54AM By Swathi Barajas ; [facility], [facility] Past Medications on file HYDROcodone-Acetaminophen 10 -325 MG Oral Tablet 01/18/2024 - 01/25/2024 Provider: Grant Pepper MD Diagnosis: 1 tab every 6 hrs prn pain Last Documented On 4 3:36PM By Dr. Pepper ; [facility], [facility] Lovenox 30 MG/0.3ML Solution 04/10/2016 - 04/17/2016 Provider: Florentino Robin MD Diagnosis: Aftercare follow ing joint replacement surgery use as directed 1 injection per day for 7 days Last Documented On 6 10:02AM By ralali ; [facility] [place] 10-325 MG Tablet 04/10/2016 - 04/20/2016 Provide r: Florentino Robin MD Diagnosis: 1 tab every 6 hrs prn pain Last Documented On 6 9:58AM By ralali ; [facility], [facility] Mobic 15 MG Tablet 02/05/2016 - 05/05/2016 Provider: Florentino Robin MD Diagnosis: Trochanteric bur sitis, right hip once a day Last Documented On 6 9:28AM By ralali ; [facility] [place] 10-325 MG Tablet 01/09/2016 - 01/19/2016 Provide r: Folrentino Robin MD Diagnosis: 1 tab every 6 [...] 0 11:34AM By Gipson 1 User ; [facility] Celecoxib 200 MG [...] 11/02/2023 Last Documented On 4 10:12AM ; [facility], [facility] No recent change in diet 11/02/2023 Last Documented On 4 10:12AM ; [facility], [facility] Not using alcohol 11/02/2023 Last Documented On 4 10:12AM ; [facility], [facility] Caffeine use 07/25/2014 Last Documented On 4 10:12AM ; [facility], [facility] Current smoker 07/25/2014 Last Documented On 4 10:12AM ; [facility], [facility] No recent change in diet 07/25/2014 Last Documented On 4 10:12AM ; [facility], [facility] Not exercising regularly 07/25/2014 Last Documented On 4 10:12AM ; [facility], [facility] Not using drugs 07/25/2014 Last Documented On 4 10:12AM ; [facility], [facility] Tobacco use 07/25/2014 Last Documented On 4 10:12AM ; [facility], [facility] Smoking status : Current everyday smoker 07/25/2014 Last Documented On 4 10:12AM ; [facility] Procedures and Surgical History Includes: Procedures from this encounter Procedures Code Diagnosis Performing Provider Service L ocation Service Date use of tobacco assessment performed 1000F Last Documented On 4 10:12AM ; [facility] review of medications documented 1160F Last Documented On 4 10:12AM ; [facility] an X-ray was performed 31946 Last Documented On 4 10:12AM ; [facility], [facility] an MRI was performed [id number] Last Documented On 4 10:12AM ; [facility] Surgical History Last Updated History of appendectomy 01/21/2016 Last Documented On 4 10:12AM ; [facility] History of heart surgery 01/21/2016 Last Documented On 4 10:12AM ; [facility] History of hysterectomy 01/21/2016 Last Documented On 4 10:12AM ; [facility] Medical History Includes: Medical History [...] 01/20 Last Documented On 4 10:12AM ; [facility] History of heart disease 01/21/2016 [...] 6 Last Documented On 4 10:12AM ; [facility] Review of Systems Includes: Review of [...] Active Last Documented On 4 10:12AM ; [facility] 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 Last Documented On 4 10:12AM ; [facility] Levaquin Allergy 04/08/2010 Active Last Documented On 4 10:12AM ; [facility] Encounters Encounter Provider Location Date Check-In Time Check-Out Time Diagnosis Follow Up Monserrat Martínez PA-C [facility] 4 10:10AM 10:58AM Overweight Insurance Includes: Active Insurance Policies Plan Name Member ID Group # Subscriber Relationship Effect jordan Dates 1 - [facility] [id number] Jackelin Kaba Self Clinical Notes Includes: Clinical Notes from this encounter * Progress note Date Encounter Last Documented by 03/29/2024 Follow Up Last documented on 03/29/2024; 11:44 AM, Monserrat Martínez PA-C; [facility], [facility] Active Problems & Conditions - Joint [...] 0 refills - Vitamin D3 1.25 MG (60314 UT) Oral Capsule take as directed 0 [...]
--- OUTSIDE RECORDS SUMMARY | 2025-04-24 16:04 | XMS_ITS ---
Author Organization [facility] , [facility] Address [address] [place] [address] Phone Care Team Providers Care Regional Director Of Admissions Name Role Phone Evgeny BUSH, Grant Inman Unavailable [phone] KIM LAINEZ Unavailable [phone] TY PATEL MD Unavailable [phone] Problems Includes: Active, inactive, and resolved Problems All Visits Onset Date Resolved Date Provider Condition S tatus Joint Pain Left Knee 01/12/2024 Bridgett QUEZADA Active Last Documented On 4 10:20AM ; [facility] Joint Pain Hip Right 03/10/2016 Florentino Robin MD Active Last Documented On 6 9:43AM ; [facility] Joint Pain Right Knee 01/07/2016 Florentino tijerina MD Active Last Documented On 6 2:39PM ; [facility] Joint Pain Shoulder 11/15/2012 Florentino Robin MD Active Last Documented On 3 3:08PM ; [facility], [facility] Plan of Treatment Findings Encounter Date Ordered intervention and cou nseling on cessation of tobacco use, 3-10 minutes NEW PATIENT with Florentino Robin MD 04/20/2012 Last Documented On 3 4:39PM ; [facility], [facility] Pending Tests Order Diagnosis Results Due Ordering Anisha davila Lab Hemoglobin A1c 01/12/24 Florentino larson MD Last Documented On 4 7:46AM ; [facility], [facility] Lab CBC With Differential/Platelet 01/11 Florentino [...] weight Last Documented On 4 1:15PM ; [facility] Intervention and counseling on cessation [...] patient Last Documented On 2 1:18PM ; [facility] Patient will stop smoking Last [...] 4 9:53AM By Swathi Barajas ; [facility] Vitamin D3 1.25 MG (87250 UT) Oral Capsule 11/02/2023 Provider: Diagnosis: Last Documented On 4 9:53AM By Swathi Barajas ; [facility] Januvia 100 MG Oral Tablet 11/02/2023 Provider: Diagnosis: Last Documented On 4 9:53AM By Swathi Barajas ; [facility] Sotalol HCl 120 MG Oral Tablet 11/02/2023 Provider: Diagnosis: Last Documented On 4 9:53AM By Swathi Barajas ; [facility], [facility] Adult Aspirin Regimen 81 MG Oral Tablet Delayed Releas e 11/02/2023 Provider: Diagnosis: Last Documented On 4 9:52AM By Swathi Barajas ; [facility] Famotidine 10 MG Oral Tablet 11/02/2023 Provider: Diagnosis: Last Documented On 4 9:52AM By Swathi Barajas ; [facility] Gabapentin 100 MG Oral Capsule 11/02/2023 Provider: Diagnosis: Last Documented On 4 9:52AM By Swathi Barajas ; [facility] Lasix 20 MG Oral Tablet 11/02/2023 Provider: Diagnosis: Last Documented On 4 9:52AM By Swathi Barajas ; [facility] Potassium Chloride 10 MEQ/100ML Intravenous Solution 0 11/02/2023 Provider: Diagnosis: Last Documented On 4 9:52AM By Swathi Barajas ; [facility] Folinic-Plus 4-50-2 MG Oral Tablet 11/02/2023 Provid er: Diagnosis: Last Documented On 4 9:54AM By Swathi Barajas ; [facility] Past Medications on file HYDROcodone-Acetaminophen 10 -325 MG Oral Tablet 01/18/2024 - 01/25/2024 Provider: Grant Pepper MD Diagnosis: 1 tab every 6 hrs prn pain Last Documented On 4 3:36PM By Dr. Pepper ; [facility] metroNIDAZOLE 250 MG Oral Tablet 11/02/2023 - 01/12/20 24 Provider: Diagnosis: Last Documented On 4 10:23AM By Bridgett Hernandez ; [facility] Lovenox 30 MG/0.3ML Solution 04/10/2016 - 04/17/2016 Provider: Florentino Robin MD Diagnosis: Aftercare follow ing joint replacement surgery use as directed 1 injection per day for 7 days Last Documented On 6 10:02AM By Helen Persons ; [facility] Gu[place] 10-325 MG Tablet 04/10/2016 - 04/20/2016 Provide r: Florentino Robin MD Diagnosis: 1 tab every 6 hrs prn pain Last Documented On 6 9:58AM By Helen Persons ; [facility] Mobic 15 MG Tablet 02/05/2016 - 05/05/2016 Provider: Florentino Robin MD Diagnosis: Trochanteric bur sitis, right hip once a day Last Documented On 6 9:28AM By Helen Persons ; [facility] [place] 10-325 MG Tablet 01/09/2016 - 01/19/2016 Provide r: Florentino Robin MD Diagnosis: 1 tab every 6 hrs prn pain Last Documented On 6 1:40PM By Helen Persons ; [facility] Ranexa 500 MG OR TB12 07/25/2014 - 11/02/2023 Provider : Diagnosis: Last Documented On 4 9:51AM By Swathi Barajas ; [facility] Livalo 4 MG OR TABS 07/25/2014 - 11/02/2023 Provider: Diagnosis: Last Documented On 4 9:51AM By Swathi Barajas ; [facility] Losartan Potassium 100 MG OR TABS 07/25/2014 - 024 Provider: Diagnosis: Last Documented On 4 9:51AM By Swathi Barajas ; [facility] PriLOSEC 20 MG OR CPDR 07/25/2014 - 01/07/2016 Provide r: Diagnosis: Last Documented On 6 3:01PM By Helen Barreto ; [facility] Adult Aspirin Low Strength 81 MG OR TBDP 07/25/2014 - 11/02/2023 Provider: Diagnosis: Last Documented On 4 9:51AM By Swathi Barajas ; [facility] Percocet 5-325 MG OR TABS 03/21/2014 - 03/27/2014 Prov ider: Florentino Robin MD Diagnosis: Last Documented On 4 11:12AM By Melissa Sandoval ; [facility] Aleve 220 MG OR CAPS 04/20/2012 - 11/02/2023 Provider: Diagnosis: Last Documented On 4 9:51AM By Swathi Barajas ; [facility] Effient 10 MG OR TABS 04/20/2012 - 11/02/2023 Provider : Diagnosis: Last Documented On 4 9:51AM By Swathi Barajas ; [facility] Aspirin 325 MG OR TABS 04/20/2012 - 07/25/2014 Provide r: Diagnosis: Last Documented On 5 1:36PM By Gipson 2 User ; [facility] Pravachol 40 MG OR TABS 04/20/2012 - 07/25/2014 Provid er: Diagnosis: Last Documented On 5 1:40PM By Gipson 2 User ; [facility] Lisinopril 10 MG OR TABS 04/20/2012 - 07/25/2014 Provi santos: Diagnosis: Last Documented On 5 1:38PM By Gipson 2 User ; [facility] Soma 350 MG OR TABS 05/01/2010 - 05/31/2010 Provider: Benito Cuellar MD Diagnosis: dispensed in office/ab Last Documented On 0 11:34AM By Gipson 1 User ; [facility] Neurontin 100 MG OR CAPS 05/01/2010 - 05/31/2010 Provi santos: Benito Cuellar MD Diagnosis: dispensed in office/ab Last Documented On 0 11:34AM By Gipson 1 User ; [facility] Celecoxib 200 MG OR CAPS 05/01/2010 - 05/31/2010 Provi santos: Benito Cuellar MD Diagnosis: dispensed in office/ab Last Documented On 0 11:33AM By Gipson 1 User ; [facility] Lortab 5-500 MG OR TABS 05/18/2006 - 05/28/2006 Provid er: Diagnosis: Last Documented On 6 3:24PM By Gipson 5 User ; [facility] Lortab 5-500 MG OR TABS 09/01/2005 - 09/11/2005 Provid er: Grant Pepper MD Diagnosis: Last Documented On 6 9:54AM By Gipson 6 User ; [facility] Medications Administered Includes: Administered Medications in patient's chart No Administered Medications Recorded Results Includes: Results from 04/24/2024 through 04/24/2025 No Results Recorded For Specified Dates History of Present Illness History of Present Illness not supported for this document type No History of Present Illness Recorded Social History Description Last Updated Yes, current smoker. 11/02/2023 Last Documented On 4 9:57AM ; [facility] No recent change in diet 11/02/2023 Last Documented On 4 9:57AM ; [facility] Not using alcohol 11/02/2023 Last Documented On 4 9:57AM ; [facility] Caffeine use 07/25/2014 Last Documented On 5 4:25PM ; [facility] Current smoker 07/25/2014 Last Documented On 5 4:25PM ; [facility] No recent change in diet 07/25/2014 Last Documented On 5 4:25PM ; [facility] Not exercising regularly 07/25/2014 Last Documented On 5 4:25PM ; [facility] Not using drugs 07/25/2014 Last Documented On 5 4:25PM ; [facility] Tobacco use 07/25/2014 Last Documented On 5 4:25PM ; [facility] Smoking status : Current everyday smoker 07/25/2014 Last Documented On 5 4:25PM ; [facility] Procedures and Surgical History Includes: Procedures from 04/24/2024 through 04/24/2025 Procedures Code Diagnosis Performing Provider Service Location Service Date DRAIN/INJECT, JOINT/BURSA (LEFT) Unilateral primary osteoarthritis, left knee Monserrat Woodallbarrett Martínez PA-C [facility] 05/01/2024 Last Documented On 4 9:52AM ; [facility] Orthovisc [place], 2cc (LEFT) [id number] Unilateral primary osteoarthritis, left knee Monserrat Woodallbarrett Martínez PA-C [facility] 05/01/2024 Last Documented On 4 9:52AM ; [facility] DRAIN/INJECT, JOINT/BURSA (LEFT) Unilateral primary osteoarthritis, left knee Monserrat Uribe Mauricio SANCHES [facility] 04/24/2024 Last Documented On 4 10:18AM ; [facility] Orthovisc [place], 2cc (LEFT) J7324 Unilateral primary osteoarthritis, left knee Monserrat Woodallbarrett Martínez PA-C [facility] 04/24/2024 Last Documented On 4 10:18AM ; [facility] Surgical History Last Updated History of appendectomy 01/21/2016 Last Documented On 6 4:20PM ; [facility] History of heart surgery 01/21/2016 Last Documented On 6 4:20PM ; [facility] History of hysterectomy 01/21/2016 Last Documented On 6 4:20PM ; [facility] Medical History Includes: Medical History in patient's chart Description Last Updated bloodtransfusion ~acid reflux heart burn ~high cholesterol 01/21/2016 Last Documented On 6 4:20PM ; [facility] Arthritic joint problems 01/21/2016 Last Documented On 6 4:20PM ; [facility] History of acute myocardial infarction 0 01/21/2016 Last Documented On 6 4:20PM ; [facility] History of diverticulitis of colon 01/20 Last Documented On 6 4:20PM ; [facility] History of heart disease 01/21/2016 Last Documented On 6 4:20PM ; [facility] Intermittent hypertension 01/21/2016 Last Documented On 6 4:20PM ; [facility] Liver disease 01/21/2016 Last Documented On 6 4:20PM ; [facility] Family History Includes: Family History in patient's chart Description Last Updated Family history of diabetes mellitus 01/09 Last Documented On 6 4:20PM ; [facility] Family history of hypertension 6 Last Documented On 6 4:20PM ; [facility] Review of Systems Review of Systems [...] Active Last Documented On 4 10:12AM ; [facility] 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 Last Documented On 4 10:12AM ; [facility] Levaquin Allergy 04/08/2010 Active Last Documented On 4 10:12AM ; [facility] Encounters Includes: Encounters from 04/24/2024 through 04/24/2025 Encounter Provider Location Date Check-In Time Check-Out Time Diagnosis [place] Injection Monserrat Martínez PA-C [facility] 05/01/20 24 10:12AM 10:30AM [place] Injection Monserrat Martínez PA-C [facility] 04/24/20 24 10:18AM 10:57AM Insurance Includes: Active Insurance Policies Plan Name Member ID Group # Subscriber Relationship Effect jordan Dates 1 - [facility] [id number] Jackelin Kaba Self Clinical Notes Includes: Signed Clinical Notes starting from 06/25/2022 No Clinical Notes Recorded
== END 2025-04-23 23:59 | disposition home or self-care (01) ==
LOC: LAB.DROPOF 04-24 16:01
PROVIDERS: PCP Nurse Practitioner Family; Visit Provider Nurse Practitioner Family
DX: R00.0 Tachycardia, unspecified (principal); D64.9 Anemia, unspecified; E11.9 Type 2 diabetes mellitus without complications
CPT/HCPCS: 80053; 82607; 82728; 83036; 83735; 84443; 85025

== ENCOUNTER 2025-05-01 12:25 | Outpatient (CLI) | payer MEDICARE, OTHER, SELFPAY ==
--- OUTSIDE RECORDS SUMMARY | 2025-05-01 12:30 | XMS_ITS | Clinical Summary ---
Author Organization [facility] Address [address] [place] [address] Care Team Providers Care Exhibit Artist Name Role Phone Massiel Wells APRN Primary [...] hypertension 09/01/2019 Coronary artery disease invo lving [place] coronary artery of [place] heart without angina pectoris 09/01/2019 Type 2 diabetes mellitus wit hout complication, without long-term current use of insulin 09/01/2019 VHD (valvular heart disease) 09/01/2019 Resolved Problems Problem Noted Date Diagnosed Date Resolved Date Chest pain 09/16/2019 09/18/2019 Unstable angina pectoris 09/16/201903/2020 Overview (09/18/2019): Added automatically from request for surgery [id number] Family History Medical History Relation Name Comments [...] - 5.60 % 09/17/2019 6:23 AM EDT [facility] Blood Venipuncture / Unknown 09/17/2019 5:21 AM EDT 09/17/2019 5:57 AM EDT Narrative [facility] - 09/17/2019 6:23 AM EDT Hemoglobin A1C Ranges: Increased Risk for Diabetes 5.7% to 6.4% Diabetes >= 6.5% Diabetic Goal < 7.0% Roxi Murdock PA-C LAB BLOOD ORDERABLES Final R esult [facility]
[address] [place] [address], * (ABNORMAL) Lipid Panel (09/17/2019 5:21 AM EDT) Total Cholesterol 144 0 - 200 mg/dL 09/17/2019 6:38 AM EDT [facility] Triglycerides 163(H) 0 - 150 mg/dL 09/17/2019 6:38 AM EDT [facility] HDL Cholesterol 30(L) 40 - 60 mg/dL 09/17/2019 6:38 AM EDT [facility] LDL Cholesterol 81 0 - 100 mg/dL 09/17/2019 6:38 AM EDT [facility] VLDL Cholesterol 32.6 mg/dL 09/17/19 20 6:38 AM EDT [facility] LDL/HDL Ratio 2.71 09/17/2019 6:38 AM EDT [facility] Blood Venipuncture / Unknown 09/17/2019 5:21 AM EDT 09/17/2019 5:56 AM EDT Narrative [facility] - 09/17/2019 6:38 AM [...] PA-C LAB BLOOD ORDERABLES Final R esult [facility]
[address] [place] [address], from Last 3 Months or Most Recently Relevant to Health Maintenance Insurance [facility] Advance Directives * CPR (Attempt to Resuscitate) (Latest Code Status on File) Date Activated Date Inactivated Comments 09/16/2019 9:28 PM 09/18/2019 6:32 PM Question Answer Comments Code Status (Patient has no pulse and is not breathing): CPR (Attempt to Resuscitate) Medical Interventions (Patie nt has pulse or is breathing): Full Level Of Support Discussed With: Patient Care Teams Exhibit Artist Relationship Specialty Start Date End Date Massiel Wells APRN [facility] [place] [address] PCP - General Internal Medicine 06/25/23
--- OUTSIDE RECORDS SUMMARY | 2025-05-01 12:30 | XMS_ITS | Clinical Summary ---
Author Organization [facility] [place] Address [address] [place] [phone] Phone Care Team Providers Care Public Aid Eligibility Assistant Name Role Phone Unavailable Primary Care Provider [...] Zoster (1 of 2) 01/21/2014 COVID-19 Vaccine (2024-2 6 season) 2025 Influenza Vaccine (#1) 2025 Hepatitis B Vaccine Aged Out No longe r eligible based on patient's age to complete this topic Meningococcal B Vaccine Aged Out No l onger eligible based on patient's age to complete this topic
[2025-05-01 13:30] LABS: Albumin Level 4.2 g/dl (3.5-5.0); Chloride 97 mmol/L (98-107); Sodium 141 mmol/L (136-145)
[2025-05-01 13:31] LABS: Potassium 4.0 mmoL/L (3.5-5.1)
[2025-05-01 13:33] LABS: Alanine Aminotransferase 17 U/L (12-78); Albumin/Globulin Ratio 1.4 (1.1-1.8); Alkaline Phosphatase 111 U/L (38-126); Anion Gap 13.0 mEq/L (5-15); Aspartate Amino Transferase 23 U/L (14-36); Bilirubin,Total 0.7 mg/dl (0.2-1.3); Blood Urea Nitrogen 21 mg/dl (7-17); Carbon Dioxide 35 mmol/L (22.0-30.0); Creatinine,Serum 0.80 mg/dl (0.52-1.04); Estimated Glomerular Filt Rate 73 ml/min (>60); GFR (African American) 88 ML/MIN (>60); Globulin 3.1 g/dL (1.3-3.2); Glucose 107 mg/dl (74-100); Total Protein,Serum 7.3 g/dl (6.3-8.2)
[2025-05-01 13:34] LABS: Calcium 9.5 mg/dl (8.4-10.2); Magnesium 2.2 mg/dl (1.6-2.3)
[2025-05-01 13:49] LABS: Free T4 (Free Thyroxine) 1.31 ng/dl (0.78-2.19)
[2025-05-01 13:51] LABS: T4 (Thyroxine) 11.1 ug/dl (5.53-11.0)
[2025-05-01 14:04] LABS: Thyroid Stimulating Hormone 0.69 uIU/mL (0.465-4.68)
[2025-05-02 07:11] LABS: Triiodothyronine (T3) Free 2.9 pg/mL (2.0-4.4)
== END 2025-05-01 23:59 | disposition home or self-care (01) ==
LOC: LAB 12:28
PROVIDERS: PCP Nurse Practitioner Family; Visit Provider Nurse Practitioner Family
DX: E87.6 Hypokalemia (principal); E11.9 Type 2 diabetes mellitus without complications; R79.89 Other specified abnormal findings of blood chemistry; E05.90 Thyrotoxicosis, unspecified without thyrotoxic crisis or storm
CPT/HCPCS: 36415; 80053; 83735; 84436; 84439; 84443; 84481; 86376; 86800

== ENCOUNTER 2025-05-14 08:04 | Day surgery (SDC) | payer MEDICARE, OTHER, SELFPAY ==
[2025-05-14] VITALS (14 sets, daily range): BP systolic 126–199; BP diastolic 64–98; PULSE 50–67; RESP 18–20; O2SAT 95–99; BMI 27.3
--- NOTE | 2025-05-14 07:08 | IR_ITS ---
APPROVED REPORT Patient Location: Outpatient Directory Operator: SANJU Pizano RT (R) PROCEDURES Left heart catheterization Left ventriculogram Selective coronary angiogram Drug-eluting stent deployment to the proximal mid and distal dominant right coronary INDICATION Coronary artery disease, Angina pectoris Informed consent was obtained prior to the procedure. COMPLICATIONS NONE Estimated Blood Loss: LESS THAN 10 ML TECHNIQUE One percent lidocaine used to anesthetize the right anterior aspect of the wrist. The right radial artery was accessed via the Seldinger technique. A 6 Bulgarian sheath was placed in the right radial artery. 2.5 mg of Verapamil, 800 mcg of nitroglycerin, 1mg Lidocaine and 5000 U Heparin were given through the arterial sheath. The JL3 catheter was also used to perform left heart catheterization, left ventriculogram and selective coronary angiogram. At the end the diagnostic angiogram therapeutic Was administered giving a therapeutic ACT and the guide catheters placed in the right coronary followed by a Choice PT extra-support wire placed distally. Primary stenting could not be performed therefore 3 mm x 20 mm noncompliant balloon was deployed at 20 katie in the mid and proximal segment to predilate. Following this a 3.5 x 38 mm Tony frontier stent was placed in the proximal to mid right coronary artery and deployed at 20 katie. An additional 3.5 x 38 mm stent could not be delivered due to apparent struts hanging out in the proximal segment. A guide liner was advanced which allowed delivery of an additional 3.5 x 38 mm [place] frontier stent which was placed distally to the for stent yet still overlapping and deployed at 16 katie. The balloon was brought back and deployed at 24 katie in its proximal portion of the second stent and throughout the for stent placed. Following this an additional 3.5 x 22 mm [place] frontier stent was placed proximal to the for stent yet still overlapping extending back toward the ostium and deployed at 24 katie. The balloon was advanced to length and deployed at 24 katie to further post dilate. JOHN-3 flow was present before and after the procedure. At the end the procedure the apparatus was removed the sheath was removed and hemostasis was achieved using TR banding patient was transferred to the postop holding in stable condition ANGIOGRAPHIC RESULTS The left main artery Normal The left anterior descending artery Is proximally normal has a stent in the midsegment which has 30 to 40% concentric in-stent restenosis with excellent proximal distal transitioning The circumflex artery Nondominant and has 30% concentric stenosis of the large first obtuse marginal artery/ramus intermedius which is with additional diffuse 10 to 20% stenosis The right coronary artery Large and dominant has proximal concentric greater than 90% in-stent restenosis with an additional 70 to 80% distal stenosis followed by additional 40 to 50% tandem stenosis The FRANKS ventriculogram reveals Normal 65% The left ventricular end-diastolic pressure 15 mmHg IMPRESSION Severe in-stent restenosis throughout the right coronary artery as described above with successful stenting of the proximal mid and distal segment with 3 contiguous drug-eluting stents reducing lesion less than 10% Mild to moderate in-stent restenosis in the mid LAD Normal ejection fraction Normal LVEDP PLAN 1. Dual antiplatelet therapy 2. Patient must discontinue tobacco usage. If this restenosis in the future she will be referred for brachytherapy 3. LDL less than 55 to be achieved with high intensity statin 4. Cardiac rehabilitation 5. Aggressive risk factor modification Electronically signed by : Shaun Lee MD 05/14/2025 09:37:16
[2025-05-14 08:53] LABS: Hematocrit 48.2 % (37.0-47.0); Hemoglobin 15.9 g/dL (12.2-16.2); Immature Granulocytes % 0.6 %; Mean Corpuscular HGB Conc 33.0 g/dL (31.8-35.4); Mean Corpuscular Hemoglobin 30.1 pg (27.0-31.2); Mean Corpuscular Volume 91.3 fl (81-99); Nucleated Red Blood Cells % 0 %; Platelet Count 227 K/mm3 (142-424); Red Blood Count 5.28 M/mm3 (4.20-5.40); Red Cell Distribution Width-SD 49.0 fL; White Blood Count 8.3 K/mm3 (4.8-10.8)
[2025-05-14 08:56] LABS: Anion Gap 10.8 mEq/L (5-15); Blood Urea Nitrogen 21 mg/dl (7-17); Calcium 9.2 mg/dl (8.4-10.2); Carbon Dioxide 29 mmol/L (22.0-30.0); Chloride 104 mmol/L (98-107); Creatinine Clearance Estimated 65 mL/min (50-200); Creatinine,Serum 0.80 mg/dl (0.52-1.04); Estimated Glomerular Filt Rate 73 ml/min (>60); GFR (African American) 88 ML/MIN (>60); Glucose 92 mg/dl (74-100); Potassium 3.8 mmoL/L (3.5-5.1); Sodium 140 mmol/L (136-145)
[2025-05-14] MEDS: HEPARIN 1,000 UNITS/500ML NS (CATH LAB) 3000 UNIT IV (09:03)
[2025-05-14] MEDS: LIDOCAINE 1% 10ML MDV 10 ML IJ (09:04)
[2025-05-14] MEDS: NITROGLYCERIN 800MCG/8ML SYR (CATH LAB) 800 MCG IA (09:04)
[2025-05-14] MEDS: 0.9 % SODIUM CHLORIDE 500 ML 25 ML IV (09:04)
[2025-05-14] MEDS: HEPARIN 1,000 UNITS/ML 10ML VIAL (CATH LAB) 5000 UNIT IV (09:05)
[2025-05-14] MEDS: VERAPAMIL 2.5MG/ML 2ML VIAL 2.5 MG IV (09:05)
[2025-05-14] MEDS: MIDAZOLAM HCL 1MG/ML 5ML VIAL 1 MG IV (09:18)
[2025-05-14] MEDS: FENTANYL 100MCG/2ML VIAL 50 MCG IV (09:18)
[2025-05-14] MEDS: PRASUGREL 10MG TAB 60 MG PO (09:34)
[2025-05-14] MEDS: IOPAMIDOL-370 (76%);100ML BOTTLE 90 ML IV (10:17)
[2025-05-14 10:19] LABS: CATHL Activated Clotting Time > 400 SEC (74-125)
== END 2025-05-14 13:24 | disposition home or self-care (01) ==
LOC: CATHLAB 08:05
PROVIDERS: PCP Nurse Practitioner Family; Visit Provider Internal Medicine
PROC: 4A023N7 Measurement of Cardiac Sampling and Pressure, Left Heart, Percutaneous Approach (ICD-10-PCS; CPT 93452; principal; 2025-05-14 07:30)
DX: I25.119 Atherosclerotic heart disease of native coronary artery with unspecified angina pectoris (principal); T82.855A Stenosis of coronary artery stent, initial encounter; R07.9 Chest pain, unspecified; R06.02 Shortness of breath; G47.33 Obstructive sleep apnea (adult) (pediatric); E11.51 Type 2 diabetes mellitus with diabetic peripheral angiopathy without gangrene; I10 Essential (primary) hypertension; I35.1 Nonrheumatic aortic (valve) insufficiency; I34.0 Nonrheumatic mitral (valve) insufficiency; I70.213 Atherosclerosis of native arteries of extremities with intermittent claudication, bilateral legs; E78.49 Other hyperlipidemia; F17.210 Nicotine dependence, cigarettes, uncomplicated; Z79.82 Long term (current) use of aspirin; Z79.02 Long term (current) use of antithrombotics/antiplatelets; Z79.84 Long term (current) use of oral hypoglycemic drugs; Z79.85 Long-term (current) use of injectable non-insulin antidiabetic drugs; Z79.51 Long term (current) use of inhaled steroids; Z79.899 Other long term (current) drug therapy; Z88.1 Allergy status to other antibiotic agents; Z88.5 Allergy status to narcotic agent; Z88.8 Allergy status to other drugs, medicaments and biological substances; Y84.8 Other medical procedures as the cause of abnormal reaction of the patient, or of later complication, without mention of misadventure at the time of the procedure
CPT/HCPCS: 80048; 85025; 85347; 92928; 93458; 99152; 99153; C1725; C1769; C1874; C9600; J1200; J1644; J3010; J7040; Q9967

== ENCOUNTER 2025-05-17 09:48 | Outpatient (CLI) | payer MEDICARE, OTHER, SELFPAY ==
--- OUTSIDE RECORDS SUMMARY | 2025-05-17 09:55 | XMS_ITS | Clinical Summary ---
Author Organization [facility] Address [address] [place] [address] Care Team Providers Care Emts Name Role Phone Massiel Wells APRN Primary [...] hypertension 09/01/2019 Coronary artery disease invo lving karuk coronary artery of karuk heart without angina pectoris 09/01/2019 Type 2 diabetes mellitus wit hout complication, without long-term current use of insulin 09/01/2019 VHD (valvular heart disease) 09/01/2019 Resolved Problems Problem Noted Date Diagnosed Date Resolved Date Chest pain 09/16/2019 09/18/2019 Unstable angina pectoris 09/16/201903/2020 Overview (09/18/2019): Added automatically from request for surgery [id number] Family History Medical History Relation Name Comments [...] - 5.60 % 09/17/2019 6:23 AM EDT [facility] Blood Venipuncture / Unknown 09/17/2019 5:21 AM EDT 09/17/2019 5:57 AM EDT Narrative [facility] - 09/17/2019 6:23 AM EDT Hemoglobin A1C Ranges: Increased Risk for Diabetes 5.7% to 6.4% Diabetes >= 6.5% Diabetic Goal < 7.0% Roxi Murdock PA-C LAB BLOOD ORDERABLES Final R esult [facility]
[address] [place] [address], * (ABNORMAL) Lipid Panel (09/17/2019 5:21 AM EDT) Total Cholesterol 144 0 - 200 mg/dL 09/17/2019 6:38 AM EDT [facility] Triglycerides 163(H) 0 - 150 mg/dL 09/17/2019 6:38 AM EDT [facility] HDL Cholesterol 30(L) 40 - 60 mg/dL 09/17/2019 6:38 AM EDT [facility] LDL Cholesterol 81 0 - 100 mg/dL 09/17/2019 6:38 AM EDT [facility] VLDL Cholesterol 32.6 mg/dL 09/17/19 20 6:38 AM EDT [facility] LDL/HDL Ratio 2.71 09/17/2019 6:38 AM EDT [facility] Blood Venipuncture / Unknown 09/17/2019 5:21 AM EDT 09/17/2019 5:56 AM EDT Narrative [facility] - 09/17/2019 6:38 [...] PA-C LAB BLOOD ORDERABLES Final R esult [facility]
[address] [place] [address], from Last 3 Months or Most Recently Relevant to Health Maintenance Insurance [facility] Advance Directives * CPR (Attempt to Resuscitate) (Latest Code Status on File) Date Activated Date Inactivated Comments 09/16/2019 9:28 PM 09/18/2019 6:32 PM Question Answer Comments Code Status (Patient has no pulse and is not breathing): CPR (Attempt to Resuscitate) Medical Interventions (Patie nt has pulse or is breathing): Full Level Of Support Discussed With: Patient Care Teams Emts Relationship Specialty Start Date End Date Massiel Wells APRN [facility] [place] [address] PCP - General Internal Medicine 06/25/23
--- OUTSIDE RECORDS SUMMARY | 2025-05-17 09:55 | XMS_ITS | Clinical Summary ---
Author Organization [facility] [place] Address [address] [place] [phone] Phone Care Team Providers Care Can Reconditioner Name Role Phone Unavailable Primary Care Provider [...]
[2025-05-17 10:59] LABS: Hematocrit 47.1 % (37.0-47.0); Hemoglobin 15.1 g/dL (12.2-16.2); Immature Granulocytes % 0.7 %; Mean Corpuscular HGB Conc 32.1 g/dL (31.8-35.4); Mean Corpuscular Hemoglobin 29.7 pg (27.0-31.2); Mean Corpuscular Volume 92.7 fl (81-99); Nucleated Red Blood Cells % 0 %; Platelet Count 222 K/mm3 (142-424); Red Blood Count 5.08 M/mm3 (4.20-5.40); Red Cell Distribution Width-SD 51.3 fL; White Blood Count 8.7 K/mm3 (4.8-10.8)
[2025-05-17 11:20] LABS: Anion Gap 13.4 mEq/L (5-15); Blood Urea Nitrogen 24 mg/dl (7-17); Calcium 9.5 mg/dl (8.4-10.2); Carbon Dioxide 24 mmol/L (22.0-30.0); Chloride 103 mmol/L (98-107); Creatinine,Serum 0.80 mg/dl (0.52-1.04); Estimated Glomerular Filt Rate 73 ml/min (>60); GFR (African American) 88 ML/MIN (>60); Glucose 100 mg/dl (74-100); Potassium 4.4 mmoL/L (3.5-5.1); Sodium 136 mmol/L (136-145)
== END 2025-05-17 23:59 | disposition home or self-care (01) ==
LOC: LAB 09:49
PROVIDERS: PCP Nurse Practitioner Family; Visit Provider Internal Medicine
DX: I25.10 Atherosclerotic heart disease of native coronary artery without angina pectoris (principal)
CPT/HCPCS: 36415; 80048; 85025

== ENCOUNTER 2025-05-31 13:18 | Emergency (ER) | payer MEDICARE, OTHER, SELFPAY ==
[2025-05-31 13:23] VITALS: BP 113/43; PULSE 59; RESP 18; TEMP 36.8; O2SAT 100; BMI 26.2
--- NOTE | 2025-05-31 13:28 | XR_ITS ---
FINAL REPORT CLINICAL HISTORY: short of breath COMPARISON: 04/21/2025 FINDINGS: The heart size is normal. The mediastinum is normal. There is no focal infiltrate or edema. There are no pleural effusions. There is no pneumothorax. There is no osseous abnormality. IMPRESSION: No acute cardiopulmonary process Reviewed, Interpreted and Dictated by Bo Davison MD Transcribed by Georgia Heck Authenticated and [facility]
--- NOTE | 2025-05-31 13:42 | ECG_ITS ---
APPROVED REPORT Exam: Resting ECG HR:59 bpm ECG Measurements Heart Rate 59 AXES MT 147 P 58 QRSd 128 QRS -49 QT 444 T 5 QTc 443 Conclusion SINUS BRADYCARDIA RIGHT BUNDLE BRANCH BLOCK [120+ ms QRS DURATION, UPRIGHT V1, 40+ ms S IN I/aVL/V4/V5/V6] LEFT ANTERIOR FASCICULAR BLOCK [QRS AXIS <= -45, QR IN I, RS IN II] ABNORMAL ECG UNCONFIRMED REPORT Sinus bradycardia. No ST elevation or depression. QTc of 4 and 43 Electronically signed by : KYLE MENDOZA, 06/01/2025 13:51:03
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
[2025-05-31] MEDS: ASPIRIN 325MG TABLET 325 MG PO (13:48)
[2025-05-31] MEDS: ACETAMINOPHEN 1,000MG/100ML VIAL 1000 MG IV (13:48)
[2025-05-31] MEDS: FAMOTIDINE 20MG/2ML VIAL 20 MG IV (13:48)
[2025-05-31 13:57] LABS: Hematocrit 42.4 % (37.0-47.0); Hemoglobin 14.0 g/dL (12.2-16.2); Immature Granulocytes % 1.0 %; Mean Corpuscular HGB Conc 33.0 g/dL (31.8-35.4); Mean Corpuscular Hemoglobin 30.2 pg (27.0-31.2); Mean Corpuscular Volume 91.4 fl (81-99); Nucleated Red Blood Cells % 0 %; Platelet Count 266 K/mm3 (142-424); Red Blood Count 4.64 M/mm3 (4.20-5.40); Red Cell Distribution Width-SD 50.5 fL; White Blood Count 7.1 K/mm3 (4.8-10.8)
[2025-05-31 14:00] VITALS: BP 97/56; PULSE 60; RESP 14; O2SAT 100
[2025-05-31 14:07] LABS: Microscopic, Urine URINE MICROSCOPIC (MICROSCOPIC)
[2025-05-31 14:17] LABS: Alanine Aminotransferase 21 U/L (12-78); Albumin Level 5.0 g/dl (3.5-5.0); Albumin/Globulin Ratio 1.5 (1.1-1.8); Alkaline Phosphatase 118 U/L (38-126); Anion Gap 13.2 mEq/L (5-15); Aspartate Amino Transferase 32 U/L (14-36); Bilirubin,Total 0.8 mg/dl (0.2-1.3); Blood Urea Nitrogen 21 mg/dl (7-17); Calcium 10.1 mg/dl (8.4-10.2); Carbon Dioxide 27 mmol/L (22.0-30.0); Chloride 101 mmol/L (98-107); Creatinine Clearance Estimated 63 mL/min (50-200); Creatinine,Serum 0.90 mg/dl (0.52-1.04); Estimated Glomerular Filt Rate 64 ml/min (>60); GFR (African American) 77 ML/MIN (>60); Globulin 3.3 g/dL (1.3-3.2); Glucose 97 mg/dl (74-100); Lipase 90 U/L (23-300); Magnesium 2.1 mg/dl (1.6-2.3); Potassium 4.2 mmoL/L (3.5-5.1); Sodium 137 mmol/L (136-145); Total Protein,Serum 8.3 g/dl (6.3-8.2)
[2025-05-31 14:17] LABS: Bilirubin,Urine Negative (Negative); Color,Urine YELLOW (Yellow); Glucose,Urine (UA) 3+ (Negative); Ketones,Urine Negative (Negative); Leukocyte Esterase,Urine Negative (Negative); PH,Urine 5.5 (5.0-8.5); Protein,Urine Negative (Negative); Specific Gravity, Urine 1.020 (1.005-1.030); Urobilinogen,Urine 0.2 EU/dl (0.2)
[2025-05-31 14:21] LABS: D-Dimer 0.79 ug/mL (0.0-0.5)
[2025-05-31 14:30] VITALS: BP 98/54; PULSE 58; RESP 17; O2SAT 99
[2025-05-31 14:40] LABS: Troponin I < 0.01 ng/ml (0.00-0.034)
[2025-05-31 15:00] VITALS: BP 109/57; PULSE 60; RESP 16; O2SAT 99
[2025-05-31 15:30] VITALS: BP 111/58; PULSE 58; RESP 19; O2SAT 99
[2025-05-31] MEDS: KETOROLAC 30MG/ML VIAL 30 MG IV (15:51)
--- NOTE | 2025-05-31 16:26 | PC.NURSE ---
REPEAT TROP SENT
[2025-05-31 16:56] LABS: Troponin I < 0.01 ng/ml (0.00-0.034)
[2025-05-31 17:21] VITALS: BP 119/70; PULSE 63; RESP 18; TEMP 36.6; O2SAT 99
== END 2025-05-31 17:24 | disposition home or self-care (01) ==
PROVIDERS: Nurse Practitioner; Emergency Provider Student in an Organized Health Care Education/Training Program; PCP Nurse Practitioner Family
DX: R07.89 Other chest pain (principal); G62.9 Polyneuropathy, unspecified; F17.210 Nicotine dependence, cigarettes, uncomplicated; Z86.79 Personal history of other diseases of the circulatory system; Z95.5 Presence of coronary angioplasty implant and graft
CPT/HCPCS: 71045; 80053; 81001; 83690; 83735; 84484; 85025; 85378; 93005; 96374; 96375; 99285; J0131; J1308; J1885

== ENCOUNTER 2025-06-11 11:49 | Outpatient (CLI) | payer MEDICARE, OTHER, SELFPAY ==
--- OUTSIDE RECORDS SUMMARY | 2025-06-11 12:01 | XMS_ITS | Clinical Summary ---
Author Organization [facility] Address [address] [place] [phone] Phone Care Team Providers Care Biomedical Equipment Tech Name Role Phone Unavailable Primary Care Provider [...]
--- OUTSIDE RECORDS SUMMARY | 2025-06-11 12:01 | XMS_ITS | Clinical Summary ---
Author Organization [facility] Address [address] [place] [address] Care Team Providers Care Varying Exceptionalities Teacher Name Role Phone Massiel Wells APRN Primary [...] hypertension 09/01/2019 Coronary artery disease invo lving [place] coronary artery of [place] heart without angina pectoris 09/01/2019 Type 2 diabetes mellitus wit hout complication, without long-term current use of insulin 09/01/2019 VHD (valvular heart disease) 09/01/2019 Resolved Problems Problem Noted Date Diagnosed Date Resolved Date Chest pain 09/16/2019 09/18/2019 Unstable angina pectoris 09/16/201903/2020 Overview (09/18/2019): Added automatically from request for surgery [id number] Family History Medical History Relation Name Comments Hepatitis Father Diabetes Mother Hypertension Mother Relation Name Status Comments Father Mother Social History Tobacco Use Types Packs/Day Years Used Date Smoking Tobacco: Every Day Cigarettes 1.5 52.9 Started: 1973 Smokeless Tobacco: Never Alcohol Use [...] - 5.60 % 09/17/2019 6:23 AM EDT [facility] Blood Venipuncture / Unknown 09/17/2019 5:21 AM EDT 09/17/2019 5:57 AM EDT Narrative [facility] - 09/17/2019 6:23 AM EDT Hemoglobin A1C Ranges: Increased Risk for Diabetes 5.7% to 6.4% Diabetes >= 6.5% Diabetic Goal < 7.0% Roxi Murdock PA-C LAB BLOOD ORDERABLES Final R esult [facility]
[address] [place] [address], * (ABNORMAL) Lipid Panel (09/17/2019 5:21 AM EDT) Total Cholesterol 144 0 - 200 mg/dL 09/17/2019 6:38 AM EDT [facility] Triglycerides 163(H) 0 - 150 mg/dL 09/17/2019 6:38 AM EDT [facility] HDL Cholesterol 30(L) 40 - 60 mg/dL 09/17/2019 6:38 AM EDT [facility] LDL Cholesterol 81 0 - 100 mg/dL 09/17/2019 6:38 AM EDT [facility] VLDL Cholesterol 32.6 mg/dL 09/17/19 20 6:38 AM EDT [facility] LDL/HDL Ratio 2.71 09/17/2019 6:38 AM EDT [facility] Blood Venipuncture / Unknown 09/17/2019 5:21 AM EDT 09/17/2019 5:56 AM EDT Narrative [facility] - 09/17/2019 6:38 AM EDT [...] PA-C LAB BLOOD ORDERABLES Final R esult [facility]
[address] [place] [address], from Last 3 Months or Most Recently Relevant to Health Maintenance Insurance [facility] Advance Directives * CPR (Attempt to Resuscitate) (Latest Code Status on File) Date Activated Date Inactivated Comments 09/16/2019 9:28 PM 09/18/2019 6:32 PM Question Answer Comments Code Status (Patient has no pulse and is not breathing): CPR (Attempt to Resuscitate) Medical Interventions (Patie nt has pulse or is breathing): Full Level Of Support Discussed With: Patient Care Teams Varying Exceptionalities Teacher Relationship Specialty Start Date End Date Massiel Wells APRN [facility] [place] [address] PCP - General Internal Medicine 06/25/23
== END 2025-06-11 23:59 | disposition home or self-care (01) ==
LOC: LAB 11:50
PROVIDERS: PCP Nurse Practitioner Family; Visit Provider Nurse Practitioner Family
DX: R10.13 Epigastric pain (principal)
CPT/HCPCS: 83013; 83014

== ENCOUNTER 2025-06-26 14:41 | Outpatient (CLI) | payer MEDICARE, OTHER, SELFPAY ==
--- OUTSIDE RECORDS SUMMARY | 2025-06-26 14:44 | XMS_ITS | Clinical Summary ---
Author Organization [facility] Address [address] [place] [address] Care Team Providers Care Supervisor Fish [employer] Name Role Phone Massiel Wells APRN Primary [...] hypertension 09/01/2019 Coronary artery disease invo lving [place] coronary artery of [place] heart without angina pectoris 09/01/2019 Type 2 diabetes mellitus wit hout complication, without long-term current use of insulin 09/01/2019 VHD (valvular heart disease) 09/01/2019 Resolved Problems Problem Noted Date Diagnosed Date Resolved Date Chest pain 09/16/2019 09/18/2019 Unstable angina pectoris 09/16/201903/2020 Overview (09/18/2019): Added automatically from request for surgery [id number] Family History Medical History Relation Name Comments Hepatitis Father Diabetes Mother Hypertension Mother Relation Name Status Comments Father Mother Social History Tobacco Use Types Packs/Day Years Used Date Smoking Tobacco: Every Day Cigarettes 1.5 53 Started: 1973 Smokeless Tobacco: Never Alcohol Use [...] - 5.60 % 09/17/2019 6:23 AM EDT [facility] Blood Venipuncture / Unknown 09/17/2019 5:21 AM EDT 09/17/2019 5:57 AM EDT Narrative [facility] - 09/17/2019 6:23 AM EDT Hemoglobin A1C Ranges: Increased Risk for Diabetes 5.7% to 6.4% Diabetes >= 6.5% Diabetic Goal < 7.0% Roxi Murdock PA-C LAB BLOOD ORDERABLES Final R esult [facility]
[address] [place] [address], * (ABNORMAL) Lipid Panel (09/17/2019 5:21 AM EDT) Total Cholesterol 144 0 - 200 mg/dL 09/17/2019 6:38 AM EDT [facility] Triglycerides 163(H) 0 - 150 mg/dL 09/17/2019 6:38 AM EDT [facility] HDL Cholesterol 30(L) 40 - 60 mg/dL 09/17/2019 6:38 AM EDT [facility] LDL Cholesterol 81 0 - 100 mg/dL 09/17/2019 6:38 AM EDT [facility] VLDL Cholesterol 32.6 mg/dL 09/17/19 20 6:38 AM EDT [facility] LDL/HDL Ratio 2.71 09/17/2019 6:38 AM EDT [facility] Blood Venipuncture / Unknown 09/17/2019 5:21 AM EDT 09/17/2019 5:56 AM EDT Narrative [facility] - 09/17/2019 6:38 AM [...] PA-C LAB BLOOD ORDERABLES Final R esult [facility]
[address] [place] [address], from Last 3 Months or Most Recently Relevant to Health Maintenance Insurance Advance Directives * CPR (Attempt to Resuscitate) (Latest Code Status on File) Date Activated Date Inactivated Comments 09/16/2019 9:28 PM 09/18/2019 6:32 PM Question Answer Comments Code Status (Patient has no pulse and is not breathing): CPR (Attempt to Resuscitate) Medical Interventions (Patie nt has pulse or is breathing): Full Level Of Support Discussed With: Patient Care Teams Supervisor [employer] Relationship Specialty Start Date End Date Massiel Wells APRN [facility] [place] [address] [place] [id number] PCP - General Internal Medicine 06/25/23
--- OUTSIDE RECORDS SUMMARY | 2025-06-26 14:44 | XMS_ITS | Clinical Summary ---
Author Organization [facility] Address [address] [place] [phone] Phone Care Team Providers Care Grape Grower Name Role Phone Unavailable Primary Care Provider [...]
--- NOTE | 2025-06-26 14:45 | MM_ITS ---
PROCEDURE INFORMATION: Exam: MG Bilateral Screening 3D Mammography Exam date and time: 06/26/2025 2:58 PM Age: 60 years old Clinical indication: Screening exam. TECHNIQUE: Imaging protocol: Bilateral Screening tomosynthesis and 2D mammography including computer-aided detection (CAD) when performed. COMPARISON: No relevant prior studies available. FINDINGS: MAMMOGRAPHY: Breast composition: The breasts are heterogeneously dense, which may obscure small masses. Mass: No suspicious masses. Architectural distortion: None. Calcifications: No suspicious calcifications. Asymmetric density: None. Skin thickening: None. Axillary adenopathy: None. IMPRESSION: No mammographic evidence of malignancy. Annual screening is recommended unless otherwise clinically indicated. ASSESSMENT: BI-RADS Category 1: Negative.
== END 2025-06-26 23:59 | disposition home or self-care (01) ==
LOC: RAD 14:42
PROVIDERS: PCP Nurse Practitioner Family; Visit Provider Nurse Practitioner Family
DX: Z12.31 Encounter for screening mammogram for malignant neoplasm of breast (principal); R92.333 Mammographic heterogeneous density, bilateral breasts
CPT/HCPCS: 77063; 77067